=== PATIENT | male | born 1955 | race Caucasian/White ===

== ENCOUNTER → 2017-08-28 08:48 | Outpatient (CLI) | payer OTHER, SELFPAY ==
[2017-08-28 09:46] LABS: AST(SGOT) 17 U/L (15-37); Alanine Aminotransfer ALT/SGPT 33 U/L (16-61); Albumin, Serum 3.6 g/dL (3.2-5.0); Alkaline Phosphatase 83 U/L (45-117); Cholesterol 156 mg/dL (200); Globulin 3.4 g/dL (2.2-4.2); High Density Lipoprotein 39 mg/dL; Triglycerides 116 mg/dL; Very Low Density Lipoprotein 23 mg/dL (5-40)
== END ==
PROVIDERS: Family Provider Family Medicine; PCP Family Medicine; Visit Provider Physician Assistant Medical
DX: E78.5 Hyperlipidemia, unspecified (principal); Z79.899 Other long term (current) drug therapy
CPT/HCPCS: 36415; 80061; 80076

== ENCOUNTER → 2018-02-12 07:39 | Outpatient (CLI) | payer MEDICARE, SELFPAY ==
[2018-02-12 09:38] LABS: AST(SGOT) 23 U/L (15-37); Alanine Aminotransfer ALT/SGPT 42 U/L (16-61); Albumin, Serum 3.4 g/dL (3.2-5.0); Alkaline Phosphatase 82 U/L (45-117); Anion Gap 10 (5-15); BUN 16 mg/dL (7-18); BUN/Creat Ratio 17.3 RATIO (10-20); Calcium,Total 8.4 mg/dL (8.5-10.1); Chloride 108 mmol/L (98-107); Cholesterol 167 mg/dL (200); Creatinine, Serum 0.93 mg/dL (0.70-1.30); EST Glomerular Filtration Rate 87 mL/min (>60); Est Glom Filt Rate - Afr Amer 105 mL/min (>60); Globulin 3.4 g/dL (2.2-4.2); Glucose 100 mg/dL (74-106); High Density Lipoprotein 42 mg/dL; Magnesium 2.1 mg/dL (1.6-2.6); Protein, Total 6.8 g/dL (6.4-8.2); Sodium Level 141 mmol/L (136-145); Thyroid Stim Hormone (TSH) 2.11 uIU/mL (0.358-3.74); Triglycerides 143 mg/dL; Very Low Density Lipoprotein 29 mg/dL (5-40)
[2018-02-12 12:02] LABS: Microalbumin,Random Urine 16.6 mg/L (NO RANGE EST.); Microalbumin:Creatinine Ratio 10.6 mg/g CRE (<30 mg/g CRE)
--- OUTSIDE RECORDS SUMMARY | 2018-04-08 18:53 | XMS RPT_ITS ---
:1955 Author Organization OHIP Care Team Providers Name Role Phone Sloan Galan Attending Unavailable Roche, Apolinar Referring Unavailable Roche, Apolinar Primary Care Unavailable Pamela Manuelito Attending Unavailable Roche, Apolinar Primary Care Unavailable Adama Sloan Attending Unavailable Roche, Apolinar Referring Unavailable ASSESSMENT, HEALTH RISK Attending Unavailable Roche, Apolinar Primary Care Unavailable Jody Padilla Attending Unavailable Jody Padilla Referring Unavailable Roche, Apolinar Primary Care Unavailable Aidan Wyatt Attending Unavailable Roche, Apolinar Referring Unavailable Roche, Apolinar Primary Care Unavailable Roche, Apolinar Attending Unavailable Roche, Apolinar Referring Unavailable Roche, Apolinar Primary Care Unavailable Jody Padilla Attending Unavailable Roche, Apolinar Referring Unavailable Roche, Apolinar Primary Care Unavailable PROBLEMS PROBLEMS DATE TYPE CONDITION / CODE ATTENDING STATUS SOURCE 02/12/2018 Unknown 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 / Community I40.0(ICD-10) Hospital Repository 02/12/2018 Unknown R60.0 - Localized Apolinar Roche Active [facility] edema / Community R60.0(ICD-10) Hospital Repository 03/10/2017 Unknown G47.33 - Manuelito Santiago Active [facility] Obstructive sleep Community apnea (adult) Hospital (pediatric) / Repository G47.33(ICD-10) 03/10/2017 Unknown G47.37 - Central Manuelito Santiago Active [facility] sleep apnea in Community conditions Hospital classified Repository elsewhere / G47.37(ICD-10) PROCEDURES PROCEDURES No Procedure Records FoundRESULTS RESULTS COMPREHENSIVE METABOLIC Collected: 02/12/2018 Status: F Source: JUNAID LOPEZ 7:44 AM [facility]PITAL REPOSITORY Order Comment: Order Date: 11/16/17 Order Info: [id number] - CMP Order Info: [id number] - LIPID Order Info: [id number] - MG Order Info: 3016-3 - TSH TYPE CODE TESTS RESULT OUT OF RANGE REFERENCE UNITS LAB L501.0100 74-106 mg/dL Normal GLU 100 Result Comment: Fasting Glucose result from 100 to 125 mg/dL suggests IMPAIRED HOMEOSTASIS per A.D.A. criteria. Please note revised GLUCOSE reference range effective 2017. LAB L501.1000 7-18 mg/dL Normal BUN 16 LAB L501.1100 0.70-1.30 mg/dL Normal CREAT,SERUM 0.93 Result Comment: The validity of the calculated GFR AND GFRAA in patients over 70 years has not been determined. Clinical correlation is essential. LAB L501.1110 >60 mL/min Normal EST GFR 87 Result Comment: Non- GFR Calc LAB L501.1115 >60 mL/min Normal EST GFR - AA 105 Result Comment: GFR Calc LAB L501.1300 10-20 RATIO Normal BUN/CRE 17.3 LAB L501.1500 6.4-8.2 g/dL T Normal PROT 6.8 LAB L501.1800 3.2-5.0 g/dL Normal ALB 3.4 LAB L501.1950 2.2-4.2 g/dL Normal GLOB 3.4 LAB L501.2000 0.9-2.4 RATIO Normal A/G 1.0 LAB L501.2200 8.5-10.1 mg/dL Low CA 8.4 LAB L501.4100 15-37 U/L Normal AST 23 LAB L501.4305 45-117 U/L Normal ALK P 82 LAB L501.4405 16-61 U/L Normal ALT 42 LAB L501.4600 0.20-1.00 mg/dL T Normal BILI 0.30 LAB L501.5300 136-145 mmol/L NA Normal 141 LAB L501.5600 3.5-5.1 mmol/L K Normal 4.0 LAB L501.5900 98-107 mmol/L High CL 108 LAB L501.6100 21.0-32.0 mmol/L Normal CO2 23.0 LAB L501.6200 5-15 Normal GAP 10 Performed By: #### L500.4050, L500.4100, L501.5200, L501.9520, L502.0250 #### [facility] [address] [place], [address] LIPID PROFILE Collected: 02/12/2018 Status: F Source: JUNAID 7:44 AM [facility] REPOSITORY Order Comment: Order Date: 11/16/17 Order Info: [id number] - CMP Order Info: [id number] - LIPID Order Info: [id number] - MG Order Info: 3016-3 - TSH TYPE CODE TESTS RESULT OUT OF RANGE REFERENCE UNITS LAB L501.4900 200 mg/dL Normal CHOL 167 Result Comment: <200 mg/dL Desirable 200-240 mg/dL Borderline >240 mg/dL High Risk LAB L501.5000 mg/dL Normal TRIG 143 Result Comment: The drugs N-Acetylcysteine and Metamizole may falsely depress this assay. Serum Triglycerides Reference Interval Normal <150 mg/dL Borderline high 150 - 199 mg/dL High 200 - 499 mg/dL Very High > or = 500 mg/dL LAB L501.6400 mg/dL Normal HDL 42 Result Comment: The drugs N-Acetylcysteine and Metamizole may falsely depress this assay. Reference Range HDL <40 mg/dL Low HDL Cholesterol HDL >or= 60 mg/dL High HDL Cholesterol LAB L501.6500 0-130 mg/dL Normal LDL 96 LAB L501.6600 5-40 mg/dL Normal VLDL 29 Performed By: #### L500.4050, L500.4100, L501.5200, L501.9520, L502.0250 #### [facility] [address] [place], [place], [address] MAGNESIUM Collected: 02/12/2018 Status: F Source: DECATUR 7:44 AM [facility] REPOSITORY Order Comment: Order Date: 11/16/17 Order Info: [id number] - CMP Order Info: [id number] - LIPID Order Info: [id number] - MG Order Info: 3016-3 - TSH TYPE CODE TESTS RESULT OUT OF RANGE REFERENCE UNITS LAB L501.5200 1.6-2.6 mg/dL Normal MG 2.1 Performed By: #### L500.4050, L500.4100, L501.5200, L501.9520, L502.0250 #### [facility] [address] [place], [place], [address] THYROID STIM HORMONE Collected: 02/12/2018 Status: F Source: DECATUR (TSH) 7:44 AM [facility] REPOSITORY Order Comment: Order Date: 11/16/17 Order Info: [id number] - CMP Order Info: [id number] - LIPID Order Info: [id number] - MG Order Info: 3016-3 - TSH TYPE CODE TESTS RESULT OUT OF RANGE REFERENCE UNITS LAB L501.9520 0.358-3.74 uIU/mL Normal TSH 2.11 Performed By: #### L500.4050, L500.4100, L501.5200, L501.9520, L502.0250 #### [facility] [address] [place], [address] MICROALB:CREAT Collected: 02/12/2018 Status: F Source: JUNAID RATIO,RANDOM UR 7:44 AM [facility] REPOSITORY Order Comment: Order Date: 11/16/17 Order Info: [id number] - MIACRE TYPE CODE TESTS RESULT OUT OF RANGE REFERENCE UNITS LAB L501.1200 NO RANGE EST. mg/dL Normal UR CREAT 156.00 LAB L502.0500 NO RANGE EST. mg/L Normal 16.6 MICROALBUMIN ,UR LAB L502.0600 <30 mg/g CRE mg/g CRE Normal 10.6 MALB:CREAT Performed By: #### L500.4050, L500.4100, L501.5200, L501.9520, L502.0250 #### [facility] [address] [place], [address] CARDIOLOGY VISIT Observed: 08/31/2017 Status: F Source: JUNAID REPORT 2:46 PM [facility] REPOSITORY [facility] [address] [place] [address] OFFICE VISIT Date of Service: 08/31/17 MR#: [id number] Acct: [id number] Name: JOSH CLOUD Rep #: [id number] : 1955 Provider: Aidan Wyatt MD Age/Sex: 62/M Location: [facility] Status: Signed HPI [facility] Chief Complaint: Follow up Details: JOSH CLOUD is a 62 M who presents to the office today for a cardiovascular follow-up. He has a history of coronary artery disease with bypass surgery. In 2008 he had an CORDOVA to the LAD, BRITT to the OM. He also has a history of hypertension, hyperlipidemia, right bundle branch block and diabetes. He has done well since then and do remember that he underwent a Pharmacologic stress test in 2017 was negative for ischemia with preserved ejection fraction. In addition, his Echocardiogram in 2017 demonstrated normal LV size, moderate concentric LVH. Estimated ejection fraction 65%. No regional wall motion abnormalities. Mild mitral valve insufficiency. Mild to moderate tricuspid insufficiency. RVSP 40 mmHg. From a cardiac standpoint he is doing well. He is hoping that his knee surgery will help improve his exercise tolerance. He does not have any chest heaviness or tightness. He does not have any worsening shortness of breath. He does not have any irregular heart beats. He does not have any near-syncope or syncope. His physical exam demonstrates clear lung oviedo occasional ectopic beats and is soft 1/6 to 2/6 systolic ejection murmur noted over the left sternal border. Intake Vital Signs08/31/17 Height 5 ft 8 in 08/31/17 Weight: 293 lb 08/31/17 Body Mass Index (BMI) 44.5 08/31/17 Blood Pressure 148/80 Intake Visit Reasons: 6 M FU Allergies JAJA Inhibitors Allergy (Verified 08/31/17 14:25) Unknown atorvastatin [From Lipitor] Adverse Reaction (Verified 08/31/17 14:25) Pain in joints simvastatin Adverse Reaction (Verified 08/31/17 14:25) Pain in joints Medications Ascorbic Acid [Vitamin C] 500 mg PO DAILY 05/26/16 [History Confirmed 08/31/17] Aspirin E.C. [Ecotrin] 81 mg PO DAILY@0800 05/26/16 [History Confirmed 08/31/17] Glucosamine Sulfate 500 mg PO BID 05/26/16 [History Confirmed 08/31/17] Metformin HCl [Glucophage] 500 mg PO QHS 05/26/16 [History Confirmed 08/31/17] Multivitamins,Therapeutic [Multivitamin] 1 tab PO DAILY 05/26/16 [History Confirmed 08/31/17] Tamsulosin HCl [Flomax] 0.4 mg PO DAILY 05/26/16 [History Confirmed 08/31/17] Ubidecarenone/Vit E Acetate [Co Q-10 100 mg Softgel] 1 ea PO DAILY 05/26/16 [History Confirmed 08/31/17] metoprolol tartrate 100 mg tablet 100 mg PO BID #180 tab 02/22/17 [Rx Confirmed 08/31/17] valsartan 320 mg tablet 320 mg PO DAILY #90 tab 02/22/17 [Rx Confirmed 08/31/17] [facility] Medical History Hypertension (Chronic) Right bundle branch block (Chronic) Secondary pulmonary arterial hypertension (Chronic) Atherosclerosis of coronary artery of [place] heart without angina pectoris (Chronic) NSVT (nonsustained ventricular tachycardia) (Chronic) Hyperlipidemia (Chronic) Diabetes mellitus (Chronic) GERD (gastroesophageal reflux disease) (Chronic) Obesity (Chronic) Obstructive sleep apnea (Chronic) Osteoarthritis (Chronic) Surgical History H/O coronary artery bypass surgery (Chronic 2009) H/O arthroscopy of right knee (Chronic) History of arthroscopy of left knee (Resolved) S/P hemorrhoidectomy (Inactive) S/P right knee arthroscopy (Inactive) left foot (Inactive) Family History Aunt Myocardial infarction Other CAD (coronary artery disease) Carotid artery stenosis Social History Smoking Status: Former smoker ROS Const Const: Negative for fatigue, weakness, weight gain, weight loss, frequent falls or excessive sweating Eyes Eyes: Negative for change in vision, blurry vision or transient loss of vision ENT ENT: Negative for dizziness or balance problems Cardio Chest Pain: No Palpitations: Yes (rare) Edema: None Muscle aches with walking: None Resp Respiratory: Positive for SOB with activity (breathing at baseline); negative for SOB at rest GI GI: Negative vomiting or vomiting blood/hematemesis : Negative for hematuria Musc Musc: Negative for balance problems, muscle aches/ myalgia, muscle weakness or joint pain Skin Skin: Negative non-healing lesions or rash Neuro Neuro: Negative for weakness, blurry vision, dizziness, lightheadedness, frequent falls or orthostatic symptoms Lisandro Hematologic/Lymphatic: Negative for easy bleeding Endo Endo: Negative for fatigue or excessive sweating Psych Psych: Negative for anxiety or depression Allergy Allergy/Immunology: Negative for hives, Negative for rash Cardiology Exam Const Appearance: cooperative, healthy appearing, well developed, well groomed and no acute distress Nutritional Appearance: well nourished and average body habitus Orientation: alert, awake and oriented x3 Head Head: normal to inspection, normocephalic and atraumatic Ears: hearing grossly normal bilaterally and external ears normal Nose: external nose normal, nasal mucous membranes and turbinates normal, nares normal, septum normal, no nasal discharge Face and Sinus: face symmetric Mouth: oral mucosae normal, tongue normal, oropharynx normal and moist mucous membranes Teeth and gingiva: dentition normal Throat: posterior oropharynx normal, tonsils normal and uvula midline Eyes General: appearance normal, both eyes and all related structures Eyelids: eyelids normal Conjunctivae: conjunctivae normal Pupils: PERRL, normal by confrontation and accommodation normal EOM: EOM intact bilaterally Neck Neck: normal visual inspection, trachea midline and no JVD JVD: +5 Carotids: normal carotid upstroke and bounding pulses Chest Chest inspection: normal inspection of the chest, symmetric chest movement and normal respiratory effort Auscultation: Bilateral: Clear to Auscultation Cardio Palpation: normal PMI Rate: regular rate Rhythm: regular rhythm Heart sounds: S1 normal and S2 normal; negative rub, gallop or murmur Murmur: Grade 2/6, soft and LLSB GI GI: normal to inspection, soft, no hepatosplenomegaly and bowel sounds present Neuro General: alert, awake, oriented x3, no focal sensory deficit, gait normal and moves all extremities Skin Skin: no rashes or lesions noted Extremities Pulses: Normal: Right Femoral Pulse, Left Femoral Pulse, Right Dorsalis Pedis Pulse, Left Dorsalis Pedis Pulse, Right Posterior Tibial Pulse, Left Posterior Tibial Pulse, Right Radial Pulse, Left Radial Pulse Lower Extremity Edema: None: Bilateral Musculoskel Musculoskeletal: No joint tenderness Psych Psychological: normal affect Assessment AND Plan 1. H/O coronary artery bypass surgery Z95.1 CABG x 2 CORDOVA-LAD, BRITT-OM 2009 Plan He is status post carotid bypass surgery with a recent bleeding normally documented stress test the above is reassuring and my plan is for him to continue on the same medications without making any changes. Risk factor modification should continue. 2. Essential hypertension I10 Plan His blood pressure appears to be under excellent control at this time and I would not recommend that we make any changes. 3. NSVT (nonsustained ventricular tachycardia) I47.2 post op Plan He does have occasional ectopic beats which are unbeknownst to him with his preserved ejection fraction I would not recommend that we make any changes other than observation. 4. Pure hypercholesterolemia E78.00 Plan He does have a history of hyperlipidemia and remains on lipid- lowering medication his most recent lipid profile demonstrated total cholesterol 156, HDL of 39 and LDL of 94. His triglycerides 116. Thank you for allowing me to participate in the care of your patient. 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) Coding Level of Care Code Off vis,est,level 3 Diagnoses H/O coronary artery bypass surgery Z95.1 Essential hypertension I10 Hypertension type: essential hypertension NSVT (nonsustained ventricular tachycardia) I47.2 Pure hypercholesterolemia E78.00 Hyperlipidemia type: pure hypercholesterolemia Coding Level of Care Code Off vis,est,level 3 Diagnoses H/O coronary artery bypass surgery Z95.1 Essential hypertension I10 Hypertension type: essential hypertension NSVT (nonsustained ventricular tachycardia) I47.2 Pure hypercholesterolemia E78.00 Hyperlipidemia type: pure hypercholesterolemia 08/31/17 1446 <Electronically signed by Aidan Wyatt MD> Date Aidan Wyatt MD Cosigner Signature: Date (if applicable) CC: Apolinar Roche MD LIVER PROFILE Collected: 08/28/2017 Status: F Source: JUNAID 8:54 AM [facility] REPOSITORY Order Comment: Order Date: 08/21/16 Order Info: [id number] - *Hepatic Function Panel Order Info: [id number] - *Lipid Profile CC PCP Comments: 12 hours fasting, may have water. TYPE CODE TESTS RESULT OUT OF RANGE REFERENCE UNITS LAB L501.1500 6.4-8.2 g/dL Normal T PROT 7.0 LAB L501.1800 3.2-5.0 g/dL Normal ALB 3.6 LAB L501.1950 2.2-4.2 g/dL Normal GLOB 3.4 LAB L501.4100 15-37 U/L Normal AST 17 LAB L501.4305 45-117 U/L Normal ALK P 83 LAB L501.4405 16-61 U/L Normal ALT 33 LAB L501.4600 0.20-1.00 mg/dL Normal T BILI 0.30 LAB L501.4700 0.00-0.30 mg/dL Normal D BILI 0.10 Performed By: #### L500.3400 #### [facility] [address] [place], [address] LIPID PROFILE Collected: 08/28/2017 Status: F Source: JUNAID 8:54 AM [facility] REPOSITORY Order Comment: Order Date: 08/21/16 Order Info: [id number] - *Hepatic Function Panel Order Info: [id number] - *Lipid Profile CC PCP Comments: 12 hours fasting, may have water. TYPE CODE TESTS RESULT OUT OF RANGE REFERENCE UNITS LAB L501.4900 200 mg/dL Normal CHOL 156 Result Comment: <200 mg/dL Desirable 200-240 mg/dL Borderline >240 mg/dL High Risk LAB L501.5000 mg/dL Normal TRIG 116 Result Comment: The drugs N-Acetylcysteine and Metamizole may falsely depress this assay. Serum Triglycerides Reference Interval Normal <150 mg/dL Borderline high 150 - 199 mg/dL High 200 - 499 mg/dL Very High > or = 500 mg/dL LAB L501.6400 mg/dL Low HDL 39 Result Comment: The drugs N-Acetylcysteine and Metamizole may falsely depress this assay. Reference Range HDL <40 mg/dL Low HDL Cholesterol HDL >or= 60 mg/dL High HDL Cholesterol LAB L501.6500 0-130 mg/dL Normal LDL 94 LAB L501.6600 5-40 mg/dL Normal VLDL 23 Performed By: #### L500.4100 #### [facility] [address] [place] [place], [address] CBC, EMPLOYEE Collected: 04/15/2017 Status: F Source: JUNAID 7:23 AM [facility] REPOSITORY TYPE CODE TESTS RESULT OUT OF RANGE REFERENCE UNITS LAB L100.1000 4.4-11.0 K/mm3 Normal WBC 7.2 LAB L100.1200 4.6-6.2 M/mm3 Low RBC 4.44 LAB L100.1300 13.0-16.5 g/dl Normal HGB 14.5 LAB L100.1400 40-54 % Normal HCT 41.4 LAB L100.1500 80-94 fL Normal MCV 93.2 LAB L100.1600 27.0-32.0 pg High MCH 32.7 LAB L100.1700 32-36 g/gl Normal MCHC 35.0 LAB L100.1810 11.6-14.6 % Normal RDW CV 12.6 LAB L100.1820 35.1-43.9 fl Normal RDW SD 41.8 LAB L100.1900 150-450 K/mm3 Normal PLT 174 LAB L100.2000 6.2-12.0 fl Normal MPV 10.8 LAB L100.2110 47-70 % Normal NEUT% 52.0 LAB L100.2210 19-41 % Normal LY% 31.0 LAB L100.2310 0-10 % High MONO% 14.4 LAB L100.2410 0-5 % Normal EO% 2.2 LAB L100.2510 0-1 % Normal BASO% 0.3 LAB L100.2620 2.0-7.7 X10 3/uL Normal Absolute Neut 3.8 LAB L100.2720 0.83-4.51 X10 3/ul Normal Absolute Lymph 2.24 Performed By: #### L100.0200 #### [facility] [address] [place], [place], [address] EMPLOYEE PROFILE Collected: 04/15/2017 Status: F Source: DECATUR 7:23 AM [facility] REPOSITORY TYPE CODE TESTS RESULT OUT OF RANGE REFERENCE UNITS LAB L501.0100 70-110 mg/dL Normal GLU 97 LAB L501.1000 7-18 mg/dL Normal BUN 14 LAB L501.1100 0.70-1.30 mg/dL Normal 0.96 CREAT,SERUM Result Comment: The validity of the calculated GFR AND GFRAA in patients over 70 years has not been determined. Clinical correlation is essential. LAB L501.1110 >60 mL/min Normal EST GFR 83 Result Comment: Non- GFR Calc LAB L501.1115 >60 mL/min Normal EST GFR - AA 101 Result Comment: GFR Calc LAB L501.1300 10-20 RATIO Normal BUN/CRE 14.5 LAB L501.1400 3.5-7.2 mg/dL Normal URIC 6.3 Result Comment: The drugs N-Acetylcysteine and Metamizole may falsely depress this assay. LAB L501.1500 6.4-8.2 g/dL Normal T PROT 6.8 LAB L501.1800 3.2-5.0 g/dL Normal ALB 3.4 LAB L501.1950 2.2-4.2 g/dL Normal GLOB 3.4 LAB L501.2000 0.9-2.4 RATIO Normal A/G 1.0 LAB L501.2200 8.5-10.1 mg/dL Low CA 8.3 LAB L501.2300 2.5-4.9 mg/dL Normal PHOS 2.6 LAB L501.4100 15-37 U/L Normal AST 23 LAB L501.4305 45-117 U/L Normal ALK P 96 LAB L501.4405 16-61 U/L Normal ALT 37 Result Comment: Please note revised ALT reference range effective 2017. LAB L501.4600 0.20-1.00 mg/dL Normal T BILI 0.50 LAB L501.4700 0.00-0.30 mg/dL Normal D BILI 0.10 LAB L501.4900 200 mg/dL Normal CHOL 166 Result Comment: <200 mg/dL Desirable 200-240 mg/dL Borderline >240 mg/dL High Risk LAB L501.5000 mg/dL Normal TRIG 180 Result Comment: The drugs N-Acetylcysteine and Metamizole may falsely depress this assay. Serum Triglycerides Reference Interval Normal <150 mg/dL Borderline high 150 - 199 mg/dL High 200 - 499 mg/dL Very High > or = 500 mg/dL LAB L501.5300 136-145 mmol/L Normal NA 141 LAB L501.5600 3.5-5.1 mmol/L Normal K 4.2 LAB L501.5900 98-107 mmol/L Normal CL 107 LAB L501.6100 21.0-32.0 mmol/L Normal CO2 26.0 LAB L501.6200 5-15 Normal 8 GAP LAB L501.6400 mg/dL Normal HDL 41 Result Comment: The drugs N-Acetylcysteine and Metamizole may falsely depress this assay. Reference Range HDL <40 mg/dL Low HDL Cholesterol HDL >or= 60 mg/dL High HDL Cholesterol LAB L501.6475 Normal CHOL:HDL 4.00 LAB L501.6500 0-130 mg/dL Normal LDL 89 LAB L501.6600 5-40 mg/dL Normal VLDL 36 LAB L504.2610 87-241 U/L Normal LDH 154 Performed By: #### L500.2900 #### [facility] [address] [place], [place], [address] NICOTINE URINE DRUG Collected: 04/15/2017 Status: F Source: DECATUR SCREEN 7:23 AM [facility] REPOSITORY TYPE CODE TESTS RESULT OUT OF RANGE REFERENCE UNITS LAB L505.6250 TO BE Normal CONFIRMED Result Comment: CONFIRMATORY TESTING FOR ALL POSITIVE URINE DRUG SCREEN RESULTS WILL ONLY BE SENT OUT UPON PHYSICIAN ORDER. The results of Urine Drug Screen methods provide only preliminary analytical test results. A more specific alternate chemical method must be used in order to obtain a confirmed analytical result. Gas chromatography/mass spectrometery (GC/MS) is the preferred confirmatory method. Clinical consideration and professional judgement should be applied to any drug of abuse test result, particularly when preliminary positive results are used. LAB L505.6270 <200 ng/mL Normal COT DRG Negative SCREEN Result Comment: Cotinine is the first-stage metabolite of Nicotine. Performed By: #### L505.6240 #### [facility] [address] [place] [place], [place], [address] URINALYSIS, EMPLOYEE Collected: 04/15/2017 Status: F Source: DECATUR 7:23 AM [facility] REPOSITORY TYPE CODE TESTS RESULT OUT OF RANGE REFERENCE UNITS LAB L400.3000 Yellow COLOR Normal Yellow LAB L400.3050 Clear Normal CLARITY Clear LAB L400.3200 Normal mg/dl Normal GLUCOSE, UR Normal LAB L400.3300 Negative mg/dL Normal BILIRUBIN URINE Negative LAB L400.3400 Negative mg/dl Normal KETONE UR Negative LAB L400.3465 1.002-1.030 Normal SP.GR. DIPSTX 1.010 LAB L400.3550 5.0 - 8.0 pH UR Normal 6.0 LAB L400.3600 Negative mg/dl PROT Normal DIPSTX Negative LAB L400.3700 Normal mg/dl Normal UROBILI Normal LAB L400.3750 Negative Normal NITRITE UR Negative LAB L400.3780 Negative /ul Normal OCCULT BLOOD-UR Negative LAB L400.3800 Negative /ul LEUK Normal ESTERASE Negative Performed By: #### L400.0100 #### [facility] [address] [place], [address] ORTHOPEDIC VISIT Observed: 03/14/2017 Status: F Source: JUNAID REPORT 11:32 AM [facility] REPOSITORY [facility] Orthopaedics AND Sports Medicine [facility] [place] [address] OFFICE VISIT Date of Service: 03/10/17 MR#: [id number] Acct: [id number] Name: JOSH CLOUD Rep #: [id number] : 1955 Provider: Sloan Galan DO Age/Sex: 61/M [place] [place]: Signed Intake Intake Visit Reasons: Left knee Is patient in pain?: No Allergies JAJA Inhibitors Allergy (Verified 03/10/17 14:07) Unknown atorvastatin [From Lipitor] Adverse Reaction (Verified 03/10/17 14:07) Pain in joints simvastatin Adverse Reaction (Verified 03/10/17 14:07) Pain in joints Medications Ascorbic Acid [Vitamin C] 500 mg PO DAILY 05/26/16 [History Confirmed 03/10/17] Aspirin E.C. [Ecotrin] 81 mg PO DAILY@0800 05/26/16 [History Confirmed 03/10/17] Glucosamine Sulfate 500 mg PO BID 05/26/16 [History Confirmed 03/10/17] Metformin HCl [Glucophage] 500 mg PO QHS 05/26/16 [History Confirmed 03/10/17] Multivitamins,Therapeutic [Multivitamin] 1 tab PO DAILY 05/26/16 [History Confirmed 03/10/17] Tamsulosin HCl [Flomax] 0.4 mg PO DAILY 05/26/16 [History Confirmed 03/10/17] Ubidecarenone/Vit E Acetate [Co Q-10 100 mg Softgel] 1 ea PO DAILY 05/26/16 [History Confirmed 03/10/17] metoprolol tartrate 100 mg tablet 100 mg PO BID #180 tab 02/22/17 [Rx Confirmed 03/10/17] valsartan 320 mg tablet 320 mg PO DAILY #90 tab 02/22/17 [Rx Confirmed 03/10/17] PFSH Medical History Other tear of medial meniscus, current injury, right knee, subsequent encounter (Acute) Osteochondral defect (Acute) Primary osteoarthritis of right knee (Chronic) Bilateral knee pain (Acute) NSVT (nonsustained ventricular tachycardia) (Chronic) CAD (coronary artery disease), tuscarora artery transplanted heart (Chronic) Hyperlipidemia (Chronic) Diabetes mellitus (Chronic) GERD (gastroesophageal reflux disease) (Chronic) Hypertension (Chronic) Osteoarthritis (Chronic) Surgical History Hx of CABG (Chronic 2008) H/O arthroscopy of right knee (Inactive) S/P hemorrhoidectomy (Inactive) S/P right knee arthroscopy (Inactive) left foot (Inactive) Family History Aunt Myocardial infarction Other CAD (coronary artery disease) Carotid artery stenosis Social History Smoking Status: Former smoker HPI Left knee: Details: JOSH CLOUD is a 61 year old M here today for f/u right knee arthroscopy 02/25/17. He states he has no pain, no clicking and minimal swelling. Patient is ambulating well with no gait changes and Denies numbness, tingling or other associated symptoms. ROS Const Reports system reviewed and no additional complaints, except as docu Eyes Reports system reviewed and no additional complaints, except as docu ENT Reports system reviewed and no additional complaints, except as docu Card Reports system reviewed and no additional complaints, except as docu Resp Reports system reviewed and no additional complaints, except as docu GI Reports system reviewed and no additional complaints, except as docu Musc Reports as per HPI Skin/Breast Reports system reviewed and no additional complaints, except as docu Neuro Yes system reviewed and no additional complaints, except as docu Psych Reports system reviewed and no additional complaints, except as docu Endo Reports system reviewed and no additional complaints, except as docu Ortho Exam Left Knee Skin/Wound: Yes CDI, Yes suture/russell removed Contralateral Normal: Yes Swelling: No Homans Sign: No 1+: Effusion Quad Atrophy: No Stability: NML: Anterior Drawer, NML: Dieudonne, NML: Posterior Drawer, NML: Valgus 0, NML: Valgus 30, NML: Varus 0, NML: Varus 30, NML: Dial 90, NML: Dial 30 KNEE: Alert and oriented 3 in no acute distress. Propine eye contact affect. Walks an antalgic gait. Range of motion 0-135. Minimal medial lateral joint line tenderness currently. Minimal effusion noted. Remains ligamentously stable. Intraoperative findings discussed. Assessment AND Plan Problems 1. Orthopedic aftercare Z47.89 Plan : After orthopedic status post left knee scope chondroplasty and medial meniscus debridement. Patient is doing well. Plan: Patient will start outpatient physical therapy if desired prescription provided. Will follow up in 4 weeks. Patient states that he feels very well. We will continue to follow conservatively. Any major issues return. Pain medication as needed. Anti-inflammatories tolerated 03/14/17 1132 <Electronically signed by Sloan Galan DO> Date Sloan Galan DO Cosigner Signature: Date (if applicable) CC: CARDIOLOGY VISIT Observed: 03/02/2017 Status: F Source: JUNAID REPORT 2:48 PM [facility] REPOSITORY [facility] [address] [place] [address] OFFICE VISIT Date of Service: 03/01/17 MR#: [id number] Acct: [id number] Name: JOSH CLOUD Rep #: [id number] : 1955 Provider: Jody Padilla Age/Sex: 61/M Location: [facility] Status: Signed HPI 6 M FU: Details: JOSH CLOUD, is a 61 M who presents to the office today for a cardiovascular follow-up. He has a history of coronary artery disease with bypass surgery. In 2008 he had an CORDOVA to the LAD, BRITT to the OM. He also has a history of hypertension, hyperlipidemia, right bundle branch block and diabetes. Pharmacologic stress test in 2017 was negative for ischemia with preserved ejection fraction. Echocardiogram in 2017 demonstrated normal LV size, moderate concentric LVH. Estimated ejection fraction 65%. No regional wall motion abnormalities. Mild mitral valve insufficiency. Mild to moderate tricuspid insufficiency. RVSP 40 mmHg. Patient recently underwent left knee arthroscopically. From a cardiac standpoint he is doing well. He is hoping that his knee surgery will help improve his exercise tolerance. He does not have any chest heaviness or tightness. He does not have any worsening shortness of breath. He does not have any irregular heart beats. He does not have any near-syncope or syncope. Intake Vital Signs03/01/17 Height 5 ft 8 in 03/01/17 Weight: 301 lb 03/01/17 Body Mass Index (BMI) 45.7 03/01/17 Blood Pressure 120/80 03/01/17 Pulse Rate 60 Intake Visit Reasons: 6 M FU Allergies JAJA Inhibitors Allergy (Verified 02/19/17 09:05) Unknown atorvastatin [From Lipitor] Adverse Reaction (Verified 02/19/17 09:05) Pain in joints simvastatin Adverse Reaction (Verified 02/19/17 09:05) Pain in joints Medications Ascorbic Acid [Vitamin C] 500 mg PO DAILY 05/26/16 [History Confirmed 03/01/17] Aspirin E.C. [Ecotrin] 81 mg PO DAILY@0800 05/26/16 [History Confirmed 03/01/17] Glucosamine Sulfate 500 mg PO BID 05/26/16 [History Confirmed 03/01/17] Metformin HCl [Glucophage] 500 mg PO QHS 05/26/16 [History Confirmed 03/01/17] Multivitamins,Therapeutic [Multivitamin] 1 tab PO DAILY 05/26/16 [History Confirmed 03/01/17] Tamsulosin HCl [Flomax] 0.4 mg PO DAILY 05/26/16 [History Confirmed 03/01/17] Ubidecarenone/Vit E Acetate [Co Q-10 100 mg Softgel] 1 ea PO DAILY 05/26/16 [History Confirmed 03/01/17] metoprolol tartrate 100 mg tablet 100 mg PO BID #180 tab 02/22/17 [Rx Confirmed 03/01/17] valsartan 320 mg tablet 320 mg PO DAILY #90 tab 02/22/17 [Rx Confirmed 03/01/17] Ejection fraction %: 65 to 70 PFSH Medical History NSVT (nonsustained ventricular tachycardia) (Chronic) CAD (coronary artery disease), tuscarora artery transplanted heart (Chronic) Hyperlipidemia (Chronic) Surgical History Hx of CABG (Chronic 2008) Social History Smoking Status: Former smoker ROS Const Const: Negative for weakness, fatigue, fever(s) or headache(s) Eyes Eyes: Negative for blind spots, loss of peripheral vision or transient loss of vision ENT ENT: Negative for headache(s), Negative for dizziness, Negative for tinnitus, Negative for Nosebleed/epistaxis Cardio Chest Pain: No Palpitations: Positive for No Edema: None Muscle aches with walking: None Resp Respiratory: Negative for SOB with activity, SOB at rest or SOB orthopnea\SOB lying down GI GI: Positive for heartburn; negative vomiting or nausea : Negative for hematuria Musc Musc: Negative for muscle aches/ myalgia Neuro Neuro: Negative for weakness, Negative for headache(s), Negative for dizziness, Negative for near syncope, Negative for syncope, Negative for lightheadedness Lisandro Hematologic/Lymphatic: Negative for easy bleeding Endo Endo: Negative for fatigue Cardiology Exam Const Appearance: cooperative, no acute distress and well developed Orientation: alert, awake and oriented x3 Head Head: normocephalic; negative atraumatic Eyes General: appearance normal, both eyes and all related structures Conjunctivae: conjunctivae normal Pupils: PERRL Neck Neck: normal visual inspection, no lymphadenopathy and no JVD Carotids: Negative bruit Chest Chest inspection: normal inspection of the chest and symmetric chest movement Auscultation: Bilateral: Clear to Auscultation Cardio Palpation: normal PMI Rate: regular rate Rhythm: regular rhythm Heart sounds: S1 normal and S2 normal; negative rub, gallop or murmur GI GI: normal to inspection, soft, no hepatosplenomegaly and bowel sounds present; negative tender Neuro General: alert, awake, oriented x3, CN's II-XI intact bilaterally and moves all extremities Extremities Pulses: Normal: Right Posterior Tibial Pulse, Left Posterior Tibial Pulse, Right Radial Pulse, Left Radial Pulse Lower Extremity Edema: None: Bilateral Psych Psychological: normal affect Supplemental Info Laboratory Tests Triglycerides 131 Cholesterol 151 HDL Cholesterol 41 Assessment AND Plan 1. 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 We recommend that they continue with current aggressive medical management and risk factor modification. 2. NSVT (nonsustained ventricular tachycardia) I47.2 post op Plan - YOSELIN Stewart Patient has not had any symptomatic recurrence. We will continue to monitor. Will continue with current dose of beta-charito. 3. Pure hypercholesterolemia E78.00; E78.00; E78.00; E78.0 Plan - YOSELIN Stewart Recent lipids were reviewed. Will continue with current medications. 4. Essential hypertension I10; I10; I10 Plan - YOSELIN Stewart Blood pressure is well controlled on current medications, we do not recommend any changes at this time. Plan Detail Additional Comments - YOSELIN Stewart The above patient was discussed with Dr. Wyatt, he agrees with plan of care. Thank you for allowing us to participate in patient's plan of care, if you have any questions please do not hesitate to call. This note was generated using a voice recognition system and there may be incorrect words, spelling or punctuation errors that were not noted when reviewing the office note prior to saving. Follow Up 6 Months ([employer]) 03/01/17 1335 <Electronically signed by Jody WYATT> Date Jody WYATT 03/02/17 1448<Electronically signed by Aidan Wyatt MD> Cosigner Signature: Date (if applicable) Aidan Wyatt MD CC: Apolinar Roche MD ALLERGIES ALLERGIES DATE TYPE / CODE NAME / CODE REACTION SEVERITY SOURCE 08/31/2017 Drug JAJA Unknown Unknown [facility] Inhib[facility]/F [facility] 21075(SNOMED 308949641(RX Repository CT) NORM) 08/31/2017 Drug simvastatin/ Pain in joints Unknown [facility] All[facility]/4160 [id number](R Hospital 55566(SNOMED XNORM) Repository CT) 08/31/2017 Drug atorvastatin Pain in joints Unknown Junaid [facility] Allergy/4160 /[id number]( Hospital 05989(SNOMED RXNORM) Repository CT) ENCOUNTERS ENCOUNTERS ADMIT/DISCHARGE ACCOUNT ADMITTING ENCOUNTER LOCATION SOURCE NUMBER CLASS 02/12/2018 [id number] [place] [facility] ing:LAB Repository 08/31/2017/ [id number] Ambulatory BMSBuilding:B [place] 7 [facility] Repository 08/28/2017 [id number] [place] [facility] ing:LAB Repository 04/15/2017 [id number] [place] 1 [facility] ing:LAB Repository 04/07/2017 [id number] Ambulatory BMSBuilding:B [place] 7 [facility] Repository 03/10/2017 [id number] [place] [facility] ing:SL Repository 03/10/2017/ [id number] Ambulatory BMSBuilding:B [place] 9 [place].[facility] Repository 03/01/2017/ [id number] Ambulatory BMSBuilding:B [place] 7 0 MS.[facility] Repository PAYERS PAYERS ENCOUNTER GUARANTOR PAYER SUBSCRIBER SOURCE 02/12/2018 JOSH A Primary JOSH A [place] [id number] Insurance:HUMANA GARDB: Community [place] MEDICARE PPOPolicy [id number] Number: Repository [address]Eim: (527) [id number] [phone] () Date:3010-59-39ZR [address] [place] [id number]: 02/12/2018 Secondary NOT GIVENUNK [place] Insurance:SELF PAY [facility] Number: Effective Repository Date:2018-02-12 08/31/2017 JOSH A Primary JOSH A [place] [id number] Insurance[facility] Number: [id number], [place] [id number] Repository [address]Uku: 330) Date:5177-59-54NS [phone] () 155[place]TDNVMNXNIPA, [place] [address]HQ: 08/31/2017 Secondary NOT GIVENUNK [place] Insurance:SELF PAY [facility] Number: Effective Repository Date:2017-08-31 08/28/2017 JOSH A Primary JOSH A [place] [id number] Insurance:CIGNAPolicy GARDDOB: Community [place] Number: [id number], [place] [id number] Repository [address]Zzf: (330) Date:7289-96-10HN [phone] () 023884MSGONAHRNOA, [place] [address]UQ: 08/28/2017 Secondary NOT GIVENUNK [place] Insurance:SELF PAY [facility] Number: Effective Repository Date:2017-08-28 04/15/2017 JOSH A Primary NOT GIVENUNK [place] [id number] Insurance:SELF PAY [place], [place] Number: Effective Repository [id number]: (330) Date:2017-04-15 [phone] () 04/07/2017 JOSH A Primary JOSH A [place] [id number] Insurance:CIGNAPolicy GARDDOB: [facility] Number: [id number], [place] [id number] Repository [address]Ozy: (330) Date:4034-95-42HD [phone] () 213191JHEMBJDGIFC, [place] [address]FJ: 04/07/2017 Secondary NOT GIVENUNK [place] Insurance:SELF PAY [facility] Number: Effective Repository Date:2017-03-10 03/10/2017 JOSH A Primary JOSH A [place] [id number] Insurance:CIGNAPolicy GARDDOB: [facility] Number: [id number], [place] [id number] Repository [address]Nvc: (330) Date:9987-82-74EM [phone] () [id number], [place] [address]QO: 03/10/2017 Secondary NOT GIVENUNK [place] [facility] Effective Repository Date:2017-02-18 03/10/2017 JOSH A Primary JOSH [place] [id number] Insurance:CIGNAPolicy GARDDOB: [facility] Number: [id number], [place] [id number] Repository [address]Cwf: (330) Date:3598-95-60VU [phone] () [id number], [place] [address]VN: 03/10/2017 Secondary NOT GIVENUNK [place] Insurance:SELF PAY [facility] Number: Effective Repository Date:2017-02-15 03/01/2017 JOSH A Primary JOSH [place] [id number] Insurance:CIGNAPolicy GARDDOB: [facility] Number: [id number], [place] [id number] Repository [address]Hun: (330) Date:1126-25-90UV [phone] () 128647URDMHBWQEPX, [place] [address]AM: 03/01/2017 Secondary NOT GIVENUNK [place] Insurance:SELF PAY [facility] Number: Effective Repository Date:2017-02-13
== END ==
PROVIDERS: Family Provider Family Medicine; PCP Family Medicine; Referring Provider Family Medicine; Visit Provider Family Medicine
DX: I10 Essential (primary) hypertension (principal); R60.0 Localized edema
CPT/HCPCS: 36415; 80053; 80061; 82043; 82570; 83735; 84443

== ENCOUNTER → 2018-04-27 08:48 | Outpatient (CLI) | payer MEDICARE, SELFPAY ==
--- NOTE | 2018-04-27 08:55 | RAD_ITS ---
STUDY: X-RAY - ESOPHAGUS (BARIUM SWALLOW) WITH FLUOROSCOPY REASON FOR EXAM: Male, 63 years old. Dysphagia for liquids and solids. History of prior esophageal dilatation. TECHNIQUE: 21 view(s) of the esophagus were obtained following swallowing of barium. FLUOROSCOPY TIME (if supplied): (0:30) minutes/seconds COMPARISON: None. FINDINGS: There is no demonstrated esophageal foreign body. There is no demonstrated stricture or mucosal abnormality. There is a small hiatal hernia of the fundus of the stomach. The patient ingested a 12 mm tablet of barium. The tablet is trapped at the gastroesophageal junction. There is atherosclerotic tortuosity of the aortic arch and descending thoracic aorta. Normal visualized pulmonary parenchyma. There are diffuse degenerative changes of the visualized thoracic spine. RAD/Esophagus Only IMPRESSION: Small sliding hiatal hernia without reflux. The 12 mm tablet of barium is trapped at the gastroesophageal junction. Electronically Signed: Je Guzman MD at 9:05 EST , Service support ,
== END ==
PROVIDERS: Family Provider Family Medicine; PCP Family Medicine; Referring Provider Family Medicine; Visit Provider Family Medicine
DX: R13.10 Dysphagia, unspecified (principal)
CPT/HCPCS: 74220

== ENCOUNTER 2018-05-13 09:25 | Day surgery (SDC) | payer MEDICARE, SELFPAY ==
[2018-05-02 10:04] VITALS: BMI 46.2
[2018-05-13 09:41] VITALS: BP 122/60; PULSE 52; RESP 16; TEMP 35.8; O2SAT 97; BMI 45.9
[2018-05-13 10:06] LABS: Bedside Glucose 114 mg/dL (70-110)
--- NOTE | 2018-05-13 10:30 | IMM_PTH ---
PATIENT: JOSH CLOUD LOC: EN U#:[id number] AGE/SX: 63/M ROOM: RE05/13/[address]: Dr. Marty Maloney MD : 1955 BED: DIS: 05/13/2018 SPEC #: [id number] RECD: 05/13/18 14:57 STATUS: LORI TERRENCE #: [id number] KRISHNA: 05/13/18 10:[address]: Marty Maloney DEPT: IMMUNOHISTOCHEMISTRY RECD BY: Silvia Logan ENTERED: 05/13/18 14:58 SP TYPE: IMMUNO OTHR DR: Dr. Apolinar Roche MD Tissues: A - Stomach, NOS Procedures: H Pylori (initial) PHYSICIAN & INSTITUTION [place] [address] SPECIMEN INFORMATION: Tissue Source: A - Antrum biopsy Clinical Info: Esophageal dysphagia Specimen Number: [id number] CPT code: 38604 METHODOLOGY: Deparaffinized sections of prefer/formalin-fixed tissue or PAP/DQ stained slides are incubated with monoclonal/polyclonal antibodies/oligonucleotide probes. Localization is made via biotin free immunoperoxidase method. Appropriate controls are performed and reacted as expected. Results on target cell population are indicated in the following table: RESULTS: ANTIBODY / CLONE RESULT Block A H Pylori (polyclonal) positive These tests were developed and their performance characteristics determined by [facility]. They may not have been cleared or approved by the U.S. Food and Drug Administration. The FDA has determined that such clearance or approval is not necessary. INTERPRETATION: A. Antrum, biopsy: Positive for numerous Helicobacter pylori organisms. SJ:peter 05/16/18
--- NOTE | 2018-05-13 10:30 | EGD_PTH ---
PATIENT: JOSH CLOUD LOC: EN U#:[id number] AGE/SX: 63/M ROOM: RE05/13/[address]: Dr. Marty Maloney MD : 1955 BED: DIS: 05/13/2018 SPEC #: [id number] RECD: 05/13/18 12:14 STATUS: LORI TERRENCE #: [id number] KRISHNA: 05/13/18 10:[address]: Marty Maloney DEPT: SURGICAL PATHOLOGY RECD BY: Matthew Kat ENTERED: 05/13/18 13:17 SP TYPE: EGD BIOPSY OT DR: Dr. Apolinar Roche MD Tissues: A - Gastric mucous membrane B - Gastric mucous membrane C - Esophageal mucous membrane Procedures: PAS Fungus (control) Special Stain Group II Special Stain Group I Surgery Specimen Level IV Alcian Blue/PAS (control) HEADER OPERATION: EGD ([facility]) PRE-OP DIAGNOSIS: Esophageal dysphagia TISSUE SUBMITTED: A - Antrum biopsy for H. pylori and path, B - GE junction biopsy, C - Mid esophagus biopsy MICROSCOPIC DIAGNOSIS A. Antrum biopsy: Moderate chronic active gastritis. B. GE junction, biopsy: A fragment of gastroesophageal mucosa with focal ulceration, acute and chronic inflammation and changes consistent with gastroesophageal reflux disease. Intestinal metaplasia (goblet cell metaplasia) is not identified. C. Mid esophagus, biopsy: Fragments of squamous epithelium with minimal congestion. SJ:peter 05/16/18 COMMENT A. The results of immunohistochemistry for Helicobacter pylori will be reported separately ([id number]). B. Alcian blue/PAS stain with matched control is used in the evaluation of the specimen. MICROSCOPIC DESCRIPTION Slides are reviewed. GROSS DESCRIPTION A - Received in fixative is one container labeled with the patient's name and designated antrum biopsy. The specimen consists of two irregular fragments of light doe soft tissue that in aggregate measure 0.5 x 0.4 x 0.1 cm. The specimen is totally submitted in one cassette. B - Received in fixative is one container labeled with the patient's name and designated GE junction biopsy. The specimen consists of one irregular fragment of light doe soft tissue that measures 0.5 x 0.2 x 0.1 cm. The specimen is totally submitted in one cassette. C - Received in fixative is one container labeled with the patient's name and designated mid esophagus biopsy. The specimen consists of two irregular fragments of light doe soft tissue that in aggregate measure 0.6 x 0.2 x 0.1 cm. The specimen is totally submitted in one cassette. / SJ:rg 05/13/18 TC:2 CPT: 25897 x3, 08907
[2018-05-13 11:03] VITALS: BP 122/60; BP 94/49; PULSE 54; RESP 16; TEMP 36.3; O2SAT 96
--- NOTE | 2018-05-13 11:04 | OP.ENDO_ITS ---
05/13/2018 Apolinar Roche [address] [place] [address] Re : Upper GI endoscopy procedure for Rj Rodolfo Dear Dr. Roche This procedure was performed on Sunday, May 13, 2018. My impressions and recommendations are as follows: Impressions : - Esophagitis. Biopsied. - Biopsies were taken with a cold forceps for Helicobacter pylori testing. - Dilation performed at the gastroesophageal junction. - If all studies negative, will proceed with manometry. Recommendations : - Discharge patient to home. - Resume previous diet. - Resume aspirin at prior dose tomorrow. - Await pathology results. - Return to my office in 2 weeks. Call for appt [phone] My findings are described in the full procedure note, which is enclosed. If I can be of further assistance, please feel free to contact me at Doctor phone number(s): , Work: . Sincerely, Marty Maloney MD 05/13/2018 11:04:15 AM This report has been signed electronically.
[2018-05-13 11:15] VITALS: BP 122/60; BP 95/45; PULSE 48; RESP 16; O2SAT 96
[2018-05-13 11:30] VITALS: BP 108/59; BP 122/60; PULSE 46; RESP 16; O2SAT 94
[2018-05-13 11:37] VITALS: BP 108/55; BP 122/60; PULSE 49; RESP 16; TEMP 37; O2SAT 96
[2018-05-13 12:07] VITALS: BP 122/60
== END 2018-05-13 12:08 | disposition home or self-care (01) ==
LOC: EN 09:26 → AC 09:27
PROVIDERS: Family Provider Family Medicine; PCP Family Medicine; Referring Provider Surgery; Visit Provider Surgery
PROC: 0DJ08ZZ Inspection of Upper Intestinal Tract, Via Natural or Artificial Opening Endoscopic (ICD-10-PCS; CPT 43235; principal; 2018-05-13 10:25)
DX: K29.50 Unspecified chronic gastritis without bleeding (principal); K44.9 Diaphragmatic hernia without obstruction or gangrene; B96.81 Helicobacter pylori [H. pylori] as the cause of diseases classified elsewhere; K21.0 Gastro-esophageal reflux disease with esophagitis; I10 Essential (primary) hypertension; I25.10 Atherosclerotic heart disease of native coronary artery without angina pectoris; E11.9 Type 2 diabetes mellitus without complications; E66.9 Obesity, unspecified; G47.33 Obstructive sleep apnea (adult) (pediatric); M19.90 Unspecified osteoarthritis, unspecified site; I27.20 Pulmonary hypertension, unspecified; Z68.42 Body mass index [BMI] 45.0-49.9, adult; Z95.1 Presence of aortocoronary bypass graft; Z87.891 Personal history of nicotine dependence; Z79.82 Long term (current) use of aspirin; Z79.84 Long term (current) use of oral hypoglycemic drugs; Z79.899 Other long term (current) drug therapy
CPT/HCPCS: 43239; 43245; 82962; 88305; 88312; 88313; 88342; J7120

== ENCOUNTER → 2018-06-28 | Outpatient (CLI) | payer MEDICARE, SELFPAY ==
[2018-06-28 14:46] VITALS: BMI 45.9
[2018-06-28 15:57] LABS: Absolute Lymphocyte Count 1.67 X10^3/ul (0.83-4.51); Absolute Neutrophil Count 4.4 X10^3/uL (2.0-7.7); Basophil# 0.03 X10^3/uL; Basophil% 0.4 % (0-1); Eosinophil# 0.09 X10^3/uL; Eosinophils% 1.3 % (0-5); Hematocrit 42.1 % (40-54); Hemoglobin 14.7 g/dl (13.0-16.5); Lymphocyte # 1.67 X10^3/ul (4.0); Lymphocyte % 23.6 % (19-41); Mean Corp Hgb Conc 34.9 g/gl (32-36); Mean Corpuscular Hgb 32.3 pg (27.0-32.0); Mean Corpuscular Volume 92.5 fL (80-94); Mean Platelet Vol. 10.8 fl (6.2-12.0); Monocyte% 12.7 % (0-10); Neutrophil # 4.37 X10^3/uL (2.7-7.7); Neutrophil % 61.6 % (47-70); Platelet Count 210 K/mm3 (150-450); RBC Distribution Width CV 12.7 % (11.6-14.6); RBC Distribution Width SD 41.9 fl (35.1-43.9); Red Blood Count 4.55 M/mm3 (4.6-6.2); White Blood Count 7.1 K/mm3 (4.4-11.0)
[2018-06-28 16:07] LABS: Anion Gap 5 (5-15); BUN 19 mg/dL (7-18); BUN/Creat Ratio 15.1 RATIO (10-20); Calcium,Total 8.9 mg/dL (8.5-10.1); Chloride 106 mmol/L (98-107); Creatinine, Serum 1.26 mg/dL (0.70-1.30); EST Glomerular Filtration Rate 61 mL/min (>60); Est Glom Filt Rate - Afr Amer 74 mL/min (>60); Glucose 114 mg/dL (74-106); Magnesium 2.2 mg/dL (1.6-2.6); Potassium 4.3 mmol/L (3.5-5.1); Sodium Level 140 mmol/L (136-145); T4 Free Direct 0.94 ng/dL (0.76-1.46); Thyroid Stim Hormone (TSH) 1.33 uIU/mL (0.358-3.74)
[2018-06-28 17:00] LABS: POSITIVE COUNT NO; POSITIVE DIFFERENTIAL NO; POSITIVE MORPHOLOGY NO
== END | disposition home or self-care (01) ==
LOC: LAB 14:56
PROVIDERS: Family Provider Family Medicine; PCP Family Medicine; Referring Provider Nurse Practitioner Family; Visit Provider Nurse Practitioner Family
DX: E78.5 Hyperlipidemia, unspecified (principal); I10 Essential (primary) hypertension; I25.10 Atherosclerotic heart disease of native coronary artery without angina pectoris; I47.2 Ventricular tachycardia; R55 Syncope and collapse; Z95.1 Presence of aortocoronary bypass graft
CPT/HCPCS: 36415; 80048; 83735; 84439; 84443; 85025

== ENCOUNTER → 2018-07-06 | Outpatient (CLI) | payer MEDICARE, SELFPAY ==
[2018-07-06 14:09] VITALS: BMI 45.9
== END | disposition home or self-care (01) ==
PROVIDERS: Family Provider Family Medicine; PCP Family Medicine; Referring Provider Surgery; Visit Provider Surgery
DX: A04.8 Other specified bacterial intestinal infections (principal)

== ENCOUNTER → 2018-08-01 | Outpatient (CLI) | payer MEDICARE, SELFPAY ==
[2018-06-28 14:46] VITALS: BMI 45.9
[2018-07-06 14:09] VITALS: BMI 45.9
--- NOTE | 2018-08-01 06:51 | ECHOCS_ITS ---
Reason For Study: S/P CABg Procedure This was a 2D Doppler, Color Flow transthoracic echocardiogram. The study was technically difficult. Due to body habitus. Contrast injection was performed. Exam performed in department. Left Ventricle Normal LV size. Moderate concentric left ventricular hypertrophy. Left ventricular systolic function is normal. The estimated ejection fraction is 65 %. Stage 3 diastolic dysfunction. No regional wall motion abnormalities noted. Right Ventricle Normal RV size. Normal systolic function. Atria Normal left atrium. Normal right atrium. Mitral Valve Normal mitral valve. Tricuspid Valve Normal tricuspid valve. Mild (1+) tricuspid valve insufficiency. Pulmonary artery systolic pressure is 34 mmHg. Aortic Valve The aortic valve is not well visualized. Pulmonic Valve The pulmonic valve is not well visualized. Great Vessels Normal aortic root. The pulmonary artery is normal size. Normal inferior vena cava. Pericardium/Pleural No pericardial effusion. Medication Diluted definity 2.0ml given slow IV push to enhance endocardial definition. MMode/2D Measurements & Calculations LVIDd: 5.3 cm IVSd: 1.4 cm Ao root diam: 2.9 cm LVIDs: 4.0 cm LVPWd: 1.4 cm RVDd: 2.8 cm FS: 23.8 % LAV(MOD-bp): 54.1 ml LA A4 area: 22.2 cm2 LA dimension(2D): 5.2 cm LAV(MOD-bp) Indexed: 22.7 ml/m2 LAV(MOD-sp2): 48.3 ml LAV(MOD-sp4): 62.6 ml RA A4 area: 18.9 cm2 Time Measurements MV dec time: 0.14 sec Doppler Measurements & Calculations MV E max katiana: 106.5 cm/sec Ao V2 max: 194.0 cm/sec LV V1 max: 111.7 cm/sec MV A max katiana: 51.2 cm/sec Ao max P.1 mmHg LV V1 max P.0 mmHg MV E/A: 2.1 PA V2 max: 152.4 cm/sec TR max katiana: 274.6 cm/sec TR max P.4 mmHg Interpretation Summary Normal LV size. Moderate concentric left ventricular hypertrophy. Left ventricular systolic function is normal. The estimated ejection fraction is 65 %. Stage 3 diastolic dysfunction. Mild (1+) tricuspid valve insufficiency. Pulmonary artery systolic pressure is 34 mmHg. Ordering Physician: Cedric Osorio Referring Physician: maria esther Roche Performed By: Karol Franco, LIU, RVT
--- NOTE | 2018-08-01 11:12 | STRESSREP_ITS ---
Stress Test Report Pharmacologic myocardial perfusion stress test. 63-year-old man with a history of coronary artery disease. Medications aspirin metoprolol indapamide metformin. Stress protocol: Resting EKG demonstrates atrial flutter with a rate of 120 bpm resting blood pressures 122/84 mmHg. 0.4 mg of regadenoson was infused per usual protocol the maximum heart rate attained was 134 bpm which was 86% of maximum predicted heart rate the maximum workload was 1 metabolic equivalent. The patient maintained atrial flutter throughout the recording. There were no ST or T wave changes noted to suggest abnormal flow reserve. The resting blood pressure was 120/84 final blood pressure was 116/78. 14.9 mCi of technetium 99m sestamibi was injected at rest. 0.4 mg of regadenoson was infused per usual protocol peak infusion 44.8 mCi of technetium 99m sestamibi was injected stress images were obtained stress and rest images were reconstructed and compared in the short axis vertical long horizontal long axis. Gated images were also obtained Perfusion SPECT analysis: Review of the stress images demonstrate normal uptake of tracer noted in all ar eas of myocardium. The resting images similarly demonstrate normal uptake of tracer noted in all areas of myocardium. No areas of reversibility are noted suggest ischemia no previous infarct is noted. Gated SPECT analysis: The gated ejection fraction is noted to be 64%. Conclusion: Normal pharmacologic myocardial perfusion stress test. Atrial flutter noted. Preserved ejection fraction.
== END | disposition home or self-care (01) ==
PROVIDERS: Family Provider Family Medicine; PCP Family Medicine; Referring Provider Nurse Practitioner Family; Visit Provider Nurse Practitioner Family
DX: I25.10 Atherosclerotic heart disease of native coronary artery without angina pectoris (principal); I47.2 Ventricular tachycardia; E78.5 Hyperlipidemia, unspecified; I10 Essential (primary) hypertension; Z95.1 Presence of aortocoronary bypass graft
CPT/HCPCS: 78452; 93017; 93306; A9500; Q9957; A4216; C8929; J2785

== ENCOUNTER 2018-09-05 10:33 | Day surgery (SDC) | payer MEDICARE, SELFPAY ==
[2018-09-01 12:52] VITALS: BMI 45.1
--- NOTE | 2018-09-01 13:56 | RAD_ITS ---
STUDY: X-RAY CHEST REASON FOR EXAM: Male, 63 years old. Preoperative examination. TECHNIQUE: PA and lateral chest COMPARISON: None. FINDINGS: Median sternotomy, CABG. Clear lungs are mildly hyperlucent suggesting underlying COPD. Correlate smoking history. No significant cardiomegaly. Normal mediastinal silhouette, kaye and pleural margins. No acute osseous or upper abdominal process. RAD/Chest PA and Lateral IMPRESSION: No acute cardiopulmonary process. Electronically Signed: Luis Siddiqui MD at 15:58 EDT Tel , Service support ,
[2018-09-01 15:11] LABS: Anion Gap 4 (5-15); BUN 15 mg/dL (7-18); BUN/Creat Ratio 14.4 RATIO (10-20); Calcium,Total 9.1 mg/dL (8.5-10.1); Chloride 106 mmol/L (98-107); Creatinine, Serum 1.04 mg/dL (0.70-1.30); EST Glomerular Filtration Rate 76 mL/min (>60); Est Glom Filt Rate - Afr Amer 92 mL/min (>60); Glucose 105 mg/dL (74-106); Potassium 4.1 mmol/L (3.5-5.1); Sodium Level 139 mmol/L (136-145)
[2018-09-02 11:58] VITALS: BMI 45.1
--- NOTE | 2018-09-05 11:13 | CARDIOVERS ---
Cardioversion Cardioversion: DC cardioversion. 63-year-old male with a history of atrial flutter.. Patient had been on anticoagulation for minimum of 3 weeks. Presented for DC cardioversion. The patient was seen by Dr. Viramontes of the critical care division. Informed consent was obtained anterior-posterior pads were applied. The patient was administered 70 mg of intravenous propofol. 200 J of synchronized DC cardioversion energy were then applied with prompt reversal to sinus rhythm. Patient tolerated the procedure well. Post operative EKG confirmed sinus rhythm with a right bundle branch block. Patient would continue on the current medical therapy. Follow-up in my office. Conclusion: Successful DC cardioversion from atrial flutter to sinus rhythm.
--- NOTE | 2018-09-05 12:39 | PRO.PCM_ITS ---
Problem List (1) Atherosclerosis of coronary artery of [facility] [place] heart without angina pectoris Status: Chronic Qualifiers: Comment: CABG x 2 CORDOVA-LAD, BRITT-OM 07/19/2008 (2) Diastolic dysfunction Status: Chronic (3) Essential (primary) hypertension Status: Chronic (4) H/O coronary artery bypass surgery Status: Chronic Comment: CABG x 2 CORDOVA-LAD, BRITT-OM 2008 (5) Hyperlipidemia Status: Chronic Qualifiers: (6) Paroxysmal atrial flutter Status: Chronic (7) Right bundle branch block Status: Chronic Procedure Report Date of Procedure: 09/05/18 - Conscious sedation CONSCIOUS SEDATION REPORT BRIEF HISTORY OF PRESENT ILLNESS: The patient is a 63-year-old male who presented to [facility] for an elective outpatient cardioversion due to underlying atrial flutter. The patient reports no PO intake since midnight. The patient does have a history of obstructive sleep apnea, but is noncompliant with therapy. The patient reports a history of smoking, but denies COPD. The patient denies any recent constitutional symptoms such as fevers, chills, nausea or vomiting. The patient denies previous anesthetic complications. Last known ejection fraction of 65%. PHYSICAL EXAMINATION: VITAL SIGNS: Reviewed and were acceptable. GENERAL: The patient is a male, in no apparent distress, speaking in full sentences. HEENT: Normocephalic, atraumatic. Mucous membranes are moist and pink. Good mouth opening noted. Trachea is midline. Good neck mobility. MP IV CHEST: S1, S2 irregularly irregular. No murmurs, rubs or gallops were noted. LUNGS: Clear to auscultation bilaterally without appreciable wheezes, rales or rhonchi. ABDOMEN: Soft, nontender, nondistended. Positive bowel sounds. EXTREMITIES: There is no clubbing, cyanosis or edema. ASA Class: II DESCRIPTION OF PROCEDURE: After confirmation of informed consent, the patient's anesthesia plan was reviewed in detail. Propofol was chosen. Risks and benefits were reviewed and the patient agreed to proceed. At 11:06 AM, the patient was given 40 mg of propofol. The patient required a total of 70 mg of propofol throughout the procedure to achieve appropriate sedation. The patient achieved an appropriate level of sedation and received 1 attempt synchronized cardioversion, at [address] Wyatt at the bedside. This was successful in achieving normal sinus rhythm. The patient was monitored until 11:15 AM, at which time the patient reached their baseline mental status and function. The patient tolerated the procedure well. COMPLICATIONS: None ESTIMATED BLOOD LOSS: None RECOMMENDATIONS: Okay to recover in usual fashion. Code Visit 9xxxx: Other Procedure See Report - 55960 -9 minutes conscious sedation
== END 2018-09-05 12:15 | disposition home or self-care (01) ==
LOC: CLSP 10:33
PROVIDERS: Family Provider Family Medicine; PCP Family Medicine; Referring Provider Internal Medicine Cardiovascular Disease; Visit Provider Internal Medicine Cardiovascular Disease
DX: I48.92 Unspecified atrial flutter (principal); I10 Essential (primary) hypertension; I45.10 Unspecified right bundle-branch block; E78.00 Pure hypercholesterolemia, unspecified; Z95.1 Presence of aortocoronary bypass graft; I25.10 Atherosclerotic heart disease of native coronary artery without angina pectoris; E11.9 Type 2 diabetes mellitus without complications; K21.9 Gastro-esophageal reflux disease without esophagitis; E66.9 Obesity, unspecified; Z68.42 Body mass index [BMI] 45.0-49.9, adult; G47.33 Obstructive sleep apnea (adult) (pediatric); M19.90 Unspecified osteoarthritis, unspecified site; Z79.84 Long term (current) use of oral hypoglycemic drugs; Z79.82 Long term (current) use of aspirin; Z79.02 Long term (current) use of antithrombotics/antiplatelets; Z79.899 Other long term (current) drug therapy; Z87.891 Personal history of nicotine dependence
CPT/HCPCS: 36415; 71046; 80048; 92960; 93005; J7040

== ENCOUNTER → 2018-10-27 | Outpatient (CLI) | payer MEDICARE, SELFPAY ==
[2018-10-11 06:09] VITALS: BMI 45.1
== END | disposition home or self-care (01) ==
LOC: SL 20:31
PROVIDERS: Family Provider Family Medicine; PCP Family Medicine; Referring Provider Internal Medicine Critical Care Medicine; Visit Provider Internal Medicine Critical Care Medicine
DX: G47.31 Primary central sleep apnea (principal)
CPT/HCPCS: 95811

== ENCOUNTER → 2018-12-20 | Outpatient (CLI) | payer MEDICARE, SELFPAY ==
[2018-10-11 06:09] VITALS: BMI 45.1
--- NOTE | 2018-12-21 09:28 | PFT ---
INTRODUCTION: The patient is a 63-year-old male who presents for pulmonary function studies secondary to a diagnosis of dyspnea. Respiratory therapy reports good patient effort. Bronchodilators were used during testing. INTERPRETATION: Forced expiration spirometry demonstrates no evidence of a large airways obstructive ventilatory defect. There was no significant response to aerosolized bronchodilators. Spirograms are of good quality and plateau normally. Body plethysmography was performed and reveals lung volumes to be within normal limits. Diffusing capacity by single breath CO is also within normal limits. IMPRESSION: Normal pulmonary function studies.
== END | disposition home or self-care (01) ==
LOC: PSN 08:54
PROVIDERS: Family Provider Family Medicine; PCP Family Medicine; Referring Provider Internal Medicine Critical Care Medicine; Visit Provider Internal Medicine Critical Care Medicine
DX: R06.09 Other forms of dyspnea (principal)
CPT/HCPCS: 94060; 94726; 94729

== ENCOUNTER 2019-01-30 10:11 | Day surgery (SDC) | payer MEDICARE, SELFPAY ==
[2019-01-06 11:00] VITALS: BMI 46.2
[2019-01-26 10:40] LABS: Hematocrit 43.9 % (40-54); Hemoglobin 15.1 g/dL (13.0-16.5); Mean Corp Hgb Conc 34.4 g/dL (32-36); Mean Corpuscular Hgb 32.3 pg (27.0-32.0); Mean Platelet Vol. 10.5 fl (6.2-12.0); Platelet Count 197 K/mm3 (150-450); RBC Distribution Width CV 12.2 % (11.6-14.6); RBC Distribution Width SD 42.8 fl (35.1-43.9); Red Blood Count 4.67 M/mm3 (4.6-6.2)
[2019-01-26 10:55] LABS: Hemoglobin A1c 5.6 % (4.2-6.3)
[2019-01-26 11:14] LABS: AST(SGOT) 20 U/L (15-37); Alanine Aminotransfer ALT/SGPT 37 U/L (16-61); Albumin, Serum 3.4 g/dL (3.2-5.0); Alkaline Phosphatase 75 U/L (45-117); Anion Gap 6 (5-15); BUN 19 mg/dL (7-18); BUN/Creat Ratio 18.4 RATIO (10-20); Calcium,Total 9.2 mg/dL (8.5-10.1); Chloride 105 mmol/L (98-107); Creatinine, Serum 1.03 mg/dL (0.70-1.30); EST Glomerular Filtration Rate 77 mL/min (>60); Est Glom Filt Rate - Afr Amer 93 mL/min (>60); Globulin 3.4 g/dL (2.2-4.2); Glucose 104 mg/dL (74-106); Potassium 4.2 mmol/L (3.5-5.1); Protein, Total 6.8 g/dL (6.4-8.2); Sodium Level 139 mmol/L (136-145)
[2019-01-26 15:04] VITALS: BMI 46.2
[2019-01-26 15:38] LABS: Microalbumin,Random Urine 18.2 mg/L (NO RANGE EST.); Microalbumin:Creatinine Ratio 10.2 mg/g CRE (<30 mg/g CRE)
--- NOTE | 2019-01-30 12:15 | CARDIOVERS ---
Cardioversion Cardioversion: DC cardioversion. The patient was brought to cardiac catheterization lab in the postabsorptive nonsedated state. Informed consent was obtained. The patient was seen by Dr. Chen of the critical care division. Anterior-posterior pads were applied. The patient was administered 80 mg of intravenous propofol. 200 J of synchronized DC cardioversion energy were applied with prompt reversal to sinus rhythm. Patient tolerated the procedure well. Conclusion: Continue current medical therapy. Successful DC cardioversion from atrial flutter to sinus rhythm.
--- NOTE | 2019-01-30 12:32 | PRO.PCM_ITS ---
Procedure Report Date of Procedure: 01/30/19 CONSCIOUS SEDATION REPORT DATE OF SERVICE: January 30, 2019 BRIEF HISTORY OF PRESENT ILLNESS: The patient is a 63-year-old male who presented to [facility] for an elective outpatient cardioversion due to underlying atrial flutter/fibrillation. The patient is currently anticoagulated on Eliquis. He had a last known ejection fraction of approximately 65%. The patient did undergo a prior cardioversion in August 2018, during which time, the patient required a total of 70 mg of propofol. The patient denies any previous anesthetic complications. He does have a history of known complex sleep apnea. PHYSICAL EXAMINATION: VITAL SIGNS: Reviewed and were acceptable. GENERAL: The patient is an obese male, in no apparent distress, speaking in full sentences. HEENT: Normocephalic, atraumatic. Mucous membranes are moist and pink. Good mouth opening noted. Trachea is midline. Good neck mobility. MP IV CHEST: S1, S2 irregularly irregular. No murmurs, rubs or gallops were noted. LUNGS: Clear to auscultation bilaterally without appreciable wheezes, rales or rhonchi. ABDOMEN: Soft, nontender, nondistended. Positive bowel sounds. EXTREMITIES: There is no clubbing, cyanosis or edema. ASA Class: II DESCRIPTION OF PROCEDURE: After confirmation of informed consent, the patient's anesthesia plan was reviewed in detail. Propofol was chosen. Risks and benefits were reviewed and the patient agreed to proceed. At 1201, the patient was given his first bolus of propofol. In total, the patient required 80 mg of propofol to achieve an appropriate level of sedation, after which time, he was given a 200 joule synchronized cardioversion by Dr. Wyatt at the bedside. This was successful in achieving normal sinus rhythm. The patient was monitored until 1212, at which time he reached his baseline mental status and function. The patient tolerated the procedure well. COMPLICATIONS: None ESTIMATED BLOOD LOSS: None RECOMMENDATIONS: Okay to recover in usual fashion. Code Visit 9xxxx: Other Procedure See Report - [id number]
== END 2019-01-30 13:05 | disposition home or self-care (01) ==
LOC: CLSP 10:11
PROVIDERS: Family Provider Family Medicine; PCP Family Medicine; Referring Provider Internal Medicine Cardiovascular Disease; Visit Provider Internal Medicine Cardiovascular Disease
DX: I48.0 Paroxysmal atrial fibrillation (principal); I25.10 Atherosclerotic heart disease of native coronary artery without angina pectoris; I10 Essential (primary) hypertension; E78.5 Hyperlipidemia, unspecified; Z95.1 Presence of aortocoronary bypass graft; E11.9 Type 2 diabetes mellitus without complications; G47.30 Sleep apnea, unspecified; K21.9 Gastro-esophageal reflux disease without esophagitis; M19.90 Unspecified osteoarthritis, unspecified site; E66.9 Obesity, unspecified; Z68.42 Body mass index [BMI] 45.0-49.9, adult; Z87.891 Personal history of nicotine dependence; Z79.84 Long term (current) use of oral hypoglycemic drugs; Z79.82 Long term (current) use of aspirin; Z79.02 Long term (current) use of antithrombotics/antiplatelets; Z79.899 Other long term (current) drug therapy
CPT/HCPCS: 36415; 80053; 82043; 82570; 83036; 84443; 85027; 92960; 93005; J7040

== ENCOUNTER → 2019-05-01 | Outpatient (CLI) | payer MEDICARE, SELFPAY ==
[2019-04-26 05:58] VITALS: BMI 48.3
[2019-05-01 09:29] LABS: AST(SGOT) 23 U/L (15-37); Alanine Aminotransfer ALT/SGPT 43 U/L (16-61); Albumin, Serum 3.4 g/dL (3.2-5.0); Alkaline Phosphatase 73 U/L (45-117); Anion Gap 7 (5-15); BUN 14 mg/dL (7-18); BUN/Creat Ratio 12.4 RATIO (10-20); Calcium,Total 8.9 mg/dL (8.5-10.1); Chloride 105 mmol/L (98-107); Cholesterol 163 mg/dL (200); Creatinine, Serum 1.13 mg/dL (0.70-1.30); EST Glomerular Filtration Rate 69 mL/min (>60); Est Glom Filt Rate - Afr Amer 84 mL/min (>60); Globulin 3.5 g/dL (2.2-4.2); Glucose 109 mg/dL (74-106); Hemoglobin A1c 5.5 % (4.2-6.3); High Density Lipoprotein 37 mg/dL; Protein, Total 6.9 g/dL (6.4-8.2); Sodium Level 140 mmol/L (136-145); Triglycerides 203 mg/dL; Very Low Density Lipoprotein 41 mg/dL (5-40)
== END | disposition home or self-care (01) ==
LOC: LAB 08:18
PROVIDERS: PCP Family Medicine; Referring Provider Family Medicine; Visit Provider Family Medicine
DX: I25.10 Atherosclerotic heart disease of native coronary artery without angina pectoris (principal); E88.81 Metabolic syndrome and other insulin resistance
CPT/HCPCS: 36415; 80053; 80061; 83036

== ENCOUNTER → 2020-01-16 09:56 | Outpatient (CLI) | payer MEDICARE, SELFPAY ==
[2020-01-16 08:22] VITALS: BMI 45.7
[2020-01-16 11:31] LABS: AST(SGOT) 30 U/L (15-37); Alanine Aminotransfer ALT/SGPT 47 U/L (16-61); Albumin, Serum 3.6 g/dL (3.2-5.0); Alkaline Phosphatase 79 U/L (45-117); Bilirubin, Direct 0.19 mg/dL (0.00-0.30); Cholesterol 137 mg/dL (200); Globulin 3.8 g/dL (2.2-4.2); High Density Lipoprotein 49 mg/dL; Protein, Total 7.4 g/dL (6.4-8.2); Triglycerides 104 mg/dL; Very Low Density Lipoprotein 21 mg/dL (5-40)
== END ==
PROVIDERS: PCP Family Medicine; Referring Provider Internal Medicine Cardiovascular Disease; Visit Provider Internal Medicine Cardiovascular Disease
DX: E78.5 Hyperlipidemia, unspecified (principal); I25.10 Atherosclerotic heart disease of native coronary artery without angina pectoris
CPT/HCPCS: 36415; 80061; 80076

== ENCOUNTER → 2020-04-30 13:08 | Outpatient (CLI) | payer MEDICARE, SELFPAY ==
[2020-01-16 08:22] VITALS: BMI 45.7
[2020-04-30 13:45] LABS: PSA,Total - Annual Screen 1.96 ng/mL (0.00-4.00)
== END ==
PROVIDERS: PCP Family Medicine; Referring Provider Family Medicine; Visit Provider Family Medicine
DX: Z12.5 Encounter for screening for malignant neoplasm of prostate (principal)
CPT/HCPCS: 36415; 84153; G0103

== ENCOUNTER → 2020-09-21 07:48 | Outpatient (CLI) | payer MEDICARE, SELFPAY ==
[2020-07-17 10:38] VITALS: BMI 50.1
[2020-09-21 08:33] LABS: Anion Gap 6 (5-15); BUN 18 mg/dL (7-18); BUN/Creat Ratio 16.2 RATIO (10-20); Calcium,Total 8.9 mg/dL (8.5-10.1); Chloride 105 mmol/L (98-107); Creatinine, Serum 1.11 mg/dL (0.70-1.30); EST Glomerular Filtration Rate 70 mL/min (>60); Est Glom Filt Rate - Afr Amer 85 mL/min (>60); Glucose 122 mg/dL (74-106); Potassium 3.7 mmol/L (3.5-5.1); Sodium Level 140 mmol/L (136-145)
[2020-09-21 08:39] LABS: AST(SGOT) 25 U/L (15-37); Alanine Aminotransfer ALT/SGPT 45 U/L (16-61); Albumin, Serum 3.6 g/dL (3.2-5.0); Alkaline Phosphatase 71 U/L (45-117); Bilirubin, Direct 0.15 mg/dL (0.00-0.30); Cholesterol 112 mg/dL (200); Globulin 3.3 g/dL (2.2-4.2); High Density Lipoprotein 37 mg/dL; Protein, Total 6.9 g/dL (6.4-8.2); Triglycerides 89 mg/dL; Very Low Density Lipoprotein 18 mg/dL (5-40)
== END ==
PROVIDERS: Internal Medicine Cardiovascular Disease; PCP Family Medicine; Referring Provider Nurse Practitioner Family; Visit Provider Nurse Practitioner Family
DX: E78.5 Hyperlipidemia, unspecified (principal); I10 Essential (primary) hypertension; I25.10 Atherosclerotic heart disease of native coronary artery without angina pectoris; I51.89 Other ill-defined heart diseases; R06.09 Other forms of dyspnea; E78.00 Pure hypercholesterolemia, unspecified; Z95.1 Presence of aortocoronary bypass graft
CPT/HCPCS: 36415; 80048; 80061; 80076

== ENCOUNTER → 2021-01-01 08:31 | Outpatient (CLI) | payer MEDICARE, SELFPAY ==
[2021-01-01 09:24] LABS: Absolute Lymphocyte Count 1.87 X10^3/uL (0.83-4.51); Basophil# 0.04 X10^3/uL; Basophil% 0.6 % (0-1); Eosinophil# 0.09 X10^3/uL; Eosinophils% 1.3 % (0-5); Hematocrit 39.9 % (40-54); Hemoglobin 13.9 g/dL (13.0-16.5); Lymphocyte # 1.87 X10^3/ul (0.83-4.51); Lymphocyte % 27.1 % (19-41); Mean Corp Hgb Conc 34.8 g/dL (32-36); Mean Corpuscular Hgb 32.3 pg (27.0-32.0); Mean Corpuscular Volume 92.8 fL (80-94); Mean Platelet Vol. 9.9 fl (6.2-12.0); Monocyte# 0.87 X10^3/uL; Monocyte% 12.6 % (0-10); NRBC Flagged by Analyzer 0 % (0-5); Neutrophil # 4.01 X10^3/uL (2.7-7.7); Platelet Count 203 K/mm3 (150-450); RBC Distribution Width CV 12.5 % (11.6-14.6); RBC Distribution Width SD 42.5 fl (35.1-43.9); White Blood Count 6.9 K/mm3 (4.4-11.0)
[2021-01-01 09:28] LABS: International Normalized Ratio 1.2; Prothrombin Time (Protime)PT. 14.1 SECONDS (11.7-14.9)
[2021-01-01 09:29] LABS: Partial Thromboplast Time 33.5 Seconds (24.1-36.2)
[2021-01-01 10:02] LABS: Anion Gap 6 (5-15); BUN 15 mg/dL (7-18); BUN/Creat Ratio 14.6 RATIO (10-20); Calcium,Total 9.4 mg/dL (8.5-10.1); Chloride 105 mmol/L (98-107); Creatinine, Serum 1.03 mg/dL (0.70-1.30); EST Glomerular Filtration Rate 76 mL/min (>60); Est Glom Filt Rate - Afr Amer 92 mL/min (>60); Glucose 106 mg/dL (74-106); Potassium 4.3 mmol/L (3.5-5.1); Sodium Level 140 mmol/L (136-145)
== END ==
PROVIDERS: PCP Family Medicine; Referring Provider Family Medicine; Visit Provider Family Medicine
DX: Z01.818 Encounter for other preprocedural examination (principal)
CPT/HCPCS: 36415; 80048; 85025; 85610; 85730

== ENCOUNTER → 2021-12-03 | Outpatient (CLI) | payer MEDICARE, SELFPAY ==
[2021-12-03 09:15] LABS: Absolute Lymphocyte Count 1.52 X10^3/uL (0.83-4.51); Absolute Neutrophil Count 3.9 X10^3/uL (2.0-7.7); Basophil# 0.03 X10^3/uL; Basophil% 0.5 % (0-1); Eosinophil# 0.08 X10^3/uL; Eosinophils% 1.3 % (0-5); Hemoglobin 14.3 g/dL (13.0-16.5); Lymphocyte # 1.52 X10^3/ul (0.83-4.51); Lymphocyte % 23.8 % (19-41); Mean Corp Hgb Conc 34.9 g/dL (32-36); Mean Corpuscular Hgb 33.2 pg (27.0-32.0); Mean Corpuscular Volume 95.1 fL (80-94); Mean Platelet Vol. 10.2 fl (6.2-12.0); Monocyte% 12.5 % (0-10); NRBC Flagged by Analyzer 0 % (0-5); Neutrophil # 3.94 X10^3/uL (2.7-7.7); Neutrophil % 61.6 % (47-70); Platelet Count 172 K/mm3 (150-450); RBC Distribution Width CV 12.6 % (11.6-14.6); RBC Distribution Width SD 43.8 fl (35.1-43.9); Red Blood Count 4.31 M/mm3 (4.6-6.2); White Blood Count 6.4 K/mm3 (4.4-11.0)
[2021-12-03 09:33] LABS: Hemoglobin A1c 5.8 % (3.8-5.6)
[2021-12-03 10:23] LABS: ALB/GLOB Ratio 0.9 RATIO (0.9-2.4); AST(SGOT) 25 U/L (15-37); Alanine Aminotransfer ALT/SGPT 37 U/L (16-61); Albumin, Serum 3.5 g/dL (3.2-5.0); Alkaline Phosphatase 67 U/L (45-117); Anion Gap 8 (5-15); BUN 17 mg/dL (7-18); BUN/Creat Ratio 16.5 RATIO (10-20); Calcium,Total 9.2 mg/dL (8.5-10.1); Chloride 106 mmol/L (98-107); Cholesterol 124 mg/dL (200); Creatinine, Serum 1.03 mg/dL (0.70-1.30); EST Glomerular Filtration Rate 76 mL/min (>60); Est Glom Filt Rate - Afr Amer 92 mL/min (>60); Globulin 3.7 g/dL (2.2-4.2); Glucose 116 mg/dL (74-106); High Density Lipoprotein 41 mg/dL; Potassium 3.5 mmol/L (3.5-5.1); Protein, Total 7.2 g/dL (6.4-8.2); Sodium Level 141 mmol/L (136-145); Thyroid Stim Hormone (TSH) 1.36 uIU/mL (0.358-3.74); Triglycerides 116 mg/dL; Very Low Density Lipoprotein 23 mg/dL (5-40)
[2021-12-03 12:03] LABS: Microalbumin,Random Urine 39.1 mg/L (NO RANGE EST.); Microalbumin:Creatinine Ratio 24.6 mg/g CRE (<30 mg/g CRE)
== END | disposition home or self-care (01) ==
LOC: LAB 08:21
PROVIDERS: PCP Family Medicine; Visit Provider Family Medicine
DX: I48.91 Unspecified atrial fibrillation (principal); E66.01 Morbid (severe) obesity due to excess calories; Z68.41 Body mass index [BMI] 40.0-44.9, adult; E88.81 Metabolic syndrome and other insulin resistance
CPT/HCPCS: 36415; 80053; 80061; 82043; 82570; 83036; 84443; 85025

== ENCOUNTER → 2022-05-21 | Outpatient (CLI) | payer MEDICARE, SELFPAY ==
[2022-05-21 10:33] LABS: Absolute Neutrophil Count 4.6 X10^3/uL (2.0-7.7); Basophil# 0.03 X10^3/uL; Basophil% 0.4 % (0-1); Eosinophil# 0.07 X10^3/uL; Hematocrit 41.4 % (40-54); Hemoglobin 14.2 g/dL (13.0-16.5); Lymphocyte % 22.6 % (19-41); Mean Corp Hgb Conc 34.3 g/dL (32-36); Mean Corpuscular Hgb 32.3 pg (27.0-32.0); Mean Corpuscular Volume 94.3 fL (80-94); Mean Platelet Vol. 10.1 fl (6.2-12.0); Monocyte# 0.75 X10^3/uL; Monocyte% 10.6 % (0-10); NRBC Flagged by Analyzer 0 % (0-5); Platelet Count 186 K/mm3 (150-450); RBC Distribution Width CV 12.4 % (11.6-14.6); RBC Distribution Width SD 43.3 fl (35.1-43.9); Red Blood Count 4.39 M/mm3 (4.6-6.2); White Blood Count 7.1 K/mm3 (4.4-11.0)
[2022-05-21 11:11] LABS: Hemoglobin A1c 5.7 % (3.8-5.6)
[2022-05-21 11:17] LABS: BUN 16 mg/dL (7-18); Creatinine, Serum 0.99 mg/dL (0.70-1.30); EST Glomerular Filtration Rate 79 mL/min (>60); Glucose 115 mg/dL (74-106)
[2022-05-21 11:18] LABS: ALB/GLOB Ratio 1.1 RATIO (0.9-2.4); AST(SGOT) 27 U/L (15-37); Alanine Aminotransfer ALT/SGPT 43 U/L (16-61); Albumin, Serum 3.5 g/dL (3.2-5.0); Alkaline Phosphatase 64 U/L (45-117); Anion Gap 9 (5-15); BUN/Creat Ratio 16.1 RATIO (10-20); Calcium,Total 9.3 mg/dL (8.5-10.1); Chloride 105 mmol/L (98-107); Cholesterol 127 mg/dL (200); Est Glom Filt Rate - Afr Amer 96 mL/min (>60); Globulin 3.3 g/dL (2.2-4.2); High Density Lipoprotein 44 mg/dL; PSA,Total - Annual Screen 1.92 ng/mL (0.00-4.00); Potassium 3.6 mmol/L (3.5-5.1); Protein, Total 6.8 g/dL (6.4-8.2); Sodium Level 141 mmol/L (136-145); Triglycerides 65 mg/dL; Very Low Density Lipoprotein 13 mg/dL (5-40)
== END | disposition home or self-care (01) ==
LOC: LAB 09:01
PROVIDERS: PCP Family Medicine; Visit Provider Nurse Practitioner Family
DX: I10 Essential (primary) hypertension (principal); R73.03 Prediabetes; Z13.220 Encounter for screening for lipoid disorders; Z12.5 Encounter for screening for malignant neoplasm of prostate
CPT/HCPCS: 36415; 80053; 80061; 83036; 84153; 85025; G0103

== ENCOUNTER → 2022-05-27 | Outpatient (CLI) | payer MEDICARE, SELFPAY ==
--- NOTE | 2022-05-27 16:42 | CT_ITS ---
STUDY: LOW DOSE CT LUNG CANCER SCREENING REASON FOR EXAM: Male, 67 years old. Long-term former smoker RADIATION DOSAGE (If Supplied By Facility): CTDIvol = ( 3.18 ) mGy, DLP = ( 111.99 ) mGycm TECHNIQUE: No contrast was administered. Low dose technique was utilized (average mAS-38 and kVp 120). 1.25 mm axial source images with a slice interval of 1.25-mm were reconstructed in lung windows. 2.5 mm axial source images with a slice interval of 2.5-mm were reconstructed in lung windows. 5.0 mm axial source images with a slice interval of 5.0-mm were reconstructed in soft tissue windows. COMPARISON: previous plain films: FINDINGS Lung windows show the lungs to be normally expanded. There is no superimposed infiltrate or effusion. No suspicious noncalcified mass or nodule. There are scattered calcified granulomata in both lower lung [place]. There is been a remote CABG. Limited soft tissue windows show normal-appearing thyroid gland. No suspicious axillary, mediastinal, or perihilar adenopathy. No pericardial effusions. Bony structures show degenerative change Limited cuts through the upper abdomen do not show a suspicious abnormality CT/Low Dose CT Lung Screening IMPRESSION: Lung-RADS category 2 - Continue annual screening with LDCT in 12 months. IMPORTANT NOTES FOR USE: ACR Lung-RADS Version 1.1 Assessment Categories Release Date: 2018 Category: Coded 0-4 bases on nodule(s) with highest degree of suspicion. Negative screen is defined as categories 1 and 2; a positive screen is defined as categories 3 and 4. Category 3 and 4A nodules that are unchanged on interval CT should be coded as category 2, and individuals returned to screening in 12 months. Category 4X: Category 3 or 4 nodules with additional imaging findings that increase the suspicion of lung cancer, such as spiculation, GGN that doubles in size in 1 year, enlarged lymph notes, etc. Category Modifiers: S (significant finding unrelated to lung cancer) Electronically Signed: Luis Enrique Rodríguez MD at 7:55 EDT ,
== END | disposition home or self-care (01) ==
LOC: CT 16:39
PROVIDERS: PCP Family Medicine; Referring Provider Nurse Practitioner Family; Visit Provider Nurse Practitioner Family
DX: Z87.891 Personal history of nicotine dependence (principal)
CPT/HCPCS: 71271

== ENCOUNTER 2022-06-05 06:05 | Day surgery (SDC) | payer MEDICARE, SELFPAY ==
[2022-06-05] VITALS (7 sets, daily range): BP systolic 103–164; BP diastolic 64–81; PULSE 57–64; RESP 16–18; TEMP 36–37.3; O2SAT 92–99; BMI 50.1
[2022-06-05] MEDS: Lactated Ringers 1,000 ML 15 ML IV ×2 (07:10→09:01)
[2022-06-05] MEDS: Clindamycin 900 MG/50 ML BAG 75 MG IV (07:40)
[2022-06-05] MEDS: Sodium/Calcium/Mag/Potassium 15 ML Bottle OPHTHALMIC (08:03)
[2022-06-05] MEDS: Tetracaine 0.5% Ophthalmic Bottle OPHTHALMIC (08:03)
[2022-06-05] MEDS: Neomycin/Polymyxin/Dexameth OINT 3.5GM OPTH.TUBE 1 APPLIC OPHTHALMIC (08:56)
[2022-06-05] MEDS: Lidocaine 1% /Epi 1:100 (20ml) 20 ML Vial (10:33)
--- NOTE | 2022-06-05 11:10 | HP.PCM_ITS ---
History and Physical Date of Admission: 06/05/22 HISTORY OF PRESENT ILLNESS 67 year old man presents for discussion regarding bilateral upper blepharoplasty for field of vision defects laterally.? He had a field of vision test done in October, which showed 58% decreased peripheral field of vision on the right and a 50% decreased peripheral field of vision on the left. He had a bilateral direct brow lift surgery in December,.? Patient still complains of difficulty with his lateral peripheral field of vision bilate rally.? I discussed with the patient that the brow lift generally doesn't cure the problem. It is done so it is a little easier to determine how much skin and fat to remove with the upper blepharoplasty.? If the brow lift were not done, then it would be difficult to determine how much tissue needs to be removed for the blepharoplasty, therefore a more conservative blepharoplasty would be performed .? ? At the present time, he denies any fever.? He denies any trauma.? He denies any visual problems.? We have received medical approval for the upper eyelid blepharoplasty.? It is scheduled for June 05, 2022.? He has some questions regarding the surgery and its aftercare.? He helps his with her home dialysis. PAST MEDICAL HISTORY Arthritis Atherosclerosis of coronary artery of [place] heart without angina pectoris Complex sleep apnea syndrome Dermatochalasis of left upper eyelid Dermatochalasis of right upper eyelid Diabetes mellitus Diastolic dysfunction Essential (primary) hypertension Former smoker GERD (gastroesophageal reflux disease) Heart disease Hyperlipidemia NSVT (nonsustained ventricular tachycardia) Obesity Obstructive sleep apnea Osteoarthritis Paroxysmal atrial flutter 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 Right bundle branch block Secondary pulmonary arterial hypertension Syncope and collapse PAST SURGICAL HISTORY Ganglion cyst of foot H/O arthroscopy of right knee H/O coronary artery bypass surgery (07/19/08) History of arthroscopy of left knee History of cardioversion (01/30/19) History of eyelid surgery left foot S/P hemorrhoidectomy S/P right knee arthroscopy ALLERGIES JAJA Inhibitors atorvastatin [From Lipitor] simvastatin MEDICATIONS ascorbic acid (vitamin C) coenzyme [id number] E glucosamine sulfate metformin multivitamin with folic acid tamsulosin olmesartan aspirin rosuvastatin apixaban (Eliquis) diltiazem HCl metoprolol tartrate indapamide FAMILY HISTORY Aunt - Myocardial infarction Father - CAD (coronary artery disease) Sister - Cancer, Breast cancer Brother - Diabetes Other - Arthritis, Carotid artery stenosis, Heart disease, High cholesterol, Hypertension, Lung cancer SOCIAL HISTORY Smoking Status:? Former smoker Tobacco: How many years used:? 27 alcohol intake:? current alcohol intake frequency: a few times a month substance use type:? does not use REVIEW OF SYSTEMS General - Denies fever, fatigue, and weight loss. Eyes - Has cataracts.? Denies glaucoma. ENT - Denies nasal congestion and sore throat. Endocrine - Denies excessive thirst and urination. Skin - Denies suspicious lesions and skin cancer. Musculoskeletal - Denies weakness of muscles and joints, back pain, and arthritis.? Has joint pain and joint stiffness. Neuro - Denies headaches. Cardiovascular - Denies chest pain, fatigue, and shortness of breath with exertion. Psych - Denies anxiety and depression. Respiratory - Has chronic cough.? Denies shortness of breath.? Has sleep apnea. Gastrointestinal - Denies nausea, vomiting, diarrhea, and constipation. Hematologic - Denies abnormal bruising and bleeding. Genitourinary - Denies hematuria and urinary frequency. PHYSICAL EXAMINATION General - Alert and Oriented. HEENT - PERRL. EOMI.? Throat is clear.? Has evidence of dermatochalasis bilateral upper eyelids.? There is some skin overhang laterally. Horizontal length of the eyelids is 30 mm bilaterally.? The palpebral aperture is 10 mm bilaterally. The upper lid MRD (marginal reflex distance) is 4 mm bilaterally and rests slightly below the limbus.? The lower lid MRD is 5 mm bilaterally and rests at the lower limbus. No evidence of eyelid ptosis.? No scleral show or ectropion.? Has healed scars just above the eyebrows from the direct brow lift. Neck - Supple and nontender.? No cervical adenopathy. Lungs - Clear to auscultation. Heart - Regular rate and rhythm. Abdomen - Soft and nondistended. Extremities - FROM. No axillary adenopathy.? Radial pulses are palpable. Neuro - CN II-XII grossly intact. Psych - Normal mood and affect. ASSESSMENT 1.? Dermatochalasis left upper eyelid. 2.? Dermatochalasis right upper eyelid. 3.? Lateral peripheral field of vision defects bilaterally. 4.? Status bilateral direct brow lift. 5.? 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 6.? Diabetes mellitus. 7.? Cataracts. 8.? Atrial fibrillation. 9.? Former smoker. PLAN Reviewed the field of vision results from 11/05/20. We have received medical approval for the surgery.? It is scheduled for 06/05/22. Can proceed with bilateral upper blepharoplasty to improve his field of vision defects. Has diabetes mellitus.? His HgbA1c was 5.8 on 12/03/21.? For elective surgery it needs to be less than 8.? Will have it repeated prior to the surgery. He is on Eliquis for atrial fibrillation.? The blood thinner may be problematic with the risk of postop bleeding. He saw Cardiology and he was instructed to stop the Eliquis couple days before the surgery and I will re-start it the day after surgery. ? He has cataracts.? He saw his Diesel Instructor on 10/22/21. Surgery would be done under general anesthesia with a surgical observation overnight stay in the hospital. Patient was informed of the risks and complications of the procedure including alternatives to surgery.? These were discussed with the patient personally.? Patient voices understanding and wishes to proceed. Some of the risks and complications were included in a form from the [employer] [employer]. Potential risks and complications included but not inclusive of bleeding, infection, hematoma, bruising, swelling, loss of sensation to skin, wound breakdown, need for wound care, poor scarring, poor aesthetic outcome, intra operative cardiac or neurologic events, DVT, PE, possible blindness and reaction to anesthesia. Recommended to the patient to see if his can have dialysis at the [facility] instead of at home after the surgery for a short while.? He will inquire about that possibility.? If not I can discharge him early on Wednesday so he can get home for his 's dialysis treatment. 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
[2022-06-05 11:40] LABS: Bedside Glucose 123 mg/dL (74-106)
--- NOTE | 2022-06-05 11:56 | OP.PCM_ITS ---
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 Dermatochalasis left upper eyelid. 2. Dermatochalasis right upper eyelid. 3. Lateral peripheral field of vision defects bilaterally. 4. Status bilateral direct brow lift. 5. intermission coordinator use of anticoagulants - Eliquis. 6. Diabetes mellitus. 7. Former smoker. Post-Operative Diagnosis: Same. Surgery/Procedure Performed:: Bilateral upper eyelid blepharoplasty. Description of Surgical Findings:: 67 year old man presents for discussion regarding bilateral upper blepharoplasty for field of vision defects laterally.? He had a field of vision test done in October, which showed 58% decreased peripheral field of vision on the right and a 50% decreased peripheral field of vision on the left. He had a bilateral direct brow lift surgery in December,.? Patient still complains of difficulty with his lateral peripheral field of vision bilaterally.? I discussed with the patient that the brow lift generally doesn't cure the problem. It is done so it is a little easier to determine how much skin and fat to remove with the upper blepharoplasty.? If the brow lift were not done, then it would be difficult to determine how much tissue needs to be removed for the blepharoplasty, therefore a more conservative blepharoplasty would be performed.? ? At the present time, he denies any fever.? He denies any trauma.? He denies any visual problems.? We have received medical approval for the bilateral upper eyelid blepharoplasty. Patient was informed of the risks and complications of the procedure including alternatives to surgery. These were discussed with the patient personally. Patient voices understanding and wishes to proceed. Some of the risks and complications were included in a form from the [employer]. Potential risks and complications included but not inclusive of bleeding, infection, hematoma, blindness, bruising, swelling, loss of sensation to skin, wound breakdown, need for wound care, poor scarring, poor aesthetic outcome, intra operative cardiac or neurologic events, DVT, PE, and reaction to anesthesia, Surgeon: Cullen Briscoe MD completions engineer: None Type of Anesthesia: Local MAC (Xylocaine with epinephrine and IV sedation.) Anesthesiologist: Antonio Padilla MD and Jazzy Torres CRNA Specimen's removed: No specimen was sent. Drains: None. Estimated Blood Loss (mL): 10. Description of Procedure: Patient was taken to OR in supine position and was given IV sedation. The face and eyelids were prepped and draped in the usual fashion. SCD's were placed for DVT prophylaxis. Perioperative antibiotics were given intravenously. I placed a nylon suture at each lash line to act as a retraction suture. With the upper eyelid on stretch, I marked out the crease at about 8 mm which will be the inferior incision. I measured from the inferior eyebrow about 15 mm which will be the superior incision. Leaving adequate amount of skin between the eyebrow and the crease allows both to act independently. I infiltrated the markings with Xylocaine with epinephrine. 3 small wheals were injected and gently massaged into the tissue. I then placed Tetracaine ophthalmic drops into each eye. After waiting a few minutes, I placed BSS (Balanced Salt Solution) on the corneal eye delarosa and placed them in the eye for protection. I first started on the right upper eyelid and then proceeded with surgery on the left upper eyelid. Using loupe magnification and headlight illumination, I started by incising the inferior marking until the orbicularis muscle was seen. By gently pressing on the globe, excess fat was seen centrally and medially. A small rim of muscle was excised and the septum was incised. The excess fat was teased out and stabilized by a hemostat. The fat was excised off the hemostat and the incised edge was gently cauterized using a [place] cautery tip. The fat that was excised was anterior to the superior orbital rim. Cold compress was placed on the right upper eyelid as I proceeded to do the left upper eyelid with similar technique. I incised the inferior marking until the orbicularis muscle was seen. By gently pressing on the globe, excess fat was seen centrally and medially. A small rim of muscle was excised and the septum was incised. The excess fat was teased out and stabilized by a hemostat. The fat was excised off the hemostat and the incised edge was gently cauterized using a [place] cautery tip. The fat that was excised was anterior to the superior orbital rim. Before wound closure, I had the patient elevate his upper eyelids. No difficulties were noted. Good symmetry noted. He was able to close his eyes without exposure seen. No ptosis noted. The wounds were irrigated with saline. Hemostasis was obtained with electrocautery. I loosely approximated the muscle with 5-0 Monocryl simple interrupted sutures. The skin was approximated with 5- 0 fast absorbing plain gut simple interrupted sutures at the medial and lateral ends of the wound. The central wound was approximated with 5-0 fast absorbing plain gut simple running suture. At the medial end of the incision, I smoothed out a small dog ear using Burow triangle in a superior direction. The incision was about 6 mm from the medial canthus. At the lateral end of the incision, I extended the incision superiorly in line with one of the lateral canthal rhytids (swinomish's feet). This extension made it easier to excise additional skin laterally where the redundancy was which led to visual field defects laterally. I removed the corneal eye delarosa. I irrigated both eyes with BSS (Balanced Salt Solution). Patient denied any corneal abrasion pain. Patient was able to move his eyes in all directions. His visual acuity showed no problems at conversation distance (about 3 feet). No hematomas noted. Antibiotic ointment was applied to both suture lines followed by a gauze eye patch. At home he can remove the gauze eye patch and place cold compresses for 5 minutes a few times per hour while awake. He will keep his head elevated during the initial postoperative period. He will be on a 10 lb lifting restriction for a few weeks. Followup in the office tomorrow for a postop check. If he has any complaints of corneal abrasion pain, will have him start Ophthalmic antibiotic drops that also includes a steroid to help with the pain and swelling. Grafts/Implants Used: None. Procedure Start Time: 08:03 Procedure Stop Time: 11:05 Complications None. Admit VTE Documentation VTE Present on Admission: No VTE Mechan Device Prophylaxis: SCD's VTE Pharm Prophylaxis ordered?: No Addendum Addendum: Surgery Charges CPT - 22903-36 ICD-10 - H02.831, H02.834, H53.453, Z98.890, Z79.01, E11.9, Z87.891 43865 H02.834, H02.831, H53.453, Z98.890, Z79.01, E11.9, Z87.891
--- NOTE | 2022-06-05 11:59 | DCINST_ITS ---
Discharge Instructions Diet Discharge Diet: Carb Control Diet Activity Discharge Activity: May Not Drive, May Shower (in two days on Wednesday06/07/22) and - (keep head elevated. no heavy lifting. ice cold compresses to periorbital area for 5 minutes and prn) May resume sexual activity in: 10-14 days Ice area for (Minutes): 5 (and prn to periorbital areas) Weight Bearing Status: Weight bearing as tolerated Lifting Restrictions: 10 lbs. Keep extremity elevated above heart level: - (elevate head) Dressing / Incision Call your doctor if your incision/area has: Continuous Slow Oozing, Sudden Increased Bleeding, Increased Pain/ Swelling, Increased Redness, Foul Smelling Discharge and Swelling at the incision site Call your doctor if you observe: Fever of 101 or Higher, Coldness, Increased Pain, Shortness of breath, Chest pain, Calf discomfort, Uncontrolled pain and - (bulging eyeballs) Suture Line Care: - (apply antibiotic ointment to suture lines daily) Cleanse incision/area with: - (may get incisions wet in the shower in two days.) Follow Up Care Please Follow Up With: Cullen Briscoe MD When: tomorrow 06/06/22 at 900am. Test Results: Test results from this visit will be discussed in further detail at your follow- up appointment, if applicable. Discharge Plan Admission Primary Reason for Your Visit: bilateral upper eyelid blepharoplasty Attending Provider: Cullen Briscoe Primary Care Provider: Apolinar Roche Discharge Orders/Prescriptions Prescriptions: New clindamycin HCl 300 mg capsule 300 mg PO TID Qty: 12 0RF L.acidoph,saliva-B.bif-S.therm [Acidophilus Probiotic Blend] 175 mg capsule 1 cap PO DAILY Qty: 10 0RF oxycodone-acetaminophen [Percocet] 5-325 mg tablet 1 tab PO Q6H PRN (Reason: pain (scale score 7-10)) 7 Days Qty: 28 0RF Rx Instructions: 28 tabs (twenty-eight) diazepam [Valium] 5 mg tablet 5 mg PO BID PRN (Reason: spasms) Qty: 10 0RF Rx Instructions: 10 tabs )ten) Continued rosuvastatin 5 mg tablet 5 mg PO DAILY indapamide 1.25 mg tablet 1.25 mg PO BID Qty: 180 3RF metformin 500 MG tablet 500 mg PO QHS Label Comments: DIABETES glucosamine sulfate 500 MG tablet 500 mg PO BID Label Comments: SUPPLEMENT ascorbic acid (vitamin C) 500 MG tablet 500 mg PO DAILY Label Comments: SUPPLEMENT tamsulosin 0.4 MG capsule 0.4 mg PO QHS Label Comments: URINE FLOW coenzyme [id number] E 1 EACH capsule 1 ea PO DAILY Label Comments: SUPPLEMENT multivitamin with folic acid 1 TABLET tablet 1 tab PO DAILY Label Comments: SUPPLEMENT olmesartan 40 MG tablet 40 mg PO DAILY diltiazem HCl 180 mg capsule,extended release 24 hr 180 mg PO DAILY Qty: 90 3RF metoprolol tartrate 100 mg tablet 100 mg PO BID Qty: 180 3RF Held Eliquis 5 mg tablet 5 mg PO BID Hold Instructions: Resume on 06/06/22. May resume after being seen in the office on 06/06/22 at 900am. Discontinued aspirin [Adult Aspirin Regimen] 81 mg tablet,delayed release (DR/EC) 81 mg PO DAILY Referrals / Follow Up: Apolinar Roche MD [Primary Care Provider] - Cullen Briscoe MD [Med Staff - Active Staff] - (followup 06/06/22 at 900am.) Disposition Disposition (needs filled in before D/C Order can be placed): Home, Self Care
== END 2022-06-05 13:17 | disposition home or self-care (01) ==
LOC: SDC 06:06 → AC 06:06
PROVIDERS: PCP Family Medicine; Referring Provider Surgery; Visit Provider Surgery
PROC: (CPT 15823; principal; 2022-06-05 07:20)
DX: H02.831 Dermatochalasis of right upper eyelid (principal); H02.834 Dermatochalasis of left upper eyelid; H53.40 Unspecified visual field defects; I48.91 Unspecified atrial fibrillation; I47.20 Ventricular tachycardia, unspecified; E11.9 Type 2 diabetes mellitus without complications; I25.10 Atherosclerotic heart disease of native coronary artery without angina pectoris; I10 Essential (primary) hypertension; E78.00 Pure hypercholesterolemia, unspecified; G47.33 Obstructive sleep apnea (adult) (pediatric); Z79.01 Long term (current) use of anticoagulants; Z79.899 Other long term (current) drug therapy; Z87.891 Personal history of nicotine dependence; Z95.1 Presence of aortocoronary bypass graft; Z79.84 Long term (current) use of oral hypoglycemic drugs; Z79.82 Long term (current) use of aspirin
CPT/HCPCS: 15823; 00103; 82962; J7120; J2405

== ENCOUNTER → 2023-01-19 | Outpatient (CLI) | payer MEDICARE, SELFPAY ==
[2023-01-19 15:37] LABS: Bacteria 0 SEEN /hpf (None Seen); Mucous, Urine 0 SEEN /hpf (<or=2+); White Blood Cells 0 SEEN /hpf (0-5)
[2023-01-19 16:31] LABS: AST(SGOT) 21 U/L (15-37); Alanine Aminotransfer ALT/SGPT 32 U/L (16-61); Albumin, Serum 3.5 g/dL (3.2-5.0); Alkaline Phosphatase 65 U/L (45-117); Anion Gap 3 (5-15); BUN 15 mg/dL (7-18); BUN/Creat Ratio 14.7 RATIO (10-20); Calcium,Total 9.4 mg/dL (8.5-10.1); Chloride 105 mmol/L (98-107); Creatinine, Serum 1.02 mg/dL (0.70-1.30); EST Glomerular Filtration Rate 77 mL/min (>60); Est Glom Filt Rate - Afr Amer 93 mL/min (>60); Globulin 3.5 g/dL (2.2-4.2); Glucose 115 mg/dL (74-106); Potassium 3.6 mmol/L (3.5-5.1); Sodium Level 139 mmol/L (136-145)
[2023-01-19 16:49] LABS: Hemoglobin A1c 5.5 % (3.8-5.6)
[2023-01-20 09:39] LABS: Color, Urine Yellow (Yellow); Glucose, Dipstick Normal (Normal); Ketone-Dipstick Negative (Negative); Leukocyte Esterase-Dipstick Negative /ul (Negative); Nitrite-Dipstick Negative (Negative); Occult Blood-Urine 10 /ul (Negative); Protein-Dipstick Negative (Negative); Specific Gravity, Urine 1.015 (1.002-1.030); Urine Bilirubin Dipstick Negative (Negative); Urine Clarity Clear (Clear); Urine Urobilinogen Normal (Normal)
[2023-01-20 09:47] LABS: Red Blood Cells-Urine 0-5 SEEN /hpf (0-5); Squamous Epithelial Cells - UA 0-5 SEEN /hpf (0-5)
[2023-01-20 10:00] LABS: Microalbumin,Random Urine 39.1 mg/L (NO RANGE EST.); Microalbumin:Creatinine Ratio 31.5 mg/g CRE (<30 mg/g CRE)
== END | disposition home or self-care (01) ==
LOC: LAB 15:31
PROVIDERS: PCP Family Medicine; Referring Provider Family Medicine; Visit Provider Family Medicine
DX: I10 Essential (primary) hypertension (principal); R73.03 Prediabetes
CPT/HCPCS: 36415; 80053; 81001; 82043; 82570; 83036

== ENCOUNTER → 2023-04-23 | Outpatient (CLI) | payer MEDICARE, SELFPAY ==
--- OUTSIDE RECORDS SUMMARY | 2023-04-23 12:28 | XMS RPT_ITS | CCD ---
Author Name Unknown Address [address] [place] [address] Organization [facility] Care Team Providers Care Sausage Tier Name Role Phone Sloan Galan Unavailable Allergies Allergy Classification Reported Allergen(s) Allergy Type Date of Onset Reaction(s) Facility (3 sources) Angiotensin Converting Enzyme (Raad) Inhibitors drug allergy 1 Intolerance, cough, nonproductive [facility] Work Phone: (3 sources) atorvastatin Drug Allergy 6 [facility] Work Phone: (3 sources) simvastatin; Translations: [SIMVASTATIN] Drug Allergy 6 [facility] Work Phone: Medications Completed/Discontinued Medications Medication Drug Class(es) Dates Sig (Normalized) Sig (Original) acetaminophen 500 mg oral tablet (3 sources) Start: 02-04-2016 TYLENOL EXTRA STRENGTH 500 MG TABS as needed ACETAMINOPHEN [id number] Aidan Wyatt MD ascorbic acid 500 mg oral tablet (3 sources) Start: 08-18-2010 take 1 tablet by mouth once daily VITAMIN C 500 MG TABS One tablet by mouth daily ASCORBIC ACID [id number] Mary Stafford aspirin 81 mg oral tablet (6 sources) Nonsteroidal Anti-inflammatory Drug Start: 08-18-2010 take 1 tablet by mouth once daily ASPIRIN 81 MG TABS One tablet by mouth daily ASPIRIN [id number] Mary Stafford Problems Active Problems Problem Classification Problem Date Documented Date Episodic/Chronic Cardiac dysrhythmias (3 sources) Paroxysmal ventricular tachycardia; Translations: [Ventricular tachycardia] Onset: 08-18-2010 08-18-2010 Chronic Coronary atherosclerosis and other heart disease (3 sources) Coronary arteriosclerosis; Translations: [Atherosclerotic heart disease of [place] coronary artery without angina pectoris] Onset: 08-18-2010 08-18-2010 Chronic Diabetes mellitus without complication (3 sources) Diabetes mellitus; Translations: [Type 2 diabetes mellitus without complications] Onset: 08-18-2010 08-18-2010 Chronic Disorders of lipid metabolism (3 sources) Hyperlipidemia; Translations: [Hyperlipidemia, unspecified] Onset: 08-18-2010 08-18-2010 Chronic Essential hypertension (3 sources) Hypertensive disorder; Translations: [Essential (primary) hypertension] Onset: 08-18-2010 08-18-2010 Chronic Joint disorders and dislocations; trauma-related (6 sources) Derangement of knee; Translations: [Other internal derangements of left knee] Onset: 02-26-2016 03-05-2016 Chronic Osteoarthritis (6 sources) Localized, primary osteoarthritis; Translations: [Unilateral primary osteoarthritis, right knee] Onset: 01-02-2015 01-13-2015 Chronic Other non-traumatic joint disorders (3 sources) Arthropathy; Translations: [Other specified acquired deformities of musculoskeletal system] Onset: 03-19-2016 03-26-2016 Chronic Unclassified (6 sources) Body mass index (BMI) 50-59.9 , adult; Translations: [Body mass index (BMI) 45.0-49.9, adult] Onset: 01-24-2013 01-24-2013 Chronic Unclassified (3 sources) Long-term drug therapy; Translations: [Other manager terminal (current) drug therapy] Onset: 08-18-2010 08-18-2010 Unclassified (3 sources) Aftercare ; Translations: [Encounter for other orthopedic aftercare] Onset: 06-15-2016 06-24-2016 Past or Other Problems Problem Classification Problem Date Documented Date Episodic/Chronic Cardiac dysrhythmias (3 sources) Palpitations; Translations: [Palpitations] Onset: 4 07-20-2013 Episodic Coronary atherosclerosis and other heart disease (3 sources) Presence of aortocoronary bypass graft; Translations: [Presence of aortocoronary bypass graft] Onset: 1 08-18-2010 Episodic Joint disorders and dislocations; trauma-related (12 sources) Other tear of medial meniscus, current injury, right knee, subsequent encounter; Translations: [Other tear of medial meniscus, current injury, left knee, subsequent encounter] Onset: 6 03-26-2016 Episodic Nonspecific chest pain (3 sources) Precordial pain; Translations: [Precordial pain] Onset: 1 08-18-2010 Episodic Other connective tissue disease (3 sources) Posterior tibial tendinitis, left leg; Translations: [Posterior tibial tendinitis, left leg] Onset: 5 01-13-2015 Episodic Other non-traumatic joint disorders (12 sources) Knee pain; Translations: [Ankle pain] Onset: 5 02-26-2016 Episodic Unclassified (3 sources) Electrocardiogram abnormal; Translations: [Abnormal electrocardiogram [ECG] [EKG]] Onset: 1 08-18-2010 Episodic Unclassified (3 sources) Family history of ischemic heart disease and other diseases of the circulatory system; Translations: [Family history of ischemic heart disease and other diseases of the circulatory system] 01-23-2014 Episodic Results Test Name Value Interpretation Reference Range [facility] Vital Signs Date Time Vital Sign Value Performing Clinician Facility 08-18-2016 14:33-0400 BMI (Body Mass Index) 48.09 kg/m2 [facility] Work Phone: 08-18-2016 14:33-0400 BP Diastolic 64 mm[Hg] [facility] Work Phone: 08-18-2016 14:33-0400 BP Systolic 122 mm[Hg] [facility] Work Phone: 08-18-2016 14:33-0400 Height 165.1 cm [facility] Work Phone: 08-18-2016 14:33-0400 Pulse (Heart Rate) 64 /min [facility] Work Phone: 08-18-2016 14:33-0400 Weight 131.09 kg [facility] Work Phone: 02-04-2016 16:54-0500 BSA (Body Surface Area) 2.35 m2 [facility] Work Phone: 02-04-2016 16:54-0500 Respiratory Rate 20 /min [facility] Work Phone: Procedures Date Procedure Procedure Detail Performing Clinician Start: 08-18-2016 End: 09-09-2016 Echocardiography Aidan Wyatt MD Start: 08-18-2016 End: 08-18-2016 Follow Up Appt 6 months Monroe Ellison Start: 08-18-2016 End: 08-18-2016 MAYCO Wyatt MD Start: 08-18-2016 End: 09-09-2016 Nuclear stress test -Lexiscan Aidan Wyatt MD Start: 06-03-2016 End: 06-03-2016 *Hepatic Function Panel Jody cantu PA-C Work Phone: Start: 06-03-2016 End: 08-11-2016 Lipid 1996 panel - Serum or Plasma Jody Padilla PA-C Work Phone: Start: 02-26-2016 End: 03-05-2016 Arthrocentesis aspir&/inj major jt/bursa w/o us Sloan Galan Work Phone: Start: 02-26-2016 End: 06-03-2016 Mri any jt lower extrem w/o contrast matrl Sloan Galan Work Phone: Start: 02-26-2016 End: 06-03-2016 Radiologic exam knee complete 4/more views Sloan Galan Work Phone: Start: 02-04-2016 End: 02-04-2016 Follow Up Appt 6 months Monroe Ellison Start: 02-04-2016 End: 02-04-2016 MAYCO Wyatt MD Start: 02-03-2016 End: 02-03-2016 *Hepatic Function Panel Jody cantu PA-C Work Phone: Start: 02-03-2016 End: 02-03-2016 Lipid 1996 panel - Serum or Plasma Jody Padilla PA-C Work Phone: Start: 11-21-2015 End: 11-21-2015 Lipid 1996 panel - Serum or Plasma Jody Padilla PA-C Work Phone: Start: 08-07-2015 End: 08-07-2015 SIGN PAINTER HELPER Jody Padilla PA-C Work Phone: Start: 08-07-2015 End: 08-07-2015 Follow Up Appt 6 months Jody cantu PA-C Work Phone: Start: 08-07-2015 End: 08-07-2015 Follow Up BP Check Jody Padilla PA-C Work Phone: Start: 07-29-2015 End: 08-05-2015 *Hepatic Function Panel Monroe Ellison Start: 07-29-2015 End: 08-05-2015 Lipid 1996 panel - Serum or Plasma Aidan Wyatt MD Start: 01-29-2015 End: 03-06-2015 *BMP Aidan Wyatt MD Start: 01-29-2015 End: 01-29-2015 Follow Up Appt 6 months Monroe Ellison Start: 01-29-2015 End: 01-29-2015 MMM Aidan Wyatt MD Start: 01-24-2015 End: 01-28-2015 *Hepatic Function Panel Monroe Ellison Start: 01-24-2015 End: 01-28-2015 Lipid 1996 panel - Serum or Plasma Aidan Wyatt MD Start: 01-09-2015 End: 01-10-2016 Physical Therapy General Sloan Galan Work Phone: Start: 01-02-2015 End: 06-03-2016 Radex ankle complete minimum 3 views Sloan Galan Work Phone: Start: 01-02-2015 End: 06-03-2016 Radiologic exam knee complete 4/more views Sloan Galan Work Phone: Start: 07-26-2014 End: 07-26-2014 SIGN PAINTER HELPER Jody Padilla PA-C Work Phone: Start: 07-26-2014 End: 07-27-2014 Documentation of current medications Jody Padilla PA-C Work Phone: Start: 07-26-2014 End: 07-26-2014 Ecg routine ecg w/least 12 lds w/i&r Jody Padilla PA-C Work Phone: Start: 07-26-2014 End: 07-26-2014 Follow Up Appt 6 months Jody cantu PA-C Work Phone: Start: 07-26-2014 End: 07-27-2014 Pedal pulse taking Jody Padilla PA-C Work Phone: Start: 07-13-2014 End: 07-23-2014 *Hepatic Function Panel Monroe Ellison Start: 07-13-2014 End: 07-23-2014 Lipid 1996 panel - Serum or Plasma Aidan Wyatt MD Start: 01-23-2014 End: 07-18-2014 Follow Up Appt 6 months Monroe Ellison Start: 01-23-2014 End: 07-18-2014 MMM Aidan Wyatt MD Start: 12-13-2013 End: 01-16-2014 *Hepatic Function Panel Monroe Ellison Start: 12-13-2013 End: 01-16-2014 Lipid 1996 panel - Serum or Plasma Aidan Wyatt MD Start: 07-20-2013 End: 07-24-2013 *BMP Jody Padilla PA-C Work Phone: Start: 07-20-2013 End: 07-24-2013 *CBC with Differential Jody mackay PA-C Work Phone: Start: 07-20-2013 End: 07-20-2013 SIGN PAINTER HELPER Jody Padilla PA-C Work Phone: Start: 07-20-2013 End: 07-20-2013 Ecg routine ecg w/least 12 lds w/i&r Jody Padilla PA-C Work Phone: Start: 07-20-2013 End: 07-20-2013 Follow Up Appt 6 months Jody cantu PA-C Work Phone: Start: 07-20-2013 End: 07-24-2013 Magnesium [Mass/volume] in Serum or Plasma Jody Padilla PA-C Work Phone: Start: 07-20-2013 End: 07-24-2013 Thyrotropin [Units/volume] in Serum or Plasma Jody Padilla PA-C Work Phone: Start: 06-26-2013 End: 06-26-2013 *Hepatic Function Panel Monroe Ellison Start: 06-26-2013 End: 06-26-2013 Lipid 1996 panel - Serum or Plasma Aidan Wyatt MD Start: 01-24-2013 End: 01-24-2013 Follow Up Appt 6 months Monroe Ellison Start: 01-24-2013 End: 01-24-2013 MMM Aidan Wyatt MD Start: 12-13-2012 End: 01-25-2013 *Hepatic Function Panel Monroe Ellison Start: 12-13-2012 End: 01-25-2013 Lipid 1996 panel - Serum or Plasma Aidan Wyatt MD Start: 07-21-2012 End: 07-21-2012 SIGN PAINTER HELPER Aidan Wyatt MD Start: 07-21-2012 End: 08-01-2012 Echocardiography Aidan Wyatt MD Start: 07-21-2012 End: 08-11-2012 Nuclear stress test -exercise Aidan Wyatt MD Start: 06-20-2012 End: 06-20-2012 *Hepatic Function Panel Mario Veras MD Start: 06-20-2012 End: 06-20-2012 Lipid 1996 panel - Serum or Plasma Mario Veras MD Start: 01-12-2012 End: 01-12-2012 Ecg routine ecg w/least 12 lds w/i&r Mario Veras MD Start: 01-12-2012 End: 01-12-2012 Follow Up Appt 6 months Mario Veras MD Start: 11-18-2011 End: 11-18-2011 *Hepatic Function Panel Mario Veras MD Start: 11-18-2011 End: 11-18-2011 Lipid 1996 panel - Serum or Plasma Mario Veras MD Start: 07-10-2011 End: 07-10-2011 Follow Up Appt 6 months Mario Veras MD Plan of Treatment Date Care Activity Detail Author Start: 08-09-2017 End: 08-21-2016 *Hepatic Function Panel *Hepatic Function Panel [facility] Work Phone: Start: 08-09-2017 End: 08-21-2016 Lipid panel [AGGREGATE] *Lipid Profile CC PCP [facility] Medical [facility] Work Phone: Start: 03-10-2017 End: 03-10-2017 Appointment Appointment [facility] Work Phone: Start: 03-01-2017 End: 03-01-2017 Appointment Appointment [facility] Work Phone: Start: 02-25-2017 End: 02-25-2017 Appointment Appointment [facility] Work Phone: Start: 01-28-2017 End: 01-28-2017 Appointment Appointment [facility] Work Phone: Start: 11-20-2016 End: 02-03-2016 *Hepatic Function Panel *Hepatic Function Panel [facility] Work Phone: Start: 11-20-2016 End: 02-03-2016 Lipid panel [AGGREGATE] *Lipid Profile CC PCP [facility] Medical [facility] Work Phone: Start: 08-18-2016 End: 08-18-2016 Echocardiography Echocardiogram (complete) [facility] Work Phone: Start: 08-18-2016 End: 08-18-2016 Follow Up Appt 6 months Follow Up Appt 6 months [facility] Work Phone: Start: 08-18-2016 End: 08-18-2016 MMM MMM [facility] Work Phone: Start: 08-18-2016 End: 08-18-2016 Nuclear stress test -Lexiscan Nuclear stress test -Lexiscan [facility] Work Phone: Start: 08-12-2016 End: 06-03-2016 *Hepatic Function Panel *Hepatic Function Panel [facility] Work Phone: Start: 08-12-2016 End: 06-03-2016 Lipid panel [AGGREGATE] *Lipid Profile CC PCP [facility] Medical Ce er [facility] Work Phone: Start: 02-26-2016 End: 06-03-2016 Mri any jt lower extrem w/o contrast matrl MRI Joint Lower Extremity [facility] Work Phone: Start: 02-26-2016 End: 06-03-2016 Radiologic exam knee complete 4/more views X-Ray, Knee [facility] Work Phone: Start: 02-04-2016 End: 02-04-2016 Follow Up Appt 6 months Follow Up Appt 6 months [facility] Work Phone: Start: 02-04-2016 End: 02-04-2016 MMM MMM [facility] Work Phone: Start: 11-22-2015 End: 11-21-2015 Lipid panel [AGGREGATE] *Lipid Profile CC PCP [facility] Work Phone: Start: 08-07-2015 End: 08-07-2015 SIGN PAINTER HELPER SIGN PAINTER HELPER [facility] Work Phone: Start: 08-07-2015 End: 08-07-2015 Follow Up Appt 6 months Follow Up Appt 6 months [facility] Work Phone: Start: 08-07-2015 End: 08-07-2015 Follow Up BP Check Follow Up BP Check [facility] Work Phone: Start: 07-29-2015 End: 08-05-2015 *Hepatic Function Panel *Hepatic Function Panel [facility] Work Phone: Start: 07-29-2015 End: 08-05-2015 Lipid panel [AGGREGATE] *Lipid Profile CC PCP [facility] Work Phone: Start: 01-29-2015 End: 03-06-2015 *BMP *BMP [facility] Work Phone: Start: 01-29-2015 End: 01-29-2015 Follow Up Appt 6 months Follow Up Appt 6 months [facility] Work Phone: Start: 01-29-2015 End: 01-29-2015 MMM MMM [facility] Work Phone: Start: 01-24-2015 End: 01-28-2015 *Hepatic Function Panel *Hepatic Function Panel [facility] Work Phone: Start: 01-24-2015 End: 01-28-2015 Lipid panel [AGGREGATE] *Lipid Profile CC PCP [facility] Work Phone: Start: 01-09-2015 End: 01-09-2015 Physical Therapy General Physical Therapy [facility], [address] [place] [address], [id number] [facility] Work Phone: Start: 01-02-2015 End: 06-03-2016 Radex ankle complete minimum 3 views X-Ray, Ankle [facility] Work Phone: Start: 01-02-2015 End: 06-03-2016 Radiologic exam knee complete 4/more views X-Ray, Knee [facility] Work Phone: Start: 07-26-2014 End: 07-26-2014 SIGN PAINTER HELPER SIGN PAINTER HELPER [facility] Work Phone: Start: 07-26-2014 End: 07-26-2014 Ecg routine ecg w/least 12 lds w/i&r EKG (In office) [facility] Work Phone: Start: 07-26-2014 End: 07-26-2014 Follow Up Appt 6 months Follow Up Appt 6 months [facility] Work Phone: Start: 07-13-2014 End: 07-23-2014 *Hepatic Function Panel *Hepatic Function Panel [facility] Work Phone: Start: 07-13-2014 End: 07-23-2014 Lipid panel [AGGREGATE] *Lipid Profile CC PCP [facility] Work Phone: Start: 01-23-2014 End: 07-18-2014 Follow Up Appt 6 months Follow Up Appt 6 months [facility] Work Phone: Start: 01-23-2014 End: 07-18-2014 MMM MMM [facility] Work Phone: Start: 12-13-2013 End: 01-16-2014 *Hepatic Function Panel *Hepatic Function Panel [facility] Work Phone: Start: 12-13-2013 End: 01-16-2014 Lipid panel [AGGREGATE] *Lipid Profile CC PCP [facility] Work Phone: Start: 07-20-2013 End: 07-24-2013 *BMP *BMP [facility] Work Phone: Start: 07-20-2013 End: 07-24-2013 *CBC with Differential *CBC with Differential [facility] Work Phone: Start: 07-20-2013 End: 07-20-2013 SIGN PAINTER HELPER SIGN PAINTER HELPER [facility] Work Phone: Start: 07-20-2013 End: 07-20-2013 Ecg routine ecg w/least 12 lds w/i&r EKG (In office) [facility] Work Phone: Start: 07-20-2013 End: 07-20-2013 Follow Up Appt 6 months Follow Up Appt 6 months [facility] Work Phone: Start: 07-20-2013 End: 07-24-2013 Magnesium *Magnesium [facility] Work Phone: Start: 07-20-2013 End: 07-24-2013 Thyroid stimulating hormone (TSH) *TSH [facility] Work Phone: Start: 07-13-2013 End: 06-26-2013 *Hepatic Function Panel *Hepatic Function Panel [facility] Work Phone: Start: 07-13-2013 End: 06-26-2013 Lipid panel [AGGREGATE] *Lipid Profile CC PCP [facility] Work Phone: Start: 01-24-2013 End: 01-24-2013 Follow Up Appt 6 months Follow Up Appt 6 months [facility] Work Phone: Start: 01-24-2013 End: 01-24-2013 MMM MMM [facility] Work Phone: Start: 12-13-2012 End: 01-25-2013 *Hepatic Function Panel *Hepatic Function Panel [facility] Work Phone: Start: 12-13-2012 End: 01-25-2013 Lipid panel [AGGREGATE] *Lipid Profile [facility] Work Phone: Start: 07-21-2012 End: 07-21-2012 SIGN PAINTER HELPER SIGN PAINTER HELPER [facility] Work Phone: Start: 07-21-2012 End: 07-22-2012 Echocardiography Echocardiogram (complete) [facility] Medicine [facility] Work Phone: Start: 07-21-2012 End: 07-22-2012 Nuclear stress test -exercise Nuclear stress test -exercise [facility] Work Phone: Start: 06-29-2012 End: 06-20-2012 *Hepatic Function Panel *Hepatic Function Panel [facility] Work Phone: Start: 06-29-2012 End: 06-20-2012 Lipid panel [AGGREGATE] *Lipid Profile [facility] Work Phone: Start: 01-12-2012 End: 01-12-2012 Ecg routine ecg w/least 12 lds w/i&r EKG (In office) [facility] Work Phone: Start: 01-12-2012 End: 01-12-2012 Follow Up Appt 6 months Follow Up Appt 6 months [facility] Work Phone: Start: 12-16-2011 End: 11-18-2011 *Hepatic Function Panel *Hepatic Function Panel [facility] Work Phone: Start: 12-16-2011 End: 11-18-2011 Lipid panel [AGGREGATE] *Lipid Profile [facility] Work Phone: Start: 07-10-2011 End: 07-10-2011 Follow Up Appt 6 months Follow Up Appt 6 months [facility] Work Phone: Patient Education [facility] Work Phone: Additional Source Comments FOR RECORDS PERTAINING TO PATIENTS WHO ARE OR HAVE BEEN ENROLLED IN A CHEMICAL DEPENDENCY/SUBSTANCEABUSE PROGRAM, SOME INFORMATION MAY BE OMITTED. This clinical summary was aggregated from multiple sources. Caution should be exercised in using it in the provision of clinical care. This summary normalizes information from multiple sources, and as a consequence, information in this document may materially change the coding, format and clinical context of patient data. In addition, data may be omitted in some cases. CLINICAL DECISIONS SHOULD BE BASED ON THE PRIMARY CLINICAL RECORDS. [email or web address] provides no warranty or guarantee of the accuracy or completeness of information in this document.
[2023-04-23 13:24] LABS: ALB/GLOB Ratio 0.9 RATIO (0.9-2.4); AST(SGOT) 35 U/L (15-37); Alanine Aminotransfer ALT/SGPT 41 U/L (16-61); Albumin, Serum 3.5 g/dL (3.2-5.0); Alkaline Phosphatase 68 U/L (45-117); Anion Gap 4 (5-15); BUN 15 mg/dL (7-18); BUN/Creat Ratio 14.9 RATIO (10-20); Calcium,Total 9.4 mg/dL (8.5-10.1); Chloride 107 mmol/L (98-107); Creatinine, Serum 1.01 mg/dL (0.70-1.30); EST Glomerular Filtration Rate 78 mL/min (>60); Est Glom Filt Rate - Afr Amer 94 mL/min (>60); Globulin 3.8 g/dL (2.2-4.2); Glucose 154 mg/dL (74-106); Potassium 3.8 mmol/L (3.5-5.1); Protein, Total 7.3 g/dL (6.4-8.2); Sodium Level 141 mmol/L (136-145)
[2023-04-23 16:55] LABS: Hemoglobin A1c 5.9 % (3.8-5.6)
== END | disposition home or self-care (01) ==
LOC: LAB 12:07
PROVIDERS: PCP Family Medicine; Referring Provider Family Medicine; Visit Provider Family Medicine
DX: Z00.00 Encounter for general adult medical examination without abnormal findings (principal); E88.810 Metabolic syndrome
CPT/HCPCS: 36415; 80053; 83036

== ENCOUNTER → 2023-07-16 | Outpatient (CLI) | payer MEDICARE, SELFPAY ==
--- NOTE | 2023-07-16 17:01 | STRESSREP_ITS ---
Stress Test Report Pharmacologic myocardial perfusion stress test. 68-year-old man with a history of atherosclerosis Resting EKG demonstrates atrial flutter with a rate of 64 bpm and a right bundle branch block. Resting blood pressure is 162/92 mmHg. 0.4 mg of regadenoson was infused per usual protocol followed by rapid intravenous saline flush injection. Continuous EKG monitoring was performed. The maximum heart rate was 94 bpm which was 62% of max impacted heart rate the maximum workload was 1 metabolic equivalent. At rest there were no ST or T wave changes noted to suggest ischemia and at peak infusion nonspecific ST changes were noted which did not meet the criteria for ischemia. No clinical angina is noted. The final blood pressure was 168/92 mmHg. Myocardial perfusion protocol. 15 mCi of technetium 99m sestamibi was injected at rest. 0.4 mg of regadenoson was infused per usual protocol. At peak infusion 45 mCi of technetium 99m s estamibi was injected stress images were obtained stress and rest images were reconstructed and compared in the short axis vertical long and horizontal long axis. Gated images were also obtained. Perfusion SPECT analysis: Review of the stress images demonstrate normal uptake of tracer noted in all areas of the myocardium. The resting images similar demonstrated normal uptake of tracer noted in all areas of the myocardium. No areas of reversibility are noted to suggest ischemia and no previous infarct is noted. Gated SPECT analysis: The gated ejection fraction is 69%. Conclusion: Normal pharmacologic myocardial perfusion stress test. Preserved ejection fraction. Atrial flutter with a controlled ventricular response rate.
== END | disposition home or self-care (01) ==
LOC: CVS 07:01
PROVIDERS: PCP Family Medicine; Referring Provider Internal Medicine Cardiovascular Disease; Visit Provider Internal Medicine Cardiovascular Disease
DX: I25.10 Atherosclerotic heart disease of native coronary artery without angina pectoris (principal)
CPT/HCPCS: 78452; 93017; A9500; A4216; J2785

== ENCOUNTER → 2024-04-25 | Outpatient (CLI) | payer MEDICARE, SELFPAY ==
[2024-04-25 09:07] LABS: Absolute Lymphocyte Count 1.64 X10^3/uL (0.83-4.51); Absolute Neutrophil Count 4.5 X10^3/uL (2.0-7.7); Basophil# 0.03 X10^3/uL; Basophil% 0.4 % (0-1); Eosinophil# 0.15 X10^3/uL; Hematocrit 40.2 % (40-54); Hemoglobin 13.7 g/dL (13.0-16.5); Lymphocyte # 1.64 X10^3/ul (0.83-4.51); Lymphocyte % 22.4 % (19-41); Mean Corp Hgb Conc 34.1 g/dL (32-36); Mean Corpuscular Hgb 31.1 pg (27.0-32.0); Mean Corpuscular Volume 91.2 fL (80-94); Mean Platelet Vol. 10.5 fl (6.2-12.0); Monocyte# 0.96 X10^3/uL; Monocyte% 13.1 % (0-10); NRBC Flagged by Analyzer 0 % (0-5); Neutrophil % 61.6 % (47-70); Platelet Count 201 K/mm3 (150-450); RBC Distribution Width CV 12.9 % (11.6-14.6); RBC Distribution Width SD 42.6 fl (35.1-43.9); Red Blood Count 4.41 M/mm3 (4.6-6.2); White Blood Count 7.3 K/mm3 (4.4-11.0)
[2024-04-25 09:18] LABS: Anion Gap 3 (5-15); BUN 14 mg/dL (7-18); BUN/Creat Ratio 14.6 RATIO (10-20); Calcium,Total 9.2 mg/dL (8.5-10.1); Chloride 103 mmol/L (98-107); Creatinine, Serum 0.96 mg/dL (0.70-1.30); EST Glomerular Filtration Rate 82 mL/min (>60); Est Glom Filt Rate - Afr Amer 100 mL/min (>60); Glucose 162 mg/dL (74-106); Magnesium 2.3 mg/dL (1.6-2.6); Potassium 3.6 mmol/L (3.5-5.1); Sodium Level 140 mmol/L (136-145)
== END | disposition home or self-care (01) ==
LOC: LAB 08:22
PROVIDERS: PCP Family Medicine; Referring Provider Physician Assistant Medical; Visit Provider Physician Assistant Medical
DX: I48.11 Longstanding persistent atrial fibrillation (principal); R00.2 Palpitations; Z79.01 Long term (current) use of anticoagulants
CPT/HCPCS: 36415; 80048; 83735; 84443; 85025

== ENCOUNTER → 2024-05-17 | Outpatient (CLI) | payer MEDICARE, SELFPAY ==
[2024-05-17 09:10] LABS: ALB/GLOB Ratio 1.4 RATIO (0.9-2.4); AST(SGOT) 26 U/L (<=37); Alanine Aminotransfer ALT/SGPT 30 U/L (<=46); Albumin, Serum 3.9 g/dL (3.4-4.8); Alkaline Phosphatase 67 U/L (40-129); Anion Gap 11 (5-15); BUN 14 mg/dL (4-19); BUN/Creat Ratio 15.7 RATIO (10-20); Calcium,Total 9.1 mg/dL (7.6-11.0); Chloride 103 mmol/L (98-108); Cholesterol 113 mg/dL (<=200); Creatinine, Serum 0.88 mg/dL (0.70-1.20); EST Glomerular Filtration Rate 92 (>60); Globulin 2.7 g/dL (2.2-4.2); Glucose 124 mg/dL (70-99); High Density Lipoprotein 49 mg/dL; Low Density Lipoprotein Calc. 51 mg/dL; Potassium 3.5 mmol/L (3.3-5.1); Protein, Total 6.7 g/dL (5.9-8.4); Sodium Level 140 mmol/L (133-145); Total Bilirubin 0.38 mg/dL (0.00-1.30); Triglycerides 66 mg/dL; Very Low Density Lipoprotein 13 mg/dL (5-40); cholesterol:hdl ratio screen 2.33
[2024-05-17 12:16] LABS: Microalbumin,Random Urine 66.8 mg/L (NO RANGE EST.)
== END | disposition home or self-care (01) ==
PROVIDERS: PCP Family Medicine; Referring Provider Family Medicine; Visit Provider Family Medicine
DX: E11.8 Type 2 diabetes mellitus with unspecified complications (principal)
CPT/HCPCS: 36415; 80053; 80061; 82043; 82570; 83036

== ENCOUNTER → 2024-10-21 | Outpatient (CLI) | payer MEDICARE, SELFPAY ==
--- OUTSIDE RECORDS SUMMARY | 2024-10-21 08:21 | XMS RPT_ITS | CCD ---
Author Organization [facility] Care Team Providers Care Ent Nurse Name Role Phone Sloan Galan Unavailable Dr. Apolinar Roche Primary Care Provider 1([facility])[phone] Apolinar Roche Referring Provider 1([facility])[phone] Roof TOP LIFT TRIMMER, TOP LIFT TRIMMER-C Cedric Cali Attending Provider 1([facility])[phone] Dr. Cullen Briscoe Attending Provider 1([facility])[phone] Dr. Apolinar Roche Primary Care Provider 1([facility])[phone] Apolinar Roche Referring Provider 1([facility])[phone] Roof TOP LIFT TRIMMER, TOP LIFT TRIMMER-C Cedric Cali Attending Provider 1([facility])[phone] Dr. Cullen Briscoe Attending Provider 1([facility])[phone] Dr. Cullen Briscoe Referring Provider 1([facility])[phone] Dr. Cullen Briscoe Other Provider 1([facility])[phone] Apolinar Roche Primary Care Provider 1([facility])[phone] Apolinar Roche Referring Provider 1([facility])[phone] YOSELIN Bazan Attending Provider Dr. Florentin Bethea Attending Provider 1([facility])[phone] Dr. Aidan Wyatt Attending Provider 1([facility])[phone] Aidan Wyatt Referring Provider 1([facility])[phone] Aidan Wyatt Other Provider Dr. Apolinar Roche MD Primary Care Provider 1([facility])[phone] Dr. Apolinar Roche MD Referring Provider 1([facility])[phone] [place] TOP LIFT TRIMMER-CPatrice Attending Provider 1([facility])[phone] Jody Bazan Attending Provider [phone] Jody Bazan Referring Provider [phone] Elizabeth Garcia Attending Provider Dr. Apolinar Roche MD Attending Provider Arnulfo Lew Attending Provider [phone] Soco Balderas Attending Provider Roche, Apolinar Primary Care Unavailable Roche, Apolinar Referring Unavailable BorruFlorentin horne Attending Unavailable Roche, Apolinar Primary Care Unavailable Roche, Apolinar Referring Unavailable BorrusoFlorentin Attending Unavailable Roche, Apolinar Primary Care Unavailable Lake, Florentin Attending Unavailable Roche, Apolinar Referring Unavailable Borruso, Florentin Attending Unavailable Roche, Apolinar Primary Care Unavailable Roche, Apolinar Referring Unavailable Roche, Apolinar Primary Care Unavailable Patrice Noriega Attending Unavailable Roche, Apolinar Referring Unavailable Roche, Apolinar Primary Care Unavailable Arnulfo Champagne Attending Unavailable Roche, Apolinar Referring Unavailable Roche, Apolinar Primary Care Unavailable Soco Serrano NP Attending Unavailable Roche, Apolinar Referring Unavailable Roche, Apolinar Referring Unavailable Elizabeth Dao Attending Unavailable Roche, Apolinar Primary Care Unavailable Jody Bazan Attending Unavail able oJdy Bazan Referring Unavail able Roche, Apolinar Primary Care Unavailable Roche, Apolinar Primary Care Unavailable Roche, Apolinar Attending Unavailable Roche, Apolinar Referring Unavailable Allergies Allergy Classification Reported Allergen(s) Allergy Type Date of Onset Reaction(s) Facility (13 sources) Angiotensin Converting Enzyme (Jaja) Inhibitors; Translations: [JAJA Inhibitors] drug allergy 1 Intolerance, cough, nonproductive, Unknown [facility] Work Phone: (3 sources) atorvastatin Drug Allergy 6 mylagias [facility] Work Phone: (13 sources) simvastatin; Translations: [SIMVASTATIN] Drug Allergy 6 mylagia, Pain in joints [facility] Work Phone: (9 sources) atorvastatin Drug Allergy 2 Pain in joints [facility] (1 source) atorvastatin Drug Allergy [facility] Repository Medications Current Medications Medication Drug Class(es) Dates Sig (Normalized) Sig (Original) ascorbic acid 500 mg oral tablet (12 sources) Start: 08-18-2010 take 1 tablet by mouth once daily Ascorbic Acid (Vitamin C) 500 MG tablet Active 500 mg PO DAILY May 26, 2016 12:00am aspirin 81 mg delayed release oral tablet (20 sources) Nonsteroidal Anti-inflammatory Drug Start: 09-22-2022 Aspirin (Adult Low Dose Aspirin) 81 mg tablet,delayed release (DR/EC) Active 81 mg PO DAILY September 22, 2022 12:00am Start: 09-01-2018 End: 06-05-2022 take 1 tablet by mouth once daily Aspirin (Adult Aspirin Regimen) 81 mg tablet,delayed release (DR/EC) Discontinued 81 mg PO DAILY September 01, 2018 12:00am June 05, 2022 12:12pm Start: 07-01-2018 End: 09-01-2018 take 1 tablet by mouth once daily Aspirin 325 mg tablet Discontinued 325 mg PO DAILY July 01, 2018 12:00am September 01, 2018 1:00pm Start: 08-18-2010 End: 07-01-2018 take 1 tablet by mouth once daily Aspirin 81 MG tablet Discontinued 81 mg PO DAILY@0800 May 26, 2016 12:00am July 01, 2018 2:44pm Start: 08-18-2010 take 1 tablet by sri th once daily ASPIRIN 81 MG TABS One tablet by mouth daily ASPIRIN [id number] Mary Stafford carvedilol 25 mg oral tablet (4 sources) alpha-Adrenergic Rufus, beta-Adrenergic Rufus Start: 04-25-2024 End: 05-25-2024 take 1 tablet by mouth twice daily at mealtime Carvedilol 25 mg tablet Active 25 mg PO TWICE A DAY 180 May 25, 2024 1:06pm must administer with a meal/food glucosamine sulfate 500 mg oral tablet (9 sources) Start: 05-26-2016 take 1 tablet by mouth twice daily Glucosamine Sulfate 500 MG tablet Active 500 mg PO TWICE A DAY May 26, 2016 12:00am Multivitamin With Folic Acid (7 sources) Start: 05-26-2016 take 1 tablet by mouth once daily Multivitamin With Folic Acid Active 1 TABLET PO DAILY May 25, 2016 11:00pm Start: 05-26-2016 take 1 tablet by sri th once daily Multivitamin With Folic Acid Active 1 TABLET PO DAILY May 26, 2016 12:00am Multivitamin With Folic Acid 1 TABLET tablet (2 sources) Start: 05-26-2016 take 1 tablet by mouth once daily Multivitamin With Folic Acid 1 TABLET tablet Active 1 {tbl} PO DAILY May 26, 2016 12:00am olmesartan medoxomil 40 mg oral tablet (10 sources) Angiotensin 2 Receptor Rufus Start: 05-10-2018 End: 08-11-2024 take 1 tablet by mouth once daily Olmesartan 40 mg tablet Active 40 mg PO DAILY August 11, 2024 1:25pm rosuvastatin calcium 5 mg oral tablet (9 sources) HMG-CoA Reductase Inhibitor Start: 01-16-2020 take 1 tablet by mouth once daily Rosuvastatin 5 mg tablet Active 5 mg PO DAILY January 16, 2020 1:00am tamsulosin hydrochloride 0.4 mg oral capsule (13 sources) alpha-Adrenergic Rufus Start: 07-21-2012 End: 08-11-2024 take 1 capsule by mouth at bedtime Tamsulosin 0.4 mg capsule Active 0.4 mg PO AT BEDTIME August 11, 2024 1:25pm ubidecarenone 100 mg / vitamin e 5 unt oral capsule (9 sources) Start: 05-26-2016 take 1 capsule by mouth once daily Coenzyme [id number] E 1 EACH capsule Active 1 NMA PO DAILY May 26, 2016 12:00am Start: 05-26-2016 Coenzyme Q10-V itamin E Active 1 EACH PO DAILY May 26, 2016 12:00am Completed/Discontinued Medications Medication Drug Class(es) Dates Sig (Normalized) Sig (Original) acetaminophen 500 mg oral tablet (3 sources) Start: 02-04-2016 TYLENOL EXTRA STRENGTH 500 MG TABS as needed ACETAMINOPHEN [id number] Aidan Wyatt MD acetaminophen 325 mg / oxyCODONE hydrochloride 5 mg oral tablet (15 sources) Opioid Agonist Start: 06-05-2022 End: 09-22-2022 take 7-10 tablets by mouth every six hours as needed for pain Oxycodone-Acetamino phen (Percocet) 5-325 mg tablet Discontinued 1 {tbl} PO EVERY 6 HOURS as needed for pain (scale score 7-10) 28 7 June 05, 2022 September 22, 2022 4:03pm 28 tabs (twenty-eight) Start: 02-25-2017 End: 03-01-2017 Oxycodone-Acetaminophen 1 TA BLET tablet Discontinued 1 - 2 {tbl} PO EVERY 4 HOURS NEEDED as needed for Pain 60 February 25, 2017 1:00am March 01, 2017 2:21pm Start: 02-25-2017 End: 03-01-2017 take 1 tablet by mouth every four hours as needed Oxycodone-Acetaminophen Discontinued 1 - 2 TABLET PO EVERY 4 HOURS NEEDED 60 February 25, 2017 1:00am March 01, 2017 2:21pm amLODIPine 10 mg oral tablet (20 sources) Dihydropyridine Calcium Channel Rufus Start: 09-22-2022 End: 06-18-2023 take 1 tablet by mouth twice daily Amlodipine 10 mg tablet Discontinued 10 mg PO TWICE A DAY September 22, 2022 12:00am June 18, 2023 2:29pm Start: 01-16-2020 End: 02-20-2021 take 1 tablet by mouth once daily Amlodipine 10 mg tablet Discontinued 10 mg PO DAILY December 30, 2020 9:08am February 20, 2021 5:18pm Start: 05-02-2018 End: 06-28-2018 take 1 tablet by mouth once daily Amlodipine (Norvasc) 5 mg tablet Discontinued 5 mg PO DAILY May 02, 2018 1:00am June 28, 2018 2:40pm apixaban 5 mg oral tablet (20 sources) Factor Xa Inhibitor Start: 07-01-2018 End: 10-18-2023 take 1 tablet by mouth twice daily Apixaban (Eliquis) 5 mg tablet Discontinued 5 mg PO TWICE A DAY 180 October 11, 2022 11:23am October 18, 2023 8:11am atorvastatin 20 mg oral tablet (6 sources) HMG-CoA Reductase Inhibitor Start: 05-10-2013 End: 08-22-2015 take 1 tablet by mouth once daily ATORVASTATIN CALCIUM 20 MG TABS One tablet by mouth daily ATORVASTATIN CALCIUM [id number] BART StewartC bismuth subsalicylate 35 mg/ml oral suspension (9 sources) Bismuth Start: 05-17-2018 End: 06-28-2018 Bismuth Subsalicylate 525 mg/15 mL suspension Discontinued 525 mg PO .4 times per day May 17, 2018 1:00am June 28, 2018 1:46pm do not exceed 8 doses in a 24 hour period GLUCOSAMINE-CHONDRO ITIN CAPS (3 sources) Start: 08-18-2010 GLUCOSAMINE-CHONDR OITIN CAPS Take as directed GLUCOSAMINE-CHONDR OITIN CAPS [id number] Mary M Stafford clindamycin 300 mg oral capsule (6 sources) Lincosamide Antibacterial Start: 06-05-2022 End: 06-17-2022 take 1 capsule by mouth three times daily Clindamycin Hcl 300 mg capsule Discontinued 300 mg PO THREE TIMES A DAY June 05, 2022 12:00am June 17, 2022 3:31pm COENZYME Q10 (3 sources) Start: 02-04-2016 take 1 tablet by mouth once daily CO Q-10 100 MG CAPS One tablet by mouth daily COENZYME Q10 [id number] Aidan Wyatt MD diazePAM 5 mg oral tablet (6 sources) Benzodiazepine Start: 06-05-2022 End: 04-18-2024 take 1 tablet by mouth twice daily as needed for muscle spasms Diazepam (Valium) 5 mg tablet Discontinued 5 mg PO TWICE A DAY as needed for spasms June 05, 2022 12:00am April 18, 2024 4:46pm 10 tabs )ten) 24 hr dilTIAZem hydrochloride 180 mg extended release oral capsule (20 sources) Calcium Channel Rufus Start: 02-20-2021 End: 06-21-2024 take 1 capsule by mouth once daily Diltiazem Hcl 180 mg capsule,extended release 24 hr Discontinued 180 mg PO DAILY June 21, 2024 7:58am June 21, 2024 4:55pm Start: 07-17-2020 End: 07-17-2020 take 1 capsule by mouth once daily Diltiazem Hcl 120 mg capsule,extended release 24hr Discontinued 120 mg PO DAILY July 17, 2020 12:00am July 17, 2020 1:21pm Start: 06-28-2018 End: 01-16-2020 take 1 capsule by mouth once daily, then take 1 capsule by mouth every twenty-four hours Diltiazem Hcl (Cardizem Cd) 120 mg capsule,extended release 24hr Discontinued 120 mg PO DAILY 90 August 14, 2019 1:37pm January 16, 2020 10:46am docusate sodium 100 mg oral capsule (9 sources) Start: 02-25-2017 End: 03-01-2017 take 1 capsule by mouth twice daily as needed for constipation Docusate Sodium 100 MG capsule Discontinued 100 mg PO TWICE DAILY NEEDED as needed for Constipation February 25, 2017 1:00am March 01, 2017 2:21pm hydroCHLOROthiazide 25 mg / triamterene 37.5 mg oral tablet (6 sources) Potassium-sparin g Diuretic, Thiazide Diuretic Start: 08-18-2010 End: 07-21-2012 take 1 tablet by mouth once daily TRIAMTERENE-HCTZ 37.5-25 MG TABS One tablet by mouth daily TRIAMTERENE-HCTZ [id number] Mary Stafford ibuprofen 200 mg oral tablet (6 sources) Nonsteroidal Anti-inflammator y Drug Start: 08-18-2010 End: 02-04-2016 take 2 tablets by mouth once daily IBUPROFEN 200 MG TABS Two tablets by mouth daily IBUPROFEN [id number] Aidan Wyatt MD indapamide 1.25 mg oral tablet (20 sources) Thiazide-like Diuretic Start: 09-19-2020 End: 12-27-2023 take 1 tablet by mouth twice daily Indapamide 1.25 mg tablet Discontinued 1.25 mg PO TWICE A DAY 180 September 27, 2022 12:28pm December 27, 2023 8:02am Start: 07-19-2020 End: 09-19-2020 take 2.5 mg by mouth once daily Indapamide Discontinue d 2.5 MG PO DAILY July 19, 2020 2:53pm September 19, 2020 3:08pm Start: 05-10-2018 End: 09-19-2020 take 1 tablet by mouth once daily Indapamide 1.25 mg tablet Discontinued 1.25 mg PO DAILY January 16, 2020 10:29am July 19, 2020 2:54pm LKennedyAcidthu,Saliva-B.Bif-S.The rm (Acidophilus Probiotic Blend) 175 mg capsule (6 sources) Start: 06-05-2022 End: 06-19-2024 take 1 capsule by mouth once daily L.Acidoph,Saliva-B.Bif-S.Therm (Acidophilus Probiotic Blend) 175 mg capsule Discontinued 1 NMA PO DAILY June 05, 2022 12:00am June 19, 2024 10:58am Start: 06-05-2022 take 1 capsule by mouth once daily L.Acidoph,Saliva-B.Bif-S.Therm (Acidophi wai Probiotic Blend) 175 mg capsule Active 1 NMA PO DAILY June 05, 2022 12:00am Start: 06-05-2022 take 1 capsule by mouth once daily L.Acidoph,Saliva-B.Bif-S.Therm (Acidophi wai Probiotic Blend) 175 mg capsule Active 1 CAP PO DAILY June 04, 2022 11:00pm Start: 06-05-2022 take 1 capsule by mouth once daily L.Acidoph,Saliva-B.Bif-S.Therm (Acidophi wai Probiotic Blend) 175 mg capsule Active 1 CAP PO DAILY June 05, 2022 12:00am loratadine 10 mg oral capsule (3 sources) Start: 08-18-2010 take 1 tablet by mouth once daily CLARITIN 10 MG CAPS One tablet by mouth daily LORATADINE [id number] Mary Stafford losartan potassium 100 mg oral tablet (18 sources) Angiotensin 2 Receptor Rufus Start: 10-25-2017 End: 05-02-2018 take 1 tablet by mouth once daily Losartan 100 mg tablet Discontinued 100 mg PO daily 90 October 25, 2017 7:26pm May 02, 2018 11:04am [facility] metFORMIN hydrochloride 500 mg oral tablet (12 sources) Biguanide Start: 08-18-2010 End: 04-18-2024 take 1 tablet by mouth at bedtime Metformin 500 MG tablet Discontinued 500 mg PO AT BEDTIME May 26, 2016 12:00am April 18, 2024 4:46pm metoprolol tartrate 100 mg oral tablet (20 sources) beta-Adrenergic Rufus Start: 04-03-2024 End: 04-25-2024 Metoprolol Tartrate 100 mg tablet Discontinued 0 .ROUTE .COMPLEX 180 April 03, 2024 9:39am April 25, 2024 5:36pm TAKE 1 TABLET TWICE DAILY Start: 03-22-2023 End: 04-03-2024 Metoprolol Tartrate 100 mg t ablet Discontinued 0 .ROUTE .COMPLEX 180 March 22, 2023 9:05am April 03, 2024 9:39am TAKE 1 TABLET TWICE DAILY Start: 03-22-2023 Metoprolol Tar trate Active 0 .ROUTE .COMPLEX 180 March 22, 2023 9:05am TAKE 1 TABLET TWICE DAILY Start: 03-22-2023 Metoprolol Tar trate Active 0 .ROUTE .COMPLEX 180 March 22, 2023 8:05am TAKE 1 TABLET TWICE DAILY Start: 08-18-2010 End: 03-22-2023 take 1 tablet by mouth twice daily Metoprolol Tartrate 100 mg tablet Discontinued 100 mg PO TWICE A DAY 180 February 24, 2022 6:18pm March 22, 2023 9:05am metroNIDAZOLE 500 mg oral tablet (9 sources) Nitroimidazole Antimicrobial Start: 05-17-2018 End: 06-28-2018 take 1 tablet by mouth three times daily Metronidazole (Flagyl) 500 mg tablet Discontinued 500 mg PO THREE TIMES A DAY May 17, 2018 1:00am June 28, 2018 1:46pm MULTIPLE VITAMIN (3 sources) Start: 08-18-2010 take 1 tablet by mouth once daily MULTIVITAMINS TABS One tablet by mouth daily MULTIPLE VITAMIN [id number] Mary Stafford 24 hr nitroglycerin 0.4 mg/hr transdermal system (9 sources) Nitrate Vasodilator Start: 08-18-2010 End: 08-18-2016 NITROSTAT 0.4 MG SUBL 1 tablet under tongue every 5 min up to 3 X NITROGLYCERIN [id number] Jody Padilla PA-C Start: 08-18-2010 NITROGLYCERIN 0.4 MG/HR PT24 1 tablet under tongue every 5 min up to 3 X NITROGLYCERIN [id number] Mary Stafford omeprazole 40 mg delayed release oral capsule (9 sources) Proton Pump Inhibitor Start: 05-17-2018 End: 06-28-2018 take 1 capsule by mouth once daily Omeprazole 40 mg capsule,delayed release(DR/EC) Discontinued 40 mg PO DAILY May 17, 2018 1:00am June 28, 2018 1:46pm potassium chloride 20 meq extended release oral tablet (12 sources) Start: 07-13-2011 End: 07-21-2012 take 1 tablet by mouth once daily POTASSIUM CHLORIDE JOVON ER 20 MEQ CR-TABS One tablet by mouth daily POTASSIUM CHLORIDE JOVON CR [id number] Mario Veras MD Start: 08-18-2010 take 1 tablet by sri th once daily POTASSIUM CHLORIDE 20 MEQ PACK One tablet by mouth daily POTASSIUM CHLORIDE [id number] Mario Veras MD promethazine hydrochloride 25 mg oral tablet (9 sources) Phenothiazine Start: 02-25-2017 End: 03-01-2017 take 1 tablet by mouth every four hours as needed for nausea Promethazine 25 MG tablet Discontinued 25 mg PO EVERY 4 HOURS NEEDED as needed for Nausea February 25, 2017 1:00am March 01, 2017 2:21pm simvastatin 40 mg oral tablet (9 sources) HMG-CoA Reductase Inhibitor Start: 08-18-2010 take 1 tablet by mouth once daily SIMVASTATIN 40 MG TABS One tablet by mouth daily SIMVASTATIN [id number] Jody Padilla PA-C tetracycline hydrochloride 500 mg oral capsule (9 sources) Tetracycline-class Antimicrobial Start: 05-17-2018 End: 06-28-2018 Tetracycline 500 mg capsule Discontinued 500 mg PO .4 times per day May 17, 2018 1:00am June 28, 2018 1:46pm traMADol hydrochloride 50 mg oral tablet (3 sources) Opioid Agonist Start: 08-18-2016 TRAMADOL HCL 50 MG TABS as needed TRAMADOL HCL [id number] Teresita Kang valsartan 320 mg oral tablet (20 sources) Angiotensin 2 Receptor Rufus Start: 05-10-2013 End: 10-25-2017 take 1 tablet by mouth once daily Valsartan 320 MG tablet Discontinued 320 mg PO DAILY February 22, 2017 12:25pm October 25, 2017 7:24pm Start: 07-21-2012 take 1 tablet by sri th once daily DIOVAN 160 MG TABS One tablet by mouth daily VALSARTAN [id number] Aidan Wyatt MD Start: 08-18-2010 take 1 tablet by sri th once daily DIOVAN 80 MG TABS One tablet by mouth daily VALSARTAN [id number] Mario Veras MD Problems Active Problems Problem Classification Problem Date Documented Da te Episodic/Chronic Allergic reactions (9 sources) Allergic condition; Translations: [Allergy, unspecified, initial encounter] 04-04-2021 Episodic Blindness and vision defects (9 sources) Disorder of vision; Translations: [Unspecified visual loss] 04-04-2021 Chronic Blindness and vision defects (13 sources) Visual field defect; Translations: [Unspecified visual field defects] 12-29-2021 Episodic Comment on above: lateral peripheral f ield of vision defect bilaterally Cardiac dysrhythmias (20 sources) Paroxysmal ventricular tachycardia; Translations: [Paroxysmal atrial flutter] Onset: 08-18-2010 08-18-2010 Chronic Comment on above: DCCV in 08/2018, 01/14 019; post op Cardiac dysrhythmias (5 sources) Palpitations; Translations: [Palpitations] Onset: 07-20-2013 07-20-2013 Episodic Conduction disorders (9 sources) Right bundle branch block; Translations: [Unspecified right bundle-branch block] 08-24-2017 Chronic Coronary atherosclerosis and other heart disease (13 sources) Coronary arteriosclerosis; Translations: [Coronary atherosclerosis] Onset: 08-18-2010 08-18-2010 Chronic Diabetes mellitus with complications (1 source) Type 2 diabetes mellitus with unspecified complications; Translations: [Type 2 diabetes mellitus with unspecified complications] Onset: 05-30-2024 Chronic Diabetes mellitus without complication (16 sources) Diabetes mellitus; Translations: [Type 2 diabetes mellitus without complications] Onset: 08-18-2010 08-18-2010 Chronic Disorders of lipid metabolism (18 sources) Hyperlipidemia; Translations: [Hyperlipidemia, unspecified] Onset: 08-18-2010 08-18-2010 Chronic Essential hypertension (18 sources) Hypertensive disorder; Translations: [Essential hypertension] Onset: 08-18-2010 08-18-2010 Chronic Joint disorders and dislocations; trauma-related (6 sources) Derangement of knee; Translations: [Other internal derangements of left knee] Onset: 02-26-2016 03-05-2016 Chronic Joint disorders and dislocations; trauma-related (20 sources) Other tear of medial meniscus, current injury, right knee, subsequent encounter; Translations: [Other tear of medial meniscus, current injury, left knee, subsequent encounter] Onset: 02-26-2016 03-26-2016 Episodic Osteoarthritis (20 sources) Localized, primary osteoarthritis; Translations: [Osteoarthritis of right knee joint] Onset: 01-02-2015 01-13-2015 Chronic Other acquired deformities (9 sources) Defect of articular cartilage; Translations: [Other specified acquired deformities of musculoskeletal system] 08-24-2017 Episodic Other aftercare (10 sources) Long-term current use of anticoagulant; Translations: [FCI (current) use of anticoagulants] 06-05-2021 Episodic Comment on above: on Eliquis for atria l fibrillation Other aftercare (4 sources) 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; Translations: [Long-term (current) use of anticoagulants] 05-19-2022 Episodic Other and ill-defined heart disease (9 sources) Heart disease; Translations: [Heart disease, unspecified] 04-04-2021 Chronic Other and ill-defined heart disease (10 sources) Diastolic dysfunction; Translations: [Other ill-defined heart diseases] 01-13-2020 Chronic Other eye disorders (9 sources) Dermatochalasis of left upper eyelid; Translations: [Dermatochalasis of left upper eyelid] 06-05-2021 Episodic Comment on above: with lateral periphe ral field of vision defect Other eye disorders (9 sources) Dermatochalasis of right upper eyelid; Translations: [Dermatochalasis of right upper eyelid] 06-05-2021 Episodic Comment on above: with lateral periphe ral field of vision defect Other eye disorders (4 sources) Dermatochalasis of left upper eyelid; Translations: [Dermatochalasis] 05-19-2022 Episodic Other eye disorders (4 sources) Dermatochalasis of right upper eyelid; Translations: [Dermatochalasis] 05-19-2022 Episodic Other gastrointestinal disorders (9 sources) Dysphagia; Translations: [Dysphagia, unspecified] 09-05-2018 Episodic Other lower respiratory disease (9 sources) Dyspnea on exertion; Translations: [Other forms of dyspnea] 01-13-2020 Episodic Other nervous system disorders (6 sources) Acute postoperative pain; Translations: [Other acute postprocedural pain] 06-05-2022 Episodic Other non-traumatic joint disorders (3 sources) Arthropathy; Translations: [Other specified acquired deformities of musculoskeletal system] Onset: 03-19-2016 03-26-2016 Chronic Other non-traumatic joint disorders (9 sources) Pain in right knee; Translations: [Pain in both knees] 08-24-2017 Episodic Other nutritional; endocrine; and metabolic disorders (9 sources) Morbid obesity; Translations: [Morbid (severe) obesity due to excess calories] 05-08-2021 Chronic Other upper respiratory disease (4 sources) Congestion of nasal sinus; Translations: [Nasal congestion] 04-18-2024 Episodic Pulmonary heart disease (9 sources) Pulmonary arterial hypertension; Translations: [Secondary pulmonary arterial hypertension] 08-31-2018 Chronic Residual codes; unclassified (9 sources) Mixed sleep apnea; 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] 05-08-2021 Chronic Comment on above: ASV 27/07 Residual codes; unclassified (9 sources) Obstructive sleep apnea syndrome; Translations: [Obstructive sleep apnea (adult) (pediatric)] 04-26-2019 Chronic Residual codes; unclassified (9 sources) History of eyelid surgery; Translations: [Other specified postprocedural states] 06-05-2021 Episodic Comment on above: bilateral direct bro w lift in 01/02 Residual codes; unclassified (4 sources) Other specified postprocedural states; Translations: [Other postprocedural status] 05-19-2022 Episodic Residual codes; unclassified (5 sources) History of repair of eyelid; Translations: [Other specified postprocedural states] 06-06-2022 Episodic Comment on above: Bilateral upper eyel id blepharoplasty - 06/05/22 Screening and history of mental health and substance abuse codes (13 sources) Ex-smoker; Translations: [Personal history of nicotine dependence] 06-05-2021 Episodic Unclassified (6 sources) Body mass index (BMI) 50-59.9 , adult; Translations: [Body mass index (BMI) 45.0-49.9, adult] Onset: 01-24-2013 01-24-2013 Chronic Unclassified (3 sources) Long-term drug therapy; Translations: [Other half-way (current) drug therapy] Onset: 08-18-2010 08-18-2010 Unclassified (3 sources) Aftercare ; Translations: [Encounter for other orthopedic aftercare] Onset: 06-15-2016 06-24-2016 Unclassified (1 source) Longstanding persistent atrial fibrillation; Translations: [Longstanding persistent atrial fibrillation] Onset: 05-09-2024 Viral infection (4 sources) Disease caused by 2019-nCoV; Translations: [COVID-19] 05-06-2024 Episodic Viral infection (1 source) COVID-19; Translations: [COVID-19] Onset: 05-06-2024 Past or Other Problems Problem Classification Problem Date Documented Date Episodic/Chronic Coronary atherosclerosis and other heart disease (8 sources) Presence of aortocoronary bypass graft; Translations: [Aortocoronary bypass status] Onset: 9 08-18-2010 Episodic Nonspecific chest pain (3 sources) Precordial pain; Translations: [Precordial pain] Onset: 1 08-18-2010 Episodic Other connective tissue disease (3 sources) Posterior tibial tendinitis, left leg; Translations: [Posterior tibial tendinitis, left leg] Onset: 5 01-13-2015 Episodic Other non-traumatic joint disorders (12 sources) Knee pain; Translations: [Ankle pain] Onset: 5 02-26-2016 Episodic Other upper respiratory disease (1 source) Nasal congestion; Translations: [Nasal congestion] Onset: Episodic Unclassified (3 sources) Electrocardiogram abnormal; Translations: [Abnormal electrocardiogram [ECG] [EKG]] Onset: 1 08-18-2010 Episodic Unclassified (3 sources) Family history of ischemic heart disease and other diseases of the circulatory system; Translations: [Family history of ischemic heart disease and other diseases of the circulatory system] 01-23-2014 Episodic Results Test Name Value Interpretation Reference Range Facility Microalb:Creat Ratio,Random URon 10-09-2024 MALB:CREAT 33.4 mg/g CRE High <30 mg/g CRE [facility] Comment on above: Order Comment: Order Date: 01/31/24 Order Info: [id number] - MIACRE Result Comment: AMENDED REPORT 10/09/242045 MALB:CREAT previously reported as: 334.0 mg/g CRE Performed By: #### L 500.4100, L500.4050, L502.0250, L501.9985 #### [facility] [address] [place], [address] Pulmonary Visit Reporton Pulmonary Visit Report [facility] [address] [place] [address] OFFICE VISIT Date of Service: 08/11/24 MR#: [id number] Acct: [id number] Name: RJ REYNOLDS Rep #: [id number] : 1955 Provider: YOLANDA Serrano Age/Sex: 69/M Location[place] [facility] [place] Status: Signed Assessment and Plan Assessment and Plan (1) Complex sleep apnea syndrome: Status: Chronic Comment: ASV 27/07 Plan: He is using and benefiting from Pap therapy. No indication for titration study at this time. Ordering a replacement machine as his device is greater than 5 years old. Contact the office for any new or worsening symptoms in the meantime. Follow-up in 3 months. (2) Obesity: Status: Chronic Qualifiers: Obesity type: due to excess calories Obesity classification: adult class 3 (BMI >= 40) Serious obesity comorbidity presence: with serious comorbidity Body mass index: BMI 45.0-49.9 Qualified Code(s): E66.813 - Obesity, class 3; Z68.42 - Body mass index [BMI] 45.0-49.9, adult Plan: Complicates exam, plan, care and prognosis. Continue to encourage healthy weight loss. Plan Details Additional Comments: This note was generated with [email or web address] dictation software. It may contain incorrect words, spelling, and punctuation that were not noted in checking the note before signing. Follow Up: 3 Months HPI 1 Y FU Chief Complaint: Routine follow-up HPI Comments Details: This patient presents to the office today for annual follow-up of his complex sleep apnea. Ambulatory and currently on room air. He is accompanied today by his . He has not recently been seen in the ED or urgent care for any respiratory illness. He has not required any antibiotics or prednisone for any breathing problems. He denies any difficulty with shortness of breath. He denies any cough, sputum production or hemoptysis. He denies any wheezing, chest tightness, chest pain or palpitations. He also denies any fever, chills or body aches. He wakes up feeling rested refreshed with the use of his PAP device. He is not having difficulty with morning headaches or dry mouth. He denies excessive nocturia. He only occasionally takes a nap. He does not find himself nodding off to sleep unintentionally. Compliance report for the past 30 days shows 100% compliance with average use of 6 hours and 19 minutes per night. Current setting is ASV expiratory pressure of 15 cmH2O, minimum pressure support 5 cmH2O with maximum pressure support 10 cmH2O. Residual AHI 0.7 events per hour. Leaks do not appear to be problematic. Intake Vital Signs 08/11/23 07:50 08/11/24 08:32 Height 5 ft 6 in 5 ft 8 in Weight: 298 lb BMI 45.3 BP 166/91 H Blood Pressure Location Rt brachial Position Sitting Respiration 18 Pulse 73 Pulse Source NIBP Temp 96 F L Temperature Source Temporal Artery Pulse Oximetry (%) 96 Oxygen Delivery Method room air Intake Visit Reasons: 1 Y FU Chief Complaint: covid test [employer] Program Specialist Required: No DME Vendor: [employer] Accompanied by: Is patient in pain?: No Allergies JAJA Inhibitors Allergy (Verified 08/11/24 13:24) Unknown atorvastatin (From Lipitor) Adverse Reaction (Verified 08/11/24 13:24) Pain in joints simvastatin Adverse Reaction (Verified 08/11/24 13:24) Pain in joints Medications ???Medication ???Instructions ???Recorded ???Confirmed ???Type ascorbic acid (vitamin C) 500 mg 500 mg PO DAILY 05/26/16 08/11/24 History tablet coenzyme W55-ybrfyll E 100 mg-5 1 ea PO DAILY 05/26/16 08/11/24 Hi story unit capsule glucosamine sulfate 500 mg tablet 500 mg PO BID 05/26/16 08/11/24 H istory multivitamin with folic acid 400 1 tab PO DAILY 05/26/16 08/11/24 H istory mcg tablet rosuvastatin 5 mg tablet 5 mg PO DAILY 01/16/20 08/11/24 Hi story aspirin 81 mg tablet,delayed 81 mg PO DAILY 09/22/22 08/11/24 H istory release (Adult Low Dose Aspirin) apixaban 5 mg tablet (Eliquis) See Rx Instructions .Route 4 08/11/24 Rx .COMPLEX #180 tabs indapamide 1.25 mg tablet 1.25 mg PO BID #180 tabs 12/27/23 08/11/24 Rx carvedilol 25 mg tablet 25 mg PO BID #180 tabs 05/25/24 Rx diltiazem HCl 180 mg capsule,24 180 mg PO DAILY #30 caps 06/21/24 08/11/24 Rx hr,extended release olmesartan 40 mg tablet 40 mg PO DAILY 08/11/24 08/11/24 H istory tamsulosin 0.4 mg capsule 0.4 mg PO QHS 08/11/24 08/11/24 Hi story Have you fallen in the past year?: No [facility] Medical History (Updated 08/11/24 @ 14:58 by Soco Serrano TOP LIFT TRIMMER, TOP LIFT TRIMMER-C) Palpitations Congestion of nasal sinus Longstanding persistent atrial fibrillation Wears glasses Alcohol use Diabetes High cholesterol Restless legs Back pain Heartburn BiPAP (biphasic positive airway pressure) dependence (more content not included)... Normal [facility] Cardiology Visit Reporton Cardiology Visit Report [facility] [address] [place] [address] OFFICE VISIT Date of Service: 06/19/24 MR#: [id number] Acct: [id number] Name: RJ REYNOLDS Rep #: [id number] : 1955 Provider: YOSELIN Salazar Age/Sex: 69/M Location: [facility] [place] Status: Signed HPI HPI History of Present Illness Details: Rj Reynolds is a 69-year-old male who presents to the office today for follow-up for monitoring of his cardiovascular disease. Patient has a history of coronary artery disease status post bypass surgery in 2008 with [place] to the LAD and BRITT to the OM. Patient has a history of paroxysmal atrial flutter and underwent cardioversion in August 2018 in January 2019 and then was noted to have atrial fibrillation. Patient has a history of hypertension, hyperlipidemia, right bundle branch block, CHRISTINE compliant with BiPAP, and DM2. Since last seen, approximately 1 year ago, patient reports doing well overall. Patient reports chronic fatigue in which he finds himself needing to take a nap in the middle of the day. Patient reports compliance with BiPAP. Patient reports bilateral lower extremity edema ongoing for years now, does improve with elevation of legs. Patient does not exercise on a regular basis; however, does exert himself with doing yard work when weather is nice. Prior to needing CABG surgery, patient experienced exercise intolerance described as chest pain and shortness of breath with exertion. Patient denies any symptoms reminding him of his previous symptoms. However, patient did call the office about 2 months ago with concerns of angina and associated with his atrial fibrillation. At that time, patient's metoprolol was switched to carvedilol and patient reports resolution of his angina. Most recent stress test 07/16/2023 negative for ischemia. Further ROS below. Intake Vital Signs 06/18/23 14:27 04/18/24 15:53 06/19/24 07:54 06/19/24 10:56 Height 5 ft 6 in 5 ft 8 in 5 ft 8 in 5 ft 8 in Weight: 298 lb BMI 45.3 BP 132/82 H Blood Pressure Location Lt brachial Position Sitting Respiration 18 Pulse 58 L Pulse Source Monitor Pulse Oximetry (%) 98 Oxygen Delivery Method room air Intake Visit Reasons: 1 Y FU [employer] Program Specialist Required: No Accompanied by: Self Is patient in pain?: No Allergies JAJA Inhibitors Allergy (Verified 06/19/24 10:59) Unknown atorvastatin (From Lipitor) Adverse Reaction (Verified 06/19/24 10:59) Pain in joints simvastatin Adverse Reaction (Verified 06/19/24 10:59) Pain in joints Medications ???Medication ???Instructions ???Recorded ???Confirmed ???Type ascorbic acid (vitamin C) 500 mg 500 mg PO DAILY 05/26/16 06/19/24 History tablet coenzyme Q03-lgfuijz E 100 mg-5 1 ea PO DAILY 05/26/16 06/19/24 Hi story unit capsule glucosamine sulfate 500 mg tablet 500 mg PO BID 05/26/16 06/19/24 H istory multivitamin with folic acid 400 1 tab PO DAILY 05/26/16 06/19/24 H istory mcg tablet tamsulosin 0.4 mg capsule 0.4 mg PO QHS 05/26/16 06/19/24 Hi story olmesartan 40 mg tablet 40 mg PO DAILY 05/10/18 06/19/24 H istory rosuvastatin 5 mg tablet 5 mg PO DAILY 01/16/20 06/19/24 Hi story aspirin 81 mg tablet,delayed 81 mg PO DAILY 09/22/22 06/19/24 H istory release (Adult Low Dose Aspirin) diltiazem HCl 180 mg capsule,24 180 mg PO DAILY #90 caps 05/10/23 06/19/24 Rx hr,extended release apixaban 5 mg tablet (Eliquis) See Rx Instructions .Route 4 06/19/24 Rx .COMPLEX #180 tabs indapamide 1.25 mg tablet 1.25 mg PO BID #180 tabs 12/27/23 06/19/24 Rx carvedilol 25 mg tablet 25 mg PO BID #180 tabs 05/25/24 Rx Have you fallen in the past year?: No [facility] Medical History (Updated 06/19/24 @ 11:56 by YOSELIN Salazar) Palpitations Congestion of nasal sinus Longstanding persistent atrial fibrillation Wears glasses Alcohol use Diabetes High cholesterol Restless legs Back pain Heartburn BiPAP (biphasic positive airway pressure) dependence Shortness of breath on exertion Leg cramps History of pain when walking History of edema History of echocardiogram History of stress test Hypertension Cardiology follow-up encounter History of irregular heartbeat 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 Former smoker Dermatochalasis of right upper eyelid Dermatochalasis of left upper eyelid Vision problems Heart disease Arthritis Allergies Complex sleep apnea syndrome Diastolic dysfunction Paroxysmal atrial flutter Essential (primary) hypertension Obesity Obstructive sleep apnea Right bundle branch block Secondary pulmonary arterial hypertension Atherosclerosis of coronary artery of [place] heart without angina pectoris Diabetes mellitus Osteoarthritis NSVT (nonsustained ventricular (more content not included)... Normal [facility] Albumin DL <= 20 mg/L (U) [M ass/Vol]Ordered By: Apolinar Roche on 05-17-2024 Urine Random Microalbumin 66.8 mg/L NO RANGE EST. [facility] Anion gap in Serum or Plasma Ordered By: Apolinar Roche on 05-17-2024 Anion gap [Moles/Vol] 11 mmol/L 5- [facility] BUN/creatinine ratioOrdered By: Apolinar Roche on 05-17-2024 Urea nitrogen/Creatinine [Mass ratio] 15.7 mg/mg 10- [facility] Bilirubin, totalOrdered By: Apolinar Roche on 05-17-2024 Bilirubin [Mass/Vol] 0.38 mg/dL 0.00-1.30 [facility] Calculated very low density lipoprotein (VLDL) cholesterol measurementOrdered By: Apolinar Roche on 05-17-2024 Calculated very low density lipoprotein (VLDL) cholesterol measurement 13 mg/dL 5-40 [facility] VLDL Cholesterol 13 mg/dL 5-40 [facility] Carbon dioxide, total [Moles /volume] in Central venous bloodOrdered By: Apolinar Roche on 05-17-2024 CO2 [Moles/Vol] 26.0 mmol/L 21.0-32.0 [facility] Chloride assayOrdered By: Daquan Roche on 05-17-2024 Chloride [Moles/Vol] 103 mmol/L 98-108 [facility] Comprehensive Metabolic Prof ilon 05-17-2024 Albumin [Mass/Vol] 3.9 g/dL Normal 3.4-4.8 [facility] Comment on above: Order Comment: Order Date: 01/31/24 Order Info: [id number] - CMP Order Info: [id number] - LIPID Order Info: [id number] - ALB Performed By: #### L 500.4100, L500.4050, L502.0250, L501.9985 #### [facility] [address] [place], [place], [id number] Albumin/Globulin [Mass ratio] 1.4 {ratio} Normal 0.9-2.4 [facility] Comment on above: Order Comment: Order Date: 01/31/24 Order Info: [id number] - CMP Order Info: [id number] - LIPID Order Info: [id number] - ALB Performed By: #### L 500.4100, L500.4050, L502.0250, L501.9985 #### [facility] [address] [facility] [place], [place], [id number] ALK PHOS 67 U/L Normal 40-129 [facility] Comment on above: Order Comment: Order Date: 01/31/24 Order Info: 0786- - CMP Order Info: [id number] - LIPID Order Info: [id number] - ALB Performed By: #### L 500.4100, L500.4050, L502.0250, L501.9985 #### [facility] [address] [place], [address] ALT [Catalytic activity/Vol] 30 U/L Normal <=46 [facility] Comment on above: Order Comment: Order Date: 01/31/24 Order Info: [id number] - CMP Order Info: - LIPID Order Info: [id number] - ALB Performed By: #### L 500.4100, L500.4050, L502.0250, L501.9985 #### [facility] [address] [place], [place], [id number] AST [Catalytic activity/Vol] 26 U/L Normal <=37 [facility] Comment on above: Order Comment: Order Date: 01/31/24 Order Info: [id number] - CMP Order Info: - LIPID Order Info: [id number] - ALB Performed By: #### L 500.4100, L500.4050, L502.0250, L501.9985 #### [facility] [address] [place], [address] Bilirubin [Mass/Vol] 0.38 mg/dL Normal 0.00-1.30 [facility] Comment on above: Order Comment: Order Date: 01/31/24 Order Info: 785-03 - CMP Order Info: - LIPID Order Info: [id number] - ALB Performed By: #### L 500.4100, L500.4050, L502.0250, L501.9985 #### [facility] [address] [facility] [place], [address] BUN/CRE 15.7 RATIO Normal 10-20 [facility] Comment on above: Order Comment: Order Date: 01/31/24 Order Info: 0786 - CMP Order Info: [id number] - LIPID Order Info: 1750-09 - ALB Performed By: #### L 500.4100, L500.4050, L502.0250, L501.9985 #### [facility] [address] [place], [address] Calcium [Mass/Vol] 9.1 mg/dL Normal 7.6-11.0 [facility] Comment on above: Order Comment: Order Date: 01/31/24 Order Info: 785- - CMP Order Info: - LIPID Order Info: [id number] - ALB Performed By: #### L 500.4100, L500.4050, L502.0250, L501.9985 #### [facility] [address] [place], [address] Chloride [Moles/Vol] 103 mmol/L Normal 98-108 [facility] Comment on above: Order Comment: Order Date: 01/31/24 Order Info: 785-03 - CMP Order Info: - LIPID Order Info: [id number] - ALB Performed By: #### L 500.4100, L500.4050, L502.0250, L501.9985 #### [facility] [address] [place], [address] CO2 [Moles/Vol] 26.0 mmol/L Normal 21.0-32.0 [facility] Comment on above: Order Comment: Order Date: 01/31/24 Order Info: 785-03 - CMP Order Info: - LIPID Order Info: [id number] - ALB Performed By: #### L 500.4100, L500.4050, L502.0250, L501.9985 #### [facility] [address] [place], [address] Creatinine [Mass/Vol] 0.88 mg/dL Normal 0.70-1.20 [facility] Comment on above: Order Comment: Order Date: 01/31/24 Order Info: 07 - CMP Order Info: - LIPID Order Info: [id number] - ALB Performed By: #### L 500.4100, L500.4050, L502.0250, L501.9985 #### [facility] [address] [place], [address] GAP 11 Normal 5-15 [facility] Comment on above: Order Comment: Order Date: 01/31/24 Order Info: 785-03 - CMP Order Info: - LIPID Order Info: [id number] - ALB Performed By: #### L 500.4100, L500.4050, L502.0250, L501.9985 #### [facility] [address] [place], [address] GFR/1.73 sq M.predicted among non-blacks MDRD (S/P/Bld) [Vol rate/Area] 92 mL/min/{1.73_m2} Normal >60 [facility] Comment on above: Order Comment: Order Date: 01/31/24 Order Info: 785-03 - CMP Order Info: - LIPID Order Info: [id number] - ALB Result Comment: mL/m in/1.73m2 CKD-EPI Creatinine Equation (2020) Performed By: #### L 500.4100, L500.4050, L502.0250, L501.9985 #### [facility] [address] [place], [address] Globulin (S) [Mass/Vol] 2.7 g/dL Normal 2.2-4.2 [facility] Comment on above: Order Comment: Order Date: 01/31/24 Order Info: 785-03 - CMP Order Info: [id number] - LIPID Order Info: 1750-09 - ALB Performed By: #### L 500.4100, L500.4050, L502.0250, L501.9985 #### [facility] [address] [place], [address] Glucose [Mass/Vol] 124 mg/dL High 70-99 [facility] Comment on above: Order Comment: Order Date: 01/31/24 Order Info: 0786-1 - CMP Order Info: [id number] - LIPID Order Info: 1750-09 - ALB Performed By: #### L 500.4100, L500.4050, L502.0250, L501.9985 #### [facility] [address] [place], [address] Potassium [Moles/Vol] 3.5 mmol/L Normal 3.3-5.1 [facility] Comment on above: Order Comment: Order Date: 01/31/24 Order Info: 0786- - CMP Order Info: [id number] - LIPID Order Info: 1750-09 - ALB Performed By: #### L 500.4100, L500.4050, L502.0250, L501.9985 #### [facility] [address] [place], [address] Sodium [Moles/Vol] 140 mmol/L Normal 133-145 [facility] Comment on above: Order Comment: Order Date: 01/31/24 Order Info: 0786-1 - CMP Order Info: [id number] - LIPID Order Info: [id number] - ALB Performed By: #### L 500.4100, L500.4050, L502.0250, L501.9985 #### [facility] [address] [place], [address] T PROT 6.7 g/dL Normal 5.9-8.4 [facility] Comment on above: Order Comment: Order Date: 01/31/24 Order Info: 0786-1 - CMP Order Info: [id number] - LIPID Order Info: [id number] - ALB Performed By: #### L 500.4100, L500.4050, L502.0250, L501.9985 #### [facility] [address] [place], [address] Urea nitrogen [Mass/Vol] 14 mg/dL Normal 4-19 [facility] Comment on above: Order Comment: Order Date: 01/31/24 Order Info: 0786-1 - CMP Order Info: [id number] - LIPID Order Info: 1751-7 - ALB Performed By: #### L 500.4100, L500.4050, L502.0250, L501.9985 #### [facility] [address] [place], [address] Creatinine Unsp time (U) [Ma ss/Vol]Ordered By: Apolinar Roche on 05-17-2024 Creatinine (U) [Mass/Vol] 200.00 mg/dL 39-259 [facility] GFR/1.73 sq M.predicted tae g non-blacks MDRD (S/P/Bld) [Vol rate/Area]Ordered By: Apolinar Roche on 05-17-2024 Estimated GFR (MDRD) Non-Af Amer 92 >60 [facility] Comment on above: mL/min/1.73m2 CKD-EP I Creatinine Equation (2020) Glomerular filtration rate ( GFR) estimation/1.73 sq m using serum, plasma, or whole bOrdered By: Apolinar Roche on 05-17-2024 GFR/1.73 sq M.predicted among non-blacks MDRD (S/P/Bld) [Vol rate/Area] 92 mL/min/{1.73_m2} >60 [facility] Comment on above: mL/min/1.73m2 CKD-EP I Creatinine Equation (2020) Hemoglobin A1con 05-17-2024 HbA1c (Bld) [Mass fraction] 6.0 % Normal <=5.6 [facility] Comment on above: Order Comment: Order Date: 01/31/24 Order Info: [id number] - A1C Performed By: #### L 500.4100, L500.4050, L502.0250, L501.9985 #### [facility] [address] [place], [place], [id number] Hemoglobin A1c percentageOrd ered By: Apolinar Roche on 05-17-2024 HbA1c (Bld) [Mass fraction] 6.0 % >5.7 [facility] LDL calc ser/plasOrdered By: Apolinar Roche on 05-17-2024 Cholesterol in LDL [Mass/Vol] 51 mg/dL [facility] Comment on above: Mmprtqwohb=122-175 m g/dL & Higher Kqiy=417 mg/dL or greater LDL Cholesterol, Calculated 51 mg/dL [facility] Comment on above: Tbxkswftsl=028-528 m g/dL & Higher Ggsh=955 mg/dL or greater Laboratory - Chemistry and C hemistry - challengeOrdered By: Apolinar Roche on 05-17-2024 AST [Catalytic activity/Vol] 26 U/L <38 [facility] Lipid Profileon 05-17-2024 CHOL:HDL 2.33 Normal [facility] Comment on above: Order Comment: Order Date: 01/31/24 Order Info: 0786- - CMP Order Info: - LIPID Order Info: [id number] ALB Performed By: #### L 500.4100, L500.4050, L502.0250, L501.9985 #### [facility] [address] [place], [address] Cholesterol [Mass/Vol] 113 mg/dL Normal <=200 [facility] Comment on above: Order Comment: Order Date: 01/31/24 Order Info: 0786 - CMP Order Info: - LIPID Order Info: [id number] - ALB Result Comment: Chol esterol level, Desirable <200 mg/dL Borderline high cholesterol 200-239 mg/dL High cholesterol >=240 mg/dL Recommendations of the NCEP Adult Treatment Panel for the following risk-cutoff thresholds for the [place] population. Performed By: #### L 500.4100, L500.4050, L502.0250, L501.9985 #### [facility] [address] [place], [address] Cholesterol in HDL [Mass/Vol] 49 mg/dL Normal [facility] Comment on above: Order Comment: Order Date: 01/31/24 Order Info: 0786-1 - CMP Order Info: [id number] - LIPID Order Info: [id number] - ALB Result Comment: Brittney onal Cholesterol Education Program (NCEP) guidelines: <40 mg/dL: Low HDL-cholesterol (major risk factor for CHD) >= 60 mg/dL: High HDL-cholesterol (negative risk factor for CHD) HDL-cholesterol is affected by a number of factors, e.g. smoking, exercise, hormones, sex and age. Performed By: #### L 500.4100, L500.4050, L502.0250, L501.9985 #### [facility] [address] [place], [address] Cholesterol in LDL [Mass/Vol] 51 mg/dL Normal [facility] Comment on above: Order Comment: Order Date: 01/31/24 Order Info: 07 - CMP Order Info: - LIPID Order Info: [id number] - ALB Result Comment: Bord rjepxi=418-892 mg/dL Higher Zeen=393 mg/dL or greater Performed By: #### L 500.4100, L500.4050, L502.0250, L501.9985 #### [facility] [address] [place], [address] Cholesterol in VLDL [Mass/Vol] 13 mg/dL Normal 5-40 [facility] Comment on above: Order Comment: Order Date: 01/31/24 Order Info: 07 - CMP Order Info: - LIPID Order Info: [id number] - ALB Performed By: #### L 500.4100, L500.4050, L502.0250, L501.9985 #### [facility] [address] [place], [address] Triglyceride [Mass/Vol] 66 mg/dL Normal [facility] Comment on above: Order Comment: Order Date: 01/31/24 Order Info: 0786 - CMP Order Info: - LIPID Order Info: [id number] - ALB Result Comment: The drugs N-Acetylcysteine and Metamizole may falsely depress this assay. Normal range: <150 mg/dL Borderline High: 150-199 mg/dL High: 200-499 mg/dL Very High: >500 mg/dL Performed By: #### L 500.4100, L500.4050, L502.0250, L501.9985 #### [facility] Tony Milton [place], [address] Microalbumin/creat ratio urO rdered By: Apolinar Roche on 05-17-2024 Urine Microalbumin/Creatinine Ratio 334.0 mg/g CRE [facility] Potassium (Unsp spec) [Mass/ Vol]Ordered By: Apolinar Roche on 05-17-2024 Potassium [Moles/Vol] 3.5 mmol/L 3.3-5.1 [facility] Potassium measurement (mass/ volume)Ordered By: Apolinar Roche on 05-17-2024 Potassium (Unsp spec) [Mass/Vol] 3.5 mmol/L 3.3-5.1 [facility] Random urine creatinine mary ann urement (mass/volume)Ordered By: Apolinar Roche on 05-17-2024 Creatinine Unsp time (U) [Mass/Vol] 200.00 mg/dL 39-259 [facility] Screening total cholesterol/ high density lipoprotein (HDL) cholesterol ratioOrdered By: Apolinar Roche on 05-17-2024 Cholesterol.total/Choles terol in HDL [Mass ratio] 2.33 {ratio} [facility] Serum creatinine measurement (mass/volume)Ordered By: Apolinar Roche on 05-17-2024 Creatinine [Mass/Vol] 0.88 mg/dL 0.70-1.20 [facility] Serum globulin measurementOr dered By: Apolinar Roche on 05-17-2024 Globulin (S) [Mass/Vol] 2.7 g/dL 2.2-4.2 [facility] Serum glucose measurement (m ass/volume)Ordered By: Apolinar Roche on 05-17-2024 Glucose [Mass/Vol] 124 mg/dL High 70-99 [facility] Serum or plasma alanine craig otransferase (ALT) measurementOrdered By: Apolinar Roche on 05-17-2024 ALT [Catalytic activity/Vol] 30 U/L <47 [facility] Serum or plasma albumin mary ann urement (mass/volume)Ordered By: Apolinar Roche on 05-17-2024 Albumin [Mass/Vol] 3.9 g/dL 3.4-4.8 [facility] Serum or plasma albumin/glob ulin mass ratioOrdered By: Apolinar Roche on 05-17-2024 Albumin/Globulin [Mass ratio] 1.4 {ratio} 0.9-2.4 [facility] Serum or plasma alkaline jessie sphatase measurementOrdered By: Apolinar Roche on 05-17-2024 ALP [Catalytic activity/Vol] 67 U/L 40-129 [facility] Serum or plasma calcium mary ann urement (mass/volume)Ordered By: Apolinar Roche on 05-17-2024 Calcium [Mass/Vol] 9.1 mg/dL 7.6-11.0 [facility] Serum or plasma cholesterol in HDL measurement (mass/volume)Ordered By: Apolinar Roche on 05-17-2024 Cholesterol in HDL [Mass/Vol] 49 mg/dL >40 [facility] Comment on above: National Cholesterol Education Program (NCEP) guidelines:<40 mg/dL: Low HDL-cholesterol (major risk factor for CHD)>= 60 mg/dL: High HDL-cholesterol (negative risk factor for CHD)HDL-cholesterol is affected by a number of factors, e.g. smoking, exercise, hormones, sex and age. Serum or plasma cholesterol measurement (mass/volume)Ordered By: Apolinar Roche on 05-17-2024 Cholesterol [Mass/Vol] 113 mg/dL <201 [facility] Comment on above: Cholesterol level, D esirable <200 mg/dLBorderline high cholesterol 200-239 mg/dLHigh cholesterol >=240 mg/dLRecommendations of the NCEP Adult Treatment Panel for the following risk-cutoff thresholds for the [place] population. Serum or plasma urea nitroge n measurement (mass/volume)Ordered By: Apolinar Roche on 05-17-2024 Urea nitrogen [Mass/Vol] 14 mg/dL 4-19 [facility] Sodium levelOrdered By: Apolinar Roche on 05-17-2024 Sodium [Moles/Vol] 140 mmol/L 133-145 [facility] Total proteinOrdered By: Kristin Roche on 05-17-2024 Protein [Mass/Vol] 6.7 g/dL 5.9-8.4 [facility] Triglycerides measurementOrd ered By: Apolinar Roche on 05-17-2024 Triglyceride [Mass/Vol] 66 mg/dL <199 [facility] Comment on above: The drugs N-Acetylcy steine and Metamizole may falsely depress this assay. Normal range: <150 mg/dLBorderline High: 150-199 mg/dLHigh: 200-499 mg/dLVery High: >500 mg/dL Urine albumin measurement wi detection limit of 20 mg/L or less (mass/volume)Ordered By: Apolinar Roche on 05-17-2024 Albumin DL <= 20 mg/L (U) [Mass/Vol] 66.8 mg/L NO RANGE EST. [facility] Laboratory - Microbiology an d Antimicrobial susceptibilityOrdered By: Elizabeth Dao on 05-06-2024 SARS-CoV-2 (COVID-19) RNA LUIS ANGEL+probe Ql (Unsp spec) Detected [facility] No Panel InformationOrdered By: Elizabeth Dao on 05-06-2024 Influenza Types A,B Rapid (Clinic) Not detected [facility] Urgent Care Visit Reporton 0 05-06-2024 Urgent Care Visit Report [facility] [address], [address] [place] [id number] OFFICE VISIT Date of Service: 05/06/24 MR#: [id number] Acct: [id number] Name: RJ REYNOLDS Rep #: [id number] : 1955 Provider: YOLANDA Dao Age/Sex: 69/M Location: [facility] Status: Signed Intake Vital Signs 04/18/24 15:53 05/06/24 09:23 Height 5 ft 8 in Weight: 295 lb 6 oz BMI 44.9 BP 120/80 152/68 H Blood Pressure Location Lt brachial Position Sitting Sitting Respiration 17 Pulse 77 82 Pulse Source NIBP Temp 97.5 F L 98.6 F Temp Source Oral Oral Pulse Oximetry (%) 97 97 Oxygen Delivery Method room air room air Intake Visit Reasons: COVID Chief Complaint: covid test [employer] Specialist Required: No Is patient in pain?: No Allergies JAJA Inhibitors Allergy (Verified 05/06/24 09:47) Unknown atorvastatin (From Lipitor) Adverse Reaction (Verified 05/06/24 09:47) Pain in joints simvastatin Adverse Reaction (Verified 05/06/24 09:47) Pain in joints Medications ???Medication ???Instructions ???Recorded ???Confirmed ???Type ascorbic acid (vitamin C) 500 mg 500 mg PO DAILY 05/26/16 05/06/24 History tablet coenzyme [id number] 100 mg-5 1 ea PO DAILY 05/26/16 05/06/24 Hi story unit capsule glucosamine sulfate 500 mg tablet 500 mg PO BID 05/26/16 05/06/24 H istory multivitamin with folic acid 400 1 tab PO DAILY 05/26/16 05/06/24 H istory mcg tablet tamsulosin 0.4 mg capsule 0.4 mg PO QHS 05/26/16 05/06/24 Hi story olmesartan 40 mg tablet 40 mg PO DAILY 05/10/18 05/06/24 H istory rosuvastatin 5 mg tablet 5 mg PO DAILY 01/16/20 05/06/24 Hi story L.acidophil,salivar i-Bifido 1 cap PO DAILY #10 caps 06/05/22 0 05/06/24 Rx bifidum-Strep thermoph 175 mg capsule (Acidophilus Probiotic Blend) aspirin 81 mg tablet,delayed 81 mg PO DAILY 09/22/22 05/06/24 H istory release (Adult Low Dose Aspirin) diltiazem HCl 180 mg capsule,24 180 mg PO DAILY #90 caps 05/10/23 05/06/24 Rx hr,extended release apixaban 5 mg tablet (Eliquis) See Rx Instructions .Route 4 05/06/24 Rx .COMPLEX #180 tabs indapamide 1.25 mg tablet 1.25 mg PO BID #180 tabs 12/27/23 05/06/24 Rx carvedilol 25 mg tablet 25 mg PO BID #60 tabs 04/25/24 Rx Have you fallen in the past year?: No Nurse's Note: pt wishes to have covid test, denies any illness s/s stating he feels fine. 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 [facility] Medical History (Updated 05/06/24 @ 09:48 by Elizabeth Buffalo, [employer]) Congestion of nasal sinus Longstanding persistent atrial fibrillation Wears glasses Alcohol use Diabetes High cholesterol Restless legs Back pain Heartburn BiPAP (biphasic positive airway pressure) dependence Shortness of breath on exertion Leg cramps History of pain when walking History of edema History of echocardiogram History of stress test Hypertension Cardiology follow-up encounter History of irregular heartbeat 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 Former smoker Dermatochalasis of right upper eyelid Dermatochalasis of left upper eyelid Vision problems Heart disease Arthritis Allergies Complex sleep apnea syndrome Diastolic dysfunction Paroxysmal atrial flutter Essential (primary) hypertension Obesity Obstructive sleep apnea Right bundle branch block Secondary pulmonary arterial hypertension Atherosclerosis of coronary artery of [place] heart without angina pectoris Diabetes mellitus Osteoarthritis NSVT (nonsustained ventricular tachycardia) Hyperlipidemia Surgical History History of blepharoplasty History of eyelid surgery Ganglion cyst of foot History of cardioversion (01/30/19) History of arthroscopy of left knee H/O coronary artery bypass surgery (07/19/08) H/O arthroscopy of right knee S/P right knee arthroscopy S/P hemorrhoidectomy left foot Family History Aunt Myocardial infarction Father CAD (coronary artery disease) Sister Cancer Breast cancer Brother Diabetes Other Arthritis Carotid artery stenosis Heart disease High cholesterol Hypertension Lung cancer Social History household members: spouse Smoking Status: Former smoker Tobacco: How many years used: 27 alcohol intake: current alcohol intake frequency: a few times a month substance use type: does not use additional social history: Does Take Low Dose Aspirin Daily Does Not Take Ibuprofen HPI HPI Chief Complaint: covid test Details: RJ REYNOLDS, is a 69 M who presents to t (more content not included)... Normal [facility] Absolute lymphocyte countOrd ered By: Jody Padilla on 04-25-2024 Lymphocytes Auto (Unsp spec) [#/Vol] 1.64 10*3/uL 0.83-4.51 [facility] Absolute neutrophil countOrd ered By: Jody Padilla on 04-25-2024 Neutrophils (Bld) [#/Vol] 4.5 10*3/uL 2.0-7.7 [facility] Automated lymphocyte count a s percentage of total leukocytesOrdered By: Jody Padilla on 04-25-2024 Lymphocytes/100 WBC Auto (Unsp spec) 22.4 % 19-41 [facility] Basic Metabolic Profile (BMP )on 04-25-2024 BUN/CRE 14.6 RATIO Normal 10-20 [facility] Comment on above: Performed By: #### L 100.0100, L500.2500, L501.9520, L501.5200 #### [facility] [address] [place], [address] CA,Total 9.2 mg/dL Normal 8.5-10.1 [facility] Comment on above: Performed By: #### L 100.0100, L500.2500, L501.9520, L501.5200 #### [facility] [address] [place], [address] Chloride [Moles/Vol] 103 mmol/L Normal 98-107 [facility] Comment on above: Performed By: #### L 100.0100, L500.2500, L501.9520, L501.5200 #### [facility] [address] [place], [address] CO2 [Moles/Vol] 33.0 mmol/L High 21.0-32.0 [facility] Comment on above: Performed By: #### L 100.0100, L500.2500, L501.9520, L501.5200 #### [facility] [address] [place], [address] Creatinine [Mass/Vol] 0.96 mg/dL Normal 0.70-1.30 [facility] Comment on above: Result Comment: The validity of the calculated GFR GFRAA in patients over 70 years has not been determined. Clinical correlation is essential. Performed By: #### L 100.0100, L500.2500, L501.9520, L501.5200 #### [facility] [address] [place], [address] EST GFR - AA 100 mL/min Normal >60 [facility] Comment on above: Result Comment: Afri can [place] GFR Calc Performed By: #### L 100.0100, L500.2500, L501.9520, L501.5200 #### [facility] [address] [place], [address] GAP 3 Low 5-15 [facility] Comment on above: Performed By: #### L 100.0100, L500.2500, L501.9520, L501.5200 #### [facility] [address] [place], [address] GFR/1.73 sq M.predicted among non-blacks MDRD (S/P/Bld) [Vol rate/Area] 82 mL/min/{1.73_m2} Normal >60 [facility] Comment on above: Result Comment: Non- GFR Calc Performed By: #### L 100.0100, L500.2500, L501.9520, L501.5200 #### [facility] [address] [place], [address] Glucose [Mass/Vol] 162 mg/dL High 74-106 [facility] Comment on above: Result Comment: Fast ing Glucose result greater than or equal to 126 mg/dL suggests DIABETES MELLITUS per A.D.A. criteria. Performed By: #### L 100.0100, L500.2500, L501.9520, L501.5200 #### [facility] [address] [place], [address] Potassium [Moles/Vol] 3.6 mmol/L Normal 3.5-5.1 [facility] Comment on above: Performed By: #### L 100.0100, L500.2500, L501.9520, L501.5200 #### [facility] [address] [place], [address] Sodium [Moles/Vol] 140 mmol/L Normal 136-145 [facility] Comment on above: Performed By: #### L 100.0100, L500.2500, L501.9520, L501.5200 #### [facility] [address] [place], [address] Urea nitrogen [Mass/Vol] 14 mg/dL Normal 7-18 [facility] Comment on above: Performed By: #### L 100.0100, L500.2500, L501.9520, L501.5200 #### [facility] [address] [place], [address] Basophil percentageOrdered B y: Jody Padilla on 04-25-2024 Basophils/100 WBC (Bld) 0.4 % 0-1 [facility] Blood urea nitrogen (BUN)/cr eatinine ratioOrdered By: Jody Padilla on 04-25-2024 Urea nitrogen/Creatinine [Mass ratio] 14.6 mg/mg 10-20 [facility] CBC W/Diff, Automatedon 04-15 Absolute Lymph 1.64 X10 3/uL Normal 0.83-4.51 [facility] Comment on above: Performed By: #### L 100.0100, L500.2500, L501.9520, L501.5200 #### [facility] [address] [place], [address] Absolute Neut 4.5 X10 3/uL Normal 2.0-7.7 [facility] Comment on above: Performed By: #### L 100.0100, L500.2500, L501.9520, L501.5200 #### [facility] [address] [place], [address] Basophils/100 WBC (Bld) 0.4 % Normal 0-1 [facility] Comment on above: Performed By: #### L 100.0100, L500.2500, L501.9520, L501.5200 #### [facility] [address] [place], [address] Eosinophils/100 WBC (Bld) 2.0 % Normal 0-5 [facility] Comment on above: Performed By: #### L 100.0100, L500.2500, L501.9520, L501.5200 #### [facility] [address] [place], [address] Erythrocyte distribution width (RBC) [Ratio] 12.9 % Normal 11.6-14.6 [facility] Comment on above: Performed By: #### L 100.0100, L500.2500, L501.9520, L501.5200 #### [facility] [address] [place], [address] Hematocrit (Bld) [Volume fraction] 40.2 % Normal 40-54 [facility] Comment on above: Performed By: #### L 100.0100, L500.2500, L501.9520, L501.5200 #### [facility] [address] [place], [address] Hemoglobin (Bld) [Mass/Vol] 13.7 g/dL Normal 13.0-16.5 [facility] Comment on above: Performed By: #### L 100.0100, L500.2500, L501.9520, L501.5200 #### [facility] [address] [place], [address] IG% 0.500 Normal 0.0-0.9 [facility] Comment on above: Result Comment: IG% - Immature Granulocytes (promyelocytes, myelocytes and metamyelocytes) > 1% indicates that a LEFT SHIFT is Present. Performed By: #### L 100.0100, L500.2500, L501.9520, L501.5200 #### [facility] [address] [place], [address] Lymphocytes/100 WBC (Bld) 22.4 % Normal 19-41 [facility] Comment on above: Performed By: #### L 100.0100, L500.2500, L501.9520, L501.5200 #### [facility] [address] [place], [address] MCH (RBC) [Entitic mass] 31.1 pg Normal 27.0-32.0 [facility] Comment on above: Performed By: #### L 100.0100, L500.2500, L501.9520, L501.5200 #### [facility] [address] [place], [address] MCHC (RBC) [Mass/Vol] 34.1 g/dL Normal 32-36 [facility] Comment on above: Performed By: #### L 100.0100, L500.2500, L501.9520, L501.5200 #### [facility] [address] [place], [address] MCV (RBC) [Entitic vol] 91.2 fL Normal 80-94 [facility] Comment on above: Performed By: #### L 100.0100, L500.2500, L501.9520, L501.5200 #### [facility] [address] [place], [address] Monocytes/100 WBC (Bld) 13.1 % High 0-10 [facility] Comment on above: Performed By: #### L 100.0100, L500.2500, L501.9520, L501.5200 #### [facility] [address] [place], [address] Neutrophils/100 WBC (Bld) 61.6 % Normal 47-70 [facility] Comment on above: Performed By: #### L 100.0100, L500.2500, L501.9520, L501.5200 #### [facility] [address] [place], [address] Nucleated RBC (Bld) [#/Vol] 0 10*3/uL Normal 0-5 [facility] Comment on above: Performed By: #### L 100.0100, L500.2500, L501.9520, L501.5200 #### [facility] [address] [place], [address] Platelet mean volume (Bld) [Entitic vol] 10.5 fL Normal 6.2-12.0 [facility] Comment on above: Performed By: #### L 100.0100, L500.2500, L501.9520, L501.5200 #### [facility] [address] [place], [address] Platelets (Bld) [#/Vol] 201 10*3/uL Normal 150-450 [facility] Comment on above: Performed By: #### L 100.0100, L500.2500, L501.9520, L501.5200 #### [facility] [address] [place], [address] RBC (Bld) [#/Vol] 4.41 10*6/uL Low 4.6-6.2 [facility] Comment on above: Performed By: #### L 100.0100, L500.2500, L501.9520, L501.5200 #### [facility] [address] [place], [address] RDW SD 42.6 fl Normal 35.1-43.9 [facility] Comment on above: Performed By: #### L 100.0100, L500.2500, L501.9520, L501.5200 #### [facility] [address] [place], [address] WBC (Bld) [#/Vol] 7.3 10*3/uL Normal 4.4-11.0 [facility] Comment on above: Performed By: #### L 100.0100, L500.2500, L501.9520, L501.5200 #### [facility] [place], [address] Carbon dioxide measurementOr dered By: Jody Padilla on 04-25-2024 CO2 [Moles/Vol] 33.0 mmol/L High 21.0-32.0 [facility] Chloride measurementOrdered By: Jody Padilla on 04-25-2024 Chloride [Moles/Vol] 103 mmol/L 98-107 [facility] Eosinophil percentageOrdered By: Jody Padilla on 04-25-2024 Eosinophils/100 WBC (Bld) 2.0 % 0-5 [facility] Erythrocyte distribution wid th ratioOrdered By: Jody Padilla on 04-25-2024 Erythrocyte distribution width (RBC) [Ratio] 12.9 % 11.6-14.6 [facility] Erythrocyte distribution wid th standard deviationOrdered By: Jody Padilla on 04-25-2024 Erythrocyte distribution width (RBC) [Entitic vol] 42.6 fL 35.1-43.9 [facility] Erythrocyte distribution width (RBC) [Ratio] 42.6 fl 35.1-43.9 [facility] Estimated glomerular filtrat ion rate (GFR) AmericanOrdered By: Jody Padilla on 04-25-2024 Estimated GFR (MDRD) Amer 100 mL/min >60 [facility] Comment on above: GFR Calc Glomerular filtration rate ( GFR) estimationOrdered By: Jody Padilla on 04-25-2024 Estimated GFR (MDRD) Non-Af Amer 82 mL/min >60 [facility] Comment on above: Non- GFR Calc GFR/1.73 sq M.predicted among non-blacks MDRD (S/P/Bld) [Vol rate/Area] 82 mL/min/{1.73_m2} >60 [facility] Comment on above: Non- GFR Calc Glucose measurementOrdered B y: Jody Padilla on 04-25-2024 Glucose [Mass/Vol] 162 mg/dL High 74-106 [facility] Comment on above: Fasting Glucose resu lt greater than or equal to 126 mg/dL suggests DIABETES MELLITUS per A.D.A. criteria. Hematocrit Auto (Bld) [Volum e fraction]Ordered By: Jody Padilla on 04-25-2024 Hematocrit (Bld) [Volume fraction] 40.2 % 40-54 [facility] Hemoglobin measurementOrdere d By: Jody Padilla on 04-25-2024 Hemoglobin (Bld) [Mass/Vol] 13.7 g/dL 13.0-16.5 [facility] Immature granulocytes/100 WB C Auto (Bld)Ordered By: Jody Padilla on 04-25-2024 Immature granulocytes/100 WBC (Bld) 0.500 % 0.0-0.9 [facility] Comment on above: IG% - Immature Granu locytes (promyelocytes, myelocytes and metamyelocytes) > 1% indicates that a LEFT SHIFT is Present. Lymphocytes Auto (Unsp spec) [#/Vol]Ordered By: Jody Padilla on 04-25-2024 Lymphocytes (Bld) [#/Vol] 1.64 10*3/uL 0.83-4.51 [facility] Lymphocytes/100 WBC Auto (Un sp spec)Ordered By: Jody Padilla on 04-25-2024 Lymphocytes/100 WBC (Bld) 22.4 % 19-41 [facility] MCV (mean corpuscular volume ) determinationOrdered By: Jody Padilla on 04-25-2024 MCV (RBC) [Entitic vol] 91.2 fL 80-94 [facility] Magnesiumon 04-25-2024 Magnesium [Mass/Vol] 2.3 mg/dL Normal 1.6-2.6 [facility] Comment on above: Performed By: #### L 100.0100, L500.2500, L501.9520, L501.5200 #### [facility] [address] [place], [place] [address] [place], [place], [id number] Magnesium measurementOrdered By: Jody Padilla on 04-25-2024 Magnesium [Mass/Vol] 2.3 mg/dL 1.6-2.6 [facility] Mean corpuscular hemoglobin (MCH) determinationOrdered By: Jody Padilla on 04-25-2024 MCH (RBC) [Entitic mass] 31.1 pg 27.0-32.0 [facility] Mean corpuscular hemoglobin concentration (MCHC) determinationOrdered By: Jody Padilla on 04-25-2024 MCHC (RBC) [Mass/Vol] 34.1 g/dL 32-36 [facility] Mean platelet volume determi nationOrdered By: Jody Padilla on 04-25-2024 Platelet mean volume (Bld) [Entitic vol] 10.5 fL 6.2-12.0 [facility] Monocyte percentageOrdered B y: Jody Padilla on 04-25-2024 Monocytes/100 WBC (Bld) 13.1 % High 0-10 [facility] Neutrophil percentageOrdered By: Jody Padilla on 04-25-2024 Neutrophils/100 WBC (Bld) 61.6 % 47-70 [facility] Nucleated red blood cell per centageOrdered By: Jody Padilla on 04-25-2024 Nucleated RBC/100 WBC (Bld) [Ratio] 0 % 0-5 [facility] Platelet countOrdered By: Ramona Padilla on 04-25-2024 Platelets (Bld) [#/Vol] 201 10*3/uL 150-450 [facility] Potassium measurementOrdered By: Jody Padilla on 04-25-2024 Potassium [Moles/Vol] 3.6 mmol/L 3.5-5.1 [facility] RBC Auto (Bld) [#/Vol]Ordere d By: Jody Padilla on 04-25-2024 RBC (Bld) [#/Vol] 4.41 10*6/uL Low 4.6-6.2 [facility] Serum anion gap measurementO rdered By: Jody Padilla on 04-25-2024 Anion gap [Moles/Vol] 3 mmol/L Low 5-15 [facility] Serum or plasma calcium mary ann urement (mass/volume)Ordered By: Jody Padilla on 04-25-2024 Calcium [Mass/Vol] 9.2 mg/dL 8.5-10.1 [facility] Serum or plasma creatinine m easurement (mass/volume)Ordered By: Jody Padilla on 04-25-2024 Creatinine [Mass/Vol] 0.96 mg/dL 0.70-1.30 [facility] Comment on above: The validity of the calculated GFR & GFRAA in patients over 70 years has not been determined. Clinical correlation is essential. Serum or plasma thyroid stim ulating hormone (TSH) measurement (units/volume)Ordered By: Jody Padilla on 04-25-2024 TSH Qn 1.590 uIU/mL 0.358-3.740 [facility] Serum or plasma urea nitroge n measurement (mass/volume)Ordered By: Jody Padilla on 04-25-2024 Urea nitrogen [Mass/Vol] 14 mg/dL 7-18 [facility] Sodium levelOrdered By: Stefano Padilla on 04-25-2024 Sodium [Moles/Vol] 140 mmol/L 136-145 [facility] TSH QnOrdered By: Jody Barrera on 04-25-2024 Thyroid Stimulating Hormone (TSH) 1.590 uIU/mL 0.358-3.740 [facility] Thyroid Stim Hormone (TSH)on 04-25-2024 TSH 1.590 uIU/mL Normal 0.358-3.740 [facility] Comment on above: Performed By: #### L 100.0100, L500.2500, L501.9520, L501.5200 ####[facility] [id number] [place], [place], [address] White blood cell (WBC) count Ordered By: Jody Padilla on 04-25-2024 WBC (Bld) [#/Vol] 7.3 10*3/uL 4.4-11.0 [facility] - Microbiology an d Antimicrobial susceptibilityOrdered By: Patrice Noriega on 04-18-2024 SARS-CoV-2 (COVID-19) RNA LUIS ANGEL+probe Ql (Unsp spec) Not detected [facility] Urgent Care Visit Reporton 0 04-18-2024 Urgent Care Visit Report [facility] [address], [address] [place], [place] [address] OFFICE VISIT Date of Service: 04/18/24 MR#: [id number] Acct: [id number] Name: RJ REYNOLDS Rep #: [id number] : 1955 Provider: YOLANDA Noriega Age/Sex: 69/M Location: [facility] Status: Signed Intake Vital Signs 12/02/23 13:48 04/18/24 15:53 Height 5 ft 8 in 5 ft 8 in Weight: 295 lb 6 oz BMI 44.9 BP 120/80 Position Sitting Pulse 77 Temp 97.5 F L Temp Source Oral Pulse Oximetry (%) 97 Oxygen Delivery Method room air Intake Visit Reasons: COUGH/ HAS COVID Accompanied by: Self Allergies JAJA Inhibitors Allergy (Verified 04/18/24 15:45) Unknown atorvastatin (From Lipitor) Adverse Reaction (Verified 04/18/24 15:45) Pain in joints simvastatin Adverse Reaction (Verified 04/18/24 15:45) Pain in joints Medications ???Medication ???Instructions ???Recorded ???Confirmed ???Type ascorbic acid (vitamin C) 500 mg 500 mg PO DAILY 05/26/16 04/18/24 History tablet coenzyme Q16-tuaxeqz E 100 mg-5 1 ea PO DAILY 05/26/16 04/18/24 Hi story unit capsule glucosamine sulfate 500 mg tablet 500 mg PO BID 05/26/16 04/18/24 H istory multivitamin with folic acid 400 1 tab PO DAILY 05/26/16 04/18/24 H istory mcg tablet tamsulosin 0.4 mg capsule 0.4 mg PO QHS 05/26/16 04/18/24 Hi story olmesartan 40 mg tablet 40 mg PO DAILY 05/10/18 04/18/24 H istory rosuvastatin 5 mg tablet 5 mg PO DAILY 01/16/20 04/18/24 Hi story L.acidophil,salivar i-Bifido 1 cap PO DAILY #10 caps 06/05/22 0 04/18/24 Rx bifidum-Strep thermoph 175 mg capsule (Acidophilus Probiotic Blend) aspirin 81 mg tablet,delayed 81 mg PO DAILY 09/22/22 04/18/24 H istory release (Adult Low Dose Aspirin) diltiazem HCl 180 mg capsule,24 180 mg PO DAILY #90 caps 05/10/23 04/18/24 Rx hr,extended release apixaban 5 mg tablet (Eliquis) See Rx Instructions .Route 4 04/18/24 Rx .COMPLEX #180 tabs indapamide 1.25 mg tablet 1.25 mg PO BID #180 tabs 12/27/23 04/18/24 Rx metoprolol tartrate 100 mg tablet See Rx Instructions .Route 04/18/24 Rx .COMPLEX #180 tabs Have you fallen in the past year?: No Nurse's Note: Patient has sinus congestion and his has covid and he is concerned. [facility] Medical History (Updated 04/18/24 @ 16:37 by Patrice Noriega NP-C) Congestion of nasal sinus Longstanding persistent atrial fibrillation Wears glasses Alcohol use Diabetes High cholesterol Restless legs Back pain Heartburn BiPAP (biphasic positive airway pressure) dependence Shortness of breath on exertion Leg cramps History of pain when walking History of edema History of echocardiogram History of stress test Hypertension Cardiology follow-up encounter History of irregular heartbeat 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 Former smoker Dermatochalasis of right upper eyelid Dermatochalasis of left upper eyelid Vision problems Heart disease Arthritis Allergies Complex sleep apnea syndrome Diastolic dysfunction Paroxysmal atrial flutter Essential (primary) hypertension Obesity Obstructive sleep apnea Right bundle branch block Secondary pulmonary arterial hypertension Atherosclerosis of coronary artery of [place] heart without angina pectoris Diabetes mellitus Osteoarthritis NSVT (nonsustained ventricular tachycardia) Hyperlipidemia Surgical History History of blepharoplasty History of eyelid surgery Ganglion cyst of foot History of cardioversion (01/30/19) History of arthroscopy of left knee H/O coronary artery bypass surgery (07/19/08) H/O arthroscopy of right knee S/P right knee arthroscopy S/P hemorrhoidectomy left foot Family History Aunt Myocardial infarction Father CAD (coronary artery disease) Sister Cancer Breast cancer Brother Diabetes Other Arthritis Carotid artery stenosis Heart disease High cholesterol Hypertension Lung cancer Social History household members: spouse Smoking Status: Former smoker Tobacco: How many years used: 27 alcohol intake: current alcohol intake frequency: a few times a month substance use type: does not use additional social history: Does Take Low Dose Aspirin Daily Does Not Take Ibuprofen HPI HPI Details: RJ REYNOLDS, is a 69 M who presents to the office today for HPI: Patient states that his awoke about 330 this morning feeling extremely short of breath and was taken to the hospital where she was diagnosed with COVID and admitted. He presents today stating his had some congestion and requesting a COVID test. He otherwise denies any nausea vomiting fever coug (more content not included)... Normal [facility] Orthopedic Visit Reporton Orthopedic Visit Report [facility] [address] [place] [address] 5 [place] [address] OFFICE VISIT Date of Service: 12/22/23 MR#: [id number] Acct: [id number] Name: RJ REYNOLDS Rep #: [id number] : 1955 Provider: Dr. Florentin horne DO Age/Sex: 68/M Location: [facility] Status: Signed Intake Vital Signs 11/22/23 15:18 12/02/23 13:48 Height 5 ft 8 in 5 ft 8 in Intake Visit Reasons: RIGHT KNEE Chief Complaint: right knee pain Is patient in pain?: Yes (right knee) Pain scale (1-10): 3 Allergies JAJA Inhibitors Allergy (Verified 12/22/23 15:52) Unknown atorvastatin (From Lipitor) Adverse Reaction (Verified 12/22/23 15:52) Pain in joints simvastatin Adverse Reaction (Verified 12/22/23 15:52) Pain in joints Medications ???Medication ???Instructions ???Recorded ???Confirmed ???Type ascorbic acid (vitamin C) 500 mg 500 mg PO DAILY 05/26/16 12/22/23 History tablet coenzyme E91-fvenafb E 100 mg-5 1 ea PO DAILY 05/26/16 12/22/23 History unit capsule glucosamine sulfate 500 mg tablet 500 mg PO BID 05/26/16 12/22/23 History metformin 500 mg tablet 500 mg PO QHS 05/26/16 12/22/23 History multivitamin with folic acid 400 1 tab PO DAILY 05/26/16 12/22/23 History mcg tablet tamsulosin 0.4 mg capsule 0.4 mg PO QHS 05/26/16 12/22/23 History olmesartan 40 mg tablet 40 mg PO DAILY 05/10/18 12/22/23 History rosuvastatin 5 mg tablet 5 mg PO DAILY 01/16/20 12/22/23 History L.acidophil,salivar i-Bifido 1 cap PO DAILY #10 caps 06/05/22 12/22/23 Rx bifidum-Strep thermoph 175 mg capsule (Acidophilus Probiotic Blend) diazepam 5 mg tablet (Valium) 5 mg PO BID PRN spasms #10 tabs 06/05/22 12/22/23 Rx aspirin 81 mg tablet,delayed 81 mg PO DAILY 09/22/22 12/22/23 History release (Adult Low Dose Aspirin) indapamide 1.25 mg tablet 1.25 mg PO BID #180 tabs 09/27/22 12/22/23 Rx metoprolol tartrate 100 mg tablet See Rx Instructions .Route 03/22/23 12/22/23 Rx .COMPLEX #180 tabs diltiazem HCl 180 mg capsule,24 180 mg PO DAILY #90 caps 05/10/23 12/22/23 Rx hr,extended release apixaban 5 mg tablet (Eliquis) See Rx Instructions .Route 10/18/23 12/22/23 Rx .COMPLEX #180 tabs Have you fallen in the past year?: No PFSH Medical History Longstanding persistent atrial fibrillation Wears glasses Alcohol use Diabetes High cholesterol Restless legs Back pain Heartburn BiPAP (biphasic positive airway pressure) dependence Shortness of breath on exertion Leg cramps History of pain when walking History of edema History of echocardiogram History of stress test Hypertension Cardiology follow-up encounter History of irregular heartbeat 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 Former smoker Dermatochalasis of right upper eyelid Dermatochalasis of left upper eyelid Vision problems Heart disease Arthritis Allergies Complex sleep apnea syndrome Diastolic dysfunction Paroxysmal atrial flutter Essential (primary) hypertension Obesity Obstructive sleep apnea Right bundle branch block Secondary pulmonary arterial hypertension Atherosclerosis of coronary artery of [place] heart without angina pectoris Diabetes mellitus Osteoarthritis NSVT (nonsustained ventricular tachycardia) Hyperlipidemia Surgical History History of blepharoplasty History of eyelid surgery Ganglion cyst of foot History of cardioversion (01/30/19) History of arthroscopy of left knee H/O coronary artery bypass surgery (07/19/08) H/O arthroscopy of right knee S/P right knee arthroscopy S/P hemorrhoidectomy left foot Family History Aunt Myocardial infarction Father CAD (coronary artery disease) Sister Cancer Breast cancer Brother Diabetes Other Arthritis Carotid artery stenosis Heart disease High cholesterol Hypertension Lung cancer Social History household members: spouse Smoking Status: Former smoker Tobacco: How many years used: 27 alcohol intake: current alcohol intake frequency: a few times a month substance use type: does not use additional social history: Does Take Low Dose Aspirin Daily Does Not Take Ibuprofen HPI RIGHT KNEE Chief Complaint: right knee Details: This documentation accurately reflects the service provided and the decisions made by me, Dr. Florentin Bethea, 12/22/23 1547. Part of today???s visit was documented by [ ], acting as scribe. RJ REYNOLDS is a 68 year old M here today for 3rd right knee Supartz. Pt. advises he has experienced some mild relief so far. Ortho Exam General General: Yes no acute distress Neurologic: Yes alert and Yes oriented x3 (more content not included)... Normal [facility] Orthopedic Visit Reporton Orthopedic Visit Report [facility] [address] [place] [address] OFFICE VISIT Date of Service: 12/15/23 MR#: [id number] Acct: [id number] Name: RJ REYNOLDS Rep #: [id number] : 1955 Provider: Dr. Florentin horne DO Age/Sex: 68/M Location: [facility] Status: Signed Intake Vital Signs 11/22/23 15:18 12/02/23 13:48 Height 5 ft 8 in 5 ft 8 in Weight: 314 lb 2 oz BMI 47.7 Intake Visit Reasons: RIGHT KNEE Chief Complaint: right knee pain Is patient in pain?: Yes (right knee) Pain scale (1-10): 4 Allergies JAJA Inhibitors Allergy (Verified 12/15/23 14:16) Unknown atorvastatin (From Lipitor) Adverse Reaction (Verified 12/15/23 14:16) Pain in joints simvastatin Adverse Reaction (Verified 12/15/23 14:16) Pain in joints Medications ???Medication ???Instructions ???Recorded ???Confirmed ???Type ascorbic acid (vitamin C) 500 mg 500 mg PO DAILY 05/26/16 12/15/23 History tablet coenzyme K80-uhpqoeh E 100 mg-5 1 ea PO DAILY 05/26/16 12/15/23 History unit capsule glucosamine sulfate 500 mg tablet 500 mg PO BID 05/26/16 12/15/23 History metformin 500 mg tablet 500 mg PO QHS 05/26/16 12/15/23 History multivitamin with folic acid 400 1 tab PO DAILY 05/26/16 12/15/23 History mcg tablet tamsulosin 0.4 mg capsule 0.4 mg PO QHS 05/26/16 12/15/23 History olmesartan 40 mg tablet 40 mg PO DAILY 05/10/18 12/15/23 History rosuvastatin 5 mg tablet 5 mg PO DAILY 01/16/20 12/15/23 History L.acidophil,salivar i-Bifido 1 cap PO DAILY #10 caps 06/05/22 12/15/23 Rx bifidum-Strep thermoph 175 mg capsule (Acidophilus Probiotic Blend) diazepam 5 mg tablet (Valium) 5 mg PO BID PRN spasms #10 tabs 06/05/22 12/15/23 Rx aspirin 81 mg tablet,delayed 81 mg PO DAILY 09/22/22 12/15/23 History release (Adult Low Dose Aspirin) indapamide 1.25 mg tablet 1.25 mg PO BID #180 tabs 09/27/22 12/15/23 Rx metoprolol tartrate 100 mg tablet See Rx Instructions .Route 03/22/23 12/15/23 Rx .COMPLEX #180 tabs diltiazem HCl 180 mg capsule,24 180 mg PO DAILY #90 caps 05/10/23 12/15/23 Rx hr,extended release apixaban 5 mg tablet (Eliquis) See Rx Instructions .Route 10/18/23 12/15/23 Rx .COMPLEX #180 tabs Have you fallen in the past year?: No [facility] Medical History Longstanding persistent atrial fibrillation Wears glasses Alcohol use Diabetes High cholesterol Restless legs Back pain Heartburn BiPAP (biphasic positive airway pressure) dependence Shortness of breath on exertion Leg cramps History of pain when walking History of edema History of echocardiogram History of stress test Hypertension Cardiology follow-up encounter History of irregular heartbeat 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 Former smoker Dermatochalasis of right upper eyelid Dermatochalasis of left upper eyelid Vision problems Heart disease Arthritis Allergies Complex sleep apnea syndrome Diastolic dysfunction Paroxysmal atrial flutter Essential (primary) hypertension Obesity Obstructive sleep apnea Right bundle branch block Secondary pulmonary arterial hypertension Atherosclerosis of coronary artery of [place] heart without angina pectoris Diabetes mellitus Osteoarthritis NSVT (nonsustained ventricular tachycardia) Hyperlipidemia Surgical History History of blepharoplasty History of eyelid surgery Ganglion cyst of foot History of cardioversion (01/30/19) History of arthroscopy of left knee H/O coronary artery bypass surgery (07/19/08) H/O arthroscopy of right knee S/P right knee arthroscopy S/P hemorrhoidectomy left foot Family History Aunt Myocardial infarction Father CAD (coronary artery disease) Sister Cancer Breast cancer Brother Diabetes Other Arthritis Carotid artery stenosis Heart disease High cholesterol Hypertension Lung cancer Social History household members: spouse Smoking Status: Former smoker Tobacco: How many years used: 27 alcohol intake: current alcohol intake frequency: a few times a month substance use type: does not use additional social history: Does Take Low Dose Aspirin Daily Does Not Take Ibuprofen HPI RIGHT KNEE Chief Complaint: right knee pain Details: This documentation accurately reflects the service provided and the decisions made by me, Dr. Florentin Bethea, DO 12/15/23 0849. Part of today???s visit was documented by [ ], acting as scribe. RJ REYNOLDS is a 68 year old M here today for his 2nd right knee Supartz. Ortho Exam General General: Yes no acute distress Neurologic: Yes alert and Yes oriented x3 Psy (more content not included)... Normal [facility] Orthopedic Visit Reporton Orthopedic Visit Report [facility] [address] [place] [id number] OFFICE VISIT Date of Service: 12/08/23 MR#: [id number] Acct: [id number] Name: RJ REYNOLDS Rep #: [id number] : 1955 Provider: Dr. Florentin horne, DO Age/Sex: 68/M Location: [facility] Status: Signed Intake Vital Signs 11/22/23 15:18 12/02/23 13:48 Height 5 ft 8 in 5 ft 8 in Weight: 314 lb 2 oz BMI 47.7 Intake Visit Reasons: RIGHT KNEE Chief Complaint: FU chronic resp conditions Allergies JAJA Inhibitors Allergy (Verified 11/22/23 15:09) Unknown atorvastatin (From Lipitor) Adverse Reaction (Verified 11/22/23 15:09) Pain in joints simvastatin Adverse Reaction (Verified 11/22/23 15:09) Pain in joints Medications ???Medication ???Instructions ???Recorded ???Confirmed ???Type ascorbic acid (vitamin C) 500 mg 500 mg PO DAILY 05/26/16 12/08/23 History tablet coenzyme Z60-ffuvkpa E 100 mg-5 1 ea PO DAILY 05/26/16 12/08/23 History unit capsule glucosamine sulfate 500 mg tablet 500 mg PO BID 05/26/16 12/08/23 History metformin 500 mg tablet 500 mg PO QHS 05/26/16 12/08/23 History multivitamin with folic acid 400 1 tab PO DAILY 05/26/16 12/08/23 History mcg tablet tamsulosin 0.4 mg capsule 0.4 mg PO QHS 05/26/16 12/08/23 History olmesartan 40 mg tablet 40 mg PO DAILY 05/10/18 12/08/23 History rosuvastatin 5 mg tablet 5 mg PO DAILY 01/16/20 12/08/23 History L.acidophil,salivar i-Bifido 1 cap PO DAILY #10 caps 06/05/22 12/08/23 Rx bifidum-Strep thermoph 175 mg capsule (Acidophilus Probiotic Blend) diazepam 5 mg tablet (Valium) 5 mg PO BID PRN spasms #10 tabs 06/05/22 12/08/23 Rx aspirin 81 mg tablet,delayed 81 mg PO DAILY 09/22/22 12/08/23 History release (Adult Low Dose Aspirin) indapamide 1.25 mg tablet 1.25 mg PO BID #180 tabs 09/27/22 12/08/23 Rx metoprolol tartrate 100 mg tablet See Rx Instructions .Route 03/22/23 12/08/23 Rx .COMPLEX #180 tabs diltiazem HCl 180 mg capsule,24 180 mg PO DAILY #90 caps 05/10/23 12/08/23 Rx hr,extended release apixaban 5 mg tablet (Eliquis) See Rx Instructions .Route 10/18/23 12/08/23 Rx .COMPLEX #180 tabs Have you fallen in the past year?: No PFSH Medical History Longstanding persistent atrial fibrillation Wears glasses Alcohol use Diabetes High cholesterol Restless legs Back pain Heartburn BiPAP (biphasic positive airway pressure) dependence Shortness of breath on exertion Leg cramps History of pain when walking History of edema History of echocardiogram History of stress test Hypertension Cardiology follow-up encounter History of irregular heartbeat 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 Former smoker Dermatochalasis of right upper eyelid Dermatochalasis of left upper eyelid Vision problems Heart disease Arthritis Allergies Complex sleep apnea syndrome Diastolic dysfunction Paroxysmal atrial flutter Essential (primary) hypertension Obesity Obstructive sleep apnea Right bundle branch block Secondary pulmonary arterial hypertension Atherosclerosis of coronary artery of [place] heart without angina pectoris Diabetes mellitus Osteoarthritis NSVT (nonsustained ventricular tachycardia) Hyperlipidemia Surgical History History of blepharoplasty History of eyelid surgery Ganglion cyst of foot History of cardioversion (01/30/19) History of arthroscopy of left knee H/O coronary artery bypass surgery (07/19/08) H/O arthroscopy of right knee S/P right knee arthroscopy S/P hemorrhoidectomy left foot Family History Aunt Myocardial infarction Father CAD (coronary artery disease) Sister Cancer Breast cancer Brother Diabetes Other Arthritis Carotid artery stenosis Heart disease High cholesterol Hypertension Lung cancer Social History household members: spouse Smoking Status: Former smoker Tobacco: How many years used: 27 alcohol intake: current alcohol intake frequency: a few times a month substance use type: does not use additional social history: Does Take Low Dose Aspirin Daily Does Not Take Ibuprofen HPI RIGHT KNEE Details: This documentation accurately reflects the service provided and the decisions made by me, Dr. Florentin Bethea, 12/08/23 0953. Part of today???s visit was documented by Lu AVERY, acting as scribe. RJ REYNOLDS is a 68 year old M here today for 1st right knee supartz injection. Ortho Exam General General: Yes no acute distress Neurologic: Yes alert and Yes oriented x3 Psychologic: Yes reasonable and appropriate Right Knee Skin/Wound: No (more content not included)... Normal [facility] Orthopedic Visit Reporton Orthopedic Visit Report [facility] [address] [place] [address] OFFICE VISIT Date of Service: 11/22/23 MR#: [id number] Acct: [id number] Name: RJ REYNOLDS Rep #: [id number] : 1955 Provider: Dr. Florentin horne DO Age/Sex: 68/M Location: [facility] Status: Signed Intake Vital Signs 08/11/23 07:50 11/22/23 15:18 Height 5 ft 6 in 5 ft 8 in Weight: 205 lb 314 lb 2 oz BMI 33.0 47.7 BP 157/85 H Blood Pressure Location Lt brachial Position Sitting Respiration 16 Pulse 61 Pulse Source Monitor Temp 98.0 F Pulse Oximetry (%) 98 Oxygen Delivery Method room air Intake Visit Reasons: RIGHT KNEE Allergies JAJA Inhibitors Allergy (Verified 11/22/23 15:09) Unknown atorvastatin (From Lipitor) Adverse Reaction (Verified 11/22/23 15:09) Pain in joints simvastatin Adverse Reaction (Verified 11/22/23 15:09) Pain in joints Medications ???Medication ???Instructions ???Recorded ???Confirmed ???Type ascorbic acid (vitamin C) 500 mg 500 mg PO DAILY 05/26/16 11/22/23 History tablet coenzyme T30-fqieede E 100 mg-5 1 ea PO DAILY 05/26/16 11/22/23 History unit capsule glucosamine sulfate 500 mg tablet 500 mg PO BID 05/26/16 11/22/23 History metformin 500 mg tablet 500 mg PO QHS 05/26/16 11/22/23 History multivitamin with folic acid 400 1 tab PO DAILY 05/26/16 11/22/23 History mcg tablet tamsulosin 0.4 mg capsule 0.4 mg PO QHS 05/26/16 11/22/23 History olmesartan 40 mg tablet 40 mg PO DAILY 05/10/18 11/22/23 History rosuvastatin 5 mg tablet 5 mg PO DAILY 01/16/20 11/22/23 History L.acidophil,salivar i-Bifido 1 cap PO DAILY #10 caps 06/05/22 11/22/23 Rx bifidum-Strep thermoph 175 mg capsule (Acidophilus Probiotic Blend) diazepam 5 mg tablet (Valium) 5 mg PO BID PRN spasms #10 tabs 06/05/22 11/22/23 Rx aspirin 81 mg tablet,delayed 81 mg PO DAILY 09/22/22 11/22/23 History release (Adult Low Dose Aspirin) indapamide 1.25 mg tablet 1.25 mg PO BID #180 tabs 09/27/22 11/22/23 Rx metoprolol tartrate 100 mg tablet See Rx Instructions .Route 03/22/23 11/22/23 Rx .COMPLEX #180 tabs diltiazem HCl 180 mg capsule,24 180 mg PO DAILY #90 caps 05/10/23 11/22/23 Rx hr,extended release apixaban 5 mg tablet (Eliquis) See Rx Instructions .Route 10/18/23 11/22/23 Rx .COMPLEX #180 tabs Have you fallen in the past year?: No PFSH Medical History Alcohol use Allergies Arthritis Atherosclerosis of coronary artery of [place] heart without angina pectoris Back pain BiPAP (biphasic positive airway pressure) dependence Cardiology follow-up encounter Complex sleep apnea syndrome Dermatochalasis of left upper eyelid Dermatochalasis of right upper eyelid Diabetes Diabetes mellitus Diastolic dysfunction Essential (primary) hypertension Former smoker Heart disease Heartburn High cholesterol History of echocardiogram History of edema History of irregular heartbeat History of pain when walking History of stress test Hyperlipidemia Hypertension Leg cramps Longstanding persistent atrial fibrillation NSVT (nonsustained ventricular tachycardia) Obesity Obstructive sleep apnea Osteoarthritis Paroxysmal atrial flutter 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 Restless legs Right bundle branch block Secondary pulmonary arterial hypertension Shortness of breath on exertion Vision problems Wears glasses Surgical History History of blepharoplasty History of eyelid surgery Ganglion cyst of foot History of cardioversion (01/30/19) History of arthroscopy of left knee H/O coronary artery bypass surgery (07/19/08) H/O arthroscopy of right knee S/P right knee arthroscopy S/P hemorrhoidectomy left foot Family History Aunt Myocardial infarction Father CAD (coronary artery disease) Sister Cancer Breast cancer Brother Diabetes Other Arthritis Carotid artery stenosis Heart disease High cholesterol Hypertension Lung cancer Social History household members: spouse Smoking Status: Former smoker Tobacco: How many years used: 27 alcohol intake: current alcohol intake frequency: a few times a month substance use type: does not use additional social history: Does Take Low Dose Aspirin Daily Does Not Take Ibuprofen HPI RIGHT KNEE Details: This documentation accurately reflects the service provided and the decisions made by me, Dr. Florentin Bethea, DO 11/22/23 0840. Part of today???s visit was documented by [ ], acting as scribe. RJ REYNOLDS is a 68 year old M here today for 4 (more content not included)... Normal [facility] Basophil percentageOrdered B y: Apolinar Roche on 04-23-2023 Bilirubin [Mass/Vol] 0.70 mg/dL 0.20-1.00 [facility] Comment on above: For patients on eltr ombopag therapy, use of Dimension [place] TBIL is not recommended. Chloride [Moles/Vol] 107 mmol/L 98-107 [facility] Glucose [Mass/Vol] 154 mg/dL 74-106 [facility] Comment on above: Fasting Glucose resu lt greater than or equal to 126 mg/dL suggests DIABETES MELLITUS per A.D.A. criteria. Potassium [Moles/Vol] 3.8 mmol/L 3.5-5.1 [facility] Comment on above: Moderate Hemolysis, Result may be falsely increased. Protein [Mass/Vol] 7.3 g/dL 6.4-8.2 [facility] Sodium [Moles/Vol] 141 mmol/L 136-145 [facility] Laboratory - Chemistry and C hemistry - challengeOrdered By: Apolinar Roche on 04-23-2023 Albumin/Globulin [Mass ratio] 0.9 {ratio} 0.9-2.4 [facility] ALP [Catalytic activity/Vol] 68 U/L 45-117 [facility] ALT [Catalytic activity/Vol] 41 U/L 16-61 [facility] CO2 [Moles/Vol] 30.0 mmol/L 21.0-32.0 [facility] Globulin (S) [Mass/Vol] 3.8 g/dL 2.2-4.2 [facility] Urea nitrogen/Creatinine [Mass ratio] 14.9 mg/mg 10-20 [facility] No Panel InformationOrdered By: Apolinar Roche on 04-23-2023 Estimated GFR (MDRD) Amer 94 mL/min >60 [facility] Comment on above: GFR Calc Estimated GFR (MDRD) Non-Af Amer 78 mL/min >60 [facility] Comment on above: Non- GFR Calc Serum or plasma calcium mary ann urement (mass/volume)Ordered By: Apolinar Roche on 04-23-2023 Calcium [Mass/Vol] 9.4 mg/dL 8.5-10.1 [facility] Serum or plasma creatinine m easurement (mass/volume)Ordered By: Apolinar Roche on 04-23-2023 Creatinine [Mass/Vol] 1.01 mg/dL 0.70-1.30 [facility] Comment on above: The validity of the calculated GFR & GFRAA in patients over 70 years has not been determined. Clinical correlation is essential. Serum or plasma urea nitroge n measurement (mass/volume)Ordered By: Apolinar Roche on 04-23-2023 Urea nitrogen [Mass/Vol] 15 mg/dL 7-18 [facility] Thin prep Papanicolaou smear with manual screeningOrdered By: Apolinar Roche on 04-23-2023 Thin prep Papanicolaou smear with manual screening 3.5 g/dL 3.2-5.0 [facility] Thin prep Papanicolaou smear with manual screening 35 U/L 15-37 [facility] Comment on above: Moderate Hemolysis, Result may be falsely increased. Thin prep Papanicolaou smear with manual screening 4 5-15 [facility] Whole blood hemoglobin A1c/t otal hemoglobin ratio (mass fraction)Ordered By: Apolinar Roche on 04-23-2023 HbA1c (Bld) [Mass fraction] 5.9 % 3.8-5.6 [facility] Comment on above: Normal < 5.7 % Predi abetic 5.7 - 6.4 % Diabetic >or= 6.5 % Please note range changes. Basophil percentageOrdered B y: Apolinar Roche on 01-20-2023 Basophil percentage 0 SEEN /hpf 0-5 [facility] Bilirubin Test strip Ql (U)O rdered By: Apolinar Roche on 01-20-2023 Bilirubin Ql (U) Negative Negative [facility] Ketones Test strip Ql (U)Ord ered By: Apolinar Roche on 01-20-2023 Ketones Ql (U) Negative Negative [facility] Mucus LM Ql (Urine sed)Order ed By: Apolinar Roche on 01-20-2023 Mucus Ql (Urine sed) 0 SEEN /hpf [facility] Nitrite Test strip Ql (U)Ord ered By: Apolinar Roche on 01-20-2023 Nitrite Ql (U) Negative Negative [facility] No Panel InformationOrdered By: Apolinar Roche on 01-20-2023 Urine Microalbumin/Creatinine Ratio 31.5 mg/g CRE <30 [facility] Protein Test strip Ql (U)Ord ered By: Apolinar Roche on 01-20-2023 Protein Ql (U) Negative Negative [facility] Squamous epithelial cells de tection in urine sediment by light microscopyOrdered By: Apolinar Roche on 01-20-2023 Epithelial cells.squamous LM Ql (Urine sed) 0-5 SEEN /hpf 0-5 [facility] Thin prep Papanicolaou smear with manual screeningOrdered By: Apolinar Roche on 01-20-2023 Thin prep Papanicolaou smear with manual screening 39.1 mg/L NO RANGE EST. [facility] Urine blood detectionOrdered By: Apolinar Roche on 01-20-2023 RBC Ql (U) 10 /ul Negative [facility] RBC Ql (U) 0-5 SEEN /hpf 0-5 [facility] Urine clarityOrdered By: Kristin Roche on 01-20-2023 Clarity (U) Clear Clear [facility] Urine color determinationOrd ered By: Apolinar Roche on 01-20-2023 Color (U) Yellow Yellow [facility] Urine creatinine measurement (mass/volume)Ordered By: Apolinar Roche on 01-20-2023 Creatinine (U) [Mass/Vol] 124.00 mg/dL NO RANGE EST. [facility] Urine glucose detectionOrder ed By: Apolinar Roche on 01-20-2023 Glucose Ql (U) Normal mg/dl Normal [facility] Urine leukocyte esterase det ection by dipstickOrdered By: Apolinar Roche on 01-20-2023 Leukocyte esterase Test strip Ql (U) Negative Negative [facility] Urine pHOrdered By: Apolinar jones on 01-20-2023 pH (U) 6.0 [pH] 5.0 - 8.0 [facility] Urine sediment bacteria coun t by microscopy (number/high power field)Ordered By: Apolinar Roche on 01-20-2023 Bacteria LM.HPF (Urine sed) [#/Area] 0 /[HPF] None Seen [facility] Urine specific gravity measu rementOrdered By: Apolinar Roche on 01-20-2023 Specific gravity (U) [Rel density] 1.015 1.002-1.030 [facility] Urobilinogen Auto test strip Ql (U)Ordered By: Apolinar Roche on 01-20-2023 Urobilinogen Ql (U) Normal mg/dl Normal [facility] Basophil percentageOrdered B y: Apolinar Roche on 01-19-2023 Bilirubin [Mass/Vol] 0.50 mg/dL 0.20-1.00 [facility] Comment on above: For patients on eltr ombopag therapy, use of Dimension [place] TBIL is not recommended. Chloride [Moles/Vol] 105 mmol/L 98-107 [facility] Glucose [Mass/Vol] 115 mg/dL 74-106 [facility] Comment on above: Fasting Glucose resu lt from 100 to 125 mg/dL suggests IMPAIRED HOMEOSTASIS per A.D.A. criteria. Potassium [Moles/Vol] 3.6 mmol/L 3.5-5.1 [facility] Protein [Mass/Vol] 7.0 g/dL 6.4-8.2 [facility] Sodium [Moles/Vol] 139 mmol/L 136-145 [facility] Laboratory - Chemistry and C hemistry - challengeOrdered By: Apolinar Roche on 01-19-2023 ALP [Catalytic activity/Vol] 65 U/L 45-117 [facility] ALT [Catalytic activity/Vol] 32 U/L 16-61 [facility] CO2 [Moles/Vol] 31.0 mmol/L 21.0-32.0 [facility] Globulin (S) [Mass/Vol] 3.5 g/dL 2.2-4.2 [facility] Urea nitrogen/Creatinine [Mass ratio] 14.7 mg/mg 10-20 [facility] No Panel InformationOrdered By: Apolinar Roche on 01-19-2023 Estimated GFR (MDRD) Amer 93 mL/min >60 [facility] Comment on above: GFR Calc Estimated GFR (MDRD) Non-Af Amer 77 mL/min >60 [facility] Comment on above: Non- GFR Calc Serum or plasma albumin mary ann urement (mass/volume)Ordered By: Apolinar Roche on 01-19-2023 Albumin [Mass/Vol] 3.5 g/dL 3.2-5.0 [facility] Serum or plasma albumin/glob ulin mass ratioOrdered By: Apolinar Roche on 01-19-2023 Albumin/Globulin [Mass ratio] 1.0 {ratio} 0.9-2.4 [facility] Serum or plasma calcium mary ann urement (mass/volume)Ordered By: Apolinar Roche on 01-19-2023 Calcium [Mass/Vol] 9.4 mg/dL 8.5-10.1 [facility] Serum or plasma creatinine m easurement (mass/volume)Ordered By: Apolinar Roche on 01-19-2023 Creatinine [Mass/Vol] 1.02 mg/dL 0.70-1.30 [facility] Comment on above: The validity of the calculated GFR & GFRAA in patients over 70 years has not been determined. Clinical correlation is essential. Serum or plasma urea nitroge n measurement (mass/volume)Ordered By: Apolinar Roche on 01-19-2023 Urea nitrogen [Mass/Vol] 15 mg/dL 7-18 [facility] Thin prep Papanicolaou smear with manual screeningOrdered By: Apolinar Roche on 01-19-2023 Thin prep Papanicolaou smear with manual screening 21 U/L 15-37 [facility] Thin prep Papanicolaou smear with manual screening 3 5-15 [facility] Whole blood hemoglobin A1c/t otal hemoglobin ratio (mass fraction)Ordered By: Apolinar Roche on 01-19-2023 HbA1c (Bld) [Mass fraction] 5.5 % 3.8-5.6 [facility] Comment on above: Normal < 5.7 % Predi abetic 5.7 - 6.4 % Diabetic >or= 6.5 % Please note range changes. Glucose Glucometer (BldC) [M ass/Vol]Ordered By: Dr. Briscoe on 06-05-2022 Glucose [Mass/Vol] 123 mg/dL 74-106 [facility] Comment on above: MANAGEMENT OF PATIEN T CARE PER NURSING PROTOCOL Absolute lymphocyte countOrd ered By: Theresa Ortiz on 05-21-2022 Lymphocytes Auto (Unsp spec) [#/Vol] 1.60 10*3/uL 0.83-4.51 [facility] Basophil percentageOrdered B y: Theresa Ortiz on 05-21-2022 Basophils/100 WBC (Bld) 0.4 % 0-1 [facility] Bilirubin [Mass/Vol] 0.50 mg/dL 0.20-1.00 [facility] Comment on above: For patients on eltr ombopag therapy, use of Dimension [place] TBIL is not recommended. Chloride [Moles/Vol] 105 mmol/L 98-107 [facility] Cholesterol [Mass/Vol] 127 mg/dL <200 [facility] Comment on above: <200 mg/dL Desirable 200-240 mg/dL Borderline >240 mg/dL High Risk Eosinophils/100 WBC (Bld) 1.0 % 0-5 [facility] Glucose [Mass/Vol] 115 mg/dL 74-106 [facility] Comment on above: Fasting Glucose resu lt from 100 to 125 mg/dL suggests IMPAIRED HOMEOSTASIS per A.D.A. criteria. Neutrophils (Bld) [#/Vol] 4.6 10*3/uL 2.0-7.7 [facility] Neutrophils/100 WBC (Bld) 65.0 % 47-70 [facility] Potassium [Moles/Vol] 3.6 mmol/L 3.5-5.1 [facility] Protein [Mass/Vol] 6.8 g/dL 6.4-8.2 [facility] Sodium [Moles/Vol] 141 mmol/L 136-145 [facility] Triglyceride [Mass/Vol] 65 mg/dL <199 [facility] Comment on above: The drugs N-Acetylcy steine and Metamizole may falsely depress this assay.Serum Triglycerides Reference Interval Normal <150 mg/dL Borderline high 150 - 199 mg/dL High 200 - 499 mg/dL Very High > or = 500 mg/dL WBC (Bld) [#/Vol] 7.1 10*3/uL 4.4-11.0 [facility] Blood erythrocytes count (nu mber/volume)Ordered By: Theresa Ortiz on 05-21-2022 RBC (Bld) [#/Vol] 4.39 10*6/uL 4.6-6.2 [facility] Blood hemoglobin measurement (mass/volume)Ordered By: Theresa Statlenioulrisa on 05-21-2022 Hemoglobin (Bld) [Mass/Vol] 14.2 g/dL 13.0-16.5 [facility] Blood lymphocytes/100 leukoc ytesOrdered By: Theresa Statlenioulos on 05-21-2022 Lymphocytes/100 WBC (Bld) 22.6 % 19-41 [facility] Blood monocytes/100 leukocyt esOrdered By: Theresa Stathopoulos on 05-21-2022 Monocytes/100 WBC (Bld) 10.6 % 0-10 [facility] Blood platelet mean volumeOr dered By: Theresa Stathopoulos on 05-21-2022 Platelet mean volume (Bld) [Entitic vol] 10.1 fL 6.2-12.0 [facility] Determination of erythrocyte mean corpuscular volume (MCV)Ordered By: Theresa Statsay on 05-21-2022 MCV (RBC) [Entitic vol] 94.3 fL 80-94 [facility] Hematocrit Auto (Bld) [Volum e fraction]Ordered By: Theresa Ortiz on 05-21-2022 Hematocrit (Bld) [Volume fraction] 41.4 % 40-54 [facility] Laboratory - Chemistry and C hemistry - challengeOrdered By: Theresa Ortiz on 05-21-2022 ALP [Catalytic activity/Vol] 64 U/L 45-117 [facility] ALT [Catalytic activity/Vol] 43 U/L 16-61 [facility] CO2 [Moles/Vol] 27.0 mmol/L 21.0-32.0 [facility] Globulin (S) [Mass/Vol] 3.3 g/dL 2.2-4.2 [facility] Urea nitrogen/Creatinine [Mass ratio] 16.1 mg/mg 10-20 [facility] Laboratory - Hematology and Cell countsOrdered By: Theresa Diana on 05-21-2022 Erythrocyte distribution width (RBC) [Entitic vol] 43.3 fL 35.1-43.9 [facility] Erythrocyte distribution width (RBC) [Ratio] 12.4 % 11.6-14.6 [facility] Immature granulocytes/100 WBC (Bld) 0.400 % 0.0-0.9 [facility] Comment on above: IG% - Immature Granu locytes (promyelocytes, myelocytes and metamyelocytes) > 1% indicates that a LEFT SHIFT is Present. MCH (RBC) [Entitic mass] 32.3 pg 27.0-32.0 [facility] Nucleated RBC/100 WBC (Bld) [Ratio] 0 % 0-5 [facility] MCHC Auto (RBC) [Mass/Vol]Or dered By: Theresa Ortiz on 05-21-2022 MCHC (RBC) [Mass/Vol] 34.3 g/dL 32-36 [facility] No Panel InformationOrdered By: Theresa Ortiz on 05-21-2022 Estimated GFR (MDRD) Amer 96 mL/min >60 [facility] Comment on above: GFR Calc Estimated GFR (MDRD) Non-Af Amer 79 mL/min >60 [facility] Comment on above: Non- GFR Calc Prostate Specific Antigen Screen 1.92 ng/mL 0.00-4.00 [facility] Comment on above: This test was perfor med using the TPSA assay method for [employer] chemistry system. Values obtained with differentassay methods cannot be used interchangably.When changing PSA assays in the course of monitoring apatient, additional sequential testing should be carriedout to confirm baseline values. Platelets bldOrdered By: Timothy garcia Statsay on 05-21-2022 Platelets (Bld) [#/Vol] 186 10*3/uL 150-450 [facility] Serum or plasma albumin mary ann urement (mass/volume)Ordered By: Theresa Larsenlifepoint hospitalsconsuelo on 05-21-2022 Albumin [Mass/Vol] 3.5 g/dL 3.2-5.0 [facility] Serum or plasma albumin/glob ulin mass ratioOrdered By: Theresa [facility] hospital[facility] on 05-21-2022 Albumin/Globulin [Mass ratio] 1.1 {ratio} 0.9-2.4 [facility] Serum or plasma calcium mary ann urement (mass/volume)Ordered By: Theresa Statsay on 05-21-2022 Calcium [Mass/Vol] 9.3 mg/dL 8.5-10.1 [facility] Serum or plasma cholesterol in HDL measurement (mass/volume)Ordered By: Theresa Statlenioulrisa on 05-21-2022 Cholesterol in HDL [Mass/Vol] 44 mg/dL >40 [facility] Comment on above: The drugs N-Acetylcy steine and Metamizole may falsely depress this assay. Reference Range HDL <40 mg/dL Low HDL Cholesterol HDL >or= 60 mg/dL High HDL Cholesterol Serum or plasma cholesterol in VLDL measurement (mass/volume)Ordered By: Theresa [facility] on 05-21-2022 Cholesterol in VLDL [Mass/Vol] 13 mg/dL 5-40 [facility] Serum or plasma creatinine m easurement (mass/volume)Ordered By: Theresa Ortiz on 05-21-2022 Creatinine [Mass/Vol] 0.99 mg/dL 0.70-1.30 [facility] Comment on above: The validity of the calculated GFR & GFRAA in patients over 70 years has not been determined. Clinical correlation is essential. Serum or plasma low density lipoprotein (LDL) cholesterol measurement (mass/volume)Ordered By: Theresa Ortiz on 05-21-2022 Cholesterol in LDL [Mass/Vol] 70 mg/dL 0-130 [facility] Serum or plasma urea nitroge n measurement (mass/volume)Ordered By: Theresa Chavalifepoint hospitalsconsuelo on 05-21-2022 Urea nitrogen [Mass/Vol] 16 mg/dL 7-18 [facility] Thin prep Papanicolaou smear with manual screeningOrdered By: [facility] 05-[facility]22 Thin prep Papanicolaou smear with manual screening 27 U/L 15-37 [facility] Thin prep Papanicolaou smear with manual screening 9 5-15 [facility] Whole blood hemoglobin A1c/t otal hemoglobin ratio (mass fraction)Ordered By: Theresa Ortiz on 05-21-2022 HbA1c (Bld) [Mass fraction] 5.7 % 3.8-5.6 [facility] Comment on above: Normal < 5.7 % Predi abetic 5.7 - 6.4 % Diabetic >or= 6.5 % Please note range changes. Absolute lymphocyte counton 12-03-2021 Lymphocytes Auto (Unsp spec) [#/Vol] 1.52 10*3/uL 0.83-4.51 [facility] Work Phone: Basophil percentageon 2021 Basophils/100 WBC (Bld) 0.5 % 0-1 [facility] Work Phone: Bilirubin [Mass/Vol] 0.50 mg/dL 0.20-1.00 [facility] Work Phone: Comment on above: For patients on eltr ombopag therapy, use of Dimension [place] TBIL is not recommended. Chloride [Moles/Vol] 106 mmol/L 98-107 [facility] Work Phone: Cholesterol [Mass/Vol] 124 mg/dL <200 [facility] Work Phone: Comment on above: <200 mg/dL Desirable 200-240 mg/dL Borderline >240 mg/dL High Risk Eosinophils/100 WBC (Bld) 1.3 % 0-5 [facility] Work Phone: Glucose [Mass/Vol] 116 mg/dL 74-106 [facility] Work Phone: Comment on above: Fasting Glucose resu lt from 100 to 125 mg/dL suggests IMPAIRED HOMEOSTASIS per A.D.A. criteria. Neutrophils (Bld) [#/Vol] 3.9 10*3/uL 2.0-7.7 [facility] Work Phone: Neutrophils/100 WBC (Bld) 61.6 % 47-70 [facility] Work Phone: Potassium [Moles/Vol] 3.5 mmol/L 3.5-5.1 [facility] Work Phone: Protein [Mass/Vol] 7.2 g/dL 6.4-8.2 [facility] Work Phone: Sodium [Moles/Vol] 141 mmol/L 136-145 [facility] Work Phone: Triglyceride [Mass/Vol] 116 mg/dL <199 [facility] Work Phone: Comment on above: The drugs N-Acetylcy steine and Metamizole may falsely depress this assay.Serum Triglycerides Reference Interval Normal <150 mg/dL Borderline high 150 - 199 mg/dL High 200 - 499 mg/dL Very High > or = 500 mg/dL WBC (Bld) [#/Vol] 6.4 10*3/uL 4.4-11.0 [facility] Work Phone: Blood erythrocytes count (nu mber/volume)on 12-03-2021 RBC (Bld) [#/Vol] 4.31 10*6/uL 4.6-6.2 [facility] Work Phone: Blood hemoglobin measurement (mass/volume)on 12-03-2021 Hemoglobin (Bld) [Mass/Vol] 14.3 g/dL 13.0-16.5 [facility] Work Phone: Blood lymphocytes/100 leukoc yteson 12-03-2021 Lymphocytes/100 WBC (Bld) 23.8 % 19-41 [facility] Work Phone: Blood monocytes/100 leukocyt eson 12-03-2021 Monocytes/100 WBC (Bld) 12.5 % 0-10 [facility] Work Phone: Blood platelet mean volumeon 12-03-2021 Platelet mean volume (Bld) [Entitic vol] 10.2 fL 6.2-12.0 [facility] Work Phone: Determination of erythrocyte mean corpuscular volume (MCV)on 12-03-2021 MCV (RBC) [Entitic vol] 95.1 fL 80-94 [facility] Work Phone: Hematocrit Auto (Bld) [Volum e fraction]on 12-03-2021 Hematocrit (Bld) [Volume fraction] 41.0 % 40-54 [facility] Work Phone: Laboratory - Chemistry and C hemistry - challengeon 12-03-2021 ALP [Catalytic activity/Vol] 67 U/L 45-117 [facility] Work Phone: ALT [Catalytic activity/Vol] 37 U/L 16-61 [facility] Work Phone: CO2 [Moles/Vol] 27.0 mmol/L 21.0-32.0 [facility] Work Phone: Globulin (S) [Mass/Vol] 3.7 g/dL 2.2-4.2 [facility] Work Phone: Urea nitrogen/Creatinine [Mass ratio] 16.5 mg/mg 10-20 [facility] Work Phone: Laboratory - Hematology and Cell countson 12-03-2021 Erythrocyte distribution width (RBC) [Entitic vol] 43.8 fL 35.1-43.9 [facility] Work Phone: Erythrocyte distribution width (RBC) [Ratio] 12.6 % 11.6-14.6 [facility] Work Phone: Immature granulocytes/100 WBC (Bld) 0.300 % 0.0-0.9 [facility] Work Phone: Comment on above: IG% - Immature Granu locytes (promyelocytes, myelocytes and metamyelocytes) > 1% indicates that a LEFT SHIFT is Present. MCH (RBC) [Entitic mass] 33.2 pg 27.0-32.0 [facility] Work Phone: Nucleated RBC/100 WBC (Bld) [Ratio] 0 % 0-5 [facility] Work Phone: MCHC Auto (RBC) [Mass/Vol]on 12-03-2021 MCHC (RBC) [Mass/Vol] 34.9 g/dL 32-36 [facility] Work Phone: No Panel Informationon 12-03 Estimated GFR (MDRD) Amer 92 mL/min >60 [facility] Work Phone: Comment on above: GFR Calc Estimated GFR (MDRD) Non-Af Amer 76 mL/min >60 [facility] Work Phone: Comment on above: Non- GFR Calc Thyroid Stimulating Hormone (TSH) 1.36 uIU/mL 0.358-3.74 [facility] Work Phone: Urine Microalbumin/Creatinine Ratio 24.6 mg/g CRE <30 [facility] Work Phone: Platelets bldon 12-03-2021 Platelets (Bld) [#/Vol] 172 10*3/uL 150-450 [facility] Work Phone: Serum or plasma albumin mary ann urement (mass/volume)on 12-03-2021 Albumin [Mass/Vol] 3.5 g/dL 3.2-5.0 [facility] Work Phone: Serum or plasma albumin/glob ulin mass ratioon 12-03-2021 Albumin/Globulin [Mass ratio] 0.9 {ratio} 0.9-2.4 [facility] Work Phone: Serum or plasma calcium mary ann urement (mass/volume)on 12-03-2021 Calcium [Mass/Vol] 9.2 mg/dL 8.5-10.1 [facility] Work Phone: Serum or plasma cholesterol in HDL measurement (mass/volume)on 12-03-2021 Cholesterol in HDL [Mass/Vol] 41 mg/dL >40 [facility] Work Phone: Comment on above: The drugs N-Acetylcy steine and Metamizole may falsely depress this assay. Reference Range HDL <40 mg/dL Low HDL Cholesterol HDL >or= 60 mg/dL High HDL Cholesterol Serum or plasma cholesterol in VLDL measurement (mass/volume)on 12-03-2021 Cholesterol in VLDL [Mass/Vol] 23 mg/dL 5-40 [facility] Work Phone: Serum or plasma creatinine m easurement (mass/volume)on 12-03-2021 Creatinine [Mass/Vol] 1.03 mg/dL 0.70-1.30 [facility] Work Phone: Comment on above: The validity of the calculated GFR & GFRAA in patients over 70 years has not been determined. Clinical correlation is essential. Serum or plasma low density lipoprotein (LDL) cholesterol measurement (mass/volume)on 12-03-2021 Cholesterol in LDL [Mass/Vol] 60 mg/dL 0-130 [facility] Work Phone: Serum or plasma urea nitroge n measurement (mass/volume)on 12-03-2021 Urea nitrogen [Mass/Vol] 17 mg/dL 7-18 [facility] Work Phone: Thin prep Papanicolaou smear with manual screeningon 12-03-2021 Thin prep Papanicolaou smear with manual screening 25 U/L 15-37 [facility] Work Phone: Thin prep Papanicolaou smear with manual screening 8 5-15 [facility] Work Phone: Thin prep Papanicolaou smear with manual screening 39.1 mg/L NO RANGE EST. [facility] Work Phone: Urine creatinine measurement (mass/volume)on 12-03-2021 Creatinine (U) [Mass/Vol] 159.00 mg/dL NO RANGE EST. [facility] Work Phone: Whole blood hemoglobin A1c/t otal hemoglobin ratio (mass fraction)on 12-03-2021 HbA1c (Bld) [Mass fraction] 5.8 % 3.8-5.6 [facility] Work Phone: Comment on above: Normal < 5.7 % Predi abetic 5.7 - 6.4 % Diabetic >or= 6.5 % Please note range changes. Office Visiton 01-28-2017 Alcoholism counseling (procedure) no Invalid Interpretation Code [facility] Work Phone: Dietary management education, guidance, and counseling (procedure) yes Invalid Interpretation Code [facility] Work Phone: Documentation of current medications (procedure) Done Invalid Interpretation Code [facility] Work Phone: Tobacco use [facility] Former smoker Invalid Interpretation Code [facility] Work Phone: Office Visiton 12-21-2016 Alcoholism counseling (procedure) no Invalid Interpretation Code [facility] Work Phone: Dietary management education, guidance, and counseling (procedure) yes Invalid Interpretation Code [facility] Work Phone: Documentation of current medications (procedure) Done Invalid Interpretation Code [facility] Work Phone: Tobacco use [facility] Former smoker Invalid Interpretation Code [facility] Work Phone: Clinical Lists Update: Clini katerin Noteon 09-09-2016 Left ventricular Ejection fraction 68 % Invalid Interpretation Code [facility] Work Phone: Office Visiton 08-18-2016 Fall risk assessment No Invalid Interpretation Code [facility] Work Phone: Lab Report: Bilirubin, Direc ton 08-08-2016 Bilirubin (direct) 0.10 mg/dL Invalid Interpretation Code 0.00-0.30 [facility] Work Phone: Lab Report: [facility] ana rosa Clarke 08-08-2016 Alanine aminotransferase (ALT) 30 U/L Invalid Interpretation Code 12-78 [facility] Work Phone: Albumin 3.3 g/dL Low 3.4-5.0 [facility] Work Phone: Albumin/Globulin Ratio 1.1 {ratio} Invalid Interpretation Code 0.9-2.4 [facility] Work Phone: Alkaline phosphatase (ALP) 87 U/L Invalid Interpretation Code 45-117 [facility] Work Phone: Anion gap 7 mmol/L Invalid Interpretation Code 5-15 [facility] Work Phone: Aspartate aminotransferase (AST) 15 U/L Invalid Interpretation Code 15-37 [facility] Work Phone: Bilirubin (total) 0.40 mg/dL Invalid Interpretation Code 0.20-1.00 [facility] Work Phone: BUN/Creatinine Ratio 13.5 RATIO Invalid Interpretation Code 10-20 [facility] Work Phone: Calcium 8.4 mg/dL Low 8.5-10.1 [facility] Work Phone: Chloride 110 mmol/L High 98-107 [facility] Work Phone: CO2 27.0 mmol/L Invalid Interpretation Code 21.0-32.0 [facility] Work Phone: eGFR (non-black) 102 mL/min/{1.73_m2} Invalid Interpretation Code >60 [facility] Work Phone: Globulin 3.1 g/dL Invalid Interpretation Code 2.3-3.5 [facility] Work Phone: Potassium molar conc 4.1 mmol/L Invalid Interpretation Code 3.5-5.1 [facility] Work Phone: Protein 6.4 g/dL Invalid Interpretation Code 6.4-8.2 [facility] Work Phone: Sodium 144 mmol/L Invalid Interpretation Code 136-145 [facility] Work Phone: Creatinine 0.96 mg/dL Invalid Interpretation Code 0.70-1.30 [facility] Work Phone: eGFR (non-black) 84 mL/min/{1.73_m2} Invalid Interpretation Code >60 [facility] Work Phone: Glucose mass conc 107 mg/dL Invalid Interpretation Code 70-110 [facility] Work Phone: Urea nitrogen 13 mg/dL Invalid Interpretation Code 7-18 [facility] Work Phone: Lab Report: Hemoglobin A1con 08-08-2016 Hemoglobin A1c/Hemoglobin.total mass fraction (Bld) 5.3 % Invalid Interpretation Code 4.2-6.3 [facility] Work Phone: Lab Report: Lipid Profileon 08-08-2016 Cholesterol 151 mg/dL Invalid Interpretation Code 200 [facility] Work Phone: HDL Cholesterol 41 mg/dL Invalid Interpretation Code [facility] Work Phone: LDL Cholesterol 84 mg/dL Invalid Interpretation Code 0-130 [facility] Work Phone: Triglyceride 131 mg/dL Invalid Interpretation Code [facility] Work Phone: very low density lipoproteins 26 mg/dL Invalid Interpretation Code 5-40 [facility] Work Phone: Lab Report: PSA,Total - Marcie al Screenon 08-08-2016 PSA,TOT SCREEN 1.40 ng/mL Invalid Interpretation Code 0.00-4.00 [facility] Work Phone: Lab Report: Thyroid Stim Hor vale (TSH)on 08-08-2016 Thyroid stimulating hormone (TSH) 1.28 u[iU]/mL Invalid Interpretation Code 0.358-3.74 [facility] Work Phone: Lab Report: Bedside Glucoseo n 06-02-2016 Glucose mass conc 115 mg/dL High 70-110 [facility] Work Phone: Replaced Document: Midmark E CG Observationson 08-07-2015 BUN (urea nitrogen) Sinus Rhythm -Right bundle branch block. ABNORMAL Invalid Interpretation Code [facility] Work Phone: EKG QRS axis -27 deg Invalid Interpretation Code [facility] Work Phone: P [place] 40 deg Invalid Interpretation Code [facility] Work Phone: SD Interval 150 ms Invalid Interpretation Code [facility] Work Phone: Pulse (Heart Rate) 64 /min Invalid Interpretation Code [facility] Work Phone: QRS Duration 150 ms Invalid Interpretation Code [facility] Work Phone: QT Interval new path ms Invalid Interpretation Code [facility] Work Phone: QTc Scott 451 ms Invalid Interpretation Code [facility] Work Phone: T [place] 47 deg Invalid Interpretation Code [facility] Work Phone: Lab Report: CBC-Complete Blo od Cnt No Diffon 08-03-2015 Erythrocytes (RBC) 4.48 10*6/uL Low 4.6-6.2 [facility] Work Phone: MCH 32.4 pg High 27.0-32.0 [facility] Work Phone: Erythrocyte distribution width Auto Ratio (RBC) 13.0 % Invalid Interpretation Code 11.6-14.6 [facility] Work Phone: Hematocrit (HCT) 41.9 % Invalid Interpretation Code 40-54 [facility] Work Phone: Hemoglobin mass conc (Bld) 14.5 g/dL Invalid Interpretation Code 13.0-16.5 [facility] Work Phone: MCHC mass conc (RBC) 34.6 G/GL Invalid Interpretation Code 32-36 [facility] Work Phone: MCV 93.5 fL Invalid Interpretation Code 80-94 [facility] Work Phone: Platelets 165 10*3/mm3 Invalid Interpretation Code 150-450 [facility] Work Phone: PMV by Lorraine 10.3 fL Invalid Interpretation Code 6.2-12.0 [facility] Work Phone: RDW SD 43.3 fL Invalid Interpretation Code 35.1-43.9 [facility] Work Phone: WBC (Leukocytes) 6.4 10*3/uL Invalid Interpretation Code 4.4-11.0 [facility] Work Phone: Office Visiton 01-02-2015 Smoking cessation education (procedure) yes Invalid Interpretation Code [facility] Work Phone: Office Visit: [facility] 07-27-19 15 cardiac risk group C Invalid Interpretation Code [facility] Work Phone: General cardiovascular disease 10Y risk [#] Sarcoxie.D'Agostino N/A Invalid Interpretation Code [facility] Work Phone: Lab Report: T4 Free Directon 07-21-2014 Thyroxine (T4) free 0.98 ng/dL Invalid Interpretation Code 0.76-1.46 [facility] Work Phone: Lab Report: CBCDon 4 Monocytes/100 leukocytes 14.5 % High 0-10 [facility] Work Phone: ANC 2.6 X10 3/UL Normal 2.0-7.7 [facility] Work Phone: Basophils/100 WBC Auto (Bld) 0.4 % Normal 0-1 [facility] Work Phone: Eosinophils/100 leukocytes 2.3 % Normal 0-5 [facility] Work Phone: Lymphocytes/100 leukocytes 28.1 % Normal 19-41 [facility] Work Phone: Neutrophils/100 WBC Auto (Bld) 54.7 % Normal 47-70 [facility] Work Phone: Lab Report: MGon 07-22-2013 Magnesium 2.0 mg/dL Normal 1.8-2.4 [facility] Work Phone: Replaced Document: Barry Chu CG Observationson 07-20-2013 Pulse (Heart Rate) 430 ms Invalid Interpretation Code [facility] Work Phone: Vital Signs Date Time Vital Sign Value Performing Clinician Facility 08-11-2024 08:32-0400 Body mass index (BMI) [Ratio] 45.3 kg/m2 Dr. Apolinar Roche MD Work Phone: [facility] 08-11-2024 08:32-0400 Body temperature 96 [degF] Dr. Apolinar Roche MD Work Phone: [facility] 08-11-2024 08:32-0400 Body weight 135.[address] Apolinar Roche MD Work Phone: [facility] 08-11-2024 08:32-0400 Diastolic blood pressure 91 mm[Hg] Dr. Apolinar Roche MD Work Phone: 9(282)948-973230 [place] [address] 08-11-2024 08:32-0400 Heart rate 73 /min Dr. Apolinar Roche MD Work Phone: 0(843)765-725530 [place] [address] 08-11-2024 08:32-0400 Respiratory rate 18 /min Dr. Apolinar Roche MD Work Phone: 2(563)028-758330 [place] [address] 08-11-2024 08:32-0400 SaO2% (BldA) [Mass fraction] 96 % Dr. Apolinar Roche MD Work Phone: 1(463)293-147330 [place] [address] 08-11-2024 08:32-0400 Systolic blood pressure 166 mm[Hg] Dr. Apolinar Roche MD Work Phone: 6(681)619-687530 [place] [address] 06-19-2024 10:56-0400 Body height 172.[address] Apolinar Roche MD Work Phone: 6(324)929-653730 [place] [address] 06-19-2024 10:56-0400 Body mass index (BMI) [Ratio] 45.3 kg/m2 Dr. Apolinar Roche MD Work Phone: 0(084)369-978430 [place] [address] 06-19-2024 10:56-0400 Body weight 135.[address] Apolinar Roche MD Work Phone: 4(689)157-548930 [place] [address] 06-19-2024 10:56-0400 Diastolic blood pressure 82 mm[Hg] Dr. Apolinar Roche MD Work Phone: 6(209)585-033530 [place] [address] 06-19-2024 10:56-0400 Heart rate 58 /min Dr. Apolinar Roche MD Work Phone: 9(508)903-777630 [place] [address] 06-19-2024 10:56-0400 Respiratory rate 18 /min Dr. Apolinar Roche MD Work Phone: 6(704)801-504830 [place] [address] 06-19-2024 10:56-0400 SaO2% (BldA) [Mass fraction] 98 % Dr. Apolinar Roche MD Work Phone: 1(706)680-774330 [place] [address] 06-19-2024 10:56-0400 Systolic blood pressure 132 mm[Hg] Dr. Apolinar Roche MD Work Phone: 1(838)556-399030 [place] [address] 05-06-2024 09:23-0500 Body temperature 98.6 [degF] Dr. Apolinar Roche MD Work Phone: [facility] 05-06-2024 09:23-0500 Diastolic blood pressure 68 mm[Hg] Dr. Apolinar Roche MD Work Phone: [facility] 05-06-2024 09:23-0500 Heart rate 82 /min Dr. Apolinar Roche MD Work Phone: 2(658)200-677064 [place] [address] 05-06-2024 09:23-0500 Respiratory rate 17 /min Dr. Apolinar Roche MD Work Phone: 4(932)807-716886 [address] 05-06-2024 09:23-0500 SaO2% (BldA) [Mass fraction] 97 % Dr. Apolinar Roche MD Work Phone: 5(640)762-567964 [place] [address] 05-06-2024 09:23-0500 Systolic blood pressure 152 mm[Hg] Dr. Apolinar Roche MD Work Phone: 4(149)747-132864 [place] [address] 04-18-2024 15:53-0500 Body height 172.[address] Apolinar Roche MD Work Phone: 4(480)058-126786 [address] 04-18-2024 15:53-0500 Body mass index (BMI) [Ratio] 44.9 kg/m2 Dr. Apolinar Roche MD Work Phone: [facility] 04-18-2024 15:53-0500 Body temperature 97.5 [degF] Dr. Apolinar Roche MD Work Phone: [facility] 04-18-2024 15:53-0500 Body weight 133.[address] Apolinar Roche MD Work Phone: [facility] 04-18-2024 15:53-0500 Diastolic blood pressure 80 mm[Hg] Dr. Apolinar Roche MD Work Phone: [facility] 04-18-2024 15:53-0500 Heart rate 77 /min Dr. Apolinar Roche MD Work Phone: [facility] 04-18-2024 15:53-0500 SaO2% (BldA) [Mass fraction] 97 % Dr. Apolinar Roche MD Work Phone: [facility] 04-18-2024 15:53-0500 Systolic blood pressure 120 mm[Hg] Dr. Apolinar Roche MD Work Phone: [facility] 06-30-2023 08:46-0400 Body height 167.[address] Apolinar Roche Work Phone: [facility] 06-18-2023 14:27-0400 Body mass index (BMI) [Ratio] 50.1 kg/m2 Dr. Apolinar Roche Work Phone: [facility] 06-18-2023 14:27-0400 Body weight 141.[address] Apolinar Roche Work Phone: [facility] 06-18-2023 14:27-0400 Diastolic blood pressure 76 mm[Hg] Dr. Apolinar Roche Work Phone: [facility] 06-18-2023 14:27-0400 Heart rate 60 /min Dr. Apolinar Roche Work Phone: [facility] 06-18-2023 14:27-0400 Respiratory rate 18 /min Dr. Apolinar Roche Work Phone: [facility] 06-18-2023 14:27-0400 SaO2% (BldA) [Mass fraction] 97 % Dr. Apolinar Roche Work Phone: [facility] 06-18-2023 14:27-0400 Systolic blood pressure 179 mm[Hg] Dr. Apolinar Roche Work Phone: [facility] 06-05-2022 13:12-0400 Body temperature 97.6 [degF] Dr. Apolinar Roche Work Phone: [facility] 06-05-2022 13:12-0400 Diastolic blood pressure 81 mm[Hg] Dr. Apolinar Roche Work Phone: [facility] 06-05-2022 13:12-0400 Heart rate 64 /min Dr. Apolinar Roche Work Phone: [facility] 06-05-2022 13:12-0400 Respiratory rate 16 /min Dr. Apolinar Roche Work Phone: [facility] 06-05-2022 13:12-0400 SaO2% (BldA) [Mass fraction] 98 % Dr. Apolinar Roche Work Phone: [facility] 06-05-2022 13:12-0400 Systolic blood pressure 145 mm[Hg] Dr. Apolinar Roche Work Phone: [facility] 06-05-2022 06:40-0400 Body height 167.[address] Apolinar Roche Work Phone: [facility] 06-05-2022 06:40-0400 Body mass index (BMI) [Ratio] 50.1 kg/m2 Dr. Apolinar Roche Work Phone: [facility] 06-05-2022 06:40-0400 Body weight [address] Apolinar Roche Work Phone: [facility] 05-19-2022 14:49-0500 Body height 167.[address] Apolinar Roche Work Phone: [facility] 05-19-2022 14:49-0500 Body temperature 97.9 [degF] Dr. Apolinar Roche Work Phone: [facility] 05-19-2022 14:49-0500 Heart rate 79 /min Dr. Apolinar Roche Work Phone: [facility] 05-19-2022 14:49-0500 Respiratory rate 18 /min Dr. Apolinar Roche Work Phone: [facility] 05-19-2022 14:49-0500 SaO2% (BldA) [Mass fraction] 95 % Dr. Apolinar Roche Work Phone: [facility] 03-11-2022 14:07-0500 Body mass index (BMI) [Ratio] 50.5 kg/m2 Dr. Apolinar Roche Work Phone: [facility] 03-11-2022 14:07-0500 Body weight 141.[address] Apolinar Roche Work Phone: [facility] 03-11-2022 14:07-0500 Diastolic blood pressure 98 mm[Hg] Dr. Apolinar Roche Work Phone: [facility] 03-11-2022 14:07-0500 Heart rate 89 /min Dr. Apolinar Roche Work Phone: [facility] 03-11-2022 14:07-0500 Respiratory rate 18 /min Dr. Apolinar Roche Work Phone: [facility] 03-11-2022 14:07-0500 SaO2% (BldA) [Mass fraction] 96 % Dr. Apolinar Roche Work Phone: [facility] 03-11-2022 14:07-0500 Systolic blood pressure 179 mm[Hg] Dr. Apolinar Roche Work Phone: [facility] 12-03-2021 15:36-0400 Body height 167.[address] Apolinar Roche Work Phone: [facility] Work Phone: 12-03-2021 15:36-0400 Body mass index (BMI) [Ratio] 49.7 kg/m2 Dr. Apolinar Roche Work Phone: [facility] Work Phone: 12-03-2021 15:36-0400 Body temperature 97.5 [degF] Dr. Apolinar Roche Work Phone: [facility] Work Phone: 12-03-2021 15:36-0400 Body weight 139.[address] Apolinar Roche Work Phone: [facility] Work Phone: 12-03-2021 15:36-0400 Diastolic blood pressure 89 mm[Hg] Dr. Apolinar Roche Work Phone: [facility] Work Phone: 12-03-2021 15:36-0400 Heart rate 61 /min Dr. Apolinar Roche Work Phone: [facility] Work Phone: 12-03-2021 15:36-0400 Respiratory rate 18 /min Dr. Apolinar Roche Work Phone: [facility] Work Phone: 12-03-2021 15:36-0400 SaO2% (BldA) [Mass fraction] 97 % Dr. Apolinar Roche Work Phone: [facility] Work Phone: 12-03-2021 15:36-0400 Systolic blood pressure 162 mm[Hg] Dr. Apolinar Roche Work Phone: [facility] Work Phone: 09-03-2021 13:42-0400 Body mass index (BMI) [Ratio] 49 kg/m2 Dr. Apolinar Roche Work Phone: [facility] Work Phone: 09-03-2021 13:42-0400 Body weight 137.[address] Apolinar Roche Work Phone: [facility] Work Phone: 09-03-2021 13:42-0400 Diastolic blood pressure 80 mm[Hg] Dr. Apolinar Roche Work Phone: [facility] Work Phone: 09-03-2021 13:42-0400 Heart rate 61 /min Dr. Apolinar Roche Work Phone: [facility] Work Phone: 09-03-2021 13:42-0400 Respiratory rate 18 /min Dr. Apolinar Roche Work Phone: [facility] Work Phone: 09-03-2021 13:42-0400 Systolic blood pressure 149 mm[Hg] Dr. Apolinar Roche Work Phone: [facility] Work Phone: 08-18-2016 14:33-0400 BMI (Body Mass Index) 48.09 kg/m2 [facility] Work Phone: 08-18-2016 14:33-0400 BP Diastolic 64 mm[Hg] [facility] Work Phone: 08-18-2016 14:33-0400 BP Systolic 122 mm[Hg] [facility] Work Phone: 08-18-2016 14:33-0400 Height 165.1 cm [facility] Work Phone: 08-18-2016 14:33-0400 Pulse (Heart Rate) 64 /min [facility] Work Phone: 08-18-2016 14:33-0400 Weight 131.09 kg [facility] Work Phone: 02-04-2016 16:54-0500 BSA (Body Surface Area) 2.35 m2 [facility] Work Phone: 02-04-2016 16:54-0500 Respiratory Rate 20 /min [facility] Work Phone: Encounters Encounter Date Encounter Type Care Provider Facility Start: 08-11-2024 End: 08-11-2024 Patient encounter procedure Soco Serrano [facility] -[facility] Work Phone: Start: 08-11-2024 End: 08-11-[address] Apolinar Roche MD Work Phone: [facility] Work Phone: Start: 06-19-2024 End: 06-19-2024 Patient encounter procedure Arnulfo Champagne PA -[facility] Work Phone: Start: 06-19-2024 End: 06-19-2024 ambulatory Apolinar Roche Facility:[facility] Start: 05-17-2024 End: 05-17-[address] Apolinar Roche MD Work Phone: [facility] Work Phone: Start: 05-17-2024 End: 05-17-[address] Apolinar Roche MD -Laboratory Work Phone: Start: 05-17-2024 End: 05-17-2024 ambulatory Apolinar Roche Facility:[facility] Start: 05-06-2024 End: 05-06-2024 Patient encounter procedure Elizabeth Feliberto [facility] Work Phone: Start: 05-06-2024 End: 05-06-2024 ambulatory Apolinar Roche Facility:[facility] Start: 04-25-2024 End: 04-25-2024 Patient encounter procedure Jody Padilla PA -Laboratory Work Phone: Start: 04-25-2024 End: 04-25-2024 ambulatory Jody WYATT Facility:[facility] Start: 04-18-2024 End: 04-18-2024 Patient encounter procedure Patrice Noriega [facility] [employer]-C [facility] Work Phone: Start: 04-18-2024 End: 04-18-2024 ambulatory Apolinar Roche Facility:[facility] Start: 12-22-2023 End: 12-22-2023 ambulatory Florentin Bethea Facility:[facility] Start: 12-15-2023 End: 12-15-2023 ambulatory Apolinar Roche Facility:[facility] Start: 12-08-2023 End: 12-08-2023 ambulatory Apolinar Roche Facility:[facility] Start: 11-22-2023 End: 11-22-2023 ambulatory Apolinar Roche Facility:[facility] Start: 07-16-2023 Non-patient / Non-visit Dr. Daquan Roche Work Phone: [facility] Start: 07-16-2023 End: 07-16-[address] Apolinar Roche Work Phone: [facility] Work Phone: Start: 07-16-2023 End: 07-16-[address] [facility]: Start: 07-09-2023 End: 07-09-[address] Apolinar Roche Work Phone: [facility] Work Phone: Start: 06-18-2023 End: 06-18-[address] Apolinar Roche Work Phone: [facility] Work Phone: Start: 04-23-2023 End: 04-23-2023 ambulatory [facility] Work Phone: Start: 04-23-2023 End: 04-23-2023 Patient encounter procedure [facility] Work Phone: Start: 01-19-2023 End: 01-19-2023 ambulatory [facility] Work Phone: Start: 01-19-2023 End: 01-19-2023 Patient encounter procedure [facility] Work Phone: Start: 06-05-2022 Non-patient / Non-visit Dr. Daquan Roche Work Phone: [facility] Start: 06-05-2022 End: 06-05-2022 Admission to same day surgery center Dr. Apolinar Roche Work Phone: [facility] Start: 06-05-2022 End: 06-05-[address] Apolinar Roche Work Phone: [facility] Work Phone: Start: 05-27-2022 End: 05-27-[address] Apolinar Roche Work Phone: [facility] Work Phone: Start: 05-27-2022 End: 05-27-[address] Apolinar Roche Work Phone: [facility] Start: 05-21-2022 End: 05-21-[address] Apolinar Roche Work Phone: [facility] Work Phone: Start: 05-21-2022 End: 05-21-[address] Apolinar Roche Work Phone: [facility] Start: 05-19-2022 End: 05-19-[address] Apolinar Roche Work Phone: [facility] Start: 03-11-2022 End: 03-11-[address] Apolinar Roche Work Phone: [facility] Start: 12-03-2021 End: 12-03-[address] Apolinar Roche Work Phone: [facility] Start: 12-03-2021 End: 12-03-[address] Apolinar Roche Work Phone: [facility] Work Phone: Start: 12-03-2021 End: 12-03-[address] Apolinar Roche Work Phone: [facility] Start: 09-03-2021 End: 09-03-[address] Apolinar Roche Work Phone: [facility] Procedures Date Procedure Procedure Detail Performing Clinician Start: 05-17-2024 Urine microalbumin/creatinine ratio measurement Dr. Apolinar Roche MD Work Phone: Start: 04-25-2024 Measurement of renal function Dr. Apolinar Roche MD Work Phone: Comment on above: GFR Calc Start: 07-16-2023 Cardiovascular stres s test using pharmacologic stress agent Dr. Apolinar Roche Work Phone: Start: 07-09-2023 Radiologic examinati on of knee Dr. Apolinar Roche Work Phone: Start: 06-05-[address] Apolinar Roche Work Phone: Start: 05-27-[address] Apolinar bliss Work Phone: Start: 08-18-2016 End: 09-09-2016 Echocardiography Aidan Wyatt MD Start: 08-18-2016 End: 08-18-2016 Follow Up Appt 6 months Monroe Ellison Start: 08-18-2016 End: 08-18-2016 MAYCO Wyatt MD Start: 08-18-2016 End: 09-09-2016 Nuclear stress test -[place] Aidan Wyatt MD Start: 06-03-2016 End: 06-03-2016 [...] PA-C Work Phone: Start: 08-07-2015 End: 08-07-2015 [facility] Jody Padilla PA-C Work Phone: Start: 08-07-2015 End: 08-07-2015 Follow Up Appt 6 months Jody cantu PA-C Work Phone: Start: 08-07-2015 End: 08-07-2015 Follow Up BP Check Jody Padilla PA-C Work Phone: Start: 07-29-2015 End: 08-05-2015 *Hepatic Function Panel Monroe Ellison Start: 07-29-2015 End: 08-05-2015 Lipid [place] panel - Serum or Plasma Aidan Wyatt MD Start: 01-29-2015 End: 03-06-2015 *BMP Aidan Wyatt MD Start: 01-29-2015 End: 01-29-2015 Follow Up Appt 6 months Monroe Ellison Start: 01-29-2015 End: 01-29-2015 MM Aidan Wyatt MD Start: 01-24-2015 End: 01-28-2015 [...] Galan Work Phone: Start: 07-26-2014 End: 07-26-2014 [facility] Jody Padilla PA-C Work Phone: Start: 07-26-2014 [...] months Monroe Ellison Start: 01-23-2014 End: 07-18-2014 MMMonroe Wyatt MD Start: 12-13-2013 End: 01-16-2014 *Hepatic Function Panel Monroe Ellison Start: 12-13-2013 End: 01-16-2014 Lipid 1996 panel - Serum or Plasma Aidan Wyatt MD Start: 07-20-2013 End: 07-24-2013 *BMP Jody Padilla PA-C Work Phone: Start: 07-20-2013 End: 07-24-2013 *CBC with Differential Jody mackay PA-C Work Phone: Start: 07-20-2013 End: 07-20-2013 [facility] Jody Padilla PA-C Work Phone: Start: 07-20-2013 [...] Aidan Wyatt MD Start: 07-21-2012 End: 07-21-2012 [facility] Aidan Wyatt MD Start: 07-21-2012 End: 08-01-2012 [...] Appt 6 months Mario Veras MD Start: 07-19-2008 History of coronary artery bypass grafting H/O coronary artery bypass surgery Arnulfo WYATT Comment on above: CABG x 2 [place] 2008 Plan of Treatment Date Care Activity Detail Author Start: 06-05-2022 Patient discharge [facility] Start: 08-09-2017 End: 08-21-2016 *Hepatic Function Panel *Hepatic Function Panel [facility] Work Phone: Start: 08-09-2017 End: 08-21-2016 Lipid panel [AGGREGATE] *Lipid Profile CC PCP [facility] Work Phone: Start: 03-10-2017 End: 03-10-2017 Appointment Appointment [facility] Work Phone: Start: 03-01-2017 End: 03-01-2017 Appointment Appointment [facility] Work Phone: Start: 02-25-2017 End: 02-25-2017 Appointment Appointment [facility] Work Phone: Start: 01-28-2017 End: 01-28-2017 Appointment Appointment [facility] Work Phone: Start: 11-20-2016 End: 02-03-2016 *Hepatic Function Panel *Hepatic Function Panel [facility] Work Phone: Start: 11-20-2016 End: 02-03-2016 Lipid panel [AGGREGATE] *Lipid Profile CC PCP [facility] Work Phone: Start: 08-18-2016 End: 08-18-2016 Echocardiography Echocardiogram (complete) [facility] Work Phone: Start: 08-18-2016 End: 08-18-2016 Follow Up Appt 6 months Follow Up Appt 6 months [facility] Work Phone: Start: 08-18-2016 End: 08-18-2016 MMM MMM [facility] Work Phone: Start: 08-18-2016 End: 08-18-2016 Nuclear stress test -Lexiscan Nuclear stress test -Lexiscan [facility] Work Phone: Start: 08-12-2016 End: 06-03-2016 *Hepatic Function Panel *Hepatic Function Panel [facility] Work Phone: Start: 08-12-2016 End: 06-03-2016 Lipid panel [AGGREGATE] *Lipid Profile CC PCP [facility] Work Phone: Start: 02-26-2016 End: 06-03-2016 Mri any jt lower extrem w/o contrast matrl MRI Joint Lower Extremity [facility] Work Phone: Start: 02-26-2016 End: 06-03-2016 Radiologic exam knee complete 4/more views X-Ray, Knee [facility] Work Phone: Start: 02-04-2016 End: 02-04-2016 Follow Up Appt 6 months Follow Up Appt 6 months [facility] Work Phone: Start: 02-04-2016 End: 02-04-2016 MMM MMM [facility] Work Phone: Start: 11-22-2015 End: 11-21-2015 Lipid panel [AGGREGATE] *Lipid Profile CC PCP [facility] Work Phone: Start: 08-07-2015 End: 08-07-2015 DIRECTOR COMMUNITY CENTER DIRECTOR COMM[facility]ITY [facility]ENTER [facility] Work Phone: Start: 08-07-2015 End: 08-07-2015 Follow Up Appt 6 months Follow Up Appt 6 months [facility] Work Phone: Start: 08-07-2015 End: 08-07-2015 Follow Up BP Check Follow Up BP Check [facility] Work Phone: Start: 07-29-2015 End: 08-05-2015 *Hepatic Function Panel *Hepatic Function Panel [facility] Work Phone: Start: 07-29-2015 End: 08-05-2015 Lipid panel [AGGREGATE] *Lipid Profile CC PCP [facility] Work Phone: Start: 01-29-2015 End: 03-06-2015 *BMP *BMP [facility] Work Phone: Start: 01-29-2015 End: 01-29-2015 Follow Up Appt 6 months Follow Up Appt 6 months [facility] Work Phone: Start: 01-29-2015 End: 01-29-2015 MMM MMM [facility] Work Phone: Start: 01-24-2015 End: 01-28-2015 *Hepatic Function Panel *Hepatic Function Panel [facility] Work Phone: Start: 01-24-2015 End: 01-28-2015 Lipid panel [AGGREGATE] *Lipid Profile CC PCP [facility] Work Phone: Start: 01-09-2015 End: 01-09-2015 Physical Therapy General [facility], [address] [place] [address], [address] [facility] Work Phone: Start: 01-02-2015 End: 06-03-2016 Radex ankle complete minimum 3 views X-Ray, Ankle [facility] Work Phone: Start: 01-02-2015 End: 06-03-2016 Radiologic exam knee complete 4/more views X-Ray, Knee [facility] Work Phone: Start: 07-26-2014 End: 07-26-2014 DIRECTOR COMMUNITY CENTER DIRECTOR COMMUNITY CENTER [facility] Work Phone: Start: 07-26-2014 End: 07-26-2014 Ecg routine ecg w/least 12 lds w/i&r EKG (In office) [facility] Work Phone: Start: 07-26-2014 End: 07-26-2014 Follow Up Appt 6 months Follow Up Appt 6 months [facility] Work Phone: Start: 07-13-2014 End: 07-23-2014 *Hepatic Function Panel *Hepatic Function Panel [facility] Work Phone: Start: 07-13-2014 End: 07-23-2014 Lipid panel [AGGREGATE] *Lipid Profile CC PCP [facility] Work Phone: Start: 01-23-2014 End: 07-18-2014 Follow Up Appt 6 months Follow Up Appt 6 months [facility] Work Phone: Start: 01-23-2014 End: 07-18-2014 MMM MMM [facility] Work Phone: Start: 12-13-2013 End: 01-16-2014 *Hepatic Function Panel *Hepatic Function Panel [facility] Work Phone: Start: 12-13-2013 End: 01-16-2014 Lipid panel [AGGREGATE] *Lipid Profile CC PCP [facility] Work Phone: Start: 07-20-2013 End: 07-24-2013 *BMP *BMP [facility] Work Phone: Start: 07-20-2013 End: 07-24-2013 *CBC with Differential *CBC with Differential [facility] Work Phone: Start: 07-20-2013 End: 07-20-2013 DIRECTOR COMMUNITY CENTER DIRECTOR COMMUNITY CENTER [facility] Work Phone: Start: 07-20-2013 End: 07-20-2013 Ecg routine ecg w/least 12 lds w/i&r EKG (In office) [facility] Work Phone: Start: 07-20-2013 End: 07-20-2013 Follow Up Appt 6 months Follow Up Appt 6 months [facility] Work Phone: Start: 07-20-2013 End: 07-24-2013 Magnesium *Magnesium [facility] Work Phone: Start: 07-20-2013 End: 07-24-2013 Thyroid stimulating hormone (TSH) *TSH [facility] Work Phone: Start: 07-13-2013 End: 06-26-2013 *Hepatic Function Panel *Hepatic Function Panel [facility] Work Phone: Start: 07-13-2013 End: 06-26-2013 Lipid panel [AGGREGATE] *Lipid Profile CC PCP [facility] Work Phone: Start: 01-24-2013 End: 01-24-2013 Follow Up Appt 6 months Follow Up Appt 6 months [facility] Work Phone: Start: 01-24-2013 End: 01-24-2013 MMM MMM [facility] Work Phone: Start: 12-13-2012 End: 01-25-2013 *Hepatic Function Panel *Hepatic Function Panel [facility] Work Phone: Start: 12-13-2012 End: 01-25-2013 Lipid panel [AGGREGATE] *Lipid Profile [facility] Work Phone: Start: 07-21-2012 End: 07-21-2012 DIRECTOR COMMUNITY CENTER DIRECTOR COMMUNITY CENTER [facility] Work Phone: Start: 07-21-2012 End: 07-22-2012 Echocardiography Echocardiogram (complete) [facility] Work Phone: Start: 07-21-2012 End: 07-22-2012 Nuclear stress test -exercise Nuclear stress test -exercise [facility] Work Phone: Start: 06-29-2012 End: 06-20-2012 *Hepatic Function Panel *Hepatic Function Panel [facility] Work Phone: Start: 06-29-2012 End: 06-20-2012 Lipid panel [AGGREGATE] *Lipid Profile [facility] Work Phone: Start: 01-12-2012 End: 01-12-2012 Ecg routine ecg w/least 12 lds w/i&r EKG (In office) [facility] Work Phone: Start: 01-12-2012 End: 01-12-2012 Follow Up Appt 6 months Follow Up Appt 6 months [facility] Work Phone: Start: 12-16-2011 End: 11-18-2011 *Hepatic Function Panel *Hepatic Function Panel [facility] Work Phone: Start: 12-16-2011 End: 11-18-2011 Lipid panel [AGGREGATE] *Lipid Profile [facility] Work Phone: Start: 07-10-2011 End: 07-10-2011 Follow Up Appt 6 months Follow Up Appt 6 months [facility] Work Phone: Lipid 1996 panel - S megan or Plasma [facility] Patient Education [facility] Work Phone: Patient referral [facility] Work Phone: [facility] Immunizations Immunization Date Immunization Notes Care Provider Fa cility 01-08-2023 Covid (Spikevax) [facility] 01-08-2023 influenza, injectabl e, quadrivalent, preservative free [facility] 01-28-2022 influenza, injectabl e, quadrivalent, preservative free [facility] 01-28-2022 influenza, seasonal, injectable Dr. Apolinar Roche Work Phone: [facility] 09-05-2021 Covid (Pfizer) Dr. Apolinar cali Work Phone: [facility] 02-03-2021 influenza, injectabl e, quadrivalent, preservative free [facility] 02-03-2021 influenza, seasonal, injectable Dr. Apolinar Roche Work Phone: [facility] 01-15-2021 Covid (Moderna) Dr. Apolinar Johnson Work Phone: [facility] 04-09-2020 Covid (Moderna) Dr. Apolinar Johnson Work Phone: [facility] 03-12-2020 Covid (Moderna) Dr. Apolinar Johnson Work Phone: [facility] 01-01-2020 influenza, injectabl e, quadrivalent, preservative free [facility] 01-01-2020 influenza, seasonal, injectable Dr. Apolinar Roche Work Phone: [facility] 01-16-2019 influenza, injectabl e, quadrivalent, preservative free [facility] 01-16-2019 influenza, seasonal, injectable Dr. Apolinar Roche Work Phone: [facility] 01-12-2018 influenza, injectabl e, quadrivalent, preservative free [facility] 01-12-2018 influenza, seasonal, injectable Dr. Apolinar Roche Work Phone: [facility] 02-03-2017 hepatitis B vaccine, adult dosage Dr. Apolinar Roche Work Phone: [facility] 12-09-2016 influenza, injectabl e, quadrivalent, preservative free [facility] 12-09-2016 influenza, seasonal, injectable Dr. Apolinar Roche Work Phone: [facility] 04-22-2016 hepatitis B vaccine, pediatric or pediatric/adolescent dosage Dr. Apolinar Roche Work Phone: [facility] 03-19-2016 hepatitis B vaccine, pediatric or pediatric/adolescent dosage Dr. Apolinar Roche Work Phone: [facility] 03-19-2016 tetanus toxoid, redu gema diphtheria toxoid, and acellular pertussis vaccine, adsorbed Dr. Apolinar Roche Work Phone: [facility] Payers Date Payer Category Payer Self-pay [id number] 2023 Medicare [id number] 2010 Private Health Insurance MAG[employer]OLIA [id number] Unknown [id number] [id number] Unknown [id number] [id number] [id number] Unknown [id number] 2.16.8 [id number] Unknown [id number] 2.16.8 [id number] Unknown [id number] 2.16.8 [id number] Unknown [id number] 2.16.8 [id number] Unknown [id number] 2.16.8 [id number] Unknown [id number] 2.16.8 [id number] Unknown [id number] 2.16.8 [id number] Unknown [id number] 2.16.8 [id number] Social History Date Type Detail Facility Start: 12-03-2021 End: 07-09-2023 Tobacco smoking status NHIS Unknown if ever smoked [facility] Start: 01-30-2019 Non-smoker [facility] Start: 1955 Sex Assigned At Male [facility] Start: 12[facility]02-[facility] Start: 05-30-2024 Sex Male (finding) [facility] Goals Date Patient Goal Desired Activity /State Mental Status Date Assessment Result Facility 06-05-2022 Cognitive function Voice/Name [facility] Work Phone: Clinical Notes 07-19-2008 to 04-18-2024 Note Date & Type Note Facility 04-18-2024 Evaluation note Diagnosis Onset Date Resolution Congestion of nasal sinus acute April 18 3:45pm COVID acute May 06, 2024 9:17am [facility] Work Phone: 1(435) 638-854302-04-2025 Evaluation note* Diagnosis Onset Date Resolution Status Admit Date Congestion of nasal sinus acute April 18, 2024 3:45pm COVID acute May 06, 2024 9:17am Atherosclerosis of coronary artery of [place] heart without angina pectoris chronic June 10:50am Diastolic dysfunction chronic Jun 10:50am Essential (primary) hypertension chronic June 19, 2024 10:50am Hyperlipidemia chronic June 19, 2024 10:50am FCI (current) use of anticoagulants chronic June 19, 2024 10:50am Longstanding persistent atrial fibrillation chronic June 19, 025 10:50am H/O coronary artery bypass surgery July 19, 2008 resolved June 19, 2024 10:50am [facility] Work Phone: 1(480) 410-557203-24-2023 History and physical note Author Dr. Briscoe [facility] June 05, 2022 11:55am Note Date/Time June 05, 2022 11: 11am [facility] Medical Records Department [address] [place] [address] History & Physical Exam 06/05/22 1110 MR#: [id number] Acct: [id number] Name: RJ REYNOLDS Rep #:[id number] : 1955 67 From: Cullen Bonilla PCP: Dr. Apolinar Roche MD Status:[facility] Location: [place] [address] History and Physical Date of Admission: 06/05/22 HISTORY OF PRESENT ILLNESS 67 year old man presents for discussion regarding bilateral upper blepharoplastyfor field of vision defects laterally.? He had a field of vision test done in October, which showed 58% decreased peripheral field of vision on the right and a 50% decreased peripheral field of vision on the left. He had a bilateral direct brow lift surgery in December,.? Patient still complains of difficulty with his lateral peripheral field of vision bilaterally.? I discussed with the patient that the brow lift generally doesn't cure the problem. It is done so it is a little easier to determine how much skin and fat to remove with the upper blepharoplasty.? If the brow lift were not done, then it would be difficult to determine how much tissue needs to be removed for the blepharoplasty, therefore a more conservative blepharoplasty would be performed.? ? At the present time, he denies any fever.? He denies any trauma.? He denies any visual problems.? We have received medical approval for the upper eyelid blepharoplasty.? It is scheduled for June 05, 2022.? He has some questions regarding the surgery and its aftercare.? He helps his with her home dialysis. 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 Right bundle branch block Secondary pulmonary arterial hypertension Syncope and collapse PAST SURGICAL HISTORY Ganglion cyst of foot H/O arthroscopy of right knee H/O coronary artery bypass surgery (07/19/08) History of arthroscopy of left knee History of cardioversion (01/30/19) History of eyelid surgery left foot S/P hemorrhoidectomy S/P right knee arthroscopy ALLERGIES JAJA Inhibitors atorvastatin [From Lipitor] simvastatin MEDICATIONS ascorbic acid (vitamin C) coenzyme [id number] E glucosamine sulfate metformin multivitamin with folic acid tamsulosin olmesartan aspirin rosuvastatin apixaban (Eliquis) diltiazem HCl metoprolol tartrate indapamide FAMILY HISTORY Aunt - Myocardial infarction Father - CAD (coronary artery disease) Sister - Cancer, Breast cancer Brother - Diabetes Other - Arthritis, Carotid artery stenosis, Heart disease, High cholesterol, Hypertension, Lung cancer SOCIAL HISTORY Smoking Status:? Former smoker Tobacco: How many years used:? 27 alcohol intake:? current alcohol intake frequency: a few times a month substance use type:? does not use REVIEW OF SYSTEMS General - Denies fever, fatigue, and weight loss. Eyes - Has cataracts.? Denies glaucoma. ENT - Denies nasal congestion and sore throat. Endocrine - Denies excessive thirst and urination. Skin - Denies suspicious lesions and skin cancer. Musculoskeletal - Denies weakness of muscles and joints, back pain, and arthritis.? Has joint pain and joint stiffness. Neuro - Denies headaches. Cardiovascular - Denies chest pain, fatigue, and shortness of breath with exertion. Psych - Denies anxiety and depression. Respiratory - Has chronic cough.? Denies shortness of breath.? Has sleep apnea. Gastrointestinal - Denies nausea, vomiting, diarrhea, and constipation. Hematologic - Denies abnormal bruising and bleeding. Genitourinary - Denies hematuria and urinary frequency. PHYSICAL EXAMINATION General - Alert and Oriented. HEENT - PERRL. EOMI.? Throat is clear.? Has evidence of dermatochalasis bilateral upper eyelids.? There is some skin overhang laterally. Horizontal length of the eyelids is 30 mm bilaterally.? The palpebral aperture is 10 mm bilaterally. The upper lid MRD (marginal reflex distance) is 4 mm bilaterally and rests slightly below the limbus.? The lower lid MRD is 5 mm bilaterally and rests at the lower limbus. No evidence of eyelid ptosis.? No scleral show or ectropion.? Has healed scars just above the eyebrows from the direct brow lift. Neck - Supple and nontender.? No cervical adenopathy. Lungs - Clear to auscultation. Heart - Regular rate and rhythm. Abdomen - Soft and nondistended. Extremities - FROM. No axillary adenopathy.? Radial pulses are palpable. Neuro - CN II-XII grossly intact. Psych - Normal mood and affect. ASSESSMENT 1.? Dermatochalasis left upper eyelid. 2.? Dermatochalasis right upper eyelid. 3.? Lateral peripheral field of vision defects bilaterally. 4.? Status bilateral direct brow lift. 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 6.? Diabetes mellitus. 7.? Cataracts. 8.? Atrial fibrillation. 9.? Former smoker. PLAN Reviewed the field of vision results from 11/05/20. We have received medical approval for the surgery.? It is scheduled for 06/05/22. Can proceed with bilateral upper blepharoplasty to improve his field of vision defects. Has diabetes mellitus.? His HgbA1c was 5.8 on 12/03/21.? For elective surgery it needs to be less than 8.? Will have it repeated prior to the surgery. He is on Eliquis for atrial fibrillation.? The blood thinner may be problematic with the risk of postop bleeding. He saw Cardiology and he was instructed to stop the Eliquis couple days before the surgery and I will re-start it the day after surgery. ? He has cataracts.? He saw his Proposal Coordinator on 10/22/21. Surgery would be done under general anesthesia with a surgical observation overnight stay in the hospital. Patient was informed of the risks and complications of the procedure including alternatives to surgery.? These were discussed with the patient personally.? Patient voices understanding and wishes to proceed. Some of the risks and complications were included in a form from the [place] [employer]. Potential risks and complications included but not inclusive of bleeding, infection, hematoma, bruising, swelling, loss of sensation to skin, wound breakdown, need for wound care, poor scarring, poor aesthetic outcome, intra operative cardiac or neurologic events, DVT, PE, possible blindness and reactionto anesthesia. Recommended to the patient to see if his can have dialysis at the Dialysis Center instead of at home after the surgery for a short while.? He will inquire about that possibility.? If not I can discharge him early on Wednesday so he can get home for his 's dialysis treatment. Assessment & Plan Assessment/Plan (1) Dermatochalasis of right upper eyelid: (2) Dermatochalasis of left upper eyelid: (3) 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: (4) History of eyelid surgery: (5) Diabetes mellitus: (6) Former smoker: (7) FCI (current) use of anticoagulants: 06/05/22 1155 <Electronically signed by Cullen Briscoe MD> Cosigner Signature (if applicable): CC: Dr. Apolinar Roche MD; Dr. 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 acute 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 Diabetes mellitus chronic Former smoker chronic History of eyelid surgery ch ronic 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 [facility] Work Phone: 1([phone]) 702-211105-07-2009 Evaluation note* Diagnosis Onset Date Resolution Status Essential (primary) hypertension chronic Hyperlipidemia chronic Paroxysmal atrial flutter ch ronic H/O coronary artery bypass surgery July 19, 2008 resolved FCI (current) use of anticoagulants acute 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 Diabetes mellitus chronic Former smoker chronic History of eyelid surgery ch ronic 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 acute 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 Diabetes mellitus chronic Former smoker chronic History of eyelid surgery ch ronic 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 Briscoe [facility] June 05, 2022 12:28pm Note Date/Time June 05, 2022 12: 07pm [facility] Medical Records Department [address] [place] [address] Instructions for Home/Discharge Instructions 06/05/22 1159 MR#: [id number] Acct: [id number] Name: RJ REYNOLDS Rep #:[id number] : [id number] 67 From: Cullen Bonilla PCP: Dr. Apolinar Roche MD Status:[facility] [place]charge Instructions Diet Discharge Diet: Carb Control Diet Activity Discharge Activity: May Not Drive, May Shower (in two days on Wednesday06/07/22) and - (keep head elevated. no heavy lifting. ice cold compresses to periorbital area for 5 minutes and prn) May resume sexual activity in: 10-14 days Ice area for (Minutes): 5 (and prn to periorbital areas) Weight Bearing Status: Weight bearing as tolerated Lifting Restrictions: 10 lbs. Keep extremity elevated above heart level: - (elevate head) Dressing / Incision Call your doctor if your incision/area has: Continuous Slow Oozing, Sudden Increased Bleeding, Increased Pain/ Swelling, Increased Redness, Foul Smelling Discharge and Swelling at the incision site Call your doctor if you observe: Fever of 101 or Higher, Coldness, Increased Pain, Shortness of breath, Chest pain, Calf discomfort, Uncontrolled pain and - (bulging eyeballs) Suture Line Care: - (apply antibiotic ointment to suture lines daily) Cleanse incision/area with: - (may get incisions wet in the shower in two days.) Follow Up Care Please Follow Up With: Cullen Briscoe MD When: tomorrow 06/06/22 at 900am. Test Results: Test results from this visit will be discussed in further detail at your follow- up appointment, if applicable. Discharge Plan Admission Primary Reason for Your Visit: bilateral upper eyelid blepharoplasty Attending Provider: Cullen Briscoe Primary Care Provider: Apolinar Roche Discharge Orders/Prescriptions Prescriptions: New clindamycin HCl 300 mg capsule 300 mg PO TID Qty: 12 0RF L.acidoph,saliva-B.bif-S.therm [Acidophilus Probiotic Blend] 175 mg capsule 1 cap PO DAILY Qty: 10 0RF oxycodone-acetaminophen [Percocet] 5-325 mg tablet 1 tab PO Q6H PRN (Reason: pain (scale score 7-10)) 7 Days Qty: 28 0RF Rx Instructions: 28 tabs (twenty-eight) diazepam [Valium] 5 mg tablet 5 mg PO BID PRN (Reason: spasms) Qty: 10 0RF Rx Instructions: 10 tabs )ten) Continued rosuvastatin 5 mg tablet 5 mg PO DAILY indapamide 1.25 mg tablet 1.25 mg PO BID Qty: 180 3RF metformin 500 MG tablet 500 mg PO QHS Label Comments: DIABETES glucosamine sulfate 500 MG tablet 500 mg PO BID Label Comments: SUPPLEMENT ascorbic acid (vitamin C) 500 MG tablet 500 mg PO DAILY Label Comments: SUPPLEMENT tamsulosin 0.4 MG capsule 0.4 mg PO QHS Label Comments: URINE FLOW coenzyme [id number] E 1 EACH capsule 1 ea PO DAILY Label Comments: SUPPLEMENT multivitamin with folic acid 1 TABLET tablet 1 tab PO DAILY Label Comments: SUPPLEMENT olmesartan 40 MG tablet 40 mg PO DAILY diltiazem HCl 180 mg capsule,extended release 24 hr 180 mg PO DAILY Qty: 90 3RF metoprolol tartrate 100 mg tablet 100 mg PO BID Qty: 180 3RF Held Eliquis 5 mg tablet 5 mg PO BID Hold Instructions: Resume on 06/06/22. May resume after being seen in the office on 06/06/22 at 900am. Discontinued aspirin [Adult Aspirin Regimen] 81 mg tablet,delayed release (DR/EC) 81 mg PO DAILY Referrals / Follow Up: Apolinar Roche MD [Primary Care Provider] - Cullen Briscoe MD [Med Staff - Active Staff] - (followup 06/06/22 at 900am.) Disposition Disposition (needs filled in before D/C Order can be placed): Home, Self Care 06/05/22 1228<Electronically signed by Cullen Briscoe MD>Cullen Briscoe MD CC: Dr. Apolinar Roche MD ~ Signed [facility] Work Phone: Evaluation noteNo assessment information available [facility] Work Phone: Hospital Discharge instructions Additional Instructions Implant Used?: [facility] Work Phone: Reason for referral (narrative)No reason for referral information available[facility] Work Phone: Chief Complaint and Reason for Visit Chief Complaint 6 M FU FOLLOW UP Reason for Visit Essential (primary) hypertension Hyperlipidemia Paroxysmal atrial flutter H/O coronary artery bypass surgery Chief Complaint 6 M FU Pre Op NICOTINE DEPENDENCE Reason for Visit Essential (primary) hypertension Hyperlipidemia Paroxysmal atrial flutter H/O coronary artery bypass surgery 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 Dermatochalasis of left upper eyelid Dermatochalasis of right upper eyelid Diabetes mellitus Former smoker History of eyelid surgery 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 Chief Complaint 6 M FU Pre Op NICOTINE DEPENDENCE BILATERAL UPPER BLEPHAROPLASTY BILATERAL UPPER BLEPHAROPLASTY Reason for Visit Essential (primary) hypertension Hyperlipidemia Paroxysmal atrial flutter H/O coronary artery bypass surgery 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 Dermatochalasis of left upper eyelid Dermatochalasis of right upper eyelid Diabetes mellitus Former smoker History of eyelid surgery 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 [facility] (current) use of anticoagulants Dermatochalasis of left upper eyelid Dermatochalasis of right upper eyelid Diabetes mellitus Former smoker History of eyelid surgery 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 Chief Complaint E-ORDER Chief Complaint E-ORDER E ORDERS Chief Complaint E ORDERS 8 m fu RIGHT KNEE Room 1 ATHEROSCLEROSIS ATHEROSCLEROSIS Reason for Visit Longstanding persist ent atrial fibrillation Essential (primary) hypertension Hyperlipidemia H/O coronary artery bypass surgery Osteoarthritis of right knee Chief Complaint Admit Date COUGH/ HAS COVID April 18, 2024 3:45pm E-ORDER April 25, 2024 8:21am COVID May 06, 2024 9:17am Reason for Visit Admit Date Congestion of nasal sinus April 18, 2024 3:45pm COVID May 06, 2024 9:17am Chief Complaint Admit Date COUGH/ HAS COVID April 18, 2024 3:45pm E-ORDER April 25, 2024 8:21am COVID May 06, 2024 9:17am 1 Y FU June 19, 2024 10:5 0am 1 Y FU August 11, 2024 1:19p m Reason for Visit Admit Date Congestion of nasal sinus April 18, 2024 3:45pm COVID May 06, 2024 9:17am Atherosclerosis of coronary artery of [place] heart without angina pectoris June 19, 2024 10:50am Diastolic dysfunction June 19, 2024 10 :50am Essential (primary) hypertension June 192024 10:50am Hyperlipidemia June 19, 2024 10:5 0am 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 of anticoagulant s June 19, 2024 10:50am Longstanding persistent atrial fibrillat ion June 19, 2024 10:50am H/O coronary artery bypass surgery June 19, 2024 10:50am Family History No Family History Records Found Relationship Condition Age at Onset Recorded Date/T bebeto Not Specified Stenosis of carotid artery Unknown High blood cholesterol Unknown Arthritis Unknown Cardiac disease Unknown Malignant neoplasm of lung Unknown Hypertension Unknown aunt Myocardial infarction Unknown father Coronary artery disease Unknown sister Malignant neoplasm Unknown Malignant neoplasm of breast Unknown brother Diabetes mellitus Unknown Advance Directives No Advanced Directives Records Found Advance Directive Response Recorded Date/ Time Advance Directives Yes June 26 1:40pm Living Will Yes June 26, 2020 1:40pm Power of Manager Latin Yes June 26 1:40pm Advance Directive Response Recorded Date/ Time Name of Medical Power of Manager Latin June 01, 2022 9:47am Advance Directives Yes June 26 1:40pm Living Will Yes June 01, 2022 9:47am Power of Manager Latin Yes June 01 9:47am Advance Directive Response Recorded Date/ Time Advance Directives Yes June 26 12:40pm Living Will Yes June 01, 2022 8:47am Power of Manager Latin Yes June 01 8:47am Advance Directive Response Recorded Date/ Time Advance Directives Yes June 29 8:46am Living Will Yes June 30, 2023 8:46am Power of Manager Latin Yes June 29 8:46am Advance Directive Response Recorded Date/ Time Advance Directives Yes June 29 8:46am Advance Directive Response Recorded Date/ Time Living Will Yes June 01, 2022 9:47am Do you have a Healthcare Power of Manager Latin? Yes June 01, 2022 9:47am Living Will Yes June 30, 2023 8:46am Do you have a Healthcare Power of Manager Latin? Yes June 30, 2023 8:46am Advance Directives Yes June 29 8:46am Summary Purpose Additional Source Comments Goals (unrecognized section and content) Goals may be documented in a n alternate sectionGoals may be documented in an alternate sectionGoals may be documented in an alternate sectionGoals may be documented in an alternate sectionGoals may be documented in an alternate sectionGoals may be documented in an alternate sectionGoals may be documented in an alternate sectionGoals may be documented in an alternate section Care Teams (unrecognized sec tion and content) Team Status: Active Member Role Status Dates Dr. Apolinar Roche MD Family Provider Active Dr. Apolinar Roche MD Primary Care Provider Active Team Status: Inactive Member Role Status Dates Dr. Apolinar Roche MD Primary Care Provider, Referring P rovider Active Cedric Osorio TOP LIFT TRIMMER, TOP LIFT TRIMMER-C Attending Provider Active Team Status: Inactive Member Role Status Dates Dr. Apolinar Roche MD Primary Care Provider, Referring P rovider Active Dr. Cullen Briscoe MD Attending Provider Active Team Status: Active Member Role Status Dates Dr. Apolinar Roche MD Primary Care Provider Active Theresa Ortiz TOP LIFT TRIMMER-C Attending Provider, Referr ing Provider Active Team Status: Inactive Member Role Status Dates Dr. Apolinar Roche MD Primary Care Provider Active Theresa Ortiz NP-Juliocesar Attending Provider Active Team Status: Inactive Member Role Status Dates Dr. Apolinar Roche MD Primary Care Provider Active Theresa Ortiz TOP LIFT TRIMMER-C Attending Provider, Referr ing Provider Active Team Status: Active Member Role Status Dates Dr. Apolinar Roche MD Primary Care Provider Active Dr. Cullen Briscoe MD Attending Provide r, Referring Provider, Other Provider Active Team Status: Inactive Member Role Status Dates Dr. Apolinar Roche MD Primary Care Provider Active Dr. Cullen Briscoe MD Attending Provider, Referring P rovider Active Team Status: Inactive Member Role Status Dates Dr. Apolinar Roche MD Primary Care Provide r, Attending Provider, Referring Provider Active Team Status: Inactive Member Role Status Dates Dr. Apolinar Roche MD Primary Care Provider, Referring P rovider Active Jody Padilla PA, PA Attending Provider Active Team Status: Inactive Member Role Status Dates Dr. Apolinar Roche MD Primary Care Provider, Referring P rovider Active Dr. Florentin Bethea DO Attending Provider Active Team Status: Inactive Member Role Status Dates Dr. Apolinar Roche MD Primary Care Provider Active Dr. Aidan Wyatt MD Attending Provider Active Team Status: Active Member Role Status Dates Dr. Apolinar Roche MD Primary Care Provider Active Dr. Aidan Wyatt MD Attending Provider, Referring Provider, Other Provider Active Team Status: Inactive Member Role Status Dates Dr. Apolinar Roche MD Primary Care Provider Active Dr. Aidan Wyatt MD Attending Provider, Referring Pro vider Active Team Status: Inactive Member Role Status Dates Dr. Apolinar Roche MD Primary Care Provider Active Start: April 18, 2024 End: April 18, 2024 Dr. Apolinar Roche MD Referring Provider Active St art: April 18, 2024 End: April 18, 2024 YOLANDA Beltran Attending Provider Active Star t: April 18, 2024 End: April 18, 2024 Team Status: Inactive Member Role Status Dates Dr. Apolinar Roche MD Primary Care Provider Active Start: April 25, 2024 End: April 25, 2024 Jody Padilla PA, PA Attending Provider Active Start: April 25, 2024 End: April 25, 2024 Jody Padilla PA, PA Referring Provider Active Start: April 25, 2024 End: April 25, 2024 Team Status: Inactive Member Role Status Dates Dr. Apolinar Roche MD Primary Care Provider Active Start: May 06, 2024 End: May 06, 2024 Dr. Apolinar Roche MD Referring Provider Active St art: May 06, 2024 End: May 06, 2024 YOLANDA Oliveira Attending Provider Active Start: May 06, 2024 End: May 06, 2024 Team Status: Inactive Member Role Status Dates Dr. Apolinar Roche MD Primary Care Provider Active Start: May 17, 2024 End: May 17, 2024 Dr. Apolinar Roche MD Attending Provider Active St art: May 17, 2024 End: May 17, 2024 Dr. Apolinar Roche MD Referring Provider Active St art: May 17, 2024 End: May 17, 2024 Team Status: Inactive Member Role Status Dates Dr. Apolinar Roche MD Primary Care Provider Active Start: June 19, 2024 End: June 19, 2024 Dr. Apolinar Roche MD Referring Provider Active St art: June 19, 2024 End: June 19, 2024 YOSELIN Salazar Attending Provider Active St art: June 19, 2024 End: June 19, 2024 Team Status: Inactive Member Role Status Dates Dr. Apolinar Roche MD Primary Care Provider Active Start: August 11, 2024 End: August 11, 2024 Dr. Apolinar Roche MD Referring Provider Active St art: August 11, 2024 End: August 11, 2024 Soco Serrano NP, NP-C Attending Provider Active Start: August 11, 2024 End: August 11, 2024 (unrecognized sect ion and content) No Status Records Found INFORMATION SOURCE (unrecogn ized section and content) DATE CREATED AUTHOR 10/11/2024 [facility] FOR RECORDS PERTAINING TO PATIENTS WHO ARE [...] BE BASED ON THE PRIMARY CLINICAL RECORDS. [facility] [employer] [facility]. provides no warranty or guarantee of the accuracy or completeness of information in this document.
--- OUTSIDE RECORDS SUMMARY | 2024-10-21 08:21 | XMS RPT_ITS | CCD ---
Author Organization [facility] Care Team Providers Care Beater Out Leveling Machine Name Role Phone Sloan Galan Unavailable Dr. Apolinar Roche Primary Care Provider 1([facility])[phone] Apolinar Roche Referring Provider 1([facility])[phone] Roof YIELD ANALYST, YIELD ANALYST-C Cedric Cali Attending Provider 1([facility])[phone] Dr. Cullen Briscoe Attending Provider 1([facility])[phone] Dr. Apolinar Roche Primary Care Provider 1([facility])[phone] Apolinar Roche Referring Provider 1([facility])[phone] Roof YIELD ANALYST, YIELD ANALYST-C Cedric Cali Attending Provider 1([facility])[phone] Dr. Cullen Briscoe Attending Provider 1([facility])[phone] Dr. Cullen Briscoe Referring Provider 1([facility])[phone] Dr. Cullen Briscoe Other Provider 1([facility])[phone] Apolinar Roche Primary Care Provider 1([facility])[phone] Apolinar Roche Referring Provider 1([facility])[phone] YOSELIN Bazan Attending Provider Dr. Florentin Bethea Attending Provider 1([facility])[phone] Dr. Aidan Wyatt Attending Provider 1([facility])[phone] Aidan Wyatt Referring Provider 1([facility])[phone] Aidan Wyatt Other Provider Dr. Apolinar Roche MD Primary Care Provider 1([facility])[phone] Dr. Apolinar Roche MD Referring Provider 1([facility])[phone] [place] YIELD ANALYST-CPatrice Attending Provider 1([facility])[phone] Jody Bazan Attending Provider [phone] Jody Bazan Referring Provider [phone] Elizabeth Garcia Attending Provider Dr. Apolinar Roche MD Attending Provider Arnulfo Lew Attending Provider [phone] Soco Balderas Attending Provider Roche, Apolinar Primary [...] Care Unavailable Jody Bazan Attending Unavail able Jody Bazan Referring Unavail able Roche, Apolinar Primary Care Unavailable Roche, Apolinar Primary Care Unavailable Roche, Apolinar Attending Unavailable Roche, Apolinar Referring Unavailable Allergies Allergy Classification Reported Allergen(s) Allergy Type Date of Onset Reaction(s) Facility (13 sources) Angiotensin Converting Enzyme (Jaja) Inhibitors; Translations: [JAJA Inhibitors] drug allergy 1 Intolerance, cough, nonproductive, Unknown [facility] Work Phone: (3 sources) atorvastatin Drug Allergy 6 mylagias [facility] Work Phone: (13 sources) simvastatin; Translations: [SIMVASTATIN] Drug Allergy 6 mylagia, Pain in joints [facility] Work Phone: (9 sources) atorvastatin Drug Allergy 2 Pain in joints [facility] (1 source) atorvastatin Drug Allergy [facility] Repository Medications Current Medications Medication Drug Class(es) [...] TABS One tablet by mouth daily ASPIRIN [id number] Mary Stafford carvedilol 25 mg oral tablet [...] 1 capsule by mouth once daily Coenzyme V21-Ezwooor E 1 EACH capsule Active 1 NMA PO DAILY May 26, 2016 12:00am Start: 05-26-2016 Coenzyme Q10-V itamin E Active 1 EACH PO DAILY May 26, 2016 12:00am Completed/Discontinued Medications Medication Drug Class(es) Dates Sig (Normalized) Sig (Original) acetaminophen 500 mg oral tablet (3 sources) Start: 02-04-2016 TYLENOL EXTRA STRENGTH 500 MG TABS as needed ACETAMINOPHEN [id number] Aidan Wyatt MD acetaminophen 325 mg / [...] One tablet by mouth daily ATORVASTATIN CALCIUM [id number] BRAT [employer] bismuth subsalicylate 35 mg/ml oral suspension (9 sources) Bismuth Start: 05-17-2018 End: 06-28-2018 Bismuth Subsalicylate 525 mg/15 mL suspension Discontinued 525 mg PO .4 times per day May 17, 2018 1:00am June 28, 2018 1:46pm do not exceed 8 doses in a 24 hour period GLUCOSAMINE-CHONDRO ITIN CAPS (3 sources) Start: 08-18-2010 GLUCOSAMINE-CHONDR OITIN CAPS Take as directed GLUCOSAMINE-CHONDR OITIN CAPS [id number] Mary M Stafford clindamycin 300 mg oral [...] One tablet by mouth daily COENZYME Q10 [id number] Aidan Wyatt MD diazePAM 5 mg oral [...] TABS One tablet by mouth daily TRIAMTERENE-HCTZ [id number] Mary Stafford ibuprofen 200 mg oral tablet (6 sources) Nonsteroidal Anti-inflammator y Drug Start: 08-18-2010 End: 02-04-2016 take 2 tablets by mouth once daily IBUPROFEN 200 MG TABS Two tablets by mouth daily IBUPROFEN [id number] Aidan Wyatt MD indapamide 1.25 mg oral [...] CAPS One tablet by mouth daily LORATADINE [id number] Mary Stafford losartan potassium 100 mg oral [...] One tablet by mouth daily MULTIPLE VITAMIN [id number] Mary Stafford 24 hr nitroglycerin 0.4 mg/hr transdermal system (9 sources) Nitrate Vasodilator Start: 08-18-2010 End: 08-18-2016 NITROSTAT 0.4 MG SUBL 1 tablet under tongue every 5 min up to 3 X NITROGLYCERIN [id number] Jody Padilla PA-C Start: 08-18-2010 NITROGLYCERIN 0.4 MG/HR PT24 1 tablet under tongue every 5 min up to 3 X NITROGLYCERIN [id number] Mary Stafford omeprazole 40 mg delayed release [...] by mouth daily POTASSIUM CHLORIDE JOVON CR [id number] Mario Veras MD Start: 08-18-2010 take 1 tablet by sri th once daily POTASSIUM CHLORIDE 20 MEQ PACK One tablet by mouth daily POTASSIUM CHLORIDE [id number] Mario Veras MD promethazine hydrochloride 25 mg [...] TABS One tablet by mouth daily SIMVASTATIN [id number] Jody Padilla PA-C tetracycline hydrochloride 500 mg oral capsule (9 sources) Tetracycline-class Antimicrobial Start: 05-17-2018 End: 06-28-2018 Tetracycline 500 mg capsule Discontinued 500 mg PO .4 times per day May 17, 2018 1:00am June 28, 2018 1:46pm traMADol hydrochloride 50 mg oral tablet (3 sources) Opioid Agonist Start: 08-18-2016 TRAMADOL HCL 50 MG TABS as needed TRAMADOL HCL [id number] Teresita Kang valsartan 320 mg oral tablet (20 sources) Angiotensin 2 Receptor Rufus Start: 05-10-2013 End: 10-25-2017 take 1 tablet by mouth once daily Valsartan 320 MG tablet Discontinued 320 mg PO DAILY February 22, 2017 12:25pm October 25, 2017 7:24pm Start: 07-21-2012 take 1 tablet by sri th once daily DIOVAN 160 MG TABS One tablet by mouth daily VALSARTAN [id number] Aidan Wyatt MD Start: 08-18-2010 take 1 tablet by sri th once daily DIOVAN 80 MG TABS One tablet by mouth daily VALSARTAN [id number] Mario Veras MD Problems Active Problems Problem [...] sources) Long-term current use of anticoagulant; Translations: [assisted (current) use of anticoagulants] 06-05-2021 Episodic Comment on above: on Eliquis for atria l fibrillation Other aftercare (4 sources) 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, [address] Pulmonary Visit Reporton Pulmonary Visit Report [facility] [address] [place] [address] OFFICE VISIT Date of Service: 08/11/24 MR#: [id number] Acct: [id number] Name: RJ REYNOLDS Rep #: [id number] : 1955 Provider: YOLANDA Serrano Age/Sex: 69/M [place] [facility] [facility] [place] Status: Signed Assessment and Plan Assessment and [...] Additional Comments: This note was generated with [employer] dictation software. It may contain incorrect words, [...] 1 Y FU Chief Complaint: covid test Reviewer Sales Required: No DME Vendor: [employer] Accompanied by: Is patient in pain?: No Allergies JAJA Inhibitors Allergy (Verified 08/11/24 13:24) Unknown atorvastatin (From Lipitor) Adverse Reaction (Verified 08/11/24 13:24) Pain in joints simvastatin Adverse Reaction (Verified 08/11/24 13:24) Pain in joints Medications ???Medication ???Instructions ???Recorded ???Confirmed ???Type ascorbic acid (vitamin C) 500 mg 500 mg PO DAILY 05/26/16 08/11/24 History tablet coenzyme O51-gkokohs E 100 mg-5 1 ea PO DAILY [...] you fallen in the past year?: No [facility] Medical History (Updated 08/11/24 @ 14:58 by Soco Serrano YIELD ANALYST, YIELD ANALYST-C) Palpitations Congestion of nasal sinus Longstanding persistent atrial fibrillation Wears glasses Alcohol use Diabetes High cholesterol Restless legs Back pain Heartburn BiPAP (biphasic positive airway pressure) dependence (more content not included)... Normal [facility] Cardiology Visit Reporton Cardiology Visit Report [facility] [address] [place] [address] OFFICE VISIT Date of Service: 06/19/24 MR#: [id number] Acct: [id number] Name: RJ REYNOLDS Rep #: [id number] : 1955 Provider: YOSELIN Salazar Age/Sex: 69/M [place] [facility] [place] Status: Signed HPI HPI History of [...] air Intake Visit Reasons: 1 Y FU Reviewer Sales Required: No Accompanied by: Self Is patient in pain?: No Allergies JAJA Inhibitors Allergy (Verified 06/19/24 10:59) Unknown atorvastatin (From Lipitor) Adverse Reaction (Verified 06/19/24 10:59) Pain in joints simvastatin Adverse Reaction (Verified 06/19/24 10:59) Pain in joints Medications ???Medication ???Instructions ???Recorded ???Confirmed ???Type ascorbic acid (vitamin C) 500 mg 500 mg PO DAILY 05/26/16 06/19/24 History tablet coenzyme K60-kcrnsrv E 100 mg-5 1 ea PO DAILY [...] you fallen in the past year?: No [facility] Medical History (Updated 06/19/24 @ 11:56 by [...] arterial hypertension Atherosclerosis of coronary artery of kaw heart without angina pectoris Diabetes mellitus Osteoarthritis NSVT (nonsustained ventricular (more content not included)... Normal [facility] Albumin DL <= 20 mg/L (U) [M ass/Vol]Ordered By: Apolinar Roche on 05-17-2024 Urine Random Microalbumin 66.8 mg/L NO RANGE EST. [facility] Anion gap in Serum or Plasma Ordered By: Apolinar Roche on 05-17-2024 Anion gap [Moles/Vol] 11 mmol/L 5- [facility] BUN/creatinine ratioOrdered By: Apolinar Roche on 05-17-2024 Urea nitrogen/Creatinine [Mass ratio] 15.7 mg/mg 10- [facility] Bilirubin, totalOrdered By: Apolinar Roche on 05-17-2024 Bilirubin [Mass/Vol] 0.38 mg/dL 0.00-1.30 [facility] Calculated very low density lipoprotein (VLDL) cholesterol measurementOrdered By: Apolinar Roche on 05-17-2024 Calculated very low density lipoprotein (VLDL) cholesterol measurement 13 mg/dL 5-40 [facility] VLDL Cholesterol 13 mg/dL 5-40 [facility] Carbon dioxide, total [Moles /volume] in Central venous bloodOrdered By: Apolinar Roche on 05-17-2024 CO2 [Moles/Vol] 26.0 mmol/L 21.0-32.0 [facility] Chloride assayOrdered By: Daquan Roche on 05-17-2024 Chloride [Moles/Vol] 103 mmol/L 98-108 [facility] Comprehensive Metabolic Prof ilon 05-17-2024 Albumin [Mass/Vol] 3.9 g/dL Normal 3.4-4.8 [facility] Comment on above: Order Comment: Order Date: 01/31/24 Order Info: [id number] - CMP Order Info: [id number] - LIPID Order Info: [id number] - ALB Performed By: #### L 500.4100, L500.4050, L502.0250, L501.9985 #### [facility] [address] [place], [place], [id number] Albumin/Globulin [Mass ratio] 1.4 {ratio} Normal 0.9-2.4 [facility] Comment on above: Order Comment: Order Date: 01/31/24 Order Info: [id number] - CMP Order Info: [id number] - LIPID Order Info: [id number] - ALB Performed By: #### L 500.4100, L500.4050, L502.0250, L501.9985 #### [facility] [address] [facility]. [place], [place], [id number] ALK PHOS 67 U/L Normal 40-129 [facility] Comment on above: Order Comment: Order Date: 01/31/24 Order Info: 0786- - CMP Order Info: [id number] - LIPID Order Info: 1750-09 - ALB Performed By: #### L 500.4100, L500.4050, L502.0250, L501.9985 #### [facility] [address] [place], [address] ALT [Catalytic activity/Vol] 30 U/L Normal <=46 [facility] Comment on above: Order Comment: Order Date: 01/31/24 Order Info: [id number] - CMP Order Info: - LIPID Order Info: [id number] - ALB Performed By: #### L 500.4100, L500.4050, L502.0250, L501.9985 #### [facility] [address] [place], [place], [id number] AST [Catalytic activity/Vol] 26 U/L Normal <=37 [facility] Comment on above: Order Comment: Order Date: 01/31/24 Order Info: [id number] - CMP Order Info: - LIPID Order Info: [id number] - ALB Performed By: #### L 500.4100, L500.4050, L502.0250, L501.9985 #### [facility] [address] [place], [address] Bilirubin [Mass/Vol] 0.38 mg/dL Normal 0.00-1.30 [facility] Comment on above: Order Comment: Order Date: 01/31/24 Order Info: 785-03 - CMP Order Info: - LIPID Order Info: [id number] - ALB Performed By: #### L 500.4100, L500.4050, L502.0250, L501.9985 #### [facility] [address] [facility] [place], [address] BUN/CRE 15.7 RATIO Normal 10-20 [facility] Comment on above: Order Comment: Order Date: 01/31/24 Order Info: 0786 - CMP Order Info: [id number] - LIPID Order Info: 1750-09 - ALB Performed By: #### L 500.4100, L500.4050, L502.0250, L501.9985 #### [facility] [address] [place], [address] Calcium [Mass/Vol] 9.1 mg/dL Normal 7.6-11.0 [facility] Comment on above: Order Comment: Order Date: 01/31/24 Order Info: 785- - CMP Order Info: - LIPID Order Info: [id number] - ALB Performed By: #### L 500.4100, L500.4050, L502.0250, L501.9985 #### [facility] [address] [place], [address] Chloride [Moles/Vol] 103 mmol/L Normal 98-108 [facility] Comment on above: Order Comment: Order Date: 01/31/24 Order Info: 785-03 - CMP Order Info: - LIPID Order Info: [id number] - ALB Performed By: #### L 500.4100, L500.4050, L502.0250, L501.9985 #### [facility] [address] [place], [address] CO2 [Moles/Vol] 26.0 mmol/L Normal 21.0-32.0 [facility] Comment on above: Order Comment: Order Date: 01/31/24 Order Info: 785-03 - CMP Order Info: - LIPID Order Info: [id number] - ALB Performed By: #### L 500.4100, L500.4050, L502.0250, L501.9985 #### [facility] [address] [place], [address] Creatinine [Mass/Vol] 0.88 mg/dL Normal 0.70-1.20 [facility] Comment on above: Order Comment: Order Date: 01/31/24 Order Info: 07 - CMP Order Info: - LIPID Order Info: [id number] - ALB Performed By: #### L 500.4100, L500.4050, L502.0250, L501.9985 #### [facility] [address] [place], [address] GAP 11 Normal 5-15 [facility] Comment on above: Order Comment: Order Date: 01/31/24 Order Info: 785-03 - CMP Order Info: - LIPID Order Info: [id number] - ALB Performed By: #### L 500.4100, L500.4050, L502.0250, L501.9985 #### [facility] [address] [place], [address] GFR/1.73 sq M.predicted among non-blacks MDRD (S/P/Bld) [Vol rate/Area] 92 mL/min/{1.73_m2} Normal >60 [facility] Comment on above: Order Comment: Order Date: 01/31/24 Order Info: 785-03 - CMP Order Info: - LIPID Order Info: 1750-09 - ALB Result Comment: mL/m in/1.73m2 CKD-EPI Creatinine Equation (2020) Performed By: #### L 500.4100, L500.4050, L502.0250, L501.9985 #### [facility] [address] [place], [address] Globulin (S) [Mass/Vol] 2.7 g/dL Normal 2.2-4.2 [facility] Comment on above: Order Comment: Order Date: 01/31/24 Order Info: 785-03 - CMP Order Info: [id number] - LIPID Order Info: 1750-09 - ALB Performed By: #### L 500.4100, L500.4050, L502.0250, L501.9985 #### [facility] [address] [place], [address] Glucose [Mass/Vol] 124 mg/dL High 70-99 [facility] Comment on above: Order Comment: Order Date: 01/31/24 Order Info: 0786-1 - CMP Order Info: [id number] - LIPID Order Info: 1750-09 - ALB Performed By: #### L 500.4100, L500.4050, L502.0250, L501.9985 #### [facility] [address] [place], [address] Potassium [Moles/Vol] 3.5 mmol/L Normal 3.3-5.1 [facility] Comment on above: Order Comment: Order Date: 01/31/24 Order Info: 0786- - CMP Order Info: [id number] - LIPID Order Info: 1750-09 - ALB Performed By: #### L 500.4100, L500.4050, L502.0250, L501.9985 #### [facility] [address] [place], [address] Sodium [Moles/Vol] 140 mmol/L Normal 133-145 [facility] Comment on above: Order Comment: Order Date: 01/31/24 Order Info: 0786-1 - CMP Order Info: [id number] - LIPID Order Info: 1750-09 - ALB Performed By: #### L 500.4100, L500.4050, L502.0250, L501.9985 #### [facility] [address] [place], [address] T PROT 6.7 g/dL Normal 5.9-8.4 [facility] Comment on above: Order Comment: Order Date: 01/31/24 Order Info: 0786-1 - CMP Order Info: [id number] - LIPID Order Info: [id number] - ALB Performed By: #### L 500.4100, L500.4050, L502.0250, L501.9985 #### [facility] [address] [place], [address] Urea nitrogen [Mass/Vol] 14 mg/dL Normal 4-19 [facility] Comment on above: Order Comment: Order Date: 01/31/24 Order Info: 0786-1 - CMP Order Info: [id number] - LIPID Order Info: 1751-7 - ALB Performed By: #### L 500.4100, L500.4050, L502.0250, L501.9985 #### [facility] [address] [place], [address] Creatinine Unsp time (U) [Ma ss/Vol]Ordered By: Apolinar Roche on 05-17-2024 Creatinine (U) [Mass/Vol] 200.00 mg/dL 39-259 [facility] GFR/1.73 sq M.predicted tae g non-blacks MDRD (S/P/Bld) [Vol rate/Area]Ordered By: Apolinar Roche on 05-17-2024 Estimated GFR (MDRD) Non-Af Amer 92 >60 [facility] Comment on above: mL/min/1.73m2 CKD-EP I Creatinine Equation (2020) Glomerular filtration rate ( GFR) estimation/1.73 sq m using serum, plasma, or whole bOrdered By: Apolinar Roche on 05-17-2024 GFR/1.73 sq M.predicted among non-blacks MDRD (S/P/Bld) [Vol rate/Area] 92 mL/min/{1.73_m2} >60 [facility] Comment on above: mL/min/1.73m2 CKD-EP I Creatinine Equation (2020) Hemoglobin A1con 05-17-2024 HbA1c (Bld) [Mass fraction] 6.0 % Normal <=5.6 [facility] Comment on above: Order Comment: Order Date: 01/31/24 Order Info: [id number] - A1C Performed By: #### L 500.4100, L500.4050, L502.0250, L501.9985 #### [facility] [address] [place], [place], [id number] Hemoglobin A1c percentageOrd ered By: Apolinar Roche on 05-17-2024 HbA1c (Bld) [Mass fraction] 6.0 % >5.7 [facility] LDL calc ser/plasOrdered By: Apolinar Roche on 05-17-2024 Cholesterol in LDL [Mass/Vol] 51 mg/dL [facility] Comment on above: Ekrsmpgqxo=189-142 m g/dL & Higher Vjbs=998 mg/dL or greater LDL Cholesterol, Calculated 51 mg/dL [facility] Comment on above: Ekpqzkedfq=325-254 m g/dL & Higher Sizl=953 mg/dL or greater Laboratory - Chemistry and C hemistry - challengeOrdered By: Apolinar Roche on 05-17-2024 AST [Catalytic activity/Vol] 26 U/L <38 [facility] Lipid Profileon 05-17-2024 CHOL:HDL 2.33 Normal [facility] Comment on above: Order Comment: Order Date: 01/31/24 Order Info: 0786- - CMP Order Info: - LIPID Order Info: [id number] ALB Performed By: #### L 500.4100, L500.4050, L502.0250, L501.9985 #### [facility] [address] [place], [address] Cholesterol [Mass/Vol] 113 mg/dL Normal <=200 [facility] Comment on above: Order Comment: Order Date: 01/31/24 Order Info: 0786 - CMP Order Info: - LIPID Order Info: [id number] - ALB Result Comment: Chol esterol level, Desirable <200 mg/dL Borderline high cholesterol 200-239 mg/dL High cholesterol >=240 mg/dL Recommendations of the NCEP Adult Treatment Panel for the following risk-cutoff thresholds for the [place] population. Performed By: #### L 500.4100, L500.4050, L502.0250, L501.9985 #### [facility] [address] [place], [address] Cholesterol in HDL [Mass/Vol] 49 mg/dL Normal [facility] Comment on above: Order Comment: Order Date: 01/31/24 Order Info: 0786-1 - CMP Order Info: [id number] - LIPID Order Info: 1750-09 - ALB Result Comment: Brittney onal Cholesterol Education Program (NCEP) guidelines: <40 mg/dL: Low HDL-cholesterol (major risk factor for CHD) >= 60 mg/dL: High HDL-cholesterol (negative risk factor for CHD) HDL-cholesterol is affected by a number of factors, e.g. smoking, exercise, hormones, sex and age. Performed By: #### L 500.4100, L500.4050, L502.0250, L501.9985 #### [facility] [address] [place], [address] Cholesterol in LDL [Mass/Vol] 51 mg/dL Normal [facility] Comment on above: Order Comment: Order Date: 01/31/24 Order Info: 07 - CMP Order Info: - LIPID Order Info: [id number] - ALB Result Comment: Bord xgmruc=059-997 mg/dL Higher Qnok=988 mg/dL or greater Performed By: #### L 500.4100, L500.4050, L502.0250, L501.9985 #### [facility] [address] [place], [address] Cholesterol in VLDL [Mass/Vol] 13 mg/dL Normal 5-40 [facility] Comment on above: Order Comment: Order Date: 01/31/24 Order Info: 07 - CMP Order Info: - LIPID Order Info: 1750-09 - ALB Performed By: #### L 500.4100, L500.4050, L502.0250, L501.9985 #### [facility] [address] [place], [address] Triglyceride [Mass/Vol] 66 mg/dL Normal [facility] Comment on above: Order Comment: Order Date: 01/31/24 Order Info: 0786 - CMP Order Info: - LIPID Order Info: [id number] - ALB Result Comment: The drugs N-Acetylcysteine and Metamizole may falsely depress this assay. Normal range: <150 mg/dL Borderline High: 150-199 mg/dL High: 200-499 mg/dL Very High: >500 mg/dL Performed By: #### L 500.4100, L500.4050, L502.0250, L501.9985 #### [facility] [place], [address] Microalbumin/creat ratio urO rdered By: Apolinar Roche on 05-17-2024 Urine Microalbumin/Creatinine Ratio 334.0 mg/g CRE [facility] Potassium (Unsp spec) [Mass/ Vol]Ordered By: Apolinar Roche on 05-17-2024 Potassium [Moles/Vol] 3.5 mmol/L 3.3-5.1 [facility] Potassium measurement (mass/ volume)Ordered By: Apolinar Roche on 05-17-2024 Potassium (Unsp spec) [Mass/Vol] 3.5 mmol/L 3.3-5.1 [facility] Random urine creatinine mary ann urement (mass/volume)Ordered By: Apolinar Roche on 05-17-2024 Creatinine Unsp time (U) [Mass/Vol] 200.00 mg/dL 39-259 [facility] Screening total cholesterol/ high density lipoprotein (HDL) cholesterol ratioOrdered By: Apolinar Roche on 05-17-2024 Cholesterol.total/Choles terol in HDL [Mass ratio] 2.33 {ratio} [facility] Serum creatinine measurement (mass/volume)Ordered By: Apolinar Roche on 05-17-2024 Creatinine [Mass/Vol] 0.88 mg/dL 0.70-1.20 [facility] Serum globulin measurementOr dered By: Apolinar Roche on 05-17-2024 Globulin (S) [Mass/Vol] 2.7 g/dL 2.2-4.2 [facility] Serum glucose measurement (m ass/volume)Ordered By: Apolinar Roche on 05-17-2024 Glucose [Mass/Vol] 124 mg/dL High 70-99 [facility] Serum or plasma alanine craig otransferase (ALT) measurementOrdered By: Apolinar Roche on 05-17-2024 ALT [Catalytic activity/Vol] 30 U/L <47 [facility] Serum or plasma albumin mary ann urement (mass/volume)Ordered By: Apolinar Roche on 05-17-2024 Albumin [Mass/Vol] 3.9 g/dL 3.4-4.8 [facility] Serum or plasma albumin/glob ulin mass ratioOrdered By: Apolinar Roche on 05-17-2024 Albumin/Globulin [Mass ratio] 1.4 {ratio} 0.9-2.4 [facility] Serum or plasma alkaline jessie sphatase measurementOrdered By: Apolinar Roche on 05-17-2024 ALP [Catalytic activity/Vol] 67 U/L 40-129 [facility] Serum or plasma calcium mary ann urement (mass/volume)Ordered By: Apolinar Roche on 05-17-2024 Calcium [Mass/Vol] 9.1 mg/dL 7.6-11.0 [facility] Serum or plasma cholesterol in HDL measurement (mass/volume)Ordered By: Apolinar Roche on 05-17-2024 Cholesterol in HDL [Mass/Vol] 49 mg/dL >40 [facility] Comment on above: National Cholesterol Education Program (NCEP) guidelines:<40 mg/dL: Low HDL-cholesterol (major risk factor for CHD)>= 60 mg/dL: High HDL-cholesterol (negative risk factor for CHD)HDL-cholesterol is affected by a number of factors, e.g. smoking, exercise, hormones, sex and age. Serum or plasma cholesterol measurement (mass/volume)Ordered By: Apolinar Roche on 05-17-2024 Cholesterol [Mass/Vol] 113 mg/dL <201 [facility] Comment on above: Cholesterol level, D esirable <200 mg/dLBorderline high cholesterol 200-239 mg/dLHigh cholesterol >=240 mg/dLRecommendations of the NCEP Adult Treatment Panel for the following risk-cutoff thresholds for the [place] population. Serum or plasma urea nitroge n measurement (mass/volume)Ordered By: Apolinar Roche on 05-17-2024 Urea nitrogen [Mass/Vol] 14 mg/dL 4-19 [facility] Sodium levelOrdered By: Apolinar Roche on 05-17-2024 Sodium [Moles/Vol] 140 mmol/L 133-145 [facility] Total proteinOrdered By: Kristin Roche on 05-17-2024 Protein [Mass/Vol] 6.7 g/dL 5.9-8.4 [facility] Triglycerides measurementOrd ered By: Apolinar Roche on 05-17-2024 Triglyceride [Mass/Vol] 66 mg/dL <199 [facility] Comment on above: The drugs N-Acetylcy steine and Metamizole may falsely depress this assay. Normal range: <150 mg/dLBorderline High: 150-199 mg/dLHigh: 200-499 mg/dLVery High: >500 mg/dL Urine albumin measurement wi detection limit of 20 mg/L or less (mass/volume)Ordered By: Apolinar Roche on 05-17-2024 Albumin DL <= 20 mg/L (U) [Mass/Vol] 66.8 mg/L NO RANGE EST. [facility] - Microbiology an d Antimicrobial susceptibilityOrdered By: Elizabeth Dao on 05-06-2024 SARS-CoV-2 (COVID-19) RNA LUIS ANGEL+probe Ql (Unsp spec) Detected [facility] No Panel InformationOrdered By: Elizabeth Dao on 05-06-2024 Influenza Types A,B Rapid (Clinic) Not detected [facility] Urgent Care Visit Reporton 0 05-06-2024 Urgent Care Visit Report [facility] [address], [address] [place] [id number] OFFICE VISIT Date of Service: 05/06/24 MR#: [id number] Acct: [id number] Name: RJ REYNOLDS Rep #: [id number] : 1955 Provider: YOLANDA Dao Age/Sex: 69/M [place] [facility] [facility] [place] Status: Signed Intake Vital Signs 04/18/24 15:53 [...] Visit Reasons: COVID Chief Complaint: covid test Reviewer Sales Required: No Is patient in pain?: No Allergies JAJA Inhibitors Allergy (Verified 05/06/24 09:47) Unknown atorvastatin (From Lipitor) Adverse Reaction (Verified 05/06/24 09:47) Pain in joints simvastatin Adverse Reaction (Verified 05/06/24 09:47) Pain in joints Medications ???Medication ???Instructions ???Recorded ???Confirmed ???Type ascorbic acid (vitamin C) 500 mg 500 mg PO DAILY 05/26/16 05/06/24 History tablet coenzyme [id number] E 100 mg-5 1 ea PO DAILY [...] with 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 [facility] Medical History (Updated 05/06/24 @ 09:48 by Elizaebth [place], YIELD ANALYST-C) Congestion of nasal sinus Longstanding persistent atrial [...] arterial hypertension Atherosclerosis of coronary artery of kaw heart without angina pectoris Diabetes mellitus Osteoarthritis [...] to t (more content not included)... Normal [facility] Absolute lymphocyte countOrd ered By: Jody Padilla on 04-25-2024 Lymphocytes Auto (Unsp spec) [#/Vol] 1.64 10*3/uL 0.83-4.51 [facility] Absolute neutrophil countOrd ered By: Jody Padilla on 04-25-2024 Neutrophils (Bld) [#/Vol] 4.5 10*3/uL 2.0-7.7 [facility] Automated lymphocyte count a s percentage of total leukocytesOrdered By: Jody Padilla on 04-25-2024 Lymphocytes/100 WBC Auto (Unsp spec) 22.4 % 19-41 [facility] Basic Metabolic Profile (BMP )on 04-25-2024 BUN/CRE 14.6 RATIO Normal 10-20 [facility] Comment on above: Performed By: #### L 100.0100, L500.2500, L501.9520, L501.5200 #### [facility] [address] [place], [address] CA,Total 9.2 mg/dL Normal 8.5-10.1 [facility] Comment on above: Performed By: #### L 100.0100, L500.2500, L501.9520, L501.5200 #### [facility] [address] [place], [address] Chloride [Moles/Vol] 103 mmol/L Normal 98-107 [facility] Comment on above: Performed By: #### L 100.0100, L500.2500, L501.9520, L501.5200 #### [facility] [address] [place], [address] CO2 [Moles/Vol] 33.0 mmol/L High 21.0-32.0 [facility] Comment on above: Performed By: #### L 100.0100, L500.2500, L501.9520, L501.5200 #### [facility] [address] [place], [address] Creatinine [Mass/Vol] 0.96 mg/dL Normal 0.70-1.30 [facility] Comment on above: Result Comment: The validity of the calculated GFR GFRAA in patients over 70 years has not been determined. Clinical correlation is essential. Performed By: #### L 100.0100, L500.2500, L501.9520, L501.5200 #### [facility] [address] [place], [address] EST GFR - AA 100 mL/min Normal >60 [facility] Comment on above: Result Comment: Afri can Maced[place] GFR Calc Performed By: #### L 100.0100, L500.2500, L501.9520, L501.5200 #### [facility] [address] [place], [address] GAP 3 Low 5-15 [facility] Comment on above: Performed By: #### L 100.0100, L500.2500, L501.9520, L501.5200 #### [facility] [address] [place], [address] GFR/1.73 sq M.predicted among non-blacks MDRD (S/P/Bld) [Vol rate/Area] 82 mL/min/{1.73_m2} Normal >60 [facility] Comment on above: Result Comment: Non- GFR Calc Performed By: #### L 100.0100, L500.2500, L501.9520, L501.5200 #### [facility] [address] [place], [address] Glucose [Mass/Vol] 162 mg/dL High 74-106 [facility] Comment on above: Result Comment: Fast ing Glucose result greater than or equal to 126 mg/dL suggests DIABETES MELLITUS per A.D.A. criteria. Performed By: #### L 100.0100, L500.2500, L501.9520, L501.5200 #### [facility] [address] [place], [address] Potassium [Moles/Vol] 3.6 mmol/L Normal 3.5-5.1 [facility] Comment on above: Performed By: #### L 100.0100, L500.2500, L501.9520, L501.5200 #### [facility] [address] [place], [address] Sodium [Moles/Vol] 140 mmol/L Normal 136-145 [facility] Comment on above: Performed By: #### L 100.0100, L500.2500, L501.9520, L501.5200 #### [facility] [address] [place], [address] Urea nitrogen [Mass/Vol] 14 mg/dL Normal 7-18 [facility] Comment on above: Performed By: #### L 100.0100, L500.2500, L501.9520, L501.5200 #### [facility] [address] [place], [address] Basophil percentageOrdered B y: Jody Padilla on 04-25-2024 Basophils/100 WBC (Bld) 0.4 % 0-1 [facility] Blood urea nitrogen (BUN)/cr eatinine ratioOrdered By: Jody Padilla on 04-25-2024 Urea nitrogen/Creatinine [Mass ratio] 14.6 mg/mg 10-20 [facility] CBC W/Diff, Automatedon 04-15 Absolute Lymph 1.64 X10 3/uL Normal 0.83-4.51 [facility] Comment on above: Performed By: #### L 100.0100, L500.2500, L501.9520, L501.5200 #### [facility] [address] [place], [address] Absolute Neut 4.5 X10 3/uL Normal 2.0-7.7 [facility] Comment on above: Performed By: #### L 100.0100, L500.2500, L501.9520, L501.5200 #### [facility] [address] [place], [address] Basophils/100 WBC (Bld) 0.4 % Normal 0-1 [facility] Comment on above: Performed By: #### L 100.0100, L500.2500, L501.9520, L501.5200 #### [facility] [address] [place], [address] Eosinophils/100 WBC (Bld) 2.0 % Normal 0-5 [facility] Comment on above: Performed By: #### L 100.0100, L500.2500, L501.9520, L501.5200 #### [facility] [address] [place], [address] Erythrocyte distribution width (RBC) [Ratio] 12.9 % Normal 11.6-14.6 [facility] Comment on above: Performed By: #### L 100.0100, L500.2500, L501.9520, L501.5200 #### [facility] [address] [place], [address] Hematocrit (Bld) [Volume fraction] 40.2 % Normal 40-54 [facility] Comment on above: Performed By: #### L 100.0100, L500.2500, L501.9520, L501.5200 #### [facility] [address] [place], [address] Hemoglobin (Bld) [Mass/Vol] 13.7 g/dL Normal 13.0-16.5 [facility] Comment on above: Performed By: #### L 100.0100, L500.2500, L501.9520, L501.5200 #### [facility] [address] [place], [address] IG% 0.500 Normal 0.0-0.9 [facility] Comment on above: Result Comment: IG% - Immature Granulocytes (promyelocytes, myelocytes and metamyelocytes) > 1% indicates that a LEFT SHIFT is Present. Performed By: #### L 100.0100, L500.2500, L501.9520, L501.5200 #### [facility] [address] [place], [address] Lymphocytes/100 WBC (Bld) 22.4 % Normal 19-41 [facility] Comment on above: Performed By: #### L 100.0100, L500.2500, L501.9520, L501.5200 #### [facility] [address] [place], [address] MCH (RBC) [Entitic mass] 31.1 pg Normal 27.0-32.0 [facility] Comment on above: Performed By: #### L 100.0100, L500.2500, L501.9520, L501.5200 #### [facility] [address] [place], [address] MCHC (RBC) [Mass/Vol] 34.1 g/dL Normal 32-36 [facility] Comment on above: Performed By: #### L 100.0100, L500.2500, L501.9520, L501.5200 #### [facility] [address] [place], [address] MCV (RBC) [Entitic vol] 91.2 fL Normal 80-94 [facility] Comment on above: Performed By: #### L 100.0100, L500.2500, L501.9520, L501.5200 #### [facility] [address] [place], [address] Monocytes/100 WBC (Bld) 13.1 % High 0-10 [facility] Comment on above: Performed By: #### L 100.0100, L500.2500, L501.9520, L501.5200 #### [facility] [address] [place], [address] Neutrophils/100 WBC (Bld) 61.6 % Normal 47-70 [facility] Comment on above: Performed By: #### L 100.0100, L500.2500, L501.9520, L501.5200 #### [facility] [address] [place], [address] Nucleated RBC (Bld) [#/Vol] 0 10*3/uL Normal 0-5 [facility] Comment on above: Performed By: #### L 100.0100, L500.2500, L501.9520, L501.5200 #### [facility] [address] [place], [address] Platelet mean volume (Bld) [Entitic vol] 10.5 fL Normal 6.2-12.0 [facility] Comment on above: Performed By: #### L 100.0100, L500.2500, L501.9520, L501.5200 #### [facility] [address] [place], [address] Platelets (Bld) [#/Vol] 201 10*3/uL Normal 150-450 [facility] Comment on above: Performed By: #### L 100.0100, L500.2500, L501.9520, L501.5200 #### [facility] [address] [place], [address] RBC (Bld) [#/Vol] 4.41 10*6/uL Low 4.6-6.2 [facility] Comment on above: Performed By: #### L 100.0100, L500.2500, L501.9520, L501.5200 #### [facility] [address] [place], [address] RDW SD 42.6 fl Normal 35.1-43.9 [facility] Comment on above: Performed By: #### L 100.0100, L500.2500, L501.9520, L501.5200 #### [facility] [address] [place], [address] WBC (Bld) [#/Vol] 7.3 10*3/uL Normal 4.4-11.0 [facility] Comment on above: Performed By: #### L 100.0100, L500.2500, L501.9520, L501.5200 #### [facility] [place], [address] Carbon dioxide measurementOr dered By: Jody Padilla on 04-25-2024 CO2 [Moles/Vol] 33.0 mmol/L High 21.0-32.0 [facility] Chloride measurementOrdered By: Jody Padilla on 04-25-2024 Chloride [Moles/Vol] 103 mmol/L 98-107 [facility] Eosinophil percentageOrdered By: Jody Padilla on 04-25-2024 Eosinophils/100 WBC (Bld) 2.0 % 0-5 [facility] Erythrocyte distribution wid th ratioOrdered By: Jody Padilla on 04-25-2024 Erythrocyte distribution width (RBC) [Ratio] 12.9 % 11.6-14.6 [facility] Erythrocyte distribution wid th standard deviationOrdered By: Jody Padilla on 04-25-2024 Erythrocyte distribution width (RBC) [Entitic vol] 42.6 fL 35.1-43.9 [facility] Erythrocyte distribution width (RBC) [Ratio] 42.6 fl 35.1-43.9 [facility] Estimated glomerular filtrat ion rate (GFR) AmericanOrdered By: Jody Padilla on 04-25-2024 Estimated GFR (MDRD) Amer 100 mL/min >60 [facility] Comment on above: GFR Calc Glomerular filtration rate ( GFR) estimationOrdered By: Jody Padilla on 04-25-2024 Estimated GFR (MDRD) Non-Af Amer 82 mL/min >60 [facility] Comment on above: Non- GFR Calc GFR/1.73 sq M.predicted among non-blacks MDRD (S/P/Bld) [Vol rate/Area] 82 mL/min/{1.73_m2} >60 [facility] Comment on above: Non- GFR Calc Glucose measurementOrdered B y: Jody Padilla on 04-25-2024 Glucose [Mass/Vol] 162 mg/dL High 74-106 [facility] Comment on above: Fasting Glucose resu lt greater than or equal to 126 mg/dL suggests DIABETES MELLITUS per A.D.A. criteria. Hematocrit Auto (Bld) [Volum e fraction]Ordered By: Jody Padilla on 04-25-2024 Hematocrit (Bld) [Volume fraction] 40.2 % 40-54 [facility] Hemoglobin measurementOrdere d By: Jody Padilla on 04-25-2024 Hemoglobin (Bld) [Mass/Vol] 13.7 g/dL 13.0-16.5 [facility] Immature granulocytes/100 WB C Auto (Bld)Ordered By: Jody Padilla on 04-25-2024 Immature granulocytes/100 WBC (Bld) 0.500 % 0.0-0.9 [facility] Comment on above: IG% - Immature Granu locytes (promyelocytes, myelocytes and metamyelocytes) > 1% indicates that a LEFT SHIFT is Present. Lymphocytes Auto (Unsp spec) [#/Vol]Ordered By: Jody Padilla on 04-25-2024 Lymphocytes (Bld) [#/Vol] 1.64 10*3/uL 0.83-4.51 [facility] Lymphocytes/100 WBC Auto (Un sp spec)Ordered By: Jody Padilla on 04-25-2024 Lymphocytes/100 WBC (Bld) 22.4 % 19-41 [facility] MCV (mean corpuscular volume ) determinationOrdered By: Jody Padilla on 04-25-2024 MCV (RBC) [Entitic vol] 91.2 fL 80-94 [facility] Magnesiumon 04-25-2024 Magnesium [Mass/Vol] 2.3 mg/dL Normal 1.6-2.6 [facility] Comment on above: Performed By: #### L 100.0100, L500.2500, L501.9520, L501.5200 #### [facility] [address] [place], [place] [address] [place], [place], [id number] Magnesium measurementOrdered By: Jody Padilla on 04-25-2024 Magnesium [Mass/Vol] 2.3 mg/dL 1.6-2.6 [facility] Mean corpuscular hemoglobin (MCH) determinationOrdered By: Jody Padilla on 04-25-2024 MCH (RBC) [Entitic mass] 31.1 pg 27.0-32.0 [facility] Mean corpuscular hemoglobin concentration (MCHC) determinationOrdered By: Jody Padilla on 04-25-2024 MCHC (RBC) [Mass/Vol] 34.1 g/dL 32-36 [facility] Mean platelet volume determi nationOrdered By: Jody Padilla on 04-25-2024 Platelet mean volume (Bld) [Entitic vol] 10.5 fL 6.2-12.0 [facility] Monocyte percentageOrdered B y: Jody Padilla on 04-25-2024 Monocytes/100 WBC (Bld) 13.1 % High 0-10 [facility] Neutrophil percentageOrdered By: Jody Padilla on 04-25-2024 Neutrophils/100 WBC (Bld) 61.6 % 47-70 [facility] Nucleated red blood cell per centageOrdered By: Jody Padilla on 04-25-2024 Nucleated RBC/100 WBC (Bld) [Ratio] 0 % 0-5 [facility] Platelet countOrdered By: Ramona Padilla on 04-25-2024 Platelets (Bld) [#/Vol] 201 10*3/uL 150-450 [facility] Potassium measurementOrdered By: Jody Padilla on 04-25-2024 Potassium [Moles/Vol] 3.6 mmol/L 3.5-5.1 [facility] RBC Auto (Bld) [#/Vol]Ordere d By: Jody Padilla on 04-25-2024 RBC (Bld) [#/Vol] 4.41 10*6/uL Low 4.6-6.2 [facility] Serum anion gap measurementO rdered By: Jody Padilla on 04-25-2024 Anion gap [Moles/Vol] 3 mmol/L Low 5-15 [facility] Serum or plasma calcium mary ann urement (mass/volume)Ordered By: Jody Padilla on 04-25-2024 Calcium [Mass/Vol] 9.2 mg/dL 8.5-10.1 [facility] Serum or plasma creatinine m easurement (mass/volume)Ordered By: Jody Padilla on 04-25-2024 Creatinine [Mass/Vol] 0.96 mg/dL 0.70-1.30 [facility] Comment on above: The validity of the calculated GFR & GFRAA in patients over 70 years has not been determined. Clinical correlation is essential. Serum or plasma thyroid stim ulating hormone (TSH) measurement (units/volume)Ordered By: Jody Padilla on 04-25-2024 TSH Qn 1.590 uIU/mL 0.358-3.740 [facility] Serum or plasma urea nitroge n measurement (mass/volume)Ordered By: Jody Padilla on 04-25-2024 Urea nitrogen [Mass/Vol] 14 mg/dL 7-18 [facility] Sodium levelOrdered By: Stefano Padilla on 04-25-2024 Sodium [Moles/Vol] 140 mmol/L 136-145 [facility] TSH QnOrdered By: Jody Barrera on 04-25-2024 Thyroid Stimulating Hormone (TSH) 1.590 uIU/mL 0.358-3.740 [facility] Thyroid Stim Hormone (TSH)on 04-25-2024 TSH 1.590 uIU/mL Normal 0.358-3.740 [facility] Comment on above: Performed By: #### L 100.0100, L500.2500, L501.9520, L501.5200 ####[facility] [id number] [place], [place], [address] White blood cell (WBC) count Ordered By: Jody Padilla on 04-25-2024 WBC (Bld) [#/Vol] 7.3 10*3/uL 4.4-11.0 [facility] - Microbiology an d Antimicrobial susceptibilityOrdered By: Patrice Noriega on 04-18-2024 SARS-CoV-2 (COVID-19) RNA LUIS ANGEL+probe Ql (Unsp spec) Not detected [facility] Urgent Care Visit Reporton 0 04-18-2024 Urgent Care Visit Report [facility] [address], [address] [place], [place] [address] OFFICE VISIT Date of Service: 04/18/24 MR#: [id number] Acct: [id number] Name: RJ REYNOLDS Rep #: [id number] : 1955 Provider: YOLANDA Noriega Age/Sex: 69/M [place] [facility] [facility] [place] Status: Signed Intake Vital Signs 12/02/23 13:48 [...] PO DAILY 05/26/16 04/18/24 History tablet coenzyme [id number] E 100 mg-5 1 ea PO DAILY [...] his has covid and he is concerned. [facility] Medical History (Updated 04/18/24 @ 16:37 by [...] arterial hypertension Atherosclerosis of coronary artery of kaw heart without angina pectoris Diabetes mellitus Osteoarthritis [...] fever coug (more content not included)... Normal [facility] Orthopedic Visit Reporton Orthopedic Visit Report [facility] [address] [place] [address] [address] [place] [address] OFFICE VISIT Date of Service: 12/22/23 MR#: [id number] Acct: [id number] Name: RJ REYNOLDS Rep #: [id number] : 1955 Provider: Dr. Florentin horne DO Age/Sex: 68/M [place] [facility]: Signed Intake Vital Signs 11/22/23 15:18 [...] PO DAILY 05/26/16 12/22/23 History tablet coenzyme Y54-slqboic E 100 mg-5 1 ea PO DAILY [...] arterial hypertension Atherosclerosis of coronary artery of kaw heart without angina pectoris Diabetes mellitus Osteoarthritis [...] oriented x3 (more content not included)... Normal [facility] Orthopedic Visit Reporton Orthopedic Visit Report [facility] [address] [place] [address] OFFICE VISIT Date of Service: 12/15/23 MR#: [id number] Acct: [id number] Name: RJ REYNOLDS Rep #: [id number] : 1955 Provider: Dr. Florentin horne DO Age/Sex: 68/M [place] [facility] [place]: Signed Intake Vital Signs 11/22/23 15:18 [...] PO DAILY 05/26/16 12/15/23 History tablet coenzyme P52-kapereh E 100 mg-5 1 ea PO DAILY [...] you fallen in the past year?: No [facility] Medical History Longstanding persistent atrial fibrillation Wears [...] arterial hypertension Atherosclerosis of coronary artery of kaw heart without angina pectoris Diabetes mellitus Osteoarthritis [...] x3 Psy (more content not included)... Normal [facility] Orthopedic Visit Reporton Orthopedic Visit Report [facility] [address] [place] [id number] OFFICE VISIT Date of Service: 12/08/23 MR#: [id number] Acct: [id number] Name: RJ REYNOLDS Rep #: [id number] : 1955 Provider: Dr. Florentin horne, DO Age/Sex: 68/M [place] [facility] [place]: Signed Intake Vital Signs 11/22/23 15:18 [...] PO DAILY 05/26/16 12/08/23 History tablet coenzyme F55-ycubfnz E 100 mg-5 1 ea PO DAILY [...] arterial hypertension Atherosclerosis of coronary artery of kaw heart without angina pectoris Diabetes mellitus Osteoarthritis [...] Skin/Wound: No (more content not included)... Normal [facility] Orthopedic Visit Reporton Orthopedic Visit Report [facility] [address] [place] [address] OFFICE VISIT Date of Service: 11/22/23 MR#: [id number] Acct: [id number] Name: RJ REYNOLDS Rep #: [id number] : 1955 Provider: Dr. Florentin horne DO Age/Sex: 68/M [place] [facility] [place]: Signed Intake Vital Signs 08/11/23 07:50 [...] PO DAILY 05/26/16 11/22/23 History tablet coenzyme M75-gqbrgkf E 100 mg-5 1 ea PO DAILY [...] Allergies Arthritis Atherosclerosis of coronary artery of kaw heart without angina pectoris Back pain BiPAP [...] for 4 (more content not included)... Normal [facility] Basophil percentageOrdered B y: Apolinar Roche on 04-23-2023 Bilirubin [Mass/Vol] 0.70 mg/dL 0.20-1.00 [facility] Comment on above: For patients on eltr ombopag therapy, use of Dimension [place] TBIL is not recommended. Chloride [Moles/Vol] 107 mmol/L 98-107 [facility] Glucose [Mass/Vol] 154 mg/dL 74-106 [facility] Comment on above: Fasting Glucose resu lt greater than or equal to 126 mg/dL suggests DIABETES MELLITUS per A.D.A. criteria. Potassium [Moles/Vol] 3.8 mmol/L 3.5-5.1 [facility] Comment on above: Moderate Hemolysis, Result may be falsely increased. Protein [Mass/Vol] 7.3 g/dL 6.4-8.2 [facility] Sodium [Moles/Vol] 141 mmol/L 136-145 [facility] Laboratory - Chemistry and C hemistry - challengeOrdered By: Apolinar Roche on 04-23-2023 Albumin/Globulin [Mass ratio] 0.9 {ratio} 0.9-2.4 [facility] ALP [Catalytic activity/Vol] 68 U/L 45-117 [facility] ALT [Catalytic activity/Vol] 41 U/L 16-61 [facility] CO2 [Moles/Vol] 30.0 mmol/L 21.0-32.0 [facility] Globulin (S) [Mass/Vol] 3.8 g/dL 2.2-4.2 [facility] Urea nitrogen/Creatinine [Mass ratio] 14.9 mg/mg 10-20 [facility] No Panel InformationOrdered By: Apolinar Roche on 04-23-2023 Estimated GFR (MDRD) Amer 94 mL/min >60 [facility] Comment on above: GFR Calc Estimated GFR (MDRD) Non-Af Amer 78 mL/min >60 [facility] Comment on above: Non- GFR Calc Serum or plasma calcium mary ann urement (mass/volume)Ordered By: Apolinar Roche on 04-23-2023 Calcium [Mass/Vol] 9.4 mg/dL 8.5-10.1 [facility] Serum or plasma creatinine m easurement (mass/volume)Ordered By: Apolinar Roche on 04-23-2023 Creatinine [Mass/Vol] 1.01 mg/dL 0.70-1.30 [facility] Comment on above: The validity of the calculated GFR & GFRAA in patients over 70 years has not been determined. Clinical correlation is essential. Serum or plasma urea nitroge n measurement (mass/volume)Ordered By: Apolinar Roche on 04-23-2023 Urea nitrogen [Mass/Vol] 15 mg/dL 7-18 [facility] Thin prep Papanicolaou smear with manual screeningOrdered By: Apolinar Roche on 04-23-2023 Thin prep Papanicolaou smear with manual screening 3.5 g/dL 3.2-5.0 [facility] Thin prep Papanicolaou smear with manual screening 35 U/L 15-37 [facility] Comment on above: Moderate Hemolysis, Result may be falsely increased. Thin prep Papanicolaou smear with manual screening 4 5-15 [facility] Whole blood hemoglobin A1c/t otal hemoglobin ratio (mass fraction)Ordered By: Apolinar Roche on 04-23-2023 HbA1c (Bld) [Mass fraction] 5.9 % 3.8-5.6 [facility] Comment on above: Normal < 5.7 % Predi abetic 5.7 - 6.4 % Diabetic >or= 6.5 % Please note range changes. Basophil percentageOrdered B y: Apolinar Roche on 01-20-2023 Basophil percentage 0 SEEN /hpf 0-5 [facility] Bilirubin Test strip Ql (U)O rdered By: Apolinar Roche on 01-20-2023 Bilirubin Ql (U) Negative Negative [facility] Ketones Test strip Ql (U)Ord ered By: Apolinar Roche on 01-20-2023 Ketones Ql (U) Negative Negative [facility] Mucus LM Ql (Urine sed)Order ed By: Apolinar Roche on 01-20-2023 Mucus Ql (Urine sed) 0 SEEN /hpf [facility] Nitrite Test strip Ql (U)Ord ered By: Apolinar Roche on 01-20-2023 Nitrite Ql (U) Negative Negative [facility] No Panel InformationOrdered By: Apolinar Roche on 01-20-2023 Urine Microalbumin/Creatinine Ratio 31.5 mg/g CRE <30 [facility] Protein Test strip Ql (U)Ord ered By: Apolinar Roche on 01-20-2023 Protein Ql (U) Negative Negative [facility] Squamous epithelial cells de tection in urine sediment by light microscopyOrdered By: Apolinar Roche on 01-20-2023 Epithelial cells.squamous LM Ql (Urine sed) 0-5 SEEN /hpf 0-5 [facility] Thin prep Papanicolaou smear with manual screeningOrdered By: Apolinar Roche on 01-20-2023 Thin prep Papanicolaou smear with manual screening 39.1 mg/L NO RANGE EST. [facility] Urine blood detectionOrdered By: Apolinar Roche on 01-20-2023 RBC Ql (U) 10 /ul Negative [facility] RBC Ql (U) 0-5 SEEN /hpf 0-5 [facility] Urine clarityOrdered By: Kristin Roche on 01-20-2023 Clarity (U) Clear Clear [facility] Urine color determinationOrd ered By: Apolinar Roche on 01-20-2023 Color (U) Yellow Yellow [facility] Urine creatinine measurement (mass/volume)Ordered By: Apolinar Roche on 01-20-2023 Creatinine (U) [Mass/Vol] 124.00 mg/dL NO RANGE EST. [facility] Urine glucose detectionOrder ed By: Apolinar Roche on 01-20-2023 Glucose Ql (U) Normal mg/dl Normal [facility] Urine leukocyte esterase det ection by dipstickOrdered By: Apolinar Roche on 01-20-2023 Leukocyte esterase Test strip Ql (U) Negative Negative [facility] Urine pHOrdered By: Apolinar jones on 01-20-2023 pH (U) 6.0 [pH] 5.0 - 8.0 [facility] Urine sediment bacteria coun t by microscopy (number/high power field)Ordered By: Apolinar Roche on 01-20-2023 Bacteria LM.HPF (Urine sed) [#/Area] 0 /[HPF] None Seen [facility] Urine specific gravity measu rementOrdered By: Apolinar Roche on 01-20-2023 Specific gravity (U) [Rel density] 1.015 1.002-1.030 [facility] Urobilinogen Auto test strip Ql (U)Ordered By: Apolinar Roche on 01-20-2023 Urobilinogen Ql (U) Normal mg/dl Normal [facility] Basophil percentageOrdered B y: Apolinar Roche on 01-19-2023 Bilirubin [Mass/Vol] 0.50 mg/dL 0.20-1.00 [facility] Comment on above: For patients on eltr ombopag therapy, use of Dimension [place] TBIL is not recommended. Chloride [Moles/Vol] 105 mmol/L 98-107 [facility] Glucose [Mass/Vol] 115 mg/dL 74-106 [facility] Comment on above: Fasting Glucose resu lt from 100 to 125 mg/dL suggests IMPAIRED HOMEOSTASIS per A.D.A. criteria. Potassium [Moles/Vol] 3.6 mmol/L 3.5-5.1 [facility] Protein [Mass/Vol] 7.0 g/dL 6.4-8.2 [facility] Sodium [Moles/Vol] 139 mmol/L 136-145 [facility] Laboratory - Chemistry and C hemistry - challengeOrdered By: Apolinar Roche on 01-19-2023 ALP [Catalytic activity/Vol] 65 U/L 45-117 [facility] ALT [Catalytic activity/Vol] 32 U/L 16-61 [facility] CO2 [Moles/Vol] 31.0 mmol/L 21.0-32.0 [facility] Globulin (S) [Mass/Vol] 3.5 g/dL 2.2-4.2 [facility] Urea nitrogen/Creatinine [Mass ratio] 14.7 mg/mg 10-20 [facility] No Panel InformationOrdered By: Apolinar Roche on 01-19-2023 Estimated GFR (MDRD) Amer 93 mL/min >60 [facility] Comment on above: GFR Calc Estimated GFR (MDRD) Non-Af Amer 77 mL/min >60 [facility] Comment on above: Non- GFR Calc Serum or plasma albumin mary ann urement (mass/volume)Ordered By: Apolinar Roche on 01-19-2023 Albumin [Mass/Vol] 3.5 g/dL 3.2-5.0 [facility] Serum or plasma albumin/glob ulin mass ratioOrdered By: Apolinar Roche on 01-19-2023 Albumin/Globulin [Mass ratio] 1.0 {ratio} 0.9-2.4 [facility] Serum or plasma calcium mary ann urement (mass/volume)Ordered By: Apolinar Roche on 01-19-2023 Calcium [Mass/Vol] 9.4 mg/dL 8.5-10.1 [facility] Serum or plasma creatinine m easurement (mass/volume)Ordered By: Apolinar Roche on 01-19-2023 Creatinine [Mass/Vol] 1.02 mg/dL 0.70-1.30 [facility] Comment on above: The validity of the calculated GFR & GFRAA in patients over 70 years has not been determined. Clinical correlation is essential. Serum or plasma urea nitroge n measurement (mass/volume)Ordered By: Apolinar Roche on 01-19-2023 Urea nitrogen [Mass/Vol] 15 mg/dL 7-18 [facility] Thin prep Papanicolaou smear with manual screeningOrdered By: Apolinar Roche on 01-19-2023 Thin prep Papanicolaou smear with manual screening 21 U/L 15-37 [facility] Thin prep Papanicolaou smear with manual screening 3 5-15 [facility] Whole blood hemoglobin A1c/t otal hemoglobin ratio (mass fraction)Ordered By: Apolinar Roche on 01-19-2023 HbA1c (Bld) [Mass fraction] 5.5 % 3.8-5.6 [facility] Comment on above: Normal < 5.7 % Predi abetic 5.7 - 6.4 % Diabetic >or= 6.5 % Please note range changes. Glucose Glucometer (BldC) [M ass/Vol]Ordered By: Dr. Briscoe on 06-05-2022 Glucose [Mass/Vol] 123 mg/dL 74-106 [facility] Comment on above: MANAGEMENT OF PATIEN T CARE PER NURSING PROTOCOL Absolute lymphocyte countOrd ered By: Theresa Ortiz on 05-21-2022 Lymphocytes Auto (Unsp spec) [#/Vol] 1.60 10*3/uL 0.83-4.51 [facility] Basophil percentageOrdered B y: Theresa Ortiz on 05-21-2022 Basophils/100 WBC (Bld) 0.4 % 0-1 [facility] Bilirubin [Mass/Vol] 0.50 mg/dL 0.20-1.00 [facility] Comment on above: For patients on eltr ombopag therapy, use of Dimension [place] TBIL is not recommended. Chloride [Moles/Vol] 105 mmol/L 98-107 [facility] Cholesterol [Mass/Vol] 127 mg/dL <200 [facility] Comment on above: <200 mg/dL Desirable 200-240 mg/dL Borderline >240 mg/dL High Risk Eosinophils/100 WBC (Bld) 1.0 % 0-5 [facility] Glucose [Mass/Vol] 115 mg/dL 74-106 [facility] Comment on above: Fasting Glucose resu lt from 100 to 125 mg/dL suggests IMPAIRED HOMEOSTASIS per A.D.A. criteria. Neutrophils (Bld) [#/Vol] 4.6 10*3/uL 2.0-7.7 [facility] Neutrophils/100 WBC (Bld) 65.0 % 47-70 [facility] Potassium [Moles/Vol] 3.6 mmol/L 3.5-5.1 [facility] Protein [Mass/Vol] 6.8 g/dL 6.4-8.2 [facility] Sodium [Moles/Vol] 141 mmol/L 136-145 [facility] Triglyceride [Mass/Vol] 65 mg/dL <199 [facility] Comment on above: The drugs N-Acetylcy steine and Metamizole may falsely depress this assay.Serum Triglycerides Reference Interval Normal <150 mg/dL Borderline high 150 - 199 mg/dL High 200 - 499 mg/dL Very High > or = 500 mg/dL WBC (Bld) [#/Vol] 7.1 10*3/uL 4.4-11.0 [facility] Blood erythrocytes count (nu mber/volume)Ordered By: Theresa Ortiz on 05-21-2022 RBC (Bld) [#/Vol] 4.39 10*6/uL 4.6-6.2 [facility] Blood hemoglobin measurement (mass/volume)Ordered By: Theresa Statlenioulrisa on 05-21-2022 Hemoglobin (Bld) [Mass/Vol] 14.2 g/dL 13.0-16.5 [facility] Blood lymphocytes/100 leukoc ytesOrdered By: Theresa Statlenioulos on 05-21-2022 Lymphocytes/100 WBC (Bld) 22.6 % 19-41 [facility] Blood monocytes/100 leukocyt esOrdered By: Theresa Stathopoulos on 05-21-2022 Monocytes/100 WBC (Bld) 10.6 % 0-10 [facility] Blood platelet mean volumeOr dered By: Theresa Stathopoulos on 05-21-2022 Platelet mean volume (Bld) [Entitic vol] 10.1 fL 6.2-12.0 [facility] Determination of erythrocyte mean corpuscular volume (MCV)Ordered By: Theresa Statsay on 05-21-2022 MCV (RBC) [Entitic vol] 94.3 fL 80-94 [facility] Hematocrit Auto (Bld) [Volum e fraction]Ordered By: Theresa Ortiz on 05-21-2022 Hematocrit (Bld) [Volume fraction] 41.4 % 40-54 [facility] Laboratory - Chemistry and C hemistry - challengeOrdered By: Theresa Ortiz on 05-21-2022 ALP [Catalytic activity/Vol] 64 U/L 45-117 [facility] ALT [Catalytic activity/Vol] 43 U/L 16-61 [facility] CO2 [Moles/Vol] 27.0 mmol/L 21.0-32.0 [facility] Globulin (S) [Mass/Vol] 3.3 g/dL 2.2-4.2 [facility] Urea nitrogen/Creatinine [Mass ratio] 16.1 mg/mg 10-20 [facility] Laboratory - Hematology and Cell countsOrdered By: Theresa Diana on 05-21-2022 Erythrocyte distribution width (RBC) [Entitic vol] 43.3 fL 35.1-43.9 [facility] Erythrocyte distribution width (RBC) [Ratio] 12.4 % 11.6-14.6 [facility] Immature granulocytes/100 WBC (Bld) 0.400 % 0.0-0.9 [facility] Comment on above: IG% - Immature Granu locytes (promyelocytes, myelocytes and metamyelocytes) > 1% indicates that a LEFT SHIFT is Present. MCH (RBC) [Entitic mass] 32.3 pg 27.0-32.0 [facility] Nucleated RBC/100 WBC (Bld) [Ratio] 0 % 0-5 [facility] MCHC Auto (RBC) [Mass/Vol]Or dered By: Theresa Ortiz on 05-21-2022 MCHC (RBC) [Mass/Vol] 34.3 g/dL 32-36 [facility] No Panel InformationOrdered By: Theresa Ortiz on 05-21-2022 Estimated GFR (MDRD) Amer 96 mL/min >60 [facility] Comment on above: GFR Calc Estimated GFR (MDRD) Non-Af Amer 79 mL/min >60 [facility] Comment on above: Non- GFR Calc Prostate Specific Antigen Screen 1.92 ng/mL 0.00-4.00 [facility] Comment on above: This test was perfor med using the TPSA assay method for [employer] chemistry system. Values obtained with differentassay methods cannot be used interchangably.When changing PSA assays in the course of monitoring apatient, additional sequential testing should be carriedout to confirm baseline values. Platelets bldOrdered By: Timothy garcia Statsay on 05-21-2022 Platelets (Bld) [#/Vol] 186 10*3/uL 150-450 [facility] Serum or plasma albumin mary ann urement (mass/volume)Ordered By: Theresa [facility]fill[facility] centercon[facility]elo on 05-21-2022 Albumin [Mass/Vol] 3.5 g/dL 3.2-5.0 [facility] Serum or plasma albumin/glob ulin mass ratioOrdered By: Theresa [facility] on 05-21-2022 Albumin/Globulin [Mass ratio] 1.1 {ratio} 0.9-2.4 [facility] Serum or plasma calcium mary ann urement (mass/volume)Ordered By: Theresa Statsay on 05-21-2022 Calcium [Mass/Vol] 9.3 mg/dL 8.5-10.1 [facility] Serum or plasma cholesterol in HDL measurement (mass/volume)Ordered By: Theresa Statlenioulrisa on 05-21-2022 Cholesterol in HDL [Mass/Vol] 44 mg/dL >40 [facility] Comment on above: The drugs N-Acetylcy steine and Metamizole may falsely depress this assay. Reference Range HDL <40 mg/dL Low HDL Cholesterol HDL >or= 60 mg/dL High HDL Cholesterol Serum or plasma cholesterol in VLDL measurement (mass/volume)Ordered By: Theresa [facility] on 05-21-2022 Cholesterol in VLDL [Mass/Vol] 13 mg/dL 5-40 [facility] Serum or plasma creatinine m easurement (mass/volume)Ordered By: Theresa Ortiz on 05-21-2022 Creatinine [Mass/Vol] 0.99 mg/dL 0.70-1.30 [facility] Comment on above: The validity of the calculated GFR & GFRAA in patients over 70 years has not been determined. Clinical correlation is essential. Serum or plasma low density lipoprotein (LDL) cholesterol measurement (mass/volume)Ordered By: Theresa Ortiz on 05-21-2022 Cholesterol in LDL [Mass/Vol] 70 mg/dL 0-130 [facility] Serum or plasma urea nitroge n measurement (mass/volume)Ordered By: Theresa [facility]ill[facility] centercon[facility]elo on 05-21-2022 Urea nitrogen [Mass/Vol] 16 mg/dL 7-18 [facility] Thin prep Papanicolaou smear with manual screeningOrdered By: [facility]2022 Thin prep Papanicolaou smear with manual screening 27 U/L 15-37 [facility] Thin prep Papanicolaou smear with manual screening 9 5-15 [facility] Whole blood hemoglobin A1c/t otal hemoglobin ratio (mass fraction)Ordered By: Theresa Ortiz on 05-21-2022 HbA1c (Bld) [Mass fraction] 5.7 % 3.8-5.6 [facility] Comment on above: Normal < 5.7 % Predi abetic 5.7 - 6.4 % Diabetic >or= 6.5 % Please note range changes. Absolute lymphocyte counton 12-03-2021 Lymphocytes Auto (Unsp spec) [#/Vol] 1.52 10*3/uL 0.83-4.51 [facility] Work Phone: Basophil percentageon 2021 Basophils/100 WBC (Bld) 0.5 % 0-1 [facility] Work Phone: Bilirubin [Mass/Vol] 0.50 mg/dL 0.20-1.00 [facility] Work Phone: Comment on above: For patients on eltr ombopag therapy, use of Dimension [place] TBIL is not recommended. Chloride [Moles/Vol] 106 mmol/L 98-107 [facility] Work Phone: Cholesterol [Mass/Vol] 124 mg/dL <200 [facility] Work Phone: Comment on above: <200 mg/dL Desirable 200-240 mg/dL Borderline >240 mg/dL High Risk Eosinophils/100 WBC (Bld) 1.3 % 0-5 [facility] Work Phone: Glucose [Mass/Vol] 116 mg/dL 74-106 [facility] Work Phone: Comment on above: Fasting Glucose resu lt from 100 to 125 mg/dL suggests IMPAIRED HOMEOSTASIS per A.D.A. criteria. Neutrophils (Bld) [#/Vol] 3.9 10*3/uL 2.0-7.7 [facility] Work Phone: Neutrophils/100 WBC (Bld) 61.6 % 47-70 [facility] Work Phone: Potassium [Moles/Vol] 3.5 mmol/L 3.5-5.1 [facility] Work Phone: Protein [Mass/Vol] 7.2 g/dL 6.4-8.2 [facility] Work Phone: Sodium [Moles/Vol] 141 mmol/L 136-145 [facility] Work Phone: Triglyceride [Mass/Vol] 116 mg/dL <199 [facility] Work Phone: Comment on above: The drugs N-Acetylcy steine and Metamizole may falsely depress this assay.Serum Triglycerides Reference Interval Normal <150 mg/dL Borderline high 150 - 199 mg/dL High 200 - 499 mg/dL Very High > or = 500 mg/dL WBC (Bld) [#/Vol] 6.4 10*3/uL 4.4-11.0 [facility] Work Phone: Blood erythrocytes count (nu mber/volume)on 12-03-2021 RBC (Bld) [#/Vol] 4.31 10*6/uL 4.6-6.2 [facility] Work Phone: Blood hemoglobin measurement (mass/volume)on 12-03-2021 Hemoglobin (Bld) [Mass/Vol] 14.3 g/dL 13.0-16.5 [facility] Work Phone: Blood lymphocytes/100 leukoc yteson 12-03-2021 Lymphocytes/100 WBC (Bld) 23.8 % 19-41 [facility] Work Phone: Blood monocytes/100 leukocyt eson 12-03-2021 Monocytes/100 WBC (Bld) 12.5 % 0-10 [facility] Work Phone: Blood platelet mean volumeon 12-03-2021 Platelet mean volume (Bld) [Entitic vol] 10.2 fL 6.2-12.0 [facility] Work Phone: Determination of erythrocyte mean corpuscular volume (MCV)on 12-03-2021 MCV (RBC) [Entitic vol] 95.1 fL 80-94 [facility] Work Phone: Hematocrit Auto (Bld) [Volum e fraction]on 12-03-2021 Hematocrit (Bld) [Volume fraction] 41.0 % 40-54 [facility] Work Phone: Laboratory - Chemistry and C hemistry - challengeon 12-03-2021 ALP [Catalytic activity/Vol] 67 U/L 45-117 [facility] Work Phone: ALT [Catalytic activity/Vol] 37 U/L 16-61 [facility] Work Phone: CO2 [Moles/Vol] 27.0 mmol/L 21.0-32.0 [facility] Work Phone: Globulin (S) [Mass/Vol] 3.7 g/dL 2.2-4.2 [facility] Work Phone: Urea nitrogen/Creatinine [Mass ratio] 16.5 mg/mg 10-20 [facility] Work Phone: Laboratory - Hematology and Cell countson 12-03-2021 Erythrocyte distribution width (RBC) [Entitic vol] 43.8 fL 35.1-43.9 [facility] Work Phone: Erythrocyte distribution width (RBC) [Ratio] 12.6 % 11.6-14.6 [facility] Work Phone: Immature granulocytes/100 WBC (Bld) 0.300 % 0.0-0.9 [facility] Work Phone: Comment on above: IG% - Immature Granu locytes (promyelocytes, myelocytes and metamyelocytes) > 1% indicates that a LEFT SHIFT is Present. MCH (RBC) [Entitic mass] 33.2 pg 27.0-32.0 [facility] Work Phone: Nucleated RBC/100 WBC (Bld) [Ratio] 0 % 0-5 [facility] Work Phone: MCHC Auto (RBC) [Mass/Vol]on 12-03-2021 MCHC (RBC) [Mass/Vol] 34.9 g/dL 32-36 [facility] Work Phone: No Panel Informationon 12-03 Estimated GFR (MDRD) Amer 92 mL/min >60 [facility] Work Phone: Comment on above: GFR Calc Estimated GFR (MDRD) Non-Af Amer 76 mL/min >60 [facility] Work Phone: Comment on above: Non- GFR Calc Thyroid Stimulating Hormone (TSH) 1.36 uIU/mL 0.358-3.74 [facility] Work Phone: Urine Microalbumin/Creatinine Ratio 24.6 mg/g CRE <30 [facility] Work Phone: Platelets bldon 12-03-2021 Platelets (Bld) [#/Vol] 172 10*3/uL 150-450 [facility] Work Phone: Serum or plasma albumin mary ann urement (mass/volume)on 12-03-2021 Albumin [Mass/Vol] 3.5 g/dL 3.2-5.0 [facility] Work Phone: Serum or plasma albumin/glob ulin mass ratioon 12-03-2021 Albumin/Globulin [Mass ratio] 0.9 {ratio} 0.9-2.4 [facility] Work Phone: Serum or plasma calcium mary ann urement (mass/volume)on 12-03-2021 Calcium [Mass/Vol] 9.2 mg/dL 8.5-10.1 [facility] Work Phone: Serum or plasma cholesterol in HDL measurement (mass/volume)on 12-03-2021 Cholesterol in HDL [Mass/Vol] 41 mg/dL >40 [facility] Work Phone: Comment on above: The drugs N-Acetylcy steine and Metamizole may falsely depress this assay. Reference Range HDL <40 mg/dL Low HDL Cholesterol HDL >or= 60 mg/dL High HDL Cholesterol Serum or plasma cholesterol in VLDL measurement (mass/volume)on 12-03-2021 Cholesterol in VLDL [Mass/Vol] 23 mg/dL 5-40 [facility] Work Phone: Serum or plasma creatinine m easurement (mass/volume)on 12-03-2021 Creatinine [Mass/Vol] 1.03 mg/dL 0.70-1.30 [facility] Work Phone: Comment on above: The validity of the calculated GFR & GFRAA in patients over 70 years has not been determined. Clinical correlation is essential. Serum or plasma low density lipoprotein (LDL) cholesterol measurement (mass/volume)on 12-03-2021 Cholesterol in LDL [Mass/Vol] 60 mg/dL 0-130 [facility] Work Phone: Serum or plasma urea nitroge n measurement (mass/volume)on 12-03-2021 Urea nitrogen [Mass/Vol] 17 mg/dL 7-18 [facility] Work Phone: Thin prep Papanicolaou smear with manual screeningon 12-03-2021 Thin prep Papanicolaou smear with manual screening 25 U/L 15-37 [facility] Work Phone: Thin prep Papanicolaou smear with manual screening 8 5-15 [facility] Work Phone: Thin prep Papanicolaou smear with manual screening 39.1 mg/L NO RANGE EST. [facility] Work Phone: Urine creatinine measurement (mass/volume)on 12-03-2021 Creatinine (U) [Mass/Vol] 159.00 mg/dL NO RANGE EST. [facility] Work Phone: Whole blood hemoglobin A1c/t otal hemoglobin ratio (mass fraction)on 12-03-2021 HbA1c (Bld) [Mass fraction] 5.8 % 3.8-5.6 [facility] Work Phone: Comment on above: Normal < 5.7 % Predi abetic 5.7 - 6.4 % Diabetic >or= 6.5 % Please note range changes. Office Visiton 01-28-2017 Alcoholism counseling (procedure) no Invalid Interpretation Code [facility] Work Phone: Dietary management education, guidance, and counseling (procedure) yes Invalid Interpretation Code [facility] Work Phone: Documentation of current medications (procedure) Done Invalid Interpretation Code [facility] Work Phone: Tobacco use CPHS Former smoker Invalid Interpretation Code [facility] Work Phone: Office Visiton 12-21-2016 Alcoholism counseling (procedure) no Invalid Interpretation Code [facility] Work Phone: Dietary management education, guidance, and counseling (procedure) yes Invalid Interpretation Code [facility] Work Phone: Documentation of current medications (procedure) Done Invalid Interpretation Code [facility] Work Phone: Tobacco use CPHS Former smoker Invalid Interpretation Code [facility] Work Phone: Clinical Lists Update: Clini katerin Noteon 09-09-2016 Left ventricular Ejection fraction 68 % Invalid Interpretation Code [facility] Work Phone: Office Visiton 08-18-2016 Fall risk assessment No Invalid Interpretation Code [facility] Work Phone: Lab Report: Bilirubin, Direc ton 08-08-2016 Bilirubin (direct) 0.10 mg/dL Invalid Interpretation Code 0.00-0.30 [facility] Work Phone: [facility] 08-08-2016 Alanine aminotransferase (ALT) 30 U/L Invalid Interpretation Code 12-78 [facility] Work Phone: Albumin 3.3 g/dL Low 3.4-5.0 [facility] Work Phone: Albumin/Globulin Ratio 1.1 {ratio} Invalid Interpretation Code 0.9-2.4 [facility] Work Phone: Alkaline phosphatase (ALP) 87 U/L Invalid Interpretation Code 45-117 [facility] Work Phone: Anion gap 7 mmol/L Invalid Interpretation Code 5-15 [facility] Work Phone: Aspartate aminotransferase (AST) 15 U/L Invalid Interpretation Code 15-37 [facility] Work Phone: Bilirubin (total) 0.40 mg/dL Invalid Interpretation Code 0.20-1.00 [facility] Work Phone: BUN/Creatinine Ratio 13.5 RATIO Invalid Interpretation Code 10-20 [facility] Work Phone: Calcium 8.4 mg/dL Low 8.5-10.1 [facility] Work Phone: Chloride 110 mmol/L High 98-107 [facility] Work Phone: CO2 27.0 mmol/L Invalid Interpretation Code 21.0-32.0 [facility] Work Phone: eGFR (non-black) 102 mL/min/{1.73_m2} Invalid Interpretation Code >60 [facility] Work Phone: Globulin 3.1 g/dL Invalid Interpretation Code 2.3-3.5 [facility] Work Phone: Potassium molar conc 4.1 mmol/L Invalid Interpretation Code 3.5-5.1 [facility] Work Phone: Protein 6.4 g/dL Invalid Interpretation Code 6.4-8.2 [facility] Work Phone: Sodium 144 mmol/L Invalid Interpretation Code 136-145 [facility] Work Phone: Creatinine 0.96 mg/dL Invalid Interpretation Code 0.70-1.30 [facility] Work Phone: eGFR (non-black) 84 mL/min/{1.73_m2} Invalid Interpretation Code >60 [facility] Work Phone: Glucose mass conc 107 mg/dL Invalid Interpretation Code 70-110 [facility] Work Phone: Urea nitrogen 13 mg/dL Invalid Interpretation Code 7-18 [facility] Work Phone: Lab Report: Hemoglobin A1con 08-08-2016 Hemoglobin A1c/Hemoglobin.total mass fraction (Bld) 5.3 % Invalid Interpretation Code 4.2-6.3 [facility] Work Phone: Lab Report: Lipid Profileon 08-08-2016 Cholesterol 151 mg/dL Invalid Interpretation Code 200 [facility] Work Phone: HDL Cholesterol 41 mg/dL Invalid Interpretation Code [facility] Work Phone: LDL Cholesterol 84 mg/dL Invalid Interpretation Code 0-130 [facility] Work Phone: Triglyceride 131 mg/dL Invalid Interpretation Code [facility] Work Phone: very low density lipoproteins 26 mg/dL Invalid Interpretation Code 5-40 [facility] Work Phone: Lab Report: PSA,Total - Marcie al Screenon 08-08-2016 PSA,TOT SCREEN 1.40 ng/mL Invalid Interpretation Code 0.00-4.00 [facility] Work Phone: Lab Report: Thyroid Stim Hor vale (TSH)on 08-08-2016 Thyroid stimulating hormone (TSH) 1.28 u[iU]/mL Invalid Interpretation Code 0.358-3.74 [facility] Work Phone: Lab Report: Bedside Glucoseo n 06-02-2016 Glucose mass conc 115 mg/dL High 70-110 [facility] Work Phone: Replaced Document: [employer] E CG Observationson 08-07-2015 BUN (urea nitrogen) Sinus Rhythm -Right bundle branch block. ABNORMAL Invalid Interpretation Code [facility] Work Phone: EKG QRS axis -27 deg Invalid Interpretation Code [facility] Work Phone: P Melbeta 40 deg Invalid Interpretation Code [facility] Work Phone: IL Interval 150 ms Invalid Interpretation Code [facility] Work Phone: Pulse (Heart Rate) 64 /min Invalid Interpretation Code [facility] Work Phone: QRS Duration 150 ms Invalid Interpretation Code [facility] Work Phone: QT Interval new path ms Invalid Interpretation Code [facility] Work Phone: QTc Scott 451 ms Invalid Interpretation Code [facility] Work Phone: T Melbeta 47 deg Invalid Interpretation Code [facility] Work Phone: Lab Report: CBC-Complete Blo od Cnt No Diffon 08-03-2015 Erythrocytes (RBC) 4.48 10*6/uL Low 4.6-6.2 [facility] Work Phone: MCH 32.4 pg High 27.0-32.0 [facility] Work Phone: Erythrocyte distribution width Auto Ratio (RBC) 13.0 % Invalid Interpretation Code 11.6-14.6 [facility] Work Phone: Hematocrit (HCT) 41.9 % Invalid Interpretation Code 40-54 [facility] Work Phone: Hemoglobin mass conc (Bld) 14.5 g/dL Invalid Interpretation Code 13.0-16.5 [facility] Work Phone: MCHC mass conc (RBC) 34.6 G/GL Invalid Interpretation Code 32-36 [facility] Work Phone: MCV 93.5 fL Invalid Interpretation Code 80-94 [facility] Work Phone: Platelets 165 10*3/mm3 Invalid Interpretation Code 150-450 [facility] Work Phone: PMV by Lorraine 10.3 fL Invalid Interpretation Code 6.2-12.0 [facility] Work Phone: RDW SD 43.3 fL Invalid Interpretation Code 35.1-43.9 [facility] Work Phone: WBC (Leukocytes) 6.4 10*3/uL Invalid Interpretation Code 4.4-11.0 [facility] Work Phone: Office Visiton 01-02-2015 Smoking cessation education (procedure) yes Invalid Interpretation Code [facility] Work Phone: Office Visit: [facility] 07-27-19 15 cardiac risk group C Invalid Interpretation Code [facility] Work Phone: General cardiovascular disease 10Y risk [#] [place].D'Agostino N/A Invalid Interpretation Code [facility] Work Phone: Lab Report: T4 Free Directon 07-21-2014 Thyroxine (T4) free 0.98 ng/dL Invalid Interpretation Code 0.76-1.46 [facility] Work Phone: Lab Report: CBCDon 4 Monocytes/100 leukocytes 14.5 % High 0-10 [facility] Work Phone: ANC 2.6 X10 3/UL Normal 2.0-7.7 [facility] Work Phone: Basophils/100 WBC Auto (Bld) 0.4 % Normal 0-1 [facility] Work Phone: Eosinophils/100 leukocytes 2.3 % Normal 0-5 [facility] Work Phone: Lymphocytes/100 leukocytes 28.1 % Normal 19-41 [facility] Work Phone: Neutrophils/100 WBC Auto (Bld) 54.7 % Normal 47-70 [facility] Work Phone: Lab Report: MGon 07-22-2013 Magnesium 2.0 mg/dL Normal 1.8-2.4 [facility] Work Phone: Replaced Document: Barry Chu CG Observationson 07-20-2013 Pulse (Heart Rate) 430 ms Invalid Interpretation Code [facility] Work Phone: Vital Signs Date Time Vital Sign Value Performing Clinician Facility 08-11-2024 08:32-0400 Body mass index (BMI) [Ratio] 45.3 kg/m2 Dr. Apolinar Roche MD Work Phone: [facility] 08-11-2024 08:32-0400 Body temperature 96 [degF] Dr. Apolinar Roche MD Work Phone: [facility] 08-11-2024 08:32-0400 Body weight 135.[address] Apolinar Roche MD Work Phone: [facility] 08-11-2024 08:32-0400 Diastolic blood pressure 91 mm[Hg] Dr. Apolinar Roche MD Work Phone: 1(879)104-201945 [place] [address] 08-11-2024 08:32-0400 Heart rate 73 /min Dr. Apolinar Roche MD Work Phone: 0(224)856-361345 [place] [address] 08-11-2024 08:32-0400 Respiratory rate 18 /min Dr. Apolinar Roche MD Work Phone: 5(290)372-028645 [place] [address] 08-11-2024 08:32-0400 SaO2% (BldA) [Mass fraction] 96 % Dr. Apolinar Roche MD Work Phone: 9(564)440-382445 [place] [address] 08-11-2024 08:32-0400 Systolic blood pressure 166 mm[Hg] Dr. Apolinar Roche MD Work Phone: 4(300)303-760445 [place] [address] 06-19-2024 10:56-0400 Body height 172.[address] Apolinar Roche MD Work Phone: 6(288)975-360245 [place] [address] 06-19-2024 10:56-0400 Body mass index (BMI) [Ratio] 45.3 kg/m2 Dr. Apolinar Roche MD Work Phone: 9(614)281-458845 [place] [address] 06-19-2024 10:56-0400 Body weight 135.[address] Apolinar Roche MD Work Phone: 8(243)737-879545 [place] [address] 06-19-2024 10:56-0400 Diastolic blood pressure 82 mm[Hg] Dr. Apolinar Roche MD Work Phone: 4(175)385-895545 [place] [address] 06-19-2024 10:56-0400 Heart rate 58 /min Dr. Apolinar Roche MD Work Phone: 4(225)272-092545 [place] [address] 06-19-2024 10:56-0400 Respiratory rate 18 /min Dr. Apolinar Roche MD Work Phone: 5(866)686-962345 [place] [address] 06-19-2024 10:56-0400 SaO2% (BldA) [Mass fraction] 98 % Dr. Apolinar Roche MD Work Phone: 6(286)547-096945 [place] [address] 06-19-2024 10:56-0400 Systolic blood pressure 132 mm[Hg] Dr. Apolinar Roche MD Work Phone: 7(943)167-008245 [place] [address] 05-06-2024 09:23-0500 Body temperature 98.6 [degF] Dr. Apolinar Roche MD Work Phone: [facility] 05-06-2024 09:23-0500 Diastolic blood pressure 68 mm[Hg] Dr. Apolinar Roche MD Work Phone: [facility] 05-06-2024 09:23-0500 Heart rate 82 /min Dr. Apolinar Roche MD Work Phone: 3(906)621-642323 [place] [address] 05-06-2024 09:23-0500 Respiratory rate 17 /min Dr. Apolinar Roche MD Work Phone: 0(395)622-156333 [address] 05-06-2024 09:23-0500 SaO2% (BldA) [Mass fraction] 97 % Dr. Apolinar Roche MD Work Phone: 8(325)089-656723 [place] [address] 05-06-2024 09:23-0500 Systolic blood pressure 152 mm[Hg] Dr. Apolinar Roche MD Work Phone: 0(098)198-469223 [place] [address] 04-18-2024 15:53-0500 Body height 172.[address] Apolinar Roche MD Work Phone: 2(821)226-338033 [address] 04-18-2024 15:53-0500 Body mass index (BMI) [Ratio] 44.9 kg/m2 Dr. Apolinar Roche MD Work Phone: [facility] 04-18-2024 15:53-0500 Body temperature 97.5 [degF] Dr. Apolinar Roche MD Work Phone: [facility] 04-18-2024 15:53-0500 Body weight 133.[address] Apolinar Roche MD Work Phone: [facility] 04-18-2024 15:53-0500 Diastolic blood pressure 80 mm[Hg] Dr. Apolinar Roche MD Work Phone: [facility] 04-18-2024 15:53-0500 Heart rate 77 /min Dr. Apolinar Roche MD Work Phone: [facility] 04-18-2024 15:53-0500 SaO2% (BldA) [Mass fraction] 97 % Dr. Apolinar Roche MD Work Phone: [facility] 04-18-2024 15:53-0500 Systolic blood pressure 120 mm[Hg] Dr. Apolinar Roche MD Work Phone: [facility] 06-30-2023 08:46-0400 Body height 167.[address] Apolinar Roche Work Phone: [facility] 06-18-2023 14:27-0400 Body mass index (BMI) [Ratio] 50.1 kg/m2 Dr. Apolinar Roche Work Phone: [facility] 06-18-2023 14:27-0400 Body weight 141.[address] Apolinar Roche Work Phone: [facility] 06-18-2023 14:27-0400 Diastolic blood pressure 76 mm[Hg] Dr. Apolinar Roche Work Phone: [facility] 06-18-2023 14:27-0400 Heart rate 60 /min Dr. Apolinar Roche Work Phone: [facility] 06-18-2023 14:27-0400 Respiratory rate 18 /min Dr. Apolinar Roche Work Phone: [facility] 06-18-2023 14:27-0400 SaO2% (BldA) [Mass fraction] 97 % Dr. Apolinar Roche Work Phone: [facility] 06-18-2023 14:27-0400 Systolic blood pressure 179 mm[Hg] Dr. Apolinar Roche Work Phone: [facility] 06-05-2022 13:12-0400 Body temperature 97.6 [degF] Dr. Apolinar Roche Work Phone: [facility] 06-05-2022 13:12-0400 Diastolic blood pressure 81 mm[Hg] Dr. Apolinar Roche Work Phone: [facility] 06-05-2022 13:12-0400 Heart rate 64 /min Dr. Apolinar Roche Work Phone: [facility] 06-05-2022 13:12-0400 Respiratory rate 16 /min Dr. Apolinar Roche Work Phone: [facility] 06-05-2022 13:12-0400 SaO2% (BldA) [Mass fraction] 98 % Dr. Apolinar Roche Work Phone: [facility] 06-05-2022 13:12-0400 Systolic blood pressure 145 mm[Hg] Dr. Apolinar Roche Work Phone: [facility] 06-05-2022 06:40-0400 Body height 167.[address] Apolinar Roche Work Phone: [facility] 06-05-2022 06:40-0400 Body mass index (BMI) [Ratio] 50.1 kg/m2 Dr. Apolinar Roche Work Phone: [facility] 06-05-2022 06:40-0400 Body weight [address] Apolinar Roche Work Phone: [facility] 05-19-2022 14:49-0500 Body height 167.[address] Apolinar Roche Work Phone: [facility] 05-19-2022 14:49-0500 Body temperature 97.9 [degF] Dr. Apolinar Roche Work Phone: [facility] 05-19-2022 14:49-0500 Heart rate 79 /min Dr. Apolinar Roche Work Phone: [facility] 05-19-2022 14:49-0500 Respiratory rate 18 /min Dr. Apolinar Roche Work Phone: [facility] 05-19-2022 14:49-0500 SaO2% (BldA) [Mass fraction] 95 % Dr. Apolinar Roche Work Phone: [facility] 03-11-2022 14:07-0500 Body mass index (BMI) [Ratio] 50.5 kg/m2 Dr. Apolinar Roche Work Phone: [facility] 03-11-2022 14:07-0500 Body weight 141.[address] Apolinar Roche Work Phone: [facility] 03-11-2022 14:07-0500 Diastolic blood pressure 98 mm[Hg] Dr. Apolinar Roche Work Phone: [facility] 03-11-2022 14:07-0500 Heart rate 89 /min Dr. Apolinar Roche Work Phone: [facility] 03-11-2022 14:07-0500 Respiratory rate 18 /min Dr. Apolinar Roche Work Phone: [facility] 03-11-2022 14:07-0500 SaO2% (BldA) [Mass fraction] 96 % Dr. Apolinar Roche Work Phone: [facility] 03-11-2022 14:07-0500 Systolic blood pressure 179 mm[Hg] Dr. Apolinar Roche Work Phone: [facility] 12-03-2021 15:36-0400 Body height 167.[address] Apolinar Roche Work Phone: [facility] Work Phone: 12-03-2021 15:36-0400 Body mass index (BMI) [Ratio] 49.7 kg/m2 Dr. Apolinar Roche Work Phone: [facility] Work Phone: 12-03-2021 15:36-0400 Body temperature 97.5 [degF] Dr. Apolinar Roche Work Phone: [facility] Work Phone: 12-03-2021 15:36-0400 Body weight 139.[address] Apolinar Roche Work Phone: [facility] Work Phone: 12-03-2021 15:36-0400 Diastolic blood pressure 89 mm[Hg] Dr. Apolinar Roche Work Phone: [facility] Work Phone: 12-03-2021 15:36-0400 Heart rate 61 /min Dr. Apolinar Roche Work Phone: [facility] Work Phone: 12-03-2021 15:36-0400 Respiratory rate 18 /min Dr. Apolinar Roche Work Phone: [facility] Work Phone: 12-03-2021 15:36-0400 SaO2% (BldA) [Mass fraction] 97 % Dr. Apolinar Roche Work Phone: [facility] Work Phone: 12-03-2021 15:36-0400 Systolic blood pressure 162 mm[Hg] Dr. Apolinar Roche Work Phone: [facility] Work Phone: 09-03-2021 13:42-0400 Body mass index (BMI) [Ratio] 49 kg/m2 Dr. Apolinar Roche Work Phone: [facility] Work Phone: 09-03-2021 13:42-0400 Body weight 137.[address] Apolinar Roche Work Phone: [facility] Work Phone: 09-03-2021 13:42-0400 Diastolic blood pressure 80 mm[Hg] Dr. Apolinar Roche Work Phone: [facility] Work Phone: 09-03-2021 13:42-0400 Heart rate 61 /min Dr. Apolinar Roche Work Phone: [facility] Work Phone: 09-03-2021 13:42-0400 Respiratory rate 18 /min Dr. Apolinar Roche Work Phone: [facility] Work Phone: 09-03-2021 13:42-0400 Systolic blood pressure 149 mm[Hg] Dr. Apolinar Roche Work Phone: [facility] Work Phone: 08-18-2016 14:33-0400 BMI (Body Mass Index) 48.09 kg/m2 [facility] Work Phone: 08-18-2016 14:33-0400 BP Diastolic 64 mm[Hg] [facility] Work Phone: 08-18-2016 14:33-0400 BP Systolic 122 mm[Hg] [facility] Work Phone: 08-18-2016 14:33-0400 Height 165.[address] [facility] Work Phone: 08-18-2016 14:33-0400 Pulse (Heart Rate) 64 /min [facility] Work Phone: 08-18-2016 14:33-0400 Weight 131.[address] [facility] Work Phone: 02-04-2016 16:54-0500 BSA (Body Surface Area) 2.35 m2 [facility] Work Phone: 02-04-2016 16:54-0500 Respiratory Rate 20 /min [facility] Work Phone: Encounters Encounter Date Encounter Type Care Provider Facility Start: 08-11-2024 End: 08-11-2024 Patient encounter procedure Soco Serrano YIELD ANALYSTSarthakC -[facility] Work Phone: Start: 08-11-2024 End: 08-11-[address] Apolinar Roche MD Work Phone: [facility] Work Phone: Start: 06-19-2024 End: 06-19-2024 Patient encounter procedure Arnulfo Champagne PA -[facility] Work Phone: Start: 06-19-2024 End: 06-19-2024 ambulatory Apolinar Roche Facility:[facility] Start: 05-17-2024 End: 05-17-[address] Apolinar Roche MD Work Phone: [facility] Work Phone: Start: 05-17-2024 End: 05-17-[address] Apolinar Roche MD -Laboratory Work Phone: Start: 05-17-2024 End: 05-17-2024 ambulatory Apolinar Roche Facility:[facility] Start: 05-06-2024 End: 05-06-2024 Patient encounter procedure Elizabeth Feliberto YIELD ANALYST-C [facility] Work Phone: Start: 05-06-2024 End: 05-06-2024 ambulatory Apolinar Roche Facility:[facility] Start: 04-25-2024 End: 04-25-2024 Patient encounter procedure Jody Padilla PA -Laboratory Work Phone: Start: 04-25-2024 End: 04-25-2024 ambulatory Jody WYATT Facility:[facility] Start: 04-18-2024 End: 04-18-2024 Patient encounter procedure Patrice Noriega YIELD ANALYST-C -[facility] Work Phone: Start: 04-18-2024 End: 04-18-2024 ambulatory Apolinar Roche Facility:[facility] Start: 12-22-2023 End: 12-22-2023 ambulatory Florentin Bethea Facility:[facility] Start: 12-15-2023 End: 12-15-2023 ambulatory Apolinar Roche Facility:[facility] Start: 12-08-2023 End: 12-08-2023 ambulatory Apolinar Roche Facility:[facility] Start: 11-22-2023 End: 11-22-2023 ambulatory Apolinar Roche Facility:[facility] Start: 07-16-2023 Non-patient / Non-visit Dr. Daquan Roche Work Phone: [facility] Start: 07-16-2023 End: 07-16-[address] Apolinar Roche Work Phone: [facility] Work Phone: Start: 07-16-2023 End: 07-16-[address] [facility] Start: 07-09-2023 End: 07-09-[address] Apolinar Roche Work Phone: [facility] Work Phone: Start: 06-18-2023 End: 06-18-[address] Apolinar Roche Work Phone: [facility] Work Phone: Start: 04-23-2023 End: 04-23-2023 ambulatory [facility] Work Phone: Start: 04-23-2023 End: 04-23-2023 Patient encounter procedure [facility] Work Phone: Start: 01-19-2023 End: 01-19-2023 ambulatory [facility] Work Phone: Start: 01-19-2023 End: 01-19-2023 Patient encounter procedure [facility] Work Phone: Start: 06-05-2022 Non-patient / Non-visit Dr. Daquan Roche Work Phone: [facility] Start: 06-05-2022 End: 06-05-2022 Admission to same day surgery center Dr. Apolinar Roche Work Phone: [facility] Start: 06-05-2022 End: 06-05-[address] Apolinar Roche Work Phone: [facility] Work Phone: Start: 05-27-2022 End: 05-27-[address] Apolinar Roche Work Phone: [facility] Work Phone: Start: 05-27-2022 End: 05-27-[address] Apolinar Roche Work Phone: [facility] Start: 05-21-2022 End: 05-21-[address] Apolinar Roche Work Phone: [facility] Work Phone: Start: 05-21-2022 End: 05-21-[address] Apolinar Roche Work Phone: [facility]-Laboratory Start: 05-19-2022 End: 05-19-[address] Apolinar Roche Work Phone: [facility] Start: 03-11-2022 End: 03-11-[address] Apolinar Roche Work Phone: [facility] Start: 12-03-2021 End: 12-03-[address] Apolinar Roche Work Phone: [facility] Start: 12-03-2021 End: 12-03-[address] Apolinar Roche Work Phone: [facility] Work Phone: Start: 12-03-2021 End: 12-03-[address] Apolinar Roche Work Phone: [facility]-Labor[facility] Start: 09-03-2021 End: 09-03-[address] Apolinar Roche Work Phone: [facility] Procedures Date Procedure Procedure Detail Performing Clinician [...] PA-C Work Phone: Start: 08-07-2015 End: 08-07-2015 LEGISLATIVE CORRESPONDENT Jody Padilla PA-C Work Phone: Start: 08-07-2015 [...] Galan Work Phone: Start: 07-26-2014 End: 07-26-2014 LEGISLATIVE CORRESPONDENT Jody Padilla PA-C Work Phone: Start: 07-26-2014 [...] PA-C Work Phone: Start: 07-20-2013 End: 07-20-2013 LEGISLATIVE CORRESPONDENT Jody Padilla PA-C Work Phone: Start: 07-20-2013 [...] Aidan Wyatt MD Start: 07-21-2012 End: 07-21-2012 LEGISLATIVE CORRESPONDENT Aidan Wyatt MD Start: 07-21-2012 End: 08-01-2012 [...] Activity Detail Author Start: 06-05-2022 Patient discharge [facility] Start: 08-09-2017 End: 08-21-2016 *Hepatic Function Panel *Hepatic Function Panel [facility] Work Phone: Start: 08-09-2017 End: 08-21-2016 Lipid panel [AGGREGATE] *Lipid Profile CC PCP [facility] Medical [facility] Work Phone: Start: 03-10-2017 End: 03-10-2017 Appointment Appointment [facility] Work Phone: Start: 03-01-2017 End: 03-01-2017 Appointment Appointment [facility] Work Phone: Start: 02-25-2017 End: 02-25-2017 Appointment Appointment [facility] Work Phone: Start: 01-28-2017 End: 01-28-2017 Appointment Appointment [facility] Work Phone: Start: 11-20-2016 End: 02-03-2016 *Hepatic Function Panel *Hepatic Function Panel [facility] Work Phone: Start: 11-20-2016 End: 02-03-2016 Lipid panel [AGGREGATE] *Lipid Profile CC PCP [facility] Work Phone: Start: 08-18-2016 End: 08-18-2016 Echocardiography Echocardiogram (complete) [facility] Work Phone: Start: 08-18-2016 End: 08-18-2016 Follow Up Appt 6 months Follow Up Appt 6 months [facility] Work Phone: Start: 08-18-2016 End: 08-18-2016 MMM MMM [facility] Work Phone: Start: 08-18-2016 End: 08-18-2016 Nuclear stress test -Lexiscan Nuclear stress test -Lexiscan [facility] Work Phone: Start: 08-12-2016 End: 06-03-2016 *Hepatic Function Panel *Hepatic Function Panel [facility] Work Phone: Start: 08-12-2016 End: 06-03-2016 Lipid panel [AGGREGATE] *Lipid Profile CC PCP [facility] Medical [facility] Work Phone: Start: 02-26-2016 End: 06-03-2016 Mri any jt lower extrem w/o contrast matrl MRI Joint Lower Extremity [facility] Work Phone: Start: 02-26-2016 End: 06-03-2016 Radiologic exam knee complete 4/more views X-Ray, Knee [facility] Work Phone: Start: 02-04-2016 End: 02-04-2016 Follow Up Appt 6 months Follow Up Appt 6 months [facility] Work Phone: Start: 02-04-2016 End: 02-04-2016 MMM MMM [facility] Work Phone: Start: 11-22-2015 End: 11-21-2015 Lipid panel [AGGREGATE] *Lipid Profile CC PCP [facility] Work Phone: Start: 08-07-2015 End: 08-07-2015 LEGISLATIVE CORRESPONDENT LEGISLATIVE CORRESPONDENT [facility] Work Phone: Start: 08-07-2015 End: 08-07-2015 Follow Up Appt 6 months Follow Up Appt 6 months [facility] Work Phone: Start: 08-07-2015 End: 08-07-2015 Follow Up BP Check Follow Up BP Check [facility] Work Phone: Start: 07-29-2015 End: 08-05-2015 *Hepatic Function Panel *Hepatic Function Panel [facility] Work Phone: Start: 07-29-2015 End: 08-05-2015 Lipid panel [AGGREGATE] *Lipid Profile CC PCP [facility] Medical [facility] Work Phone: Start: 01-29-2015 End: 03-06-2015 *BMP *BMP [facility] Work Phone: Start: 01-29-2015 End: 01-29-2015 Follow Up Appt 6 months Follow Up Appt 6 months [facility] Work Phone: Start: 01-29-2015 End: 01-29-2015 MMM MMM [facility] Work Phone: Start: 01-24-2015 End: 01-28-2015 *Hepatic Function Panel *Hepatic Function Panel [facility] Work Phone: Start: 01-24-2015 End: 01-28-2015 Lipid panel [AGGREGATE] *Lipid Profile CC PCP [facility] Medical [facility] Work Phone: Start: 01-09-2015 End: 01-09-2015 Physical Therapy [facility], [address] [place] [address], [id number] [facility] Work Phone: Start: 01-02-2015 End: 06-03-2016 Radex ankle complete minimum 3 views X-Ray, Ankle [facility] Work Phone: Start: 01-02-2015 End: 06-03-2016 Radiologic exam knee complete 4/more views X-Ray, Knee [facility] Work Phone: Start: 07-26-2014 End: 07-26-2014 LEGISLATIVE CORRESPONDENT LEGISLATIVE CORRESPONDENT [facility] Work Phone: Start: 07-26-2014 End: 07-26-2014 Ecg routine ecg w/least 12 lds w/i&r EKG (In office) [facility] Work Phone: Start: 07-26-2014 End: 07-26-2014 Follow Up Appt 6 months Follow Up Appt 6 months [facility] Work Phone: Start: 07-13-2014 End: 07-23-2014 *Hepatic Function Panel *Hepatic Function Panel [facility] Work Phone: Start: 07-13-2014 End: 07-23-2014 Lipid panel [AGGREGATE] *Lipid Profile CC PCP [facility] Work Phone: Start: 01-23-2014 End: 07-18-2014 Follow Up Appt 6 months Follow Up Appt 6 months [facility] Work Phone: Start: 01-23-2014 End: 07-18-2014 MMM MMM [facility] Work Phone: Start: 12-13-2013 End: 01-16-2014 *Hepatic Function Panel *Hepatic Function Panel [facility] Work Phone: Start: 12-13-2013 End: 01-16-2014 Lipid panel [AGGREGATE] *Lipid Profile CC PCP [facility] Work Phone: Start: 07-20-2013 End: 07-24-2013 *BMP *BMP [facility] Work Phone: Start: 07-20-2013 End: 07-24-2013 *CBC with Differential *CBC with Differential [facility] Work Phone: Start: 07-20-2013 End: 07-20-2013 LEGISLATIVE CORRESPONDENT LEGISLATIVE CORRESPONDENT [facility] Work Phone: Start: 07-20-2013 End: 07-20-2013 Ecg routine ecg w/least 12 lds w/i&r EKG (In office) [facility] Work Phone: Start: 07-20-2013 End: 07-20-2013 Follow Up Appt 6 months Follow Up Appt 6 months [facility] Work Phone: Start: 07-20-2013 End: 07-24-2013 Magnesium *Magnesium [facility] Work Phone: Start: 07-20-2013 End: 07-24-2013 Thyroid stimulating hormone (TSH) *TSH [facility] Work Phone: Start: 07-13-2013 End: 06-26-2013 *Hepatic Function Panel *Hepatic Function Panel [facility] Work Phone: Start: 07-13-2013 End: 06-26-2013 Lipid panel [AGGREGATE] *Lipid Profile CC PCP [facility] Work Phone: Start: 01-24-2013 End: 01-24-2013 Follow Up Appt 6 months Follow Up Appt 6 months [facility] Work Phone: Start: 01-24-2013 End: 01-24-2013 MMM MMM [facility] Work Phone: Start: 12-13-2012 End: 01-25-2013 *Hepatic Function Panel *Hepatic Function Panel [facility] Work Phone: Start: 12-13-2012 End: 01-25-2013 Lipid panel [AGGREGATE] *Lipid Profile [facility] Work Phone: Start: 07-21-2012 End: 07-21-2012 LEGISLATIVE CORRESPONDENT LEGISLATIVE CORRESPONDENT [facility] Work Phone: Start: 07-21-2012 End: 07-22-2012 Echocardiography Echocardiogram (complete) [facility] Work Phone: Start: 07-21-2012 End: 07-22-2012 Nuclear stress test -exercise Nuclear stress test -exercise [facility] Work Phone: Start: 06-29-2012 End: 06-20-2012 *Hepatic Function Panel *Hepatic Function Panel [facility] Work Phone: Start: 06-29-2012 End: 06-20-2012 Lipid panel [AGGREGATE] *Lipid Profile [facility] Work Phone: Start: 01-12-2012 End: 01-12-2012 Ecg routine ecg w/least 12 lds w/i&r EKG (In office) [facility] Work Phone: Start: 01-12-2012 End: 01-12-2012 Follow Up Appt 6 months Follow Up Appt 6 months [facility] Work Phone: Start: 12-16-2011 End: 11-18-2011 *Hepatic Function Panel *Hepatic Function Panel [facility] Work Phone: Start: 12-16-2011 End: 11-18-2011 Lipid panel [AGGREGATE] *Lipid Profile [facility] Work Phone: Start: 07-10-2011 End: 07-10-2011 Follow Up Appt 6 months Follow Up Appt 6 months [facility] Work Phone: Lipid 1996 panel - S megan or Plasma [facility] Patient Education [facility] Work Phone: Patient referral [facility] Work Phone: [facility] Immunizations Immunization Date Immunization Notes Care Provider Fa cility 01-08-2023 Covid (Spikevax) [facility] 01-08-2023 influenza, injectabl e, quadrivalent, preservative free [facility] 01-28-2022 influenza, injectabl e, quadrivalent, preservative free [facility] 01-28-2022 influenza, seasonal, injectable Dr. Apolinar Roche Work Phone: [facility] 09-05-2021 Covid (Pfizer) Dr. Apolinar cali Work Phone: [facility] 02-03-2021 influenza, injectabl e, quadrivalent, preservative free [facility] 02-03-2021 influenza, seasonal, injectable Dr. Apolinar Roche Work Phone: [facility] 01-15-2021 Covid (Moderna) Dr. Apolinar Johnson Work Phone: [facility] 04-09-2020 Covid (Moderna) Dr. Apolinar Johnson Work Phone: [facility] 03-12-2020 Covid (Moderna) Dr. Apolinar Johnson Work Phone: [facility] 01-01-2020 influenza, injectabl e, quadrivalent, preservative free [facility] 01-01-2020 influenza, seasonal, injectable Dr. Apolinar Roche Work Phone: [facility] 01-16-2019 influenza, injectabl e, quadrivalent, preservative free [facility] 01-16-2019 influenza, seasonal, injectable Dr. Apolinar Roche Work Phone: [facility] 01-12-2018 influenza, injectabl e, quadrivalent, preservative free [facility] 01-12-2018 influenza, seasonal, injectable Dr. Apolinar Roche Work Phone: [facility] 02-03-2017 hepatitis B vaccine, adult dosage Dr. Apolinar Roche Work Phone: [facility] 12-09-2016 influenza, injectabl e, quadrivalent, preservative free [facility] 12-09-2016 influenza, seasonal, injectable Dr. Apolinar Roche Work Phone: [facility] 04-22-2016 hepatitis B vaccine, pediatric or pediatric/adolescent dosage Dr. Apolinar Roche Work Phone: [facility] 03-19-2016 hepatitis B vaccine, pediatric or pediatric/adolescent dosage Dr. Apolinar Roche Work Phone: [facility] 03-19-2016 tetanus toxoid, redu gema diphtheria toxoid, and acellular pertussis vaccine, adsorbed Dr. Apolinar Roche Work Phone: [facility] Payers Date Payer Category Payer Self-pay [id number] 2023 Medicare [id number] 2010 Private Health Insurance [employer] [id number] Unknown [id number] [id number] [id number] Unknown [id number] 2.16.8 [id number] Unknown [id number] 2.16.8 [id number] Unknown [id number] 2.16.8 [id number] Unknown [id number] 2.16.8 [id number] Unknown [id number] 2.16.8 [id number] Unknown [id number] 2.16.8 [id number] Unknown [id number] 2.16.8 [id number] Unknown [id number] 2.16.8 [id number] Unknown [id number] 2.16.8 [id number] Social History Date Type Detail Facility Start: 12-03-2021 End: 07-09-2023 Tobacco smoking status NHIS Unknown if ever smoked [facility] Start: 01-30-2019 Non-smoker [facility] Start: 1955 Sex Assigned At Male [facility] Start: 12-02-2023 [facility] Start: 05-30-2024 Sex Male (finding) [facility] Goals Date Patient Goal Desired Activity /State Mental Status Date Assessment Result Facility 06-05-2022 Cognitive function Voice/Name [facility] Work Phone: Clinical Notes 07-19-2008 to 04-18-2024 Note Date & Type Note Facility 04-18-2024 Evaluation note Diagnosis Onset Date Resolution Congestion of nasal sinus acute April 18 3:45pm COVID acute May 06, 2024 9:17am [facility] Work Phone: 1(678) 738-674702-04-2025 Evaluation note* Diagnosis Onset Date Resolution Status Admit Date Congestion of nasal sinus acute April 18, 2024 3:45pm COVID acute May 06, 2024 9:17am Atherosclerosis of coronary artery of kaw heart without angina pectoris chronic June 10:50am Diastolic dysfunction chronic Jun 10:50am Essential (primary) hypertension chronic June 19, 2024 10:50am Hyperlipidemia chronic June 19, 2024 10:50am assisted (current) use of anticoagulants chronic June 19, 2024 10:50am Longstanding persistent atrial fibrillation chronic June 19, 025 10:50am H/O coronary artery bypass surgery July 19, 2008 resolved June 19, 2024 10:50am [facility] Work Phone: 1(800) 946-597903-24-2023 History and physical note Author Dr. Briscoe [facility] June 05, 2022 11:55am Note Date/Time June 05, 2022 11: 11am [facility] Medical Records Department [address] [place] [address] History & Physical Exam 06/05/22 1110 MR#: [id number] Acct: [id number] Name: RJ REYNOLDS Rep #:[id number] : 1955 67 From: Cullen Bonilla PCP: Dr. Apolinar Roche MD Status:[facility] Location: [place] [address] History and Physical Date of Admission: 06/05/22 [...] HISTORY Arthritis Atherosclerosis of coronary artery of kaw heart without angina pectoris Complex sleep apnea [...] simvastatin MEDICATIONS ascorbic acid (vitamin C) coenzyme [id number] E glucosamine sulfate metformin multivitamin with folic [...] 4.? Status bilateral direct brow lift. 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 6.? Diabetes [...] ? He has cataracts.? He saw his Auto Damage Insurance Appraiser on 10/22/21. Surgery would be done under general anesthesia with a surgical observation overnight stay in the hospital. Patient was informed of the risks and complications of the procedure including alternatives to surgery.? These were discussed with the patient personally.? Patient voices understanding and wishes to proceed. Some of the risks and complications were included in a form from the [employer] [employer]. Potential risks and [...] (5) Diabetes mellitus: (6) Former smoker: (7) assisted (current) use of anticoagulants: 06/05/22 1155 <Electronically signed by Cullen Briscoe MD> Cosigner Signature (if applicable): CC: Dr. Apolinar Roche MD; Dr. Cullen Briscoe MD~ Signed [facility] Work Phone: [phone]) 668-601805-07-2009 Evaluation note* Diagnosis Onset Date Resolution Status Essential (primary) hypertension chronic Hyperlipidemia chronic Paroxysmal atrial flutter ch wilman H/O coronary artery bypass surgery July 19, 2008 resolved [facility] Work Phone: [phone]) 613-719205-07-2009 Evaluation note* Diagnosis Onset Date Resolution Status Essential (primary) hypertension chronic Hyperlipidemia chronic Paroxysmal atrial flutter ch ronic H/O coronary artery bypass surgery July 19, 2008 resolved 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 Diabetes mellitus chronic Former smoker chronic History of eyelid surgery ch ronic 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 [facility] Work Phone: [phone] 154-676605-07-2009 Evaluation note* Diagnosis Onset Date Resolution Status Essential (primary) hypertension chronic Hyperlipidemia chronic Paroxysmal atrial flutter ch ronic H/O coronary artery bypass surgery July 19, 2008 resolved assisted (current) use of anticoagulants acute 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 Diabetes mellitus chronic Former smoker chronic History of eyelid surgery ch ronic 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 Briscoe [facility] June 05, 2022 12:28pm Note Date/Time June 05, 2022 12: 07pm [facility] Medical Records Department [address] [place] [address] Instructions for Home/Discharge Instructions 06/05/22 1159 MR#: [id number] Acct: [id number] Name: RJ REYNOLDS Rep #:[id number] : 1955 67 From: Cullen Bonilla PCP: Dr. Apolinar Roche MD Status:REG [facility] Discharge Instructions Diet Discharge Diet: Carb Control [...] PO QHS Label Comments: URINE FLOW coenzyme [id number] E 1 EACH capsule 1 ea PO [...] CC: Dr. Apolinar Roche MD ~ Signed [facility] Work Phone: Evaluation noteNo assessment information available [facility] Work Phone: Hospital Discharge instructions Additional Instructions Implant Used?: [facility] Work Phone: Reason for referral (narrative)No reason for referral information available[facility] Work Phone: Chief Complaint and Reason for Visit Chief Complaint 6 M FU FOLLOW UP Reason for Visit Essential (primary) hypertension Hyperlipidemia Paroxysmal atrial flutter H/O coronary artery bypass surgery Chief Complaint 6 M FU Pre Op NICOTINE DEPENDENCE Reason for Visit Essential (primary) hypertension Hyperlipidemia Paroxysmal atrial flutter H/O coronary artery bypass surgery 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 Dermatochalasis of left upper eyelid Dermatochalasis of right upper eyelid Diabetes mellitus Former smoker History of eyelid surgery 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 Chief Complaint 6 M FU Pre Op NICOTINE DEPENDENCE BILATERAL UPPER BLEPHAROPLASTY BILATERAL UPPER BLEPHAROPLASTY Reason for Visit Essential (primary) hypertension Hyperlipidemia Paroxysmal atrial flutter H/O coronary artery bypass surgery 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 Dermatochalasis of left upper eyelid Dermatochalasis of right upper eyelid Diabetes mellitus Former smoker History of eyelid surgery 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 assisted (current) use of anticoagulants Dermatochalasis of left [...] 2024 9:17am Atherosclerosis of coronary artery of kaw heart without angina pectoris June 19, 2024 10:50am Diastolic dysfunction June 19, 2024 10 :50am Essential (primary) hypertension June 192024 10:50am Hyperlipidemia June 19, 2024 10:5 0am 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 June 19, [...] Yes June 26, 2020 1:40pm Power of General Counsel Yes June 26 1:40pm Advance Directive Response Recorded Date/ Time Name of Medical Power of General Counsel June 01, 2022 9:47am Advance Directives Yes June 26 1:40pm Living Will Yes June 01, 2022 9:47am Power of General Counsel Yes June 01 9:47am Advance Directive Response Recorded Date/ Time Advance Directives Yes June 26 12:40pm Living Will Yes June 01, 2022 8:47am Power of General Counsel Yes June 01 8:47am Advance Directive Response Recorded Date/ Time Advance Directives Yes June 29 8:46am Living Will Yes June 30, 2023 8:46am Power of General Counsel Yes June 29 8:46am Advance Directive Response Recorded Date/ Time Advance Directives Yes June 29 8:46am Advance Directive Response Recorded Date/ Time Living Will Yes June 01, 2022 9:47am Do you have a Healthcare Power of General Counsel? Yes June 01, 2022 9:47am Living Will Yes June 30, 2023 8:46am Do you have a Healthcare Power of General Counsel? Yes June 30, 2023 8:46am Advance Directives [...] Provider, Referring P rovider Active Cedric Osorio YIELD ANALYST, YIELD ANALYST-C Attending Provider Active Team Status: Inactive Member Role Status Dates Dr. Apolinar Roche MD Primary Care Provider, Referring P rovider Active Dr. Cullen Briscoe MD Attending Provider Active Team Status: Active Member Role Status Dates Dr. Apolinar Roche MD Primary Care Provider Active Theresa Ortiz YIELD ANALYST-C Attending Provider, Referr ing Provider Active Team Status: Inactive Member Role Status Dates Dr. Apolinar Roche MD Primary Care Provider Active Theresa Ortiz NP-Juliocesar Attending Provider Active Team Status: Inactive Member Role Status Dates Dr. Apolinar Roche MD Primary Care Provider Active Theresa Ortiz YIELD ANALYST-C Attending Provider, Referr ing Provider Active Team [...] section and content) DATE CREATED AUTHOR 10/11/2024 [facility] FOR RECORDS PERTAINING TO PATIENTS WHO ARE [...] BE BASED ON THE PRIMARY CLINICAL RECORDS. [facility]. provides no warranty or guarantee of the accuracy or completeness of information in this document.
[2024-10-21 08:52] LABS: Hematocrit 38.3 % (40-54); Hemoglobin 13.3 g/dL (13.0-16.5); Immature Granulocytes Count 0.030 X10^3/uL (0.0-0.0); Mean Corp Hgb Conc 34.7 g/dL (32-36); Mean Corpuscular Volume 92.7 fL (80-94); Mean Platelet Vol. 10.5 fl (6.2-12.0); NRBC Flagged by Analyzer 0 % (0-5); Platelet Count 177 K/mm3 (150-450); RBC Distribution Width CV 12.7 % (11.6-14.6); RBC Distribution Width SD 42.9 fl (35.1-43.9); Red Blood Count 4.13 M/mm3 (4.6-6.2); White Blood Count 7.5 K/mm3 (4.4-11.0)
[2024-10-21 09:37] LABS: AST(SGOT) 23 U/L (<=37); Alanine Aminotransfer ALT/SGPT 27 U/L (<=46); Albumin, Serum 4.0 g/dL (3.4-4.8); Alkaline Phosphatase 71 U/L (40-129); Anion Gap 10 (5-15); BUN 15 mg/dL (4-19); BUN/Creat Ratio 16.5 RATIO (10-20); Calcium,Total 9.5 mg/dL (7.6-11.0); Carbon Dioxide 26.7 mmol/L (21.0-32.0); Chloride 102 mmol/L (98-108); Cholesterol 111 mg/dL (<=200); Globulin 2.7 g/dL (2.2-4.2); Glucose 139 mg/dL (70-99); Low Density Lipoprotein Calc. 49 mg/dL; Magnesium 2.2 mg/dL (1.5-2.2); Potassium 3.7 mmol/L (3.3-5.1); Pro- Brain NATRIURETIC PEPTIDE 576 pg/mL (<=900); Triglycerides 75 mg/dL; Very Low Density Lipoprotein 15 mg/dL (5-40); cholesterol:hdl ratio screen 2.36
[2024-10-23 12:29] LABS: Microalbumin,Random Urine 46.6 mg/L (<20 mg/L)
== END | disposition home or self-care (01) ==
LOC: LAB 08:18
PROVIDERS: PCP Family Medicine; Referring Provider Family Medicine; Visit Provider Family Medicine
DX: I48.91 Unspecified atrial fibrillation (principal); E11.8 Type 2 diabetes mellitus with unspecified complications
CPT/HCPCS: 80053; 80061; 82043; 83036; 83735; 83880; 84443; 85025

== ENCOUNTER → 2024-10-23 | Outpatient (CLI) | payer MEDICARE, SELFPAY | END | disposition home or self-care (01) | PROVIDERS: PCP Family Medicine; Referring Provider Family Medicine; Visit Provider Family Medicine | DX: Z00.00 Encounter for general adult medical examination without abnormal findings (principal) ==